=== PATIENT | male | born 1940 | race Caucasian/White ===

== ENCOUNTER 2016-11-24 03:46 | Outpatient (CLI) | payer MEDICARE | END 2016-11-24 03:47 | disposition critical access hospital (66) | LOC: EMS 03:46 | PROVIDERS: ATTEND Surgery | DX: R10.31 Right lower quadrant pain (principal); R11.0 Nausea | CPT/HCPCS: A0425; A0429 ==

== ENCOUNTER 2016-11-24 04:06 | Emergency (ER) | payer MEDICARE ==
[2016-11-24] MEDS ORDERED: SODIUM CHLORIDE 0.9% 1,000 ML IV ONE (04:12)
[2016-11-24] MEDS ORDERED: ACETAMINOPHEN 325 MG TABLET PO STA (04:14)
[2016-11-24] MEDS ORDERED: ONDANSETRON 4 MG/2 ML VIAL IVP STA ×2 (04:14→06:41)
--- NOTE | 2016-11-24 04:19 | ED Physician Documentation ---
PD HPI ABD PAIN - Stated complaint Stated Complaint: ABD PX - Chief complaint Chief Complaint: Abd Pain - History obtained from History obtained from: Patient, EMS - History of Present Illness Timing - onset: How many days ago (3) Timing - details: Gradual onset, Waxing and waning Quality: Cramping, Sharp Location: RLQ Associated symptoms: Nausea. No: Fever, Vomiting, Hematemesis, Diarrhea, Constipation, Dysuria, Hematuria Similar symptoms before: Work up / diagnostics, Treatment, Follow up Recently seen: Not recently seen - Additional information Additional information: Patient is a 75 year old male with a history of a partial bowel resection and a colostomy in place who is presenting to the emergency department for abdominal pain. patient states that the pain has been going on for the last three days. patient states that he did not take anything for the pain. Patient denies any aggravating or alleviating factors and that his colostomy has been filling normally. Patient complains of mild nausea but no vomiting. Patient states that his appendix has been removed but that he has had a liver abscess in the past. Review of Systems Constitutional: denies: Fever, Chills Eyes: denies: Loss of vision, Photophobia Ears: denies: Ear pain, Drainage/discharge Nose: denies: Rhinorrhea / runny nose, Congestion Throat: denies: Dental pain / toothache Respiratory: denies: Cough GI: reports: Abdominal Pain, Nausea. denies: Abdominal Swelling, Vomiting, Constipation, Diarrhea : reports: Incontinent. denies: Dysuria, Frequency, Hesitancy Skin: denies: Rash, Lesions Musculoskeletal: denies: Neck pain, Back pain, Extremity pain Neurologic: denies: Generalized weakness, Focal weakness, Numbness Immunocompromised: denies: Immunocompromised PD PAST MEDICAL HISTORY - Past Medical History Cardiovascular: Hypertension Respiratory: None Neuro: TIA Endocrine/Autoimmune: Type 2 diabetes GI: Other : Nocturia HEENT: Chronic vision loss Psych: None Musculoskeletal: None Derm: None, Other - Past Surgical History Past Surgical History: Yes General: Appendectomy, Bowel surgery, Colonoscopy, Other Cardiovascular: AAA HEENT: Cataracts - Present Medications Home Medications: Ambulatory Orders Medication Instructions Recorded Confirmed Atorvastatin Calcium [Lipitor] 20 mg PO QPM 11/11/12 11/24/16 Doxazosin [Cardura] 8 mg PO BID 08/04/13 11/24/16 Losartan [Cozaar] 50 mg PO HS 08/04/13 11/24/16 Atenolol 100 mg PO BID 04/05/14 11/24/16 Aspirin [Adult Low Dose Aspirin EC] 81 mg PO DAILY 08/09/15 11/24/16 Epinephrine [Epipen 2-Eyal] 1 amp INJ ONCE PRN 08/09/15 11/24/16 traZODone [Desyrel] 50 mg PO QPM 08/09/15 11/24/16 Acetaminophen 1 - 2 tab PO Q6HR PRN 08/18/15 11/24/16 metFORMIN [Glucophage] 500 tab PO BID 05/29/16 11/24/16 Ondansetron Odt [Zofran] 4 mg TL Q6H PRN #14 tablet 11/24/16 - Allergies Allergies/Adverse Reactions: Allergies Allergy/AdvReac Type Severity Reaction Status Date / Time Calcium Channel Blocking Allergy Unknown UNKOWN Verified 11/24/16 04:12 Agent Dilt [Calcium Channel Blocking Agents-Curly] codeine [Codeine] Allergy vomiting Verified 11/24/16 04:12 Penicillins Allergy unknown Verified 11/24/16 04:12 venom-honey bee Allergy anaphylaxis Verified 11/24/16 04:12 [bee venom (honey bee)] - Social History Does the pt smoke?: No Smoking Status: Former smoker Does the pt drink ETOH?: No Does the pt have substance abuse?: No - Immunizations Immunizations are current?: Yes - POLST Patient has POLST: Yes POLST Status: Full Code PD ED PE NORMAL - Vitals Vital signs reviewed: Yes - General General: Alert and oriented X 3, No acute distress - HEENT HEENT: Atraumatic, PERRL - Neck Neck: Supple, no meningeal sign - Cardiac Cardiac: RRR, No murmur - Respiratory Respiratory: No respiratory distress, Clear bilaterally - Abdomen Abdomen: Soft, Non distended - Derm Derm: Normal color, Warm and dry, No rash - Extremities Extremities: Normal ROM s pain, No edema - Neuro Neuro: Alert and oriented X 3, No motor deficit, No sensory deficit, Normal speech - Psych Psych: Normal mood, Normal affect PD ED PE EXPANDED - Abdomen Abdomen: Tender to palpation, RLQ, Surgical scars, Other (midline incisional scars with colostomy in place, abdomen is soft non disteneded) Results - Vitals Vitals: Vital Signs - 24 hr 11/24/16 11/24/16 11/24/16 04:07 05:12 06:17 Temperature 37.9 C H 38.1 C H Heart Rate 77 85 88 Respiratory 16 16 16 Rate Blood Pressure 195/77 H 167/76 H 155/72 H O2 Saturation 96 95 93 Oxygen O2 Source [With Activity] Nasal cannula O2 Source [Without Activity] Nasal cannula O2 Source Room air - Labs Labs: Laboratory Tests 11/24/16 11/24/16 11/24/16 04:20 05:00 05:00 WBC 7.2 RBC 4.30 L Hgb 12.3 L Hct 37.5 L MCV 87.1 MCH 28.5 MCHC 32.7 RDW 15.9 H Plt Count 133 MPV 7.8 Neut # 6.1 Lymph # 0.4 L [place] # 0.3 Eos # 0.3 Baso # 0.0 Absolute Nucleated RBC 0.00 Nucleated RBCs 0.0 Sodium 139 Potassium 3.1 L Chloride 105 Carbon Dioxide 28 Anion Gap 6.0 BUN 15 Creatinine 1.0 Estimated GFR (MDRD) 72 L Glucose 138 H Calcium 7.9 L Total Bilirubin 2.7 H AST 233 H ALT 129 H Alkaline Phosphatase 319 H Total Protein 5.5 L Albumin 3.1 L Globulin 2.4 Albumin/Globulin Ratio 1.3 Lipase 189 H Urine Color YELLOW Urine Clarity CLEAR Urine pH 7.5 Ur Specific [place] 1.020 Urine Protein 30 H Urine Glucose (UA) NEGATIVE Urine Ketones NEGATIVE Urine Occult Blood TRACE-INTA Urine Nitrite NEGATIVE Urine Bilirubin NEGATIVE Urine Urobilinogen 0.2 (NORMAL) Ur Leukocyte Esterase NEGATIVE Urine RBC 0-5 Urine WBC 0-3 Ur Squamous Epith Cells NONE SEEN Urine Bacteria None Seen Ur Microscopic Review INDICATED Urine Culture Comments NOT INDICATED - Rads (name of study) ct abd pelvis Radiology: Final report received, See rad report (no acute changes) PD MEDICAL DECISION MAKING - ED course Complexity details: reviewed old records, reviewed results, re-evaluated patient , d/w patient ED course: Patient was seen and examined at bedside. IV access was gained and labs were drawn. patient was treated with fluids, zofran and tylenol. When patient's labs came back there were no major abnormalities. Imaging was ordered. When patient returne dfrom imagin he was treated with an additional dose of zofran. Pateint's CT showed no acute abnormalities. Patient required no further work up at this time and patient was stable for discharge with outpatient follow up. Departure - Departure Disposition: 01 Home, Self Care Clinical Impression: Abdominal pain Condition: Good Instructions: ED Abdominal Pain Unkn Cause Follow-Up: primary,care provider [Other] - Within 3 Days (re-evaluate abdominal pain ) Prescriptions: Ondansetron Odt [Zofran] 4 mg TL Q6H PRN #14 tablet PRN Reason: Nausea / Vomiting Comments: Your diagnostics today were within normal limits. You did have a low grade fever so you might have picked up a virus. Make sure you stay well hydrated with water and electrolyte solutions. You can take zofran for nausea and motrin or tylenol as needed for fevers or pains. You should follow up with your doctor early next week if your symptoms persist. You may return to the emergency department at any time for new, worsening or uncontrollable symptoms.
[2016-11-24] MEDS ORDERED: ONDANSETRON 4 MG/2 ML VIAL ONE ×2 (04:20→06:41)
[2016-11-24] MEDS ORDERED: ACETAMINOPHEN 325 MG TABLET PO ONE (04:20)
[2016-11-24 04:36] LABS: BASOPHILS % (AUTO) 0.5 %; EOSINOPHILS # (AUTO) 0.3 10^3/uL (0.0-0.7); EOSINOPHILS % (AUTO) 3.9 %; HCT - HEMATOCRIT 37.5 % (42.0-52.0); HGB - HEMOGLOBIN 12.3 g/dL (14.0-18.0); LYMPHOCYTES # (AUTO) 0.4 10^3/uL (1.5-3.5); LYMPHOCYTES % (AUTO) 5.9 %; MEAN CORPUSCULAR HEMOGLOBIN 28.5 pg (27.0-31.0); MEAN CORPUSCULAR HGB CONC 32.7 g/dL (32.0-36.0); MEAN CORPUSCULAR VOLUME 87.1 fL (80.0-94.0); MEAN PLATELET VOLUME 7.8 fL (7.4-11.4); MONOCYTES # (AUTO) 0.3 10^3/uL (0.0-1.0); MONOCYTES % (AUTO) 4.9 %; NEUTROPHILS # (AUTO) 6.1 10^3/uL (1.5-6.6); NEUTROPHILS % (AUTO) 84.8 %; RED CELL DISTRIBUTION WIDTH 15.9 % (12.0-15.0); UNCORRECTED WHITE BLOOD COUNT 7.2 x10^3/uL; WHITE BLOOD COUNT 7.2 x10^3/uL (4.8-10.8)
[2016-11-24 05:08] LABS: BILIRUBIN,URINE NEGATIVE (NEGATIVE); PH,URINE 7.5 PH (5.0-7.5)
[2016-11-24 05:16] LABS: UA w/ MICROSCOPIC CHARGE YES; UR CULTURE IF IND NOT INDICATED; WBC,URINE 0-3 /HPF (0-3)
[2016-11-24 05:18] LABS: ALBUMIN/GLOBULIN RATIO 1.3 (1.0-2.2); BILIRUBIN,TOTAL 2.7 mg/dL (0.2-1.0); CALCIUM 7.9 mg/dL (8.5-10.3); POTASSIUM 3.1 mmol/L (3.5-5.0); TOTAL PROTEIN 5.5 g/dL (6.7-8.2)
[2016-11-24] MEDS ORDERED: IOPAMIDOL-300 100 ML VIAL IVP ONE (06:11)
[2016-11-24 06:18] VITALS: BP 155/72
--- NOTE | 2016-11-24 06:40 | CT Preliminary Report ---
Exam: CT Abdomen/Pelvis W/ IMPRESSION: 1. No acute inflammatory or obstructive process seen in the abdomen or pelvis. 2. Postoperative changes with left lower quadrant colostomy and prostatectomy. 3. Suspect fatty liver. Mild splenomegaly. 4. Cardiomegaly and coronary artery calcifications with trace pericardial effusion. [facility] SITE ID: [id number]
--- NOTE | 2016-11-24 06:42 | CT Report ---
EXAM: CT ABDOMEN AND PELVIS EXAM DATE: 11/24/2016 06:19 AM. CLINICAL HISTORY: Abdominal pain. Colostomy. COMPARISONS: 08/13/2015. TECHNIQUE: Routine helical CT imaging was performed through the abdomen and pelvis. IV contrast: Mari onic. Enteric contrast: No. Reconstructions: Coronal and sagittal. In accordance with CT protocol optimization, one or more of the following dose reduction techniques w ere utilized for this exam: automated exposure control, adjustment of mA and/or KV based on patient s ize, or use of iterative reconstructive technique. FINDINGS: Lung Bases: Right lower lobe bulla. Bibasilar atelectasis. Calcified pleural plaquing. Cardiomegaly. Coronary artery calcifications. Trace pericardial effusion. Liver: No focal lesion identified. Possible fatty infiltration. Gallbladder/Bile Ducts: Status post cholecystectomy. Spleen: Enlarged at 13.5 cm. Calcified granulomas. Pancreas: Normal. Adrenal Glands: Normal. Kidneys: Right kidney is somewhat atrophic. Bilateral cysts. Peritoneal Cavity/Bowel: Left lower quadrant colostomy. No bowel obstruction seen. No diverticulitis. No free air or free fluid. No lymphadenopathy. Appendix is not seen. Pelvic Organs: Status post prostatectomy. Visualized pelvic organs are otherwise unremarkable. Vasculature: Severe atherosclerosis. 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 Bones: Degenerative changes in the spine. Other: None. IMPRESSION: 1. No acute inflammatory or obstructive process seen in the abdomen or pelvis. 2. Postoperative changes with left lower quadrant colostomy and prostatectomy. 3. Suspect fatty liver. Mild splenomegaly. 4. Cardiomegaly and coronary artery calcifications with trace pericardial effusion. [facility] Referring Provider Line: [phone] SITE ID: [id number]
== END 2016-11-24 06:56 | disposition home or self-care (01) ==
LOC: EDUNIT# → EDBD → ED 04:06
DX: R10.31 Right lower quadrant pain (principal); Z93.3 Colostomy status; I10 Essential (primary) hypertension; Z86.73 Personal history of transient ischemic attack (TIA), and cerebral infarction without residual deficits; E11.9 Type 2 diabetes mellitus without complications; Z79.84 Long term (current) use of oral hypoglycemic drugs; Z79.82 Long term (current) use of aspirin; Z87.891 Personal history of nicotine dependence
CPT/HCPCS: 36415; 74177; 80053; 81001; 83690; 85025; 96374; 96376; 99284; A9270; Q9967; 81003; 87086

== ENCOUNTER 2017-01-23 03:21 | Emergency (ER) | payer MEDICARE ==
[2017-01-23] MEDS ORDERED: MORPHINE 2 MG/ML SYRINGE IVP STA ×3 (04:00→08:03)
[2017-01-23] MEDS ORDERED: ONDANSETRON 4 MG/2 ML VIAL IVP STA (04:00)
[2017-01-23] MEDS ORDERED: SODIUM CHLORIDE 0.9% 1,000 ML IV ONE ×3 (04:00→08:04)
[2017-01-23] MEDS ORDERED: ACETAMINOPHEN 1,000 MG/100 ML 100 ML IV STA (04:00)
[2017-01-23] MEDS ORDERED: ACETAMINOPHEN 1,000 MG/100 ML 100 ML IV ONE (04:04)
[2017-01-23] MEDS ORDERED: MORPHINE 2 MG/ML SYRINGE ONE ×3 (04:07→08:13)
[2017-01-23] MEDS ORDERED: ONDANSETRON 4 MG/2 ML VIAL ONE (04:08)
--- NOTE | 2017-01-23 04:12 | ED Physician Documentation ---
History of Present Illness - Stated complaint Stated Complaint: ABDOMINAL PAIN,SHAKEY - Chief complaint Chief Complaint: Abd Pain - History obtained from History obtained from: Patient - Additonal information Additional information: This patient is a 76-year-old man who presents with a complaint of abdominal pain and low back pain. He is comes for 2 days of abdominal pain. He has 2 components he has had discomfort for 2 days. He has pain both in the epigastric area and also pain in the lower back bilaterally. He believes that the back pain is a little worse in the abdominal pain. Nothing really makes it come or go. He has had nausea without vomiting during this period of time and has had chills and generalized weakness as well as decreased appetite and p.o. intake. He has not had any cough or any significant ear nose and throat symptoms. He was unaware that he had a fever. This patient does have a history of a large bowel obstruction status post colostomy for stricture. He has a history of diverticulitis and has had a cholecystectomy and AAA repair 11 years ago. He also believes his appendix has been removed. He has hypertension atrial fibrillation and diabetes. He lives at home and ambulates normally. Review of systems: For pertinent positive and negatives in the review of systems please see history of present illness. Otherwise all other systems have been reviewed and are negative. Dragon disclaimer: Parts of this medical record were created using voice recognition technology. Because of the inherent limitations of this system occasional same sounding word substitutions do occur and persist despite proofreading. Please read the document for context. Review of Systems Ten Systems: 10 systems reviewed and negative Constitutional: reports: Fever, Chills, Myalgias Eyes: denies: Loss of vision, Decreased vision, Photophobia Ears: denies: Loss of hearing, Ear pain, Drainage/discharge Nose: denies: Foreign Body Cardiac: denies: Chest pain / pressure, Palpitations Respiratory: denies: Dyspnea, Cough GI: reports: Abdominal Pain, Nausea. denies: Abdominal Swelling, Vomiting, Constipation, Diarrhea, Hematemesis, Bloody / black stool : denies: Dysuria, Frequency, Hesitancy, Unable to Void, Incontinent, Hematuria, Discharge Neurologic: reports: Generalized weakness. denies: Difficulty speaking, Confused, Altered mental status Psychiatric: denies: Depressed, Suicidal, Homicidal PD PAST MEDICAL HISTORY - Past Medical History Past Medical History: Yes Cardiovascular: Hypertension Respiratory: None Neuro: TIA Endocrine/Autoimmune: Type 2 diabetes GI: Other : Nocturia HEENT: Chronic vision loss Psych: None Musculoskeletal: None Derm: None, Other Other Past Medical History: SBO - Past Surgical History Past Surgical History: Yes General: Appendectomy, Bowel surgery, Colonoscopy, Other Cardiovascular: AAA HEENT: Cataracts - Present Medications Home Medications: Ambulatory Orders Medication Instructions Recorded Confirmed Atorvastatin Calcium [Lipitor] 20 mg PO QPM 11/11/12 01/23/17 Doxazosin [Cardura] 16 mg PO BID 08/04/13 01/23/17 Losartan [Cozaar] 50 mg PO HS 08/04/13 01/23/17 Atenolol 100 mg PO BID 04/05/14 01/23/17 Aspirin [Adult Low Dose Aspirin EC] 81 mg PO DAILY 08/09/15 01/23/17 Epinephrine [Epipen 2-Eyal] 1 amp INJ ONCE PRN 08/09/15 01/23/17 traZODone [Desyrel] 50 mg PO QPM 08/09/15 01/23/17 Acetaminophen 1 - 2 tab PO Q6HR PRN 08/18/15 01/23/17 metFORMIN [Glucophage] 500 tab PO BID 05/29/16 01/23/17 Ondansetron Odt [Zofran] 4 mg TL Q6H PRN #14 tablet 11/24/16 01/23/17 - Allergies Allergies/Adverse Reactions: Allergies Allergy/AdvReac Type Severity Reaction Status Date / Time Calcium Channel Blocking Allergy Unknown UNKOWN Verified 01/23/17 03:38 Agent Dilt [Calcium Channel Blocking Agents-Curly] codeine [Codeine] Allergy vomiting Verified 01/23/17 03:38 Penicillins Allergy unknown Verified 01/23/17 03:38 venom-honey bee Allergy anaphylaxis Verified 01/23/17 03:38 [bee venom (honey bee)] - Social History Does the pt smoke?: No Smoking Status: Former smoker Does the pt drink ETOH?: No Does the pt have substance abuse?: No - Immunizations Immunizations are current?: Yes - POLST Patient has POLST: Yes POLST Status: Full Code PD ED PE NORMAL - Vitals Vital signs reviewed: Yes - General General: Alert and oriented X 3, No acute distress, Other - HEENT HEENT: Atraumatic (Thin elderly man who is awake and alert and oriented and answers questions appropriately. He is palpably very warm to touch and his oral mucosa looks very dry), PERRL - Neck Neck: Supple, no meningeal sign, No bony TTP, No adenopathy - Cardiac Cardiac: RRR, No murmur, No gallop, No rub - Respiratory Respiratory: No respiratory distress, Clear bilaterally - Abdomen Abdomen: Normal bowel sounds, Soft, Other (Minimal tenderness in the epigastric area) - Back Back: Other (Patient has low back pain diffusely in area just be just above his iliac crest bilaterally. There is no pain or tenderness near the spine. There is no costovertebral angle tenderness on percussion) - Derm Derm: Normal color, Other (Skin is warm to touch) - Extremities Extremities: No deformity, No tenderness to palpate, Normal ROM s pain, No edema - Neuro Neuro: Alert and oriented X 3, j2ee developer 2-12 intact - Psych Psych: Normal mood, Normal affect Results - Vitals Vitals: Vital Signs - 24 hr 01/23/17 01/23/17 01/23/17 03:32 03:40 05:21 Temperature 38.8 C H 37.5 C Heart Rate 88 72 Respiratory 18 19 Rate Blood Pressure 179/87 H 132/63 H O2 Saturation 95 97 Oxygen O2 Source [With Activity] Nasal cannula O2 Source [Without Activity] Nasal cannula O2 Source Nasal cannula - Labs Labs: Laboratory Tests 01/23/17 01/23/17 01/23/17 03:55 03:55 03:55 WBC 7.2 RBC 4.47 L Hgb 12.9 L Hct 39.1 L MCV 87.4 MCH 28.9 MCHC 33.1 RDW 15.0 Plt Count 104 L MPV 7.8 Neut # 6.5 Lymph # 0.3 L [place] # 0.2 Eos # 0.1 Baso # 0.1 Absolute Nucleated RBC 0.00 Nucleated RBCs 0.0 PT 15.8 H INR 1.4 H Sodium 135 Potassium 3.4 L Chloride 98 L Carbon Dioxide 24 Anion Gap 13.0 BUN 19 Creatinine 1.5 H Estimated GFR (MDRD) 45 L Glucose 189 H Lactic Acid Calcium 8.6 Total Bilirubin 3.4 H AST 105 H ALT 56 Alkaline Phosphatase 242 H Troponin I Total Protein 6.6 L Albumin 3.4 Globulin 3.2 Albumin/Globulin Ratio 1.1 Lipase 15 L Urine Color Urine Clarity Urine pH Ur Specific [place] Urine Protein Urine Glucose (UA) Urine Ketones Urine Occult Blood Urine Nitrite Urine Bilirubin Urine Urobilinogen Ur Leukocyte Esterase Urine RBC Urine WBC Ur Squamous Epith Cells Urine Bacteria Urine Casts Urine Mucus Ur Microscopic Review Urine Culture Comments 01/23/17 01/23/17 01/23/17 03:55 04:24 04:37 WBC RBC Hgb Hct MCV MCH MCHC RDW Plt Count MPV Neut # Lymph # [place] # Eos # Baso # Absolute Nucleated RBC Nucleated RBCs PT INR Sodium Potassium Chloride Carbon Dioxide Anion Gap BUN Creatinine Estimated GFR (MDRD) Glucose Lactic Acid 1.8 Calcium Total Bilirubin AST ALT Alkaline Phosphatase Troponin I < 0.04 Total Protein Albumin Globulin Albumin/Globulin Ratio Lipase Urine Color ORANGE Urine Clarity CLEAR Urine pH 5.5 Ur Specific [place] >=1.030 H Urine Protein 100 H Urine Glucose (UA) NEGATIVE Urine Ketones TRACE Urine Occult Blood TRACE-INTA Urine Nitrite NEGATIVE Urine Bilirubin NEGATIVE Urine Urobilinogen 1 (NORMAL) Ur Leukocyte Esterase NEGATIVE Urine RBC 0-5 Urine WBC 0-3 Ur Squamous Epith Cells NONE SEEN Urine Bacteria None Seen Urine Casts 3-5 Hyaline Casts Urine Mucus Few Strands Ur Microscopic Review INDICATED Urine Culture Comments NOT INDICATED PD MEDICAL DECISION MAKING - ED course Complexity details: reviewed old records, reviewed results, re-evaluated patient , considered differential, d/w patient ED course: Patient is a pleasant 76-year-old man who presents with a 2 day history of abdominal pain, nausea and epigastric abdominal pain, nausea, and low back pain. On presentation is found to be febrile here with a temperature of 102. IV line was started he was given IV hydration, IV Tylenol and had blood cultures and a serum lactate is obtained. The serum lactate is normal. The patient's CBC is also normal. He does have elevation of his bilirubin and alkaline phosphatase. A noncontrast CT scan of his abdomen and pelvis was done which demonstrates a 10 mm distal common bile duct stone with evidence of some obstruction. 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 Given the patient's abdominal pain, fever, obstruction on CT scan and elevated bilirubin and alk phos I think this patient could have early cholangitis. He was fluid resuscitated with 1 L of normal saline and will get another liter. He was started on cefazolin because he is penicillin allergic. The physician at [facility] was contacted and are attempting to get a bed at [facility] where the patient has been several times before was recently for revision of his colostomy. Clinical impression: 1. Right upper quadrant pain, fever, elevated bilirubin with a obstruction of the common bile duct on CT scan, possibly concerning for early cholangitis. Departure - Departure Disposition: 02 Transfer Acute Care Hosp
[2017-01-23 04:26] LABS: BASOPHILS # (AUTO) 0.1 10^3/uL (0.0-0.1); BASOPHILS % (AUTO) 0.9 %; EOSINOPHILS # (AUTO) 0.1 10^3/uL (0.0-0.7); EOSINOPHILS % (AUTO) 1.8 %; HCT - HEMATOCRIT 39.1 % (42.0-52.0); HGB - HEMOGLOBIN 12.9 g/dL (14.0-18.0); LYMPHOCYTES # (AUTO) 0.3 10^3/uL (1.5-3.5); MEAN CORPUSCULAR HEMOGLOBIN 28.9 pg (27.0-31.0); MEAN CORPUSCULAR HGB CONC 33.1 g/dL (32.0-36.0); MEAN CORPUSCULAR VOLUME 87.4 fL (80.0-94.0); MEAN PLATELET VOLUME 7.8 fL (7.4-11.4); MONOCYTES # (AUTO) 0.2 10^3/uL (0.0-1.0); MONOCYTES % (AUTO) 3.1 %; NEUTROPHILS # (AUTO) 6.5 10^3/uL (1.5-6.6); NEUTROPHILS % (AUTO) 90.2 %; RED BLOOD COUNT 4.47 10^6/uL (4.70-6.10); UNCORRECTED WHITE BLOOD COUNT 7.2 x10^3/uL; WHITE BLOOD COUNT 7.2 x10^3/uL (4.8-10.8)
[2017-01-23 04:28] LABS: ALBUMIN/GLOBULIN RATIO 1.1 (1.0-2.2); BILIRUBIN,TOTAL 3.4 mg/dL (0.2-1.0); CALCIUM 8.6 mg/dL (8.5-10.3); CREATININE 1.5 mg/dL (0.6-1.2); POTASSIUM 3.4 mmol/L (3.5-5.0); TOTAL PROTEIN 6.6 g/dL (6.7-8.2)
[2017-01-23 04:30] LABS: INR 1.4 (0.8-1.2); PT - PROTHROMBIN TIME 15.8 secs (9.9-12.6)
--- NOTE | 2017-01-23 04:45 | XRAY Preliminary Report ---
Exam: XR Chest 1 View IMPRESSION: 1. No plain film evidence of pneumonia. 2. Mild cardiomegaly without overt heart failure. [facility] SITE ID: [id number]
--- NOTE | 2017-01-23 04:48 | XRAY Report ---
EXAM: CHEST RADIOGRAPHY EXAM DATE: 01/23/2017 04:22 AM. CLINICAL HISTORY: Fever. COMPARISON: 04/25/2014, CT 04/23/2014. TECHNIQUE: 1 view. FINDINGS: Lungs/Pleura: No focal pneumonia or edema evident. No gross pneumothorax or pleural effusion. Mediastinum: Mild cardiomegaly. Tortuous aortic contour. Other: None. IMPRESSION: 1. No plain film evidence of pneumonia. 2. Mild cardiomegaly without overt heart failure. [facility] Referring Provider Line: [phone] SITE ID: [id number]
[2017-01-23 04:57] LABS: PH,URINE 5.5 PH (5.0-7.5)
[2017-01-23 05:02] LABS: BILIRUBIN,URINE NEGATIVE (NEGATIVE); UA w/ MICROSCOPIC CHARGE YES
[2017-01-23 05:27] LABS: UR CULTURE IF IND NOT INDICATED; WBC,URINE 0-3 /HPF (0-3)
--- NOTE | 2017-01-23 05:35 | CT Report ---
EXAM: CT ABDOMEN AND PELVIS (CT KUB) EXAM DATE: 01/23/2017 05:08 AM. CLINICAL HISTORY: Epigastric and LBP, fever, Chronic kidney diease. COMPARISONS: 11/24/2016, 08/13/2015. TECHNIQUE: Routine axial helical CT imaging was performed through the abdomen and pelvis without IV c ontrast. Reconstructions: Coronal and sagittal. In accordance with CT protocol optimization, one or more of the following dose reduction techniques w ere utilized for this exam: automated exposure control, adjustment of mA and/or KV based on patient s ize, or use of iterative reconstructive technique. FINDINGS: Lung Bases: Cystic emphysematous changes in the right lower lobe. Mild bilateral atelectasis/scarring . Gas and debris filled the distal esophagus. Calcified right lower lobe pleural plaque. Right Kidney/Ureter: Mildly atrophic. No stones, hydronephrosis, or hydroureter. Left Kidney/Ureter: No stones, hydronephrosis, or hydroureter. Small cysts. Other Solid Organs: Noncontrast images of the solid organs are grossly unremarkable with note of calc ified granulomas in the spleen. Gallbladder/Bile Ducts: Post colostomy. Distal common bile duct stone measuring 10 x 7 mm on axial im age 37 causes mild to moderate proximal obstruction with main duct measuring up to 17 mm. Peritoneal Cavity: Left lower quadrant ostomy appears unremarkable. No gross bowel obstruction or inf lammatory process seen. No free air or fluid. Pelvic Organs: Post prostatectomy. Urinary bladder appears grossly unremarkable. No bulky adenopathy seen. Vasculature: Severe atherosclerotic disease of the aorta and branches. Previous post-aortic stent gra fting. Stable right common iliac artery aneurysm measuring up to 33 mm in maximum diameter Other: None. IMPRESSION: 1. No urinary tract stones or obstruction. 2. At least mildly obstructing 10 mm distal common bile duct stone. Consider ERCP. 3. Post cholecystectomy, aortic surgery, left lower quadrant ostomy formation, and prostatectomy. 4. Slowly enlarging 33 mm right common iliac artery aneurysm. 5. Mild cardiomegaly and coronary calcifications. 6. Mild right renal atrophy. [facility] Referring Provider Line: [phone] SITE ID: [id number]
[2017-01-23] MEDS ORDERED: ceFAZolin 2 GM/50 ML 50 ML IV ONE ×2 (06:02→06:14)
--- NOTE | 2017-01-23 08:08 | ED Physician Documentation ---
ED Addendum - Addendum Addendum: 01/23/17 08:07 assumed care from night EMP at 730 AM, pt with cholangitis, has been txed with antibiotics, pending EMS arrival to transport to [facility], ordered more morphine as needed and maintenance fluids 01/23/17 10:03 spoke to [facility] transfer coordinating and am advised accepting is Dr Santana , I do not need to contact him/her directly as all info has been relayed, [facility] is arranging transport
[2017-01-23 11:17] VITALS: BP 184/74
== END 2017-01-23 11:54 | disposition short-term general hospital (02) ==
LOC: ED 03:21
DX: R10.11 Right upper quadrant pain (principal); R50.9 Fever, unspecified; E80.7 Disorder of bilirubin metabolism, unspecified; R74.8 Abnormal levels of other serum enzymes; I45.81 Long QT syndrome; I10 Essential (primary) hypertension; E11.8 Type 2 diabetes mellitus with unspecified complications; Z79.84 Long term (current) use of oral hypoglycemic drugs; Z86.73 Personal history of transient ischemic attack (TIA), and cerebral infarction without residual deficits; Z79.82 Long term (current) use of aspirin; Z87.891 Personal history of nicotine dependence
CPT/HCPCS: 36415; 71010; 74176; 80053; 81001; 83605; 83690; 84484; 85025; 85610; 87040; 93005; 96361; 96365; 96375; 96376; 99284; 99285; J0131; J0690; 81003; 87086

== ENCOUNTER 2017-06-03 14:54 | Emergency (ER) | payer MEDICARE ==
[2017-06-03] MEDS ORDERED: ALBUTEROL NEB 2.5 MG/3 ML INH STA (15:04)
--- NOTE | 2017-06-03 15:04 | ED Physician Documentation ---
PD HPI DYSPNEA - Stated complaint Stated Complaint: SOA - History obtained from History obtained from: Patient - History of Present Illness Timing - onset: Other (He has had 1 day of nasal congestion and pressure associated with a dry throat and a dry cough with shortness of breath with exertion but not at rest. No chest pain or pedal edema.) Review of Systems Constitutional: denies: Fever, Chills Nose: reports: Rhinorrhea / runny nose, Congestion, Sinus pressure / pain Throat: reports: Sore throat Cardiac: denies: Chest pain / pressure, Palpitations, Pedal edema PD PAST MEDICAL HISTORY - Past Medical History Cardiovascular: Hypertension Respiratory: None Neuro: TIA Endocrine/Autoimmune: Type 2 diabetes GI: Other : Nocturia HEENT: Chronic vision loss Psych: None Musculoskeletal: None Derm: None, Other - Past Surgical History Past Surgical History: Yes General: Appendectomy, Bowel surgery, Colonoscopy, Other Cardiovascular: AAA HEENT: Cataracts - Present Medications Home Medications: Ambulatory Orders Medication Instructions Recorded Confirmed Atorvastatin Calcium [Lipitor] 20 mg PO QPM 11/11/12 06/03/17 Doxazosin [Cardura] 16 mg PO BID 08/04/13 06/03/17 Losartan [Cozaar] 50 mg PO HS 08/04/13 06/03/17 Atenolol 100 mg PO BID 04/05/14 06/03/17 Aspirin [Adult Low Dose Aspirin EC] 81 mg PO DAILY 08/09/15 06/03/17 Epinephrine [Epipen 2-Eyal] 1 amp INJ ONCE PRN 08/09/15 06/03/17 traZODone [Desyrel] 50 mg PO QPM 08/09/15 06/03/17 Acetaminophen 1 - 2 tab PO Q6HR PRN 08/18/15 06/03/17 metFORMIN [Glucophage] 500 tab PO BID 05/29/16 06/03/17 Albuterol Sulfate [Proventil Hfa 1 - 2 puffs IH Q4H PRN #1 06/03/17 Inhaler] hfa.[email or web address] Doxycycline Hyclate 100 mg PO BID #14 tablet 06/03/17 - Allergies Allergies/Adverse Reactions: Allergies Allergy/AdvReac Type Severity Reaction Status Date / Time Calcium Channel Blocking Allergy Unknown UNKOWN Verified 01/23/17 03:38 Agent Dilt [Calcium Channel Blocking Agents-Curly] codeine [Codeine] Allergy vomiting Verified 01/23/17 03:38 Penicillins Allergy unknown Verified 01/23/17 03:38 venom-honey bee Allergy anaphylaxis Verified 01/23/17 03:38 [bee venom (honey bee)] - Social History Does the pt smoke?: No Smoking Status: Former smoker Does the pt drink ETOH?: No Does the pt have substance abuse?: No - Immunizations Immunizations are current?: Yes - POLST Patient has POLST: Yes POLST Status: Full Code PD ED PE NORMAL - Vitals Vital signs reviewed: Yes - General General: Alert and oriented X 3, No acute distress - HEENT HEENT: Ears normal, Moist mucous membranes, Pharynx benign (Status post tonsillectomy) - Neck Neck: Supple, no meningeal sign, No bony TTP - Cardiac Cardiac: RRR, No murmur - Respiratory Respiratory: No respiratory distress, Other (Mild expiratory wheezes, slightly diminished) - Abdomen Abdomen: Non tender - Extremities Extremities: No edema, No calf tenderness / cord - Neuro Neuro: Alert and oriented X 3, Normal speech - Psych Psych: Normal mood, Normal affect Results - Vitals Vitals: Vital Signs - 24 hr 06/03/17 06/03/17 14:59 15:17 Temperature 36.5 C Heart Rate 80 96 Respiratory 20 14 Rate Blood Pressure 160/108 H O2 Saturation 100 Oxygen O2 Source [With Activity] Nasal cannula O2 Source [Without Activity] Nasal cannula O2 Source Room air - Rads (name of study) 2v chest Radiology: EMP read contemporaneously (Underlying COPD without acute disease) PD MEDICAL DECISION MAKING - ED course ED course: 76-year-old gentleman presents with dyspnea in the setting of viral URI symptoms , he is wheezy on examination and x-ray demonstrates underlying COPD and this is consistent with an exacerbation. Steroids are held given underlying diabetes. He is not in extremis, vital signs are unremarkable albeit for hypertension. Departure - Departure Disposition: 01 Home, Self Care Clinical Impression: Mild chronic obstructive pulmonary disease Condition: Good Record reviewed to determine appropriate education?: Yes Instructions: COPD Dc Prescriptions: Albuterol Sulfate [Proventil Hfa Inhaler] 1 - 2 puffs IH Q4H PRN #1 hfa.aer.ad PRN Reason: Cough Doxycycline Hyclate 100 mg PO BID #14 tablet Comments: Call your doctor to arrange a follow-up appointment, make the next available appointment. In the interim, return anytime if worse or if new symptoms develop. Your blood pressure was elevated today on check into the emergency department. This does not mean that you have hypertension, it is a common phenomenon to come to the emergency department and have elevated blood pressure. I recommend that you see your primary care physician within the week to have it rechecked when you are feeling better.
[2017-06-03] MEDS ORDERED: ALBUTEROL NEB 2.5 MG/3 ML INH ONE (15:19)
--- NOTE | 2017-06-03 15:28 | XRAY Preliminary Report ---
Exam: XR CHEST 2 VIEW PA/LAT IMPRESSION: No acute disease. [facility] SITE ID: [id number]
--- NOTE | 2017-06-03 15:31 | XRAY Report ---
EXAM: CHEST RADIOGRAPHY EXAM DATE: 06/03/2017 03:14 PM. CLINICAL HISTORY: Dyspnea cough. COMPARISON: 04/25/2014. TECHNIQUE: 2 views. FINDINGS: Lungs/Pleura: Hyperexpanded with flattened diaphragm typical for COPD. No localized infiltrate, conso lidation, effusion, or pneumothorax. Mediastinum: Mild cardiomegaly, probably unchanged. Tortuous and ectatic aorta. Upper lobe vessels no t distended. Other: Degenerative changes. IMPRESSION: No acute disease. [facility] Referring Provider Line: [phone] SITE ID: [id number]
[2017-06-03] MEDS ORDERED: DOXYCYCLINE 100 MG TABLET PO STA (15:37)
[2017-06-03] MEDS ORDERED: DOXYCYCLINE 100 MG TABLET PO ONE (15:49)
[2017-06-03 15:53] VITALS: BP 158/90
== END 2017-06-03 15:53 | disposition home or self-care (01) ==
LOC: ED 14:54
DX: I10 Essential (primary) hypertension (principal); E11.9 Type 2 diabetes mellitus without complications; Z79.84 Long term (current) use of oral hypoglycemic drugs; Z86.73 Personal history of transient ischemic attack (TIA), and cerebral infarction without residual deficits; Z79.82 Long term (current) use of aspirin; Z87.891 Personal history of nicotine dependence
CPT/HCPCS: 71020; 94664; 99283; A9270; J7613

== ENCOUNTER 2017-06-05 17:41 | Emergency (ER) | payer MEDICARE ==
--- NOTE | 2017-06-05 17:56 | ED Physician Documentation ---
PD HPI DYSPNEA - Stated complaint Stated Complaint: SOA - History obtained from History obtained from: Patient - History of Present Illness Timing - onset: Other (`He was seen here couple days ago for shortness of breath associated with productive cough, chest x-ray was negative except for findings of chronic COPD. He was placed on albuterol and doxycycline, steroids were held given underlying diabetes. He returns today, no better but no worse, still with a productive cough and shortness of breath, denies fevers.) Review of Systems Constitutional: denies: Fever, Chills Nose: denies: Rhinorrhea / runny nose, Congestion Cardiac: denies: Chest pain / pressure, Palpitations, Pedal edema, Calf pain Respiratory: reports: Dyspnea, Cough. denies: Hemoptysis, Wheezing PD PAST MEDICAL HISTORY - Past Medical History Cardiovascular: Hypertension Respiratory: None Neuro: TIA Endocrine/Autoimmune: Type 2 diabetes GI: Other : Nocturia HEENT: Chronic vision loss Psych: None Musculoskeletal: None Derm: None, Other - Past Surgical History Past Surgical History: Yes General: Appendectomy, Bowel surgery, Colonoscopy, Other Cardiovascular: AAA HEENT: Cataracts - Present Medications Home Medications: Ambulatory Orders Medication Instructions Recorded Confirmed Atorvastatin Calcium [Lipitor] 20 mg PO QPM 11/11/12 06/05/17 Doxazosin [Cardura] 16 mg PO BID 08/04/13 06/05/17 Losartan [Cozaar] 50 mg PO HS 08/04/13 06/05/17 Atenolol 100 mg PO BID 04/05/14 06/05/17 Aspirin [Adult Low Dose Aspirin EC] 81 mg PO DAILY 08/09/15 06/05/17 Epinephrine [Epipen 2-Eyal] 1 amp INJ ONCE PRN 08/09/15 06/05/17 traZODone [Desyrel] 50 mg PO QPM 08/09/15 06/05/17 Acetaminophen 1 - 2 tab PO Q6HR PRN 08/18/15 06/05/17 metFORMIN [Glucophage] 500 tab PO BID 05/29/16 06/05/17 Albuterol Sulfate [Proventil Hfa 1 - 2 puffs IH Q4H PRN #1 06/03/17 06/05/17 Inhaler] hfa.aer.ad Doxycycline Hyclate 100 mg PO BID #14 tablet 06/03/17 06/05/17 Beclomethasone 80 Mcg [Qvar 80] 1 puffs INH BID #1 inhaler 06/05/17 Isosorbide Mononitrate ER [Imdur] 30 mg PO DAILY #30 tablet 06/05/17 - Allergies Allergies/Adverse Reactions: Allergies Allergy/AdvReac Type Severity Reaction Status Date / Time Calcium Channel Blocking Allergy Unknown UNKOWN Verified 06/05/17 17:56 Agent Dilt [Calcium Channel Blocking Agents-Curly] codeine [Codeine] Allergy vomiting Verified 06/05/17 17:56 Penicillins Allergy unknown Verified 06/05/17 17:56 venom-honey bee Allergy anaphylaxis Verified 06/05/17 17:56 [bee venom (honey bee)] - Social History Does the pt smoke?: No Smoking Status: Former smoker Does the pt drink ETOH?: No Does the pt have substance abuse?: No - Immunizations Immunizations are current?: Yes - POLST Patient has POLST: Yes POLST Status: Full Code PD ED PE NORMAL - Vitals Vital signs reviewed: Yes - General General: Alert and oriented X 3, No acute distress - Neck Neck: Supple, no meningeal sign, No bony TTP - Cardiac Cardiac: RRR, No murmur - Respiratory Respiratory: No respiratory distress, Other (Slightly diminished throughout, no wheezing) - Abdomen Abdomen: Soft, Non tender - Extremities Extremities: No edema, No calf tenderness / cord - Neuro Neuro: Alert and oriented X 3, Normal speech Results - Vitals Vitals: Vital Signs - 24 hr 06/05/17 06/05/17 06/05/17 17:44 18:45 19:21 Temperature 36.9 C Heart Rate 80 80 72 Respiratory 24 18 20 Rate Blood Pressure 202/91 H 179/86 H O2 Saturation 97 98 Oxygen O2 Source [] Nasal cannula O2 Source [] Nasal cannula O2 Source Room air - EKG (time done) 1758 Rate: Rate (enter#) (71) Rhythm: NSR [place]: Normal QRS: LVH Ischemia: Non specific changes (repol from LVH) Compare to prior EKG: Unchanged from prior EKG (from 01/23/17) Computer interpretation: Agree with computer - Labs Labs: Laboratory Tests 06/05/17 06/05/17 06/05/17 18:04 18:04 18:04 WBC 5.1 RBC 4.55 L Hgb 12.9 L Hct 39.0 L MCV 85.7 MCH 28.4 MCHC 33.2 RDW 14.7 Plt Count 129 L MPV 7.4 Neut # 3.5 Lymph # 0.9 L [place] # 0.3 Eos # 0.3 Baso # 0.1 Absolute Nucleated RBC 0.00 Nucleated RBC % 0.0 D-Dimer Sodium 137 Potassium 3.6 Chloride 99 L Carbon Dioxide 27 Anion Gap 11.0 BUN 16 Creatinine 1.1 Estimated GFR (MDRD) 65 L Glucose 109 H Calcium 9.5 Total Bilirubin 2.4 H AST 16 ALT < 10 L Alkaline Phosphatase 76 Troponin I < 0.04 B-Natriuretic Peptide Total Protein 7.0 Albumin 3.8 Globulin 3.2 Albumin/Globulin Ratio 1.2 Lipase 23 06/05/17 06/05/17 18:04 18:04 WBC RBC Hgb Hct MCV MCH MCHC RDW Plt Count MPV Neut # Lymph # [place] # Eos # Baso # Absolute Nucleated RBC Nucleated RBC % D-Dimer 747.8 H Sodium Potassium Chloride Carbon Dioxide Anion Gap BUN Creatinine Estimated GFR (MDRD) Glucose Calcium Total Bilirubin AST ALT Alkaline Phosphatase Troponin I B-Natriuretic Peptide 654 H Total Protein Albumin Globulin Albumin/Globulin Ratio Lipase - Rads (name of study) Ct Angio chest Radiology: EMP read contemporaneously (No PE, extensive emphysema, 7 mm right middle lobe nodule, right renal artery stenosis.) PD MEDICAL DECISION MAKING - ED course ED course: 76-year-old gentleman with COPD presents with continued shortness of breath in the setting of previous diagnosis of COPD exacerbation. His vital signs are notable only for hypertension, his lung sounds are diminished. Given that he returns the workup was expanded, he did have a positive d-dimer and this was followed with CT with findings as shown. His blood pressure was quite elevated and he has a moderately elevated BNP, however he does not appear significantly fluid overloaded and there is no evidence of pulmonary edema. That said be he was given a small dose of Lasix and long-acting nitrates. This should help with his blood pressure and inhaled steroids were also added. He was advised of the need for follow-up for the right pulmonary nodule as well as the renal artery stenosis, his renal function is good. Departure - Departure Disposition: 01 Home, Self Care Clinical Impression: Moderate COPD (chronic obstructive pulmonary disease), Renal artery stenosis, Pulmonary nodule, right Dyspnea Qualifiers: Dyspnea type: shortness of breath Qualified Code(s): R06.02 - Shortness of breath; R06.00 - Dyspnea, unspecified; R06.01 - Orthopnea Condition: Good Record reviewed to determine appropriate education?: Yes Instructions: COPD Dc Prescriptions: Beclomethasone 80 Mcg [Qvar 80] 1 puffs INH BID #1 inhaler Isosorbide Mononitrate ER [Imdur] 30 mg PO DAILY #30 tablet Comments: Follow-up with Dr. Marcus on Saturday for recheck of your blood pressure, let her know that the CAT scan today showed A 7 mm pulmonary nodule that will need a repeat CAT scan in 3-6 months, also critical right renal artery stenosis. Return if worse.
[2017-06-05 18:12] LABS: BASOPHILS # (AUTO) 0.1 10^3/uL (0.0-0.1); BASOPHILS % (AUTO) 1.4 %; EOSINOPHILS # (AUTO) 0.3 10^3/uL (0.0-0.7); EOSINOPHILS % (AUTO) 5.5 %; HGB - HEMOGLOBIN 12.9 g/dL (14.0-18.0); LYMPHOCYTES # (AUTO) 0.9 10^3/uL (1.5-3.5); LYMPHOCYTES % (AUTO) 17.4 %; MEAN CORPUSCULAR HEMOGLOBIN 28.4 pg (27.0-31.0); MEAN CORPUSCULAR HGB CONC 33.2 g/dL (32.0-36.0); MEAN CORPUSCULAR VOLUME 85.7 fL (80.0-94.0); MEAN PLATELET VOLUME 7.4 fL (7.4-11.4); MONOCYTES # (AUTO) 0.3 10^3/uL (0.0-1.0); MONOCYTES % (AUTO) 6.7 %; NEUTROPHILS # (AUTO) 3.5 10^3/uL (1.5-6.6); RED BLOOD COUNT 4.55 10^6/uL (4.70-6.10); RED CELL DISTRIBUTION WIDTH 14.7 % (12.0-15.0); UNCORRECTED WHITE BLOOD COUNT 5.1 x10^3/uL; WHITE BLOOD COUNT 5.1 x10^3/uL (4.8-10.8)
[2017-06-05 18:26] LABS: ALBUMIN/GLOBULIN RATIO 1.2 (1.0-2.2); BILIRUBIN,TOTAL 2.4 mg/dL (0.2-1.0); BUN - BLOOD UREA NITROGEN 16 mg/dL (6-20); CALCIUM 9.5 mg/dL (8.5-10.3); CARBON DIOXIDE - CO2 27 mmol/L (21-32); CHLORIDE 99 mmol/L (101-111); CREATININE 1.1 mg/dL (0.6-1.2); GFR - MDRD 65 (>89); GLUCOSE 109 mg/dL (70-100); LIPASE 23 U/L (22-51); POTASSIUM 3.6 mmol/L (3.5-5.0); SODIUM 137 mmol/L (135-145)
[2017-06-05] MEDS ORDERED: IPRATROPIUM/ALBUTEROL 3 ML NEB INH STA (18:36)
[2017-06-05] MEDS ORDERED: IPRATROPIUM/ALBUTEROL 3 ML NEB INH ONE (18:50)
[2017-06-05] MEDS ORDERED: IOPAMIDOL-300 100 ML VIAL ONE (19:14)
[2017-06-05] MEDS ORDERED: IOPAMIDOL-300 100 ML VIAL IVP ONE ×2 (19:30→19:55)
--- NOTE | 2017-06-05 20:38 | CT Preliminary Report ---
Exam: CT CHEST ANGIO (PE) IMPRESSION: 1. Normal pulmonary CT angiogram. No pulmonary emboli. 2. Moderate centrilobular and paraseptal emphysema. 7 mm right middle lobe nodule. No pneumothorax or effusions. Bronchiectasis with volume loss in the medial right lower lobe. Left lower lobe scarring. 3. No bulky mediastinal or hilar adenopathy. Previous granulomatous exposure as evidenced by calcific ations in the right hilum, subcarinal and splenic regions. 4. Marked diffuse atheromatous calcified plaques throughout the ectatic thoracic aorta. No thoracic a ortic aneurysm or dissection. No mediastinal hematoma. Critical stenosis of the right renal artery or igin. [facility] SITE ID: [id number]
--- NOTE | 2017-06-05 20:51 | CT Report ---
EXAM: CT ANGIOGRAM CHEST EXAM DATE: 06/05/2017 08:05 PM. CLINICAL HISTORY: Dyspnea, high D-dimer. COMPARISON: 04/23/2014. TECHNIQUE: Routine helical imaging was performed through the chest in the pulmonary arterial phase. I V Contrast: 80 mL of Isovue 300. Reconstructions: Coronal 3-D MIP reconstructions.Sagittal and ponce l. In accordance with CT protocol optimization, one or more of the following dose reduction techniques w ere utilized for this exam: automated exposure control, adjustment of mA and/or KV based on patient s ize, or use of iterative reconstructive technique. FINDINGS: Pulmonary Arteries: Diagnostic quality: Adequate through the segmental arteries. No evidence for acute or chronic pulmona ry emboli. RV/LV is within normal limits. There is no interventricular septal bowing. There is no reflux of cont rast material in the IVC. Lungs/Pleura: Moderate paraseptal and centrilobular emphysema. Biapical pleural-parenchymal thickenin g is noted. Moderate bilateral hilar bronchial wall thickening. No endobronchial lesion is noted. 7 m m nodule in the right middle lobe abutting the minor fissure on image 92. Previously measuring 4 mm. Volume loss and bronchiectasis in the medial right lower lobe. Large bullous changes are present at t he lateral right lower lobe. No pneumothorax. Bandlike area of scarring is present in the left lower lobe. Mediastinum: Mild cardiac enlargement. No pericardial effusion. Extensive diffuse coronary artery wanda cifications. Small incidental hiatal hernia. Mild diffuse thickening of the esophageal wall from the thoracic inlet to the lower esophagus. Calcifications are present in subcarinal and right hilar regio ns. No bulky adenopathy. Thoracic Aorta: Diffuse atheromatous plaques are present throughout the upper abdominal and thoracic aorta. No thoracic aortic aneurysm is noted. Critical stenosis is present at the origin of the right renal artery. Celiac axis and SMA and left renal artery are widely patent. Thoracic aorta is ectatic but nonaneurysmal. No mediastinal hematoma. Upper Abdomen: Incidental splenic granulomas are noted. Mild thickening of the left adrenal gland. No rmal right adrenal gland. Limited evaluation of the upper abdomen is unremarkable. Other: None. IMPRESSION: 1. Normal pulmonary CT angiogram. No pulmonary emboli. 2. Moderate centrilobular and paraseptal emphysema. 7 mm right middle lobe nodule. No pneumothorax or effusions. Bronchiectasis with volume loss in the medial right lower lobe. Chronic aspiration or inf ection can give this appearance. Left lower lobe scarring. 3. No bulky mediastinal or hilar adenopathy. Previous granulomatous exposure as evidenced by calcific ations in the right hilum, subcarinal and splenic regions. 4. Marked diffuse atheromatous calcified plaques throughout the ectatic thoracic aorta. No thoracic a ortic aneurysm or dissection. No mediastinal hematoma. Critical stenosis of the right renal artery or igin. Recommend follow-up of the described nodule(s) according to the following guidelines: Fleischner Society Recommendations 2017 MacMahon et al. Radiology 2017 Solid Nodules-High Risk Patients: 6-8 mm (single) -CT at 6-12 months, then CT at 18-24 months [facility] Referring Provider Line: [phone] SITE ID: [id number]
[2017-06-05] MEDS ORDERED: ISOSORBIDE MONONITRATE ER 30 MG TABLET PO STA (20:55)
[2017-06-05] MEDS ORDERED: FUROSEMIDE 20 MG TABLET PO STA (20:55)
[2017-06-05 21:09] VITALS: BP 166/99
[2017-06-05] MEDS ORDERED: FUROSEMIDE 20 MG TABLET ONE (21:12)
== END 2017-06-05 21:30 | disposition home or self-care (01) ==
LOC: ED 17:41
DX: J44.9 Chronic obstructive pulmonary disease, unspecified (principal); I70.1 Atherosclerosis of renal artery; R91.1 Solitary pulmonary nodule; I10 Essential (primary) hypertension; E11.9 Type 2 diabetes mellitus without complications; Z79.84 Long term (current) use of oral hypoglycemic drugs; Z86.73 Personal history of transient ischemic attack (TIA), and cerebral infarction without residual deficits; Z87.891 Personal history of nicotine dependence
CPT/HCPCS: 36415; 71275; 80053; 83690; 83880; 84484; 85025; 85379; 93005; 94640; 94664; 99283; 99284; A9270; J7620; Q9967

== ENCOUNTER 2017-11-07 11:55 | Outpatient (CLI) | payer MEDICARE ==
--- NOTE | 2017-11-07 13:45 | CT Report ---
CT CHEST WITHOUT CONTRAST: 11/07/2017 CLINICAL INDICATION: Followup nodule. TECHNIQUE: Axial CT images of the chest were obtained without intravenous contrast. COMPARISON: 06/05/2017. FINDINGS: The heart and great vessels demonstrate atherosclerotic calcifications. Calcified hilar and mediastinal lymph nodes are present, and pleural calcifications are again noted. Emphysema is unchanged. The nodule in the medial right middle lobe is stable, at 7 mm. Small right effusion is now present. No pneumothorax. Osseous structures demonstrate degenerative changes. Limited evaluation of upper abdominal structures demonstrates normal adrenal glands. Splenic granulomas are incidentally noted. IMPRESSION: STABLE RIGHT MIDDLE LOBE NODULE, MEASURING 7 MM. SMALL RIGHT PLEURAL EFFUSION. RECOMMENDATION: Followup CT in 6 months to assure stability, per Fleischner Society guidelines. CT DOSE REDUCTION STATEMENT In accordance with CT protocol optimization, one or more of the following dose reduction techniques were utilized for this exam: automated exposure control, adjustment of mA and/or KV based on patient size, or use of iterative reconstructive technique. TD: 11/07/2017 13:44
== END 2017-11-07 11:56 | disposition home or self-care (01) ==
LOC: DI 11:55
PROVIDERS: ATTEND Internal Medicine
DX: R22.2 Localized swelling, mass and lump, trunk (principal); R91.1 Solitary pulmonary nodule
CPT/HCPCS: 71250

== ENCOUNTER 2018-01-02 18:56 | Outpatient (CLI) | payer MEDICARE | END 2018-01-02 18:57 | disposition critical access hospital (66) | LOC: EMS 18:56 | PROVIDERS: ATTEND Surgery | DX: R06.02 Shortness of breath (principal); R07.89 Other chest pain | CPT/HCPCS: A0425; A0427 ==

== ENCOUNTER 2018-01-02 19:17 | Inpatient (IN) | payer MEDICARE ==
[2018-01-02 19:54] LABS: BASOPHILS # (AUTO) 0.1 10^3/uL (0.0-0.1); BASOPHILS % (AUTO) 1.3 %; EOSINOPHILS # (AUTO) 0.4 10^3/uL (0.0-0.7); EOSINOPHILS % (AUTO) 8.5 %; HGB - HEMOGLOBIN 12.3 g/dL (14.0-18.0); LYMPHOCYTES # (AUTO) 0.5 10^3/uL (1.5-3.5); LYMPHOCYTES % (AUTO) 11.2 %; MEAN CORPUSCULAR HEMOGLOBIN 28.6 pg (27.0-31.0); MEAN CORPUSCULAR VOLUME 89.2 fL (80.0-94.0); MEAN PLATELET VOLUME 7.8 fL (7.4-11.4); MONOCYTES # (AUTO) 0.3 10^3/uL (0.0-1.0); MONOCYTES % (AUTO) 5.6 %; NEUTROPHILS # (AUTO) 3.5 10^3/uL (1.5-6.6); NEUTROPHILS % (AUTO) 73.4 %; PLT - PLATELET COUNT 116 10^3/uL (130-450); RED BLOOD COUNT 4.31 10^6/uL (4.70-6.10); RED CELL DISTRIBUTION WIDTH 15.9 % (12.0-15.0); WHITE BLOOD COUNT 4.7 x10^3/uL (4.8-10.8)
--- NOTE | 2018-01-02 20:26 | XRAY Report ---
Procedure Date: 01/02/2018 Accession Number: [id number] / [id number] Procedure: XR - Chest 1 View X-Ray CPT Code: 11929 FULL RESULT: EXAM: CHEST RADIOGRAPHY EXAM DATE: 01/02/2018 08:10 PM. CLINICAL HISTORY: Dyspnea. COMPARISON: CHEST 2 VIEW PA/LAT 06/03/2017. TECHNIQUE: 1 view. FINDINGS: Lungs/Pleura: Interval development of increasing indistinctness of the markings with patchy areas of mild alveolar opacification. No pneumothorax. Mediastinum: Stable contours with enlarged cardiac silhouette. Tortuous aorta. Other: None. IMPRESSION: Interval development of pulmonary edema. [facility]
[2018-01-02 20:33] LABS: ALBUMIN 3.4 g/dL (3.2-5.5); ALBUMIN/GLOBULIN RATIO 1.1 (1.0-2.2); ALKALINE PHOSPHATASE 87 IU/L (42-121); ALT ALANINE AMINOTRANSFERASE < 10 IU/L (10-60); AST ASPARTATE AMINOTRANSFERASE 11 IU/L (10-42); BILIRUBIN,TOTAL 1.7 mg/dL (0.2-1.0); BUN - BLOOD UREA NITROGEN 15 mg/dL (6-20); CALCIUM 8.5 mg/dL (8.5-10.3); CARBON DIOXIDE - CO2 31 mmol/L (21-32); CHLORIDE 100 mmol/L (101-111); CREATININE 1.1 mg/dL (0.6-1.2); GFR - MDRD 65 (>89); GLUCOSE 126 mg/dL (70-100); LIPASE 29 U/L (22-51); SODIUM 136 mmol/L (135-145); TOTAL PROTEIN 6.5 g/dL (6.7-8.2)
[2018-01-02] MEDS ORDERED: NITROGLYCERIN 2% PASTE TOP STA ×2 (20:40→21:12)
[2018-01-02] MEDS ORDERED: FUROSEMIDE 40 MG/4 ML VIAL IVP STA (20:40)
--- NOTE | 2018-01-02 20:51 | ED Physician Documentation ---
History of Present Illness - Stated complaint Stated Complaint: SOA - Chief complaint Chief Complaint: Cardiac - History obtained from History obtained from: Patient, EMS - History of Present Illness Timing: How many days ago (3) Pain level max: 5 Pain level now: 5 Improved by: nothing Worsened by: exertion - Additonal information Additional information: Patient is a 77-year-old gentleman who presents to the recent dyspnea over the past 2-3 days. Feels like his legs are more swollen as well. Does have chest tightness, not pain per se. He was given aspirin by EMS as well as a nebulizer treatment. Does have a history of congestive heart failure as well as COPD. Symptoms did not change much with his nebulizer use tonight Review of Systems Ten Systems: 10 systems reviewed and negative Constitutional: denies: Fever, Chills Ears: denies: Ear pain Nose: denies: Congestion Throat: denies: Sore throat Cardiac: denies: Palpitations, Calf pain Respiratory: reports: Dyspnea, Wheezing. denies: Cough GI: denies: Nausea, Vomiting, Diarrhea Skin: denies: Rash Musculoskeletal: denies: Neck pain, Back pain Neurologic: denies: Headache PD PAST MEDICAL HISTORY - Past Medical History Cardiovascular: Hypertension Respiratory: None Endocrine/Autoimmune: Type 2 diabetes GI: Other : Nocturia HEENT: Chronic vision loss Psych: None Musculoskeletal: None Derm: None, Other - Past Surgical History Past Surgical History: Yes General: Appendectomy, Bowel surgery, Colonoscopy, Other Cardiovascular: AAA HEENT: Cataracts - Present Medications Home Medications: Ambulatory Orders Medication Instructions Recorded Confirmed Atorvastatin Calcium [Lipitor] 20 mg PO QPM 11/11/12 06/05/17 Doxazosin [Cardura] 16 mg PO BID 08/04/13 06/05/17 Losartan [Cozaar] 50 mg PO HS 08/04/13 06/05/17 Atenolol 100 mg PO BID 04/05/14 06/05/17 Aspirin [Adult Low Dose Aspirin EC] 81 mg PO DAILY 08/09/15 06/05/17 Epinephrine [Epipen 2-Eyal] 1 amp INJ ONCE PRN 08/09/15 06/05/17 traZODone [Desyrel] 50 mg PO QPM 08/09/15 06/05/17 Acetaminophen 1 - 2 tab PO Q6HR PRN 08/18/15 06/05/17 metFORMIN [Glucophage] 500 tab PO BID 05/29/16 06/05/17 Albuterol Sulfate [Proventil Hfa 1 - 2 puffs IH Q4H PRN #1 06/03/17 06/05/17 Inhaler] [email or web address] Doxycycline Hyclate 100 mg PO BID #14 tablet 06/03/17 06/05/17 Beclomethasone 80 Mcg [Qvar 80] 1 puffs INH BID #1 inhaler 06/05/17 Isosorbide Mononitrate ER [Imdur] 30 mg PO DAILY #30 tablet 06/05/17 - Allergies Allergies/Adverse Reactions: Allergies Allergy/AdvReac Type Severity Reaction Status Date / Time Calcium Channel Blocking Allergy Unknown UNKOWN Verified 01/02/18 19:26 Agent Dilt [Calcium Channel Blocking Agents-Curly] codeine [Codeine] Allergy vomiting Verified 01/02/18 19:26 Penicillins Allergy unknown Verified 01/02/18 19:26 venom-honey bee Allergy anaphylaxis Verified 01/02/18 19:26 [bee venom (honey bee)] - Social History Does the pt smoke?: No Smoking Status: Never smoker Does the pt drink ETOH?: No Does the pt have substance abuse?: No - Immunizations Immunizations are current?: Yes - POLST Patient has POLST: Yes POLST Status: Full Code PD ED PE NORMAL - Vitals Vital signs reviewed: Yes - General General: Alert and oriented X 3, No acute distress, Well developed/nourished - HEENT HEENT: Moist mucous membranes - Neck Neck: Supple, no meningeal sign - Cardiac Cardiac: RRR, Strong equal pulses - Respiratory Respiratory: Other (crackles and wheeze B) - Abdomen Abdomen: Soft, Non tender - Back Back: No CVA TTP, No spinal TTP - Derm Derm: Warm and dry, No rash - Extremities Extremities: Other (2+ B LE pitting edema) - Neuro Neuro: Alert and oriented X 3 - Psych Psych: Normal mood, Normal affect Results - Vitals Vitals: Vital Signs - 24 hr 01/02/18 01/02/18 19:19 20:15 Temperature 36.6 C Heart Rate 73 77 Respiratory 18 23 Rate Blood Pressure 212/108 H 218/130 H O2 Saturation 95 100 Oxygen O2 Source [With Activity] Nasal cannula O2 Source [Without Activity] Nasal cannula O2 Source Nasal cannula Oxygen Flow Rate 4 - EKG (time done) 1938 Rate: Rate (enter#) (72) Rhythm: NSR [place]: LAD Intervals: Wide QRS QRS: LVH Compare to prior EKG: Unchanged from prior EKG - Labs Labs: Laboratory Tests 01/02/18 01/02/18 01/02/18 19:45 19:45 19:45 WBC 4.7 L RBC 4.31 L Hgb 12.3 L Hct 38.5 L MCV 89.2 MCH 28.6 MCHC 32.0 RDW 15.9 H Plt Count 116 L MPV 7.8 Neut # (Auto) 3.5 Lymph # (Auto) 0.5 L Williams # (Auto) 0.3 Eos # (Auto) 0.4 Baso # (Auto) 0.1 Absolute Nucleated RBC 0.00 Nucleated RBC % 0.0 Sodium 136 Potassium 4.2 Chloride 100 L Carbon Dioxide 31 Anion Gap 5.0 L BUN 15 Creatinine 1.1 Estimated GFR (MDRD) 65 L Glucose 126 H Calcium 8.5 Total Bilirubin 1.7 H AST 11 ALT < 10 L Alkaline Phosphatase 87 Troponin I < 0.04 B-Natriuretic Peptide Total Protein 6.5 L Albumin 3.4 Globulin 3.1 Albumin/Globulin Ratio 1.1 Lipase 29 01/02/18 19:45 WBC RBC Hgb Hct MCV MCH MCHC RDW Plt Count MPV Neut # (Auto) Lymph # (Auto) Williams # (Auto) Eos # (Auto) Baso # (Auto) Absolute Nucleated RBC Nucleated RBC % Sodium Potassium Chloride Carbon Dioxide Anion Gap BUN Creatinine Estimated GFR (MDRD) Glucose Calcium Total Bilirubin AST ALT Alkaline Phosphatase Troponin I B-Natriuretic Peptide 1528 H Total Protein Albumin Globulin Albumin/Globulin Ratio Lipase - Rads (name of study) cxr Radiology: Prelim report reviewed, EMP read contemporaneously, See rad report ( Interval development of pulmonary edema. ) PD MEDICAL DECISION MAKING - ED course Complexity details: reviewed results, re-evaluated patient, considered differential, d/w patient ED course: Patient is a 77-year-old male with what appears to be a CHF exacerbation. He attempted to stand to use the urinal next to the bed and the emergency department and his oxygen saturation dropped to the low 80s. Placed on supplemental O2. Given ntg and lasix. Will admit the patient for further care. Discussed with Dr. De Santiago, hospitalist who accepts. This document was made in part using voice recognition software. While efforts are made to proofread this document, sound alike and grammatical errors may occur. - Sepsis Event Vital Signs: Vital Signs - 24 hr 01/02/18 01/02/18 19:19 20:15 Temperature 36.6 C Heart Rate 73 77 Respiratory 18 23 Rate Blood Pressure 212/108 H 218/130 H O2 Saturation 95 100 Oxygen O2 Source [With Activity] Nasal cannula O2 Source [Without Activity] Nasal cannula O2 Source Nasal cannula Oxygen Flow Rate 4 Departure - Departure Disposition: 66 [facility] DC/Xfer Clinical Impression: Hypoxia Pulmonary edema Qualifiers: Chronicity: acute Qualified Code(s): J81.0 - Acute pulmonary edema Acute exacerbation of CHF (congestive heart failure) Qualifiers: Heart failure type: diastolic Qualified Code(s): I50.33 - Acute on chronic diastolic (congestive) heart failure Condition: Stable Discharge Date/Time: 01/02/18 21:36
[2018-01-02] MEDS ORDERED: DOXAZOSIN 4 MG TABLET PO SCH (21:00)
[2018-01-02] MEDS ORDERED: MORPHINE 2 MG/ML SYRINGE IVP PRN (21:00)
[2018-01-02] MEDS ORDERED: PROMETHAZINE 25 MG/1 ML VIAL IM PRN (21:00)
[2018-01-02] MEDS ORDERED: cloNIDine 0.1 MG TABLET PO STA (21:10)
--- NOTE | 2018-01-02 21:15 | HISTORY & PHYSICAL EXAMINATION ---
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 The patient states that he has been experiencing shortness of breath over the last week which has been gradually getting worse. He states that it got really bad yesterday where he became short of breath with just walking to his neighbor's house. He states that he has been compliant with his medications and he does eat a low-fat diet with low salt which has not changed. He states that he is noted that over the last month he has had increasing lower extremity swelling. He states that over the last day his shortness of breath has become significantly worse. He states this morning he became short of breath with just walking a few feet. He states that the same time he began feeling pressure on his chest. He states that it did not radiate anywhere and resolved after a short period of time. He states he did try to use his albuterol inhaler at home but this did not give him any relief. He also admits to having orthopnea and an unsteady gait today. He states that he has had some increasing phlegm and coughing over the last week. He denies any fevers or chills. He states that this morning his breathing was so difficult that he had to call 911 and pressed his life alert. Patient denies any headache, blurred vision, runny nose, sore throat, nasal congestion, difficulty swallowing, abdominal pain, nausea, vomiting, diarrhea, constipation, urinary urgency, urinary frequency, dysuria, joint pain, muscle ache, joint swelling, back pain, neck stiffness, hair loss, skin changes, night sweats, recent unintentional weight loss, changes in appetite or any focal neurologic deficits. On presentation to the emergency department the patient was afebrile, he was very hypertensive with a blood pressure of 212/108 and was hypoxic on room air requiring up to 4 L of oxygen. The patient was dyspneic and appeared to be in some respiratory distress. The patient underwent routine lab work which revealed a BNP of 1528. The patient did not have a leukocytosis. The patient' s chest x-ray revealed development of pulmonary edema. The patient's EKG showed some nonspecific ST changes, left ventricular hypertrophy but no ST elevations. The patient's troponin was less than 0.04. Patient was given a dose of IV Lasix in the emergency department with which she did have some response and stated that he did feel significantly better. The patient was admitted to the hospital for hypertensive emergency with CHF exacerbation. History - Past Medical History Cardiovascular: reports: Hypertension, High cholesterol Respiratory: reports: Emphysema Endocrine/Autoimmune: reports: Type 2 diabetes GI: reports: Hiatal hernia, Diverticulitis, Other : reports: Nocturia, Other (History of Prostate Cancer) HEENT: reports: Chronic vision loss Psych: reports: Anxiety Musculoskeletal: reports: None Derm: reports: None, Other MRSA Hx?: No Other Past Medical History: Abdominal Aortic Aneurysm - Past Surgical History General: reports: Cholecystectomy, Appendectomy, Bowel surgery, Hiatal hernia repair, Colonoscopy, Other Cardiovascular: reports: AAA HEENT: reports: Cataracts - Family & Social History Family History: Mother: (Mom lived to be 99), Alzheimer's Disease, Hypertension, Father: , CAD, Hypertension, Brother: CAD Living arrangement: At home Living Situation: Alone Social History Notes: Patient lives in [place], [place] and has been living there for the past 40 years. He is originally from [place]. The patient has never been . He has no children. Patient smoked 1-1/2 packs per day for about 40 years he has quit. 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 He denies any use of cocaine, heroin, LSD , methamphetamines. - POLST Patient has POLST: Yes POLST Status: Full Code Meds/Allgy - Home Medications Home Medications: Ambulatory Orders Medication Instructions Recorded Confirmed Atorvastatin Calcium [Lipitor] 20 mg PO QPM 11/11/12 06/05/17 Doxazosin [Cardura] 16 mg PO BID 08/04/13 06/05/17 Losartan [Cozaar] 50 mg PO HS 08/04/13 06/05/17 Atenolol 100 mg PO BID 04/05/14 06/05/17 Aspirin [Adult Low Dose Aspirin EC] 81 mg PO DAILY 08/09/15 06/05/17 Epinephrine [Epipen 2-Eyal] 1 amp INJ ONCE PRN 08/09/15 06/05/17 traZODone [Desyrel] 50 mg PO QPM 08/09/15 06/05/17 Acetaminophen 1 - 2 tab PO Q6HR PRN 08/18/15 06/05/17 metFORMIN [Glucophage] 500 tab PO BID 05/29/16 06/05/17 Albuterol Sulfate [Proventil Hfa 1 - 2 puffs IH Q4H PRN #1 06/03/17 06/05/17 Inhaler] [email or web address] Doxycycline Hyclate 100 mg PO BID #14 tablet 06/03/17 06/05/17 Beclomethasone 80 Mcg [Qvar 80] 1 puffs INH BID #1 inhaler 06/05/17 Isosorbide Mononitrate ER [Imdur] 30 mg PO DAILY #30 tablet 06/05/17 - Allergies Allergies/Adverse Reactions: Allergies Allergy/AdvReac Type Severity Reaction Status Date / Time Calcium Channel Blocking Allergy Unknown UNKOWN Verified 01/02/18 19:26 Agent Dilt [Calcium Channel Blocking Agents-Curly] codeine [Codeine] Allergy vomiting Verified 01/02/18 19:26 Penicillins Allergy unknown Verified 01/02/18 19:26 venom-honey bee Allergy anaphylaxis Verified 01/02/18 19:26 [bee venom (honey bee)] Review of Systems - Other Findings Other Findings: A comprehensive review of systems was performed the pertinent positives and negatives are stated above in the HPI and the remainder of the review of systems is negative. Exam - Vital Signs Reviewed Vital Signs: Yes Vital Signs: Vital Signs x48h Temp Pulse Resp BP Pulse Ox 01/02/18 20:15 77 23 218/130 H 100 01/02/18 19:19 36.6 C 73 18 212/108 H 95 - Physical Exam General Appearance: positive: Alert, Mild distress (Tachypneic and short of breath) Eyes Bilateral: positive: Normal inspection, PERRL, EOMI, No lid inflammation, Conjunctivae nml, No scleral icterus ENT: positive: ENT inspection nml, Pharynx nml, No signs of dehydration. negative: Purulent nasal drainage, Pharyngeal erythema, Oral lesions Neck: positive: Nml inspection, Thyroid nml, No JVD, Trachea midline. negative : Thyromegaly, Lymphadenopathy (R), Lymphadenopathy (L), Stiff neck, Carotid bruit, Tracheal deviation Respiratory: positive: Chest non-tender, Wheezes (Scattered, mild), Rales ( Bases bilaterally) Cardiovascular: positive: Regular rate & rhythm, No murmur, No gallop Peripheral Pulses: positive: 2+ Abdomen: positive: Non-tender, No organomegaly, Nml bowel sounds, No distention. negative: Guarding, Rebound Back: positive: Nml inspection. negative: CVA tenderness (R), CVA tenderness (L ) Skin: positive: Color nml, No rash, Warm, Dry Extremities: positive: Non-tender, Full ROM, Nml appearance, Pedal edema ( bilateral 2+) Neurologic/Psychiatric: positive: Oriented x3, CN's nml (2-12), Motor nml, Sensation nml, Mood/affect nml Conclusion/Plan - Problem List (1) Acute exacerbation of CHF (congestive heart failure) Conclusion/Plan: Patient presents with what appears likely to be diastolic CHF exacerbation. The patient has an echocardiogram from 2013 which shows a preserved ejection fraction. The patient does have significant left ventricular hypertrophy seen on EKG. Patient is also extremely hypertensive on presentation which is consistent with likely diastolic heart failure. Patient's chest x-ray shows pulmonary edema and patient has crackles on examination. The patient on presentation is hypoxic. Patient's BNP is elevated at 1528. The patient presented with shortness of breath and chest pressure. Patient's EKG did not show any acute ischemic changes or ST elevations. Patient's initial troponin was less than 0.04. The patient likely has exacerbation of diastolic heart failure secondary to hypertensive emergency. Plan: Patient will be placed on IV Lasix 40 mg twice daily Fluid restriction of 2 L Strict I's and O's Daily weights 2 g sodium restriction Echocardiogram Control of hypertensive emergency with continuation of home p.o. meds, nitroglycerin and clonidine. Supplemental oxygen Telemetry monitoring Serial troponins 2 Qualifiers: Heart failure type: diastolic Qualified Code(s): I50.33 - Acute on chronic diastolic (congestive) heart failure (2) Hypertensive emergency Conclusion/Plan: Patient presents to the emergency department with shortness of breath and chest pressure. The patient had pulmonary edema on examination and chest x-ray. Patient was extremely hypertensive with blood pressure of 212/108 on presentation which then went to 218/130. Given the patient's hypoxia and respiratory distress this is considered a hypertensive emergency. Patient likely has acute exacerbation of diastolic heart failure due to hypertensive emergency. Patient otherwise does not have any other end organ damage at this time. Plan: Patient will be given IV lasix. Nitropaste and p.o. clonidine. We will continue the patient's home antihypertensive medications including losartan, atenolol, Imdur and doxazosin. We will attempt to bring the patient's mean arterial pressure down by about 25% in the next 2 hours. Monitor blood pressure and titrate medications as needed. (3) Diabetes Conclusion/Plan: Patient has a history of type 2 diabetes and is on Marlen at home. On presentation the patient's blood glucose is only mildly elevated at 126. While the patient is hospitalized we will hold metformin and place him on sliding scale insulin with a diabetic diet. We will check his hemoglobin A1c. Qualifiers: Diabetes mellitus type: type 2 Diabetes mellitus complication status: without complication (4) Hyperlipidemia Conclusion/Plan: Patient has a history of hyperlipidemia and is on Lipitor at home. We will continue his home dose of Lipitor. Stable Qualifiers: Hyperlipidemia type: unspecified Qualified Code(s): E78.5 - Hyperlipidemia , unspecified (5) COPD (chronic obstructive pulmonary disease) Conclusion/Plan: Patient is a history of COPD with emphysema. He uses an albuterol inhaler as needed at home. He also has a Qvar inhaler. The patient does not appear to be in COPD exacerbation at this time. He was a previous smoker but has quit. Patient is not oxygen dependent. Patient will be placed on albuterol nebulizer as needed and will be placed on Pulmicort and formoterol inhaled twice daily in place of his Qvar. Stable Qualifiers: COPD type: emphysema Emphysema type: unspecified Qualified Code(s): J43.9 - Emphysema, unspecified - Lab Results Lab results reviewed: Yes Fish Bones: 01/02/18 19:45 01/02/18 19:45 Other Lab Results: Laboratory Results WBC 4.7 x10^3/uL (4.8-10.8) L 01/02/18 19:45 RBC 4.31 10^6/uL (4.70-6.10) L 01/02/18 19:45 Hgb 12.3 g/dL (14.0-18.0) L 01/02/18 19:45 Hct 38.5 % (42.0-52.0) L 01/02/18 19:45 MCV 89.2 fL (80.0-94.0) 01/02/18 19:45 MCH 28.6 pg (27.0-31.0) 01/02/18 19:45 MCHC 32.0 g/dL (32.0-36.0) 01/02/18 19:45 RDW 15.9 % (12.0-15.0) H 01/02/18 19:45 Plt Count 116 10^3/uL (130-450) L 01/02/18 19:45 MPV 7.8 fL (7.4-11.4) 01/02/18 19:45 Neut # (Auto) 3.5 10^3/uL (1.5-6.6) 01/02/18 19:45 Lymph # (Auto) 0.5 10^3/uL (1.5-3.5) L 01/02/18 19:45 Luce # (Auto) 0.3 10^3/uL (0.0-1.0) 01/02/18 19:45 Eos # (Auto) 0.4 10^3/uL (0.0-0.7) 01/02/18 19:45 Baso # (Auto) 0.1 10^3/uL (0.0-0.1) 01/02/18 19:45 Absolute Nucleated RBC 0.00 x10^3/uL 01/02/18 19:45 Nucleated RBC % 0.0 /100WBC 01/02/18 19:45 Sodium 136 mmol/L (135-145) 01/02/18 19:45 Potassium 4.2 mmol/L (3.5-5.0) 01/02/18 19:45 Chloride 100 mmol/L (101-111) L 01/02/18 19:45 Carbon Dioxide 31 mmol/L (21-32) 01/02/18 19:45 Anion Gap 5.0 (6-13) L 01/02/18 19:45 BUN 15 mg/dL (6-20) 01/02/18 19:45 Creatinine 1.1 mg/dL (0.6-1.2) 01/02/18 19:45 Estimated GFR (MDRD) 65 (>89) L 01/02/18 19:45 Glucose 126 mg/dL (70-100) H 01/02/18 19:45 Calcium 8.5 mg/dL (8.5-10.3) 01/02/18 19:45 Total Bilirubin 1.7 mg/dL (0.2-1.0) H 01/02/18 19:45 AST 11 IU/L (10-42) 01/02/18 19:45 ALT < 10 IU/L (10-60) L 01/02/18 19:45 Alkaline Phosphatase 87 IU/L (42-121) 01/02/18 19:45 Troponin I < 0.04 ng/mL (<0.49) 01/02/18 19:45 B-Natriuretic Peptide 1528 pg/mL (5-100) H 01/02/18 19:45 Total Protein 6.5 g/dL (6.7-8.2) L 01/02/18 19:45 Albumin 3.4 g/dL (3.2-5.5) 01/02/18 19:45 Globulin 3.1 g/dL (2.1-4.2) 01/02/18 19:45 Albumin/Globulin Ratio 1.1 (1.0-2.2) 01/02/18 19:45 Lipase 29 U/L (22-51) 01/02/18 19:45 - Diagnostic Imaging Results Diagnostic Imaging Results: positive: Final report reviewed Diagnostic Imaging Results Comments: Chest x-ray Impression: Interval development of pulmonary edema - EKG Results EKG Interpreted Independently: Yes EKG Findings: Left ventricular hypertrophy with nonspecific ST changes fairly stable from previous EKG. Core Measures - Anticipated LOS I expect patient to be DC'd or transferred within 96 hours.: Yes - DVT/VTE - Prophylaxis VTE/DVT Prophylaxis med ordered at admit?: Yes
[2018-01-02] MEDS ORDERED: LORazepam 0.5 MG TABLET PO STA (21:35)
[2018-01-02] MEDS: LOSARTAN 50 MG TABLET PO SCH (22:09)
[2018-01-02] MEDS: traZODone 50 MG TABLET PO SCH (22:10)
[2018-01-02] MEDS: ATORVASTATIN 10 MG TABLET PO SCH (22:10)
[2018-01-02] MEDS: ATENOLOL 25 MG TABLET PO SCH (22:10)
[2018-01-02] MEDS: FUROSEMIDE 40 MG/4 ML VIAL IVP SCH (22:11)
[2018-01-02] MEDS: oxyCODONE 5 MG TABLET PO PRN (23:04)
[2018-01-03] MEDS: SODIUM CHLORIDE FLUSH 0.9% 10 ML SYRINGE IVP SCH ×4 (00:14→20:44)
[2018-01-03] MEDS: FORMOTEROL FUMARATE NEB 20 MCG/2 ML INH SCH ×3 (01:01→21:09)
[2018-01-03] MEDS: BUDESONIDE 0.5 MG/2 ML NEB INH SCH ×3 (01:01→21:09)
[2018-01-03 06:22] LABS: BASOPHILS # (AUTO) 0.1 10^3/uL (0.0-0.1); BASOPHILS % (AUTO) 1.3 %; EOSINOPHILS # (AUTO) 0.4 10^3/uL (0.0-0.7); EOSINOPHILS % (AUTO) 9.5 %; HGB - HEMOGLOBIN 11.3 g/dL (14.0-18.0); LYMPHOCYTES # (AUTO) 0.7 10^3/uL (1.5-3.5); MEAN CORPUSCULAR HEMOGLOBIN 29.2 pg (27.0-31.0); MEAN CORPUSCULAR HGB CONC 33.1 g/dL (32.0-36.0); MEAN CORPUSCULAR VOLUME 88.2 fL (80.0-94.0); MEAN PLATELET VOLUME 8.1 fL (7.4-11.4); MONOCYTES # (AUTO) 0.3 10^3/uL (0.0-1.0); MONOCYTES % (AUTO) 7.5 %; NEUTROPHILS # (AUTO) 3.1 10^3/uL (1.5-6.6); NEUTROPHILS % (AUTO) 66.7 %; PLT - PLATELET COUNT 115 10^3/uL (130-450); RED BLOOD COUNT 3.88 10^6/uL (4.70-6.10); RED CELL DISTRIBUTION WIDTH 15.4 % (12.0-15.0); WHITE BLOOD COUNT 4.7 x10^3/uL (4.8-10.8)
[2018-01-03 06:28] LABS: INR 1.3 (0.8-1.2); PT - PROTHROMBIN TIME 14.9 secs (9.9-12.6)
[2018-01-03 07:19] LABS: ALBUMIN/GLOBULIN RATIO 1.1 (1.0-2.2); ALKALINE PHOSPHATASE 72 IU/L (42-121); ALT ALANINE AMINOTRANSFERASE < 10 IU/L (10-60); AST ASPARTATE AMINOTRANSFERASE < 10 IU/L (10-42); BILIRUBIN,TOTAL 2.3 mg/dL (0.2-1.0); BUN - BLOOD UREA NITROGEN 15 mg/dL (6-20); CALCIUM 8.5 mg/dL (8.5-10.3); CARBON DIOXIDE - CO2 33 mmol/L (21-32); CHLORIDE 99 mmol/L (101-111); CREATININE 1.1 mg/dL (0.6-1.2); GFR - MDRD 65 (>89); GLUCOSE 98 mg/dL (70-100); MAGNESIUM 1.8 mg/dL (1.7-2.8); SODIUM 138 mmol/L (135-145); TOTAL PROTEIN 5.7 g/dL (6.7-8.2)
[2018-01-03 07:26] LABS: HB2 TOTAL 12.3 g/dL; HEMOGLOBIN A1C 0.4 g/dL; HEMOGLOBIN A1C % 5.1 % (4.6-6.2)
[2018-01-03] MEDS: POTASSIUM CHLORIDE 20 MEQ TABLET PO SCH (08:27)
[2018-01-03] MEDS: FUROSEMIDE 40 MG/4 ML VIAL IVP SCH ×2 (08:27→20:43)
[2018-01-03] MEDS: DOXAZOSIN 4 MG TABLET PO SCH ×2 (08:28→20:44)
[2018-01-03] MEDS: ASPIRIN EC 81 MG TABLET PO SCH (08:33)
[2018-01-03] MEDS: FAMOTIDINE 20 MG TABLET PO SCH (08:33)
[2018-01-03] MEDS: ENOXAPARIN 40 MG/0.4 ML SYRINGE SUBQ SCH (08:34)
[2018-01-03] MEDS: ISOSORBIDE MONONITRATE ER 30 MG TABLET PO SCH (08:34)
[2018-01-03] MEDS: POLYETHYLENE GLYCOL 3350 17 GM PACKET PO SCH (08:39)
[2018-01-03] MEDS: INSULIN ASPART 300 UNIT/3 ML PEN SUBQ SCH ×4 (08:41→20:44)
[2018-01-03] MEDS: ATENOLOL 25 MG TABLET PO SCH ×2 (09:48→20:45)
--- NOTE | 2018-01-03 14:43 | PROVIDER PROGRESS NOTE ---
Subjective - Prog Note Date Prog Note Date: 01/03/18 - Subjective Pt reports feeling: Improved Subjective: pt state he feel much better than he came in. His breath is better. No fever, chill, cough, CP Current Medications - Current Medications Current Medications: Active Medications Acetaminophen (Tylenol) 650 mg PO Q4HR PRN PRN Reason: Pain 1 to 4 Last Admin: 01/03/18 15:07 Dose: 650 mg Albuterol () 2.5 mg INH RTQ4H PRN PRN Reason: Wheezing Aspirin (Ecotrin) 81 mg PO DAILY [facility] Last Admin: 01/03/18 08:33 Dose: 81 mg Atenolol (Tenormin) 100 mg PO BID [facility] Last Admin: 01/03/18 09:48 Dose: 100 mg Atorvastatin Calcium (Lipitor) 20 mg PO QPM [facility] Last Admin: 01/02/18 22:10 Dose: 20 mg Budesonide (Pulmicort) 0.5 mg INH RTBID [facility] Last Admin: 01/03/18 10:03 Dose: 0.5 mg Doxazosin Mesylate (Cardura) 8 mg PO BID [facility] Last Admin: 01/03/18 08:28 Dose: 8 mg Enoxaparin Sodium (Lovenox) 40 mg SUBQ DAILY [facility] Last Admin: 01/03/18 08:34 Dose: 40 mg Famotidine (Pepcid) 20 mg PO DAILY [facility] Last Admin: 01/03/18 08:33 Dose: 20 mg Formoterol Fumarate (Perforomist) 20 mcg INH RTBID [facility] Last Admin: 01/03/18 10:03 Dose: 20 mcg Furosemide (Lasix Inj 40 Mg Vial) 40 mg IVP BID [facility] Last Admin: 01/03/18 08:27 Dose: 40 mg Insulin Aspart (Novolog) 1 - 5 unit SUBQ 0800,1200,1700,2100 [facility] PRN Reason: Protocol Last Admin: 01/03/18 11:29 Dose: Not Given Isosorbide Mononitrate (Imdur) 30 mg PO DAILY [facility] Last Admin: 01/03/18 08:34 Dose: 30 mg Losartan Potassium (Cozaar) 50 mg PO HS [facility] Last Admin: 01/02/18 22:09 Dose: 50 mg Morphine Sulfate (Morphine) 2 mg IVP Q2H PRN PRN Reason: Pain 8 to 10 Ondansetron HCl (Zofran Inj) 4 mg IVP Q6HR PRN PRN Reason: Nausea / Vomiting Last Admin: 01/03/18 15:30 Dose: 4 mg Oxycodone HCl (Roxicodone) 5 mg PO Q4HR PRN PRN Reason: Pain 5 to 7 Last Admin: 01/02/18 23:04 Dose: 5 mg Polyethylene Glycol (Miralax) 17 gm PO DAILY [facility] Last Admin: 01/03/18 08:39 Dose: Not Given Potassium Chloride (K-Dur) 20 meq PO DAILYWM [facility] Last Admin: 01/03/18 08:27 Dose: 20 meq Prochlorperazine Edisylate (Compazine Inj) 10 mg IVP Q6HR PRN PRN Reason: Nausea / Vomiting Promethazine HCl (Phenergan Inj) 25 mg IM Q6HR PRN PRN Reason: Nausea / Vomiting Sodium Chloride (Normal Saline Flush 0.9%) 10 ml IVP PRN PRN PRN Reason: NEEDED PER PROVIDER ORDERS Last Admin: 01/03/18 15:32 Dose: 10 ml Sodium Chloride (Normal Saline Flush 0.9%) 10 ml IVP 0100,0900,1700 [facility] Last Admin: 01/03/18 09:10 Dose: 10 ml Trazodone HCl (Desyrel) 50 mg PO QPM [facility] Last Admin: 01/02/18 22:10 Dose: 50 mg Atorvastatin Calcium [Lipitor] 20 mg PO QPM 11/11/12 Doxazosin [Cardura] 8 mg PO BID 08/04/13 Losartan [Cozaar] 50 mg PO BID 08/04/13 Aspirin [Adult Low Dose Aspirin EC] 81 mg PO DAILY 08/09/15 traZODone [Desyrel] 50 mg PO QPM 08/09/15 Acetaminophen 325 - 650 mg PO Q6HR PRN 08/18/15 metFORMIN [Glucophage] 500 mg PO BID 05/29/16 Metoprolol Tartrate [Lopressor] 50 mg PO BID 01/03/18 Objective - Vital Signs/Intake & Output Reviewed Vital Signs: Yes Vital Signs: Vital Signs x48h Temp Pulse Pulse Resp BP Pulse Ox 01/03/18 13:00 36.8 C 50 L 16 100/55 L 97 01/03/18 10:03 49 L 22 01/03/18 08:00 36.6 C 47 L 18 157/77 H 97 Intake & Output: Intake & Output 12/31/17 01/01/18 01/02/18 01/03/18 23:59 23:59 23:59 23:59 Intake Total 580 Output Total 767 2842 Balance -863 -4132 - Objective General Appearance: positive: No acute distress, Alert. negative: Lethargic Eyes Bilateral: positive: Normal inspection, PERRL, No lid inflammation, Conjunctivae nml ENT: positive: ENT inspection nml, Pharynx nml, No signs of dehydration. negative: Purulent nasal drainage, Pharyngeal erythema, Oral lesions Neck: positive: Nml inspection, Thyroid nml, No JVD, Trachea midline. negative : Thyromegaly, Lymphadenopathy (R), Lymphadenopathy (L), Stiff neck, Carotid bruit, Swelling/bruising, Tracheal deviation Respiratory: positive: Chest non-tender, No respiratory distress, Breath sounds nml. negative: Wheezes, Rales, Rhonchi Cardiovascular: positive: Regular rate & rhythm, Systolic murmur, Diastolic murmur. negative: Irregularly irregular, Extrasystoles, Tachycardia, Bradycardia, JVD present Peripheral Pulses: 2+ Radial (R), 2+ Radial (L), 2+ Dorsalis pedis (R), 2+ Dorsalis pedis (L) Abdomen: positive: Non-tender, No organomegaly, Nml bowel sounds, No distention. negative: Tenderness, Guarding, Rebound Back: positive: Nml inspection. negative: CVA tenderness (R), CVA tenderness (L ) Skin: positive: Color nml, No rash, Warm, Dry. negative: Cyanosis, Diaphoresis , Pallor Extremities: positive: Non-tender, Full ROM, Nml appearance. negative: Calf tenderness, Joint swelling, Benito's sign/cords Neurologic/Psychiatric: positive: Oriented x3, Motor nml, Sensation nml, Mood/ affect nml. negative: Sensory loss, Facial droop, Slurred/abnml speech, Depressed mood/affect - Lab Results Fish Bones: 01/03/18 05:20 01/03/18 05:20 Other Labs: Lab Results x24hrs 01/03/18 01/03/18 01/03/18 Range/Units 11:26 07:53 07:35 WBC (4.8-10.8) x10^3/uL RBC (4.70-6.10) 10^6/uL Hgb (14.0-18.0) g/dL Hct (42.0-52.0) % MCV (80.0-94.0) fL MCH (27.0-31.0) pg MCHC (32.0-36.0) g/dL RDW (12.0-15.0) % Plt Count (130-450) 10^3/uL MPV (7.4-11.4) fL Neut # (Auto) (1.5-6.6) 10^3/uL Lymph # (Auto) (1.5-3.5) 10^3/uL [place] # (Auto) (0.0-1.0) 10^3/uL Eos # (Auto) (0.0-0.7) 10^3/uL Baso # (Auto) (0.0-0.1) 10^3/uL Absolute Nucleated RBC x10^3/uL Nucleated RBC % /100WBC PT (9.9-12.6) secs INR (0.8-1.2) Sodium (135-145) mmol/L Potassium (3.5-5.0) mmol/L Chloride (101-111) mmol/L Carbon Dioxide (21-32) mmol/L Anion Gap (6-13) BUN (6-20) mg/dL Creatinine (0.6-1.2) mg/dL Estimated GFR (MDRD) (>89) Glucose (70-100) mg/dL POC Whole Bld Glucose 105 H 87 (70 - 100) mg/dL Glycated Hemoglobin (4.6-6.2) % Estim Average Glucose (70-100) Calcium (8.5-10.3) mg/dL Magnesium (1.7-2.8) mg/dL Total Bilirubin (0.2-1.0) mg/dL AST (10-42) IU/L ALT (10-60) IU/L Alkaline Phosphatase (42-121) IU/L Troponin I < 0.04 (<0.49) ng/mL B-Natriuretic Peptide (5-100) pg/mL Total Protein (6.7-8.2) g/dL Albumin (3.2-5.5) g/dL Globulin (2.1-4.2) g/dL Albumin/Globulin Ratio (1.0-2.2) 01/03/18 01/03/18 01/03/18 Range/Units 05:20 05:20 05:20 WBC (4.8-10.8) x10^3/uL RBC (4.70-6.10) 10^6/uL Hgb (14.0-18.0) g/dL Hct (42.0-52.0) % MCV (80.0-94.0) fL MCH (27.0-31.0) pg MCHC (32.0-36.0) g/dL RDW (12.0-15.0) % Plt Count (130-450) 10^3/uL MPV (7.4-11.4) fL Neut # (Auto) (1.5-6.6) 10^3/uL Lymph # (Auto) (1.5-3.5) 10^3/uL [place] # (Auto) (0.0-1.0) 10^3/uL Eos # (Auto) (0.0-0.7) 10^3/uL Baso # (Auto) (0.0-0.1) 10^3/uL Absolute Nucleated RBC x10^3/uL Nucleated RBC % /100WBC PT (9.9-12.6) secs INR (0.8-1.2) Sodium 138 (135-145) mmol/L Potassium 3.8 (3.5-5.0) mmol/L Chloride 99 L (101-111) mmol/L Carbon Dioxide 33 H (21-32) mmol/L Anion Gap 6.0 (6-13) BUN 15 (6-20) mg/dL Creatinine 1.1 (0.6-1.2) mg/dL Estimated GFR (MDRD) 65 L (>89) Glucose 98 (70-100) mg/dL POC Whole Bld Glucose (70 - 100) mg/dL Glycated Hemoglobin 5.1 (4.6-6.2) % Estim Average Glucose 100 (70-100) Calcium 8.5 (8.5-10.3) mg/dL Magnesium 1.8 (1.7-2.8) mg/dL Total Bilirubin 2.3 H (0.2-1.0) mg/dL AST < 10 L (10-42) IU/L ALT < 10 L (10-60) IU/L Alkaline Phosphatase 72 (42-121) IU/L Troponin I (<0.49) ng/mL B-Natriuretic Peptide 2123 H (5-100) pg/mL Total Protein 5.7 L (6.7-8.2) g/dL Albumin 3.0 L (3.2-5.5) g/dL Globulin 2.7 (2.1-4.2) g/dL Albumin/Globulin Ratio 1.1 (1.0-2.2) 01/03/18 01/03/18 01/03/18 Range/Units 05:20 05:20 01:50 WBC 4.7 L (4.8-10.8) x10^3/uL RBC 3.88 L (4.70-6.10) 10^6/uL Hgb 11.3 L (14.0-18.0) g/dL Hct 34.3 L (42.0-52.0) % MCV 88.2 (80.0-94.0) fL MCH 29.2 (27.0-31.0) pg MCHC 33.1 (32.0-36.0) g/dL RDW 15.4 H (12.0-15.0) % Plt Count 115 L (130-450) 10^3/uL MPV 8.1 (7.4-11.4) fL Neut # (Auto) 3.1 (1.5-6.6) 10^3/uL Lymph # (Auto) 0.7 L (1.5-3.5) 10^3/uL [place] # (Auto) 0.3 (0.0-1.0) 10^3/uL Eos # (Auto) 0.4 (0.0-0.7) 10^3/uL Baso # (Auto) 0.1 (0.0-0.1) 10^3/uL Absolute Nucleated RBC 0.00 x10^3/uL Nucleated RBC % 0.0 /100WBC PT 14.9 H (9.9-12.6) secs INR 1.3 H (0.8-1.2) Sodium (135-145) mmol/L Potassium (3.5-5.0) mmol/L Chloride (101-111) mmol/L Carbon Dioxide (21-32) mmol/L Anion Gap (6-13) BUN (6-20) mg/dL Creatinine (0.6-1.2) mg/dL Estimated GFR (MDRD) (>89) Glucose (70-100) mg/dL POC Whole Bld Glucose (70 - 100) mg/dL Glycated Hemoglobin (4.6-6.2) % Estim Average Glucose (70-100) Calcium (8.5-10.3) mg/dL Magnesium (1.7-2.8) mg/dL Total Bilirubin (0.2-1.0) mg/dL AST (10-42) IU/L ALT (10-60) IU/L Alkaline Phosphatase (42-121) IU/L Troponin I 0.04 (<0.49) ng/mL B-Natriuretic Peptide (5-100) pg/mL Total Protein (6.7-8.2) g/dL Albumin (3.2-5.5) g/dL Globulin (2.1-4.2) g/dL Albumin/Globulin Ratio (1.0-2.2) ABX Reporting Has patient been on IV antibiotics over the past 48 hours?: No Assessment/Plan - Problem List (1) Acute exacerbation of CHF (congestive heart failure) Impression: Conclusion/Plan: 01/03 Fluid restrict, daily weight, lower sodium diet continue IV of lasix daily check BNP, lab test ECHO reveals EF 40-45%, both systolic and diastolic CHF Supplemental oxygen as needed Telemetry monitoring vital monitor Patient presents with what appears likely to be diastolic CHF exacerbation. The patient has an echocardiogram from 2013 which shows a preserved ejection fraction. The patient does have significant left ventricular hypertrophy seen on EKG. Patient is also extremely hypertensive on presentation which is consistent with likely diastolic heart failure. Patient's chest x-ray shows pulmonary edema and patient has crackles on examination. The patient on presentation is hypoxic. Patient's BNP is elevated at 1528. The patient presented with shortness of breath and chest pressure. Patient's EKG did not show any acute ischemic changes or ST elevations. Patient's initial troponin was less than 0.04. The patient likely has exacerbation of diastolic heart failure secondary to hypertensive emergency. Plan: Patient will be placed on IV Lasix 40 mg twice daily Fluid restriction of 2 L Strict I's and O's Daily weights 2 g sodium restriction Echocardiogram Control of hypertensive emergency with continuation of home p.o. meds, nitroglycerin and clonidine. Supplemental oxygen Telemetry monitoring Serial troponins 2 Qualifiers: Heart failure type: diastolic Qualified Code(s): I50.33 - Acute on chronic diastolic (congestive) heart failure (2) Hypertensive emergency Conclusion/Plan: controlled continue home meds vital monitor Patient presents to the emergency department with shortness of breath and chest pressure. The patient had pulmonary edema on examination and chest x-ray. Patient was extremely hypertensive with blood pressure of 212/108 on presentation which then went to 218/130. Given the patient's hypoxia and respiratory distress this is considered a hypertensive emergency. Patient likely has acute exacerbation of diastolic heart failure due to hypertensive emergency. Patient otherwise does not have any other end organ damage at this time. Plan: Patient will be given IV lasix. Nitropaste and p.o. clonidine. We will continue the patient's home antihypertensive medications including losartan, atenolol, Imdur and doxazosin. We will attempt to bring the patient's mean arterial pressure down by about 25% in the next 2 hours. Monitor blood pressure and titrate medications as needed. (3) Diabetes Conclusion/Plan: Patient has a history of type 2 diabetes and is on Marlen at home. On presentation the patient's blood glucose is only mildly elevated at 126. While the patient is hospitalized we will hold metformin and place him on sliding scale insulin with a diabetic diet. We will check his hemoglobin A1c. (4) Hyperlipidemia Conclusion/Plan: Patient has a history of hyperlipidemia and is on Lipitor at home. We will continue his home dose of Lipitor. Stable (5) COPD (chronic obstructive pulmonary disease) Conclusion/Plan: stable, 95% sats on room air. continue breath treatment as needed Patient is a history of COPD with emphysema. He uses an albuterol inhaler as needed at home. He also has a Qvar inhaler. The patient does not appear to be in COPD exacerbation at this time. He was a previous smoker but has quit. Patient is not oxygen dependent. Patient will be placed on albuterol nebulizer as needed and will be placed on Pulmicort and formoterol inhaled twice daily in place of his Qvar. Stable Qualifiers: Heart failure type: diastolic Qualified Code(s): I50.33 - Acute on chronic diastolic (congestive) heart failure
[2018-01-03] MEDS: ACETAMINOPHEN 325 MG TABLET PO PRN (15:07)
[2018-01-03] MEDS: ONDANSETRON 4 MG/2 ML VIAL IVP PRN (15:30)
[2018-01-03] MEDS: SODIUM CHLORIDE FLUSH 0.9% 10 ML SYRINGE IVP PRN (15:32)
[2018-01-03] MEDS: LOSARTAN 50 MG TABLET PO SCH (20:44)
[2018-01-03] MEDS: traZODone 50 MG TABLET PO SCH (20:44)
[2018-01-03] MEDS: ATORVASTATIN 10 MG TABLET PO SCH (20:44)
[2018-01-04] MEDS: ONDANSETRON 4 MG/2 ML VIAL IVP PRN ×3 (00:05→16:49)
[2018-01-04] MEDS: SODIUM CHLORIDE FLUSH 0.9% 10 ML SYRINGE IVP PRN ×4 (00:05→21:35)
[2018-01-04 05:46] LABS: BASOPHILS # (AUTO) 0.1 10^3/uL (0.0-0.1); BASOPHILS % (AUTO) 2.3 %; EOSINOPHILS # (AUTO) 0.4 10^3/uL (0.0-0.7); EOSINOPHILS % (AUTO) 9.3 %; HGB - HEMOGLOBIN 11.4 g/dL (14.0-18.0); LYMPHOCYTES # (AUTO) 0.8 10^3/uL (1.5-3.5); LYMPHOCYTES % (AUTO) 17.5 %; MEAN CORPUSCULAR HEMOGLOBIN 28.6 pg (27.0-31.0); MEAN CORPUSCULAR HGB CONC 32.2 g/dL (32.0-36.0); MEAN CORPUSCULAR VOLUME 88.7 fL (80.0-94.0); MEAN PLATELET VOLUME 7.9 fL (7.4-11.4); MONOCYTES # (AUTO) 0.4 10^3/uL (0.0-1.0); MONOCYTES % (AUTO) 8.3 %; NEUTROPHILS # (AUTO) 2.7 10^3/uL (1.5-6.6); NEUTROPHILS % (AUTO) 62.6 %; PLT - PLATELET COUNT 115 10^3/uL (130-450); RED BLOOD COUNT 4.01 10^6/uL (4.70-6.10); RED CELL DISTRIBUTION WIDTH 15.8 % (12.0-15.0); WHITE BLOOD COUNT 4.3 x10^3/uL (4.8-10.8)
[2018-01-04 05:57] LABS: ALBUMIN 2.8 g/dL (3.2-5.5); ALKALINE PHOSPHATASE 66 IU/L (42-121); ALT ALANINE AMINOTRANSFERASE < 10 IU/L (10-60); AST ASPARTATE AMINOTRANSFERASE 10 IU/L (10-42); BILIRUBIN,TOTAL 2.3 mg/dL (0.2-1.0); BUN - BLOOD UREA NITROGEN 21 mg/dL (6-20); CALCIUM 8.3 mg/dL (8.5-10.3); CARBON DIOXIDE - CO2 36 mmol/L (21-32); CHLORIDE 94 mmol/L (101-111); CREATININE 1.7 mg/dL (0.6-1.2); GFR - MDRD 39 (>89); GLUCOSE 92 mg/dL (70-100); MAGNESIUM 1.7 mg/dL (1.7-2.8); SODIUM 137 mmol/L (135-145); TOTAL PROTEIN 5.7 g/dL (6.7-8.2)
[2018-01-04] MEDS: BUDESONIDE 0.5 MG/2 ML NEB INH SCH ×2 (07:28→20:29)
[2018-01-04] MEDS: FORMOTEROL FUMARATE NEB 20 MCG/2 ML INH SCH ×2 (07:28→20:34)
[2018-01-04] MEDS: FUROSEMIDE 40 MG/4 ML VIAL IVP SCH ×2 (07:52→21:34)
[2018-01-04] MEDS: POLYETHYLENE GLYCOL 3350 17 GM PACKET PO SCH (07:52)
[2018-01-04] MEDS: SODIUM CHLORIDE FLUSH 0.9% 10 ML SYRINGE IVP SCH ×3 (07:52→23:44)
[2018-01-04] MEDS: ASPIRIN EC 81 MG TABLET PO SCH (07:52)
[2018-01-04] MEDS: ATENOLOL 25 MG TABLET PO SCH ×2 (07:52→21:33)
[2018-01-04] MEDS: ENOXAPARIN 40 MG/0.4 ML SYRINGE SUBQ SCH (07:52)
[2018-01-04] MEDS: DOXAZOSIN 4 MG TABLET PO SCH ×2 (07:53→21:34)
[2018-01-04] MEDS: ISOSORBIDE MONONITRATE ER 30 MG TABLET PO SCH (07:53)
[2018-01-04] MEDS: POTASSIUM CHLORIDE 20 MEQ TABLET PO SCH (07:53)
[2018-01-04] MEDS: oxyCODONE 5 MG TABLET PO PRN ×2 (07:53→16:49)
[2018-01-04] MEDS: FAMOTIDINE 20 MG TABLET PO SCH (07:53)
[2018-01-04] MEDS: INSULIN ASPART 300 UNIT/3 ML PEN SUBQ SCH ×4 (07:54→21:35)
[2018-01-04] MEDS: PROCHLORPERAZINE 10 MG/2 ML VIAL IVP PRN (18:59)
--- NOTE | 2018-01-04 19:44 | PROVIDER PROGRESS NOTE ---
Subjective - Prog Note Date Prog Note Date: 01/04/18 Prog Note Time: 12:00 - Subjective Pt reports feeling: Improved Subjective: Bradford admits to much improvement since first coming to the ED, especially with ease of breathing. He is asymptomatic from his ongoing bradycardia. He denies new chest pain, increased SOB, nausea, vomiting or an increased cough. He admits to enjoying his food and sleeping fair. Current Medications - Current Medications Current Medications: Active Medications Acetaminophen (Tylenol) 650 mg PO Q4HR PRN PRN Reason: Pain 1 to 4 Last Admin: 01/03/18 15:07 Dose: 650 mg Albuterol () 2.5 mg INH RTQ4H PRN PRN Reason: Wheezing Aspirin (Ecotrin) 81 mg PO DAILY [facility] Last Admin: 01/04/18 07:52 Dose: 81 mg Atenolol (Tenormin) 100 mg PO BID [facility] Last Admin: 01/04/18 07:52 Dose: 100 mg Atorvastatin Calcium (Lipitor) 20 mg PO QPM [facility] Last Admin: 01/03/18 20:44 Dose: 20 mg Budesonide (Pulmicort) 0.5 mg INH RTBID [facility] Last Admin: 01/04/18 07:28 Dose: 0.5 mg Doxazosin Mesylate (Cardura) 8 mg PO BID [facility] Last Admin: 01/04/18 07:53 Dose: 8 mg Enoxaparin Sodium (Lovenox) 40 mg SUBQ DAILY [facility] Last Admin: 01/04/18 07:52 Dose: 40 mg Famotidine (Pepcid) 20 mg PO DAILY [facility] Last Admin: 01/04/18 07:53 Dose: 20 mg Formoterol Fumarate (Perforomist) 20 mcg INH RTBID [facility] Last Admin: 01/04/18 07:28 Dose: 20 mcg Furosemide (Lasix Inj 40 Mg Vial) 40 mg IVP BID [facility] Last Admin: 01/04/18 07:52 Dose: 40 mg Insulin Aspart (Novolog) 1 - 5 unit SUBQ 0800,1200,1700,2100 [facility] PRN Reason: Protocol Last Admin: 01/04/18 16:30 Dose: Not Given Isosorbide Mononitrate (Imdur) 30 mg PO DAILY [facility] Last Admin: 01/04/18 07:53 Dose: 30 mg Losartan Potassium (Cozaar) 50 mg PO HS [facility] Last Admin: 01/03/18 20:44 Dose: 50 mg Morphine Sulfate (Morphine) 2 mg IVP Q2H PRN PRN Reason: Pain 8 to 10 Ondansetron HCl (Zofran Inj) 4 mg IVP Q6HR PRN PRN Reason: Nausea / Vomiting Last Admin: 01/04/18 16:49 Dose: 4 mg Oxycodone HCl (Roxicodone) 5 mg PO Q4HR PRN PRN Reason: Pain 5 to 7 Last Admin: 01/04/18 16:49 Dose: 5 mg Polyethylene Glycol (Miralax) 17 gm PO DAILY [facility] Last Admin: 01/04/18 07:52 Dose: Not Given [facility] Admin: 01/04/18 07:53 Dose: 20 meq Prochlorperazine Edisylate (Compazine Inj) 10 mg IVP Q6HR PRN PRN Reason: Nausea / Vomiting Last Admin: 01/04/18 18:59 Dose: 10 mg Promethazine HCl (Phenergan Inj) 25 mg IM Q6HR PRN PRN Reason: Nausea / Vomiting Sodium Chloride (Normal Saline Flush 0.9%) 10 ml IVP PRN PRN PRN Reason: NEEDED PER PROVIDER ORDERS Last Admin: 01/04/18 18:59 Dose: 10 ml Sodium Chloride (Normal Saline Flush 0.9%) 10 ml IVP 0100,0900,1700 [facility] Last Admin: 01/04/18 16:50 Dose: 10 ml Trazodone HCl (Desyrel) 50 mg PO QPM [facility] Last Admin: 01/03/18 20:44 Dose: 50 mg Atorvastatin Calcium [Lipitor] 20 mg PO QPM 11/11/12 Doxazosin [Cardura] 8 mg PO BID 08/04/13 Losartan [Cozaar] 50 mg PO BID 08/04/13 Aspirin [Adult Low Dose Aspirin EC] 81 mg PO DAILY 08/09/15 traZODone [Desyrel] 50 mg PO QPM 08/09/15 Acetaminophen 325 - 650 mg PO Q6HR PRN 08/18/15 metFORMIN [Glucophage] 500 mg PO BID 05/29/16 Metoprolol Tartrate [Lopressor] 50 mg PO BID 01/03/18 Objective - Vital Signs/Intake & Output Reviewed Vital Signs: Yes Vital Signs: Vital Signs x48h Temp Pulse Resp BP Pulse Ox 01/04/18 15:57 36.8 C 57 L 18 123/64 95 01/04/18 12:00 36.7 C 52 L 18 107/53 L 99 Intake & Output: Intake & Output 01/01/18 01/02/18 01/03/18 01/04/18 23:59 23:59 23:59 23:59 Intake Total 580 980 Output Total 425 0181 [facility] Balance -623 -1530 -149 - Objective General Appearance: positive: No acute distress, Alert Eyes Bilateral: positive: Normal inspection Eyes: OU Conjunctivae pale ENT: positive: ENT inspection nml, Pharynx nml, Pharyngeal erythema, Dry mucous membranes Neck: positive: Nml inspection, No JVD, Lymphadenopathy (R), Lymphadenopathy (L) , Stiff neck Respiratory: positive: Chest non-tender, No respiratory distress, Other ( crackles in bilateral lower lobes.) Cardiovascular: positive: Irregularly irregular, Bradycardia, Systolic murmur, Decreased pulse(s) Peripheral Pulses: 1+ Radial (R), 1+ Radial (L) Abdomen: positive: Non-tender, Abnml bowel sounds, Other (ostomy appliance to LLQ, mature and CDI with brown liquid stool.) Back: positive: Nml inspection Skin: positive: No rash, Warm, Dry Extremities: positive: Non-tender, Full ROM, Nml appearance, No pedal edema Neurologic/Psychiatric: positive: Oriented x3, CN's nml (2-12), Motor nml, Sensation nml, Weakness, Depressed mood/affect Reflexes: Bicep (R): 3+, Bicep (L): 3+ - Lab Results Fish Bones: 01/06/18 06:11 01/06/18 06:11 Other Labs: Lab Results x24hrs 01/04/18 01/04/18 01/04/18 Range/Units 16:22 11:48 07:39 WBC (4.8-10.8) x10^3/uL RBC (4.70-6.10) 10^6/uL Hgb (14.0-18.0) g/dL Hct (42.0-52.0) % MCV (80.0-94.0) fL MCH (27.0-31.0) pg MCHC (32.0-36.0) g/dL RDW (12.0-15.0) % Plt Count (130-450) 10^3/uL MPV (7.4-11.4) fL Neut # (Auto) (1.5-6.6) 10^3/uL Lymph # (Auto) (1.5-3.5) 10^3/uL [place] # (Auto) (0.0-1.0) 10^3/uL Eos # (Auto) (0.0-0.7) 10^3/uL Baso # (Auto) (0.0-0.1) 10^3/uL Absolute Nucleated RBC x10^3/uL Nucleated RBC % /100WBC Sodium (135-145) mmol/L Potassium (3.5-5.0) mmol/L Chloride (101-111) mmol/L Carbon Dioxide (21-32) mmol/L Anion Gap (6-13) BUN (6-20) mg/dL Creatinine (0.6-1.2) mg/dL Estimated GFR (MDRD) (>89) Glucose (70-100) mg/dL POC Whole Bld Glucose 97 139 H 84 (70 - 100) mg/dL Calcium (8.5-10.3) mg/dL Magnesium (1.7-2.8) mg/dL Total Bilirubin (0.2-1.0) mg/dL AST (10-42) IU/L ALT (10-60) IU/L Alkaline Phosphatase (42-121) IU/L B-Natriuretic Peptide (5-100) pg/mL Total Protein (6.7-8.2) g/dL Albumin (3.2-5.5) g/dL Globulin (2.1-4.2) g/dL Albumin/Globulin Ratio (1.0-2.2) 01/04/18 01/04/18 01/04/18 Range/Units 05:00 05:00 05:00 WBC 4.3 L (4.8-10.8) x10^3/uL RBC 4.01 L (4.70-6.10) 10^6/uL Hgb 11.4 L (14.0-18.0) g/dL Hct 35.5 L (42.0-52.0) % MCV 88.7 (80.0-94.0) fL MCH 28.6 (27.0-31.0) pg MCHC 32.2 (32.0-36.0) g/dL RDW 15.8 H (12.0-15.0) % Plt Count 115 L (130-450) 10^3/uL MPV 7.9 (7.4-11.4) fL Neut # (Auto) 2.7 (1.5-6.6) 10^3/uL Lymph # (Auto) 0.8 L (1.5-3.5) 10^3/uL [place] # (Auto) 0.4 (0.0-1.0) 10^3/uL Eos # (Auto) 0.4 (0.0-0.7) 10^3/uL Baso # (Auto) 0.1 (0.0-0.1) 10^3/uL Absolute Nucleated RBC 0.00 x10^3/uL Nucleated RBC % 0.0 /100WBC Sodium 137 (135-145) mmol/L Potassium 3.9 (3.5-5.0) mmol/L Chloride 94 L (101-111) mmol/L Carbon Dioxide 36 H (21-32) mmol/L Anion Gap 7.0 (6-13) BUN 21 H (6-20) mg/dL Creatinine 1.7 H (0.6-1.2) mg/dL Estimated GFR (MDRD) 39 L (>89) Glucose 92 (70-100) mg/dL POC Whole Bld Glucose (70 - 100) mg/dL Calcium 8.3 L (8.5-10.3) mg/dL Magnesium 1.7 (1.7-2.8) mg/dL Total Bilirubin 2.3 H (0.2-1.0) mg/dL AST 10 (10-42) IU/L ALT < 10 L (10-60) IU/L Alkaline Phosphatase 66 (42-121) IU/L B-Natriuretic Peptide 471 H (5-100) pg/mL Total Protein 5.7 L (6.7-8.2) g/dL Albumin 2.8 L (3.2-5.5) g/dL Globulin 2.9 (2.1-4.2) g/dL Albumin/Globulin Ratio 1.0 (1.0-2.2) 01/03/18 Range/Units 20:36 WBC (4.8-10.8) x10^3/uL RBC (4.70-6.10) 10^6/uL Hgb (14.0-18.0) g/dL Hct (42.0-52.0) % MCV (80.0-94.0) fL MCH (27.0-31.0) pg MCHC (32.0-36.0) g/dL RDW (12.0-15.0) % Plt Count (130-450) 10^3/uL MPV (7.4-11.4) fL Neut # (Auto) (1.5-6.6) 10^3/uL Lymph # (Auto) (1.5-3.5) 10^3/uL [place] # (Auto) (0.0-1.0) 10^3/uL Eos # (Auto) (0.0-0.7) 10^3/uL Baso # (Auto) (0.0-0.1) 10^3/uL Absolute Nucleated RBC x10^3/uL Nucleated RBC % /100WBC Sodium (135-145) mmol/L Potassium (3.5-5.0) mmol/L Chloride (101-111) mmol/L Carbon Dioxide (21-32) mmol/L Anion Gap (6-13) BUN (6-20) mg/dL Creatinine (0.6-1.2) mg/dL Estimated GFR (MDRD) (>89) Glucose (70-100) mg/dL POC Whole Bld Glucose 112 H (70 - 100) mg/dL Calcium (8.5-10.3) mg/dL Magnesium (1.7-2.8) mg/dL Total Bilirubin (0.2-1.0) mg/dL AST (10-42) IU/L ALT (10-60) IU/L Alkaline Phosphatase (42-121) IU/L B-Natriuretic Peptide (5-100) pg/mL Total Protein (6.7-8.2) g/dL Albumin (3.2-5.5) g/dL Globulin (2.1-4.2) g/dL Albumin/Globulin Ratio (1.0-2.2) - Diagnostic Imaging Diagnostic Imaging Results: positive: Prelim report reviewed ABX Reporting Has patient been on IV antibiotics over the past 48 hours?: No Assessment/Plan - Problem List (1) Systolic CHF with reduced left ventricular function, NYHA class 2 Impression: Bradford has mildly improved breathing, but remains with crackles upon exam. He is not on any diuretics at home, but has been on high dose lasix IV here. BNP continues to be elevated today at 2132. An echocardiogram has been ordered and is pending. He does not have abdominal or BLE edema. He does not wear home oxygen. Plan: Continue high dose Lasix, daily weights, and give supplemental O2. (2) Bradycardia Impression: The patient has been extended on the pvc monitor due to ongoing bradycardia. HRs in the 40-60's. Originally he was placed on Atenolol as this med was in our system. This has since been discontinued, and now placed on low dose Metoprolol. This has been held for heart rates below 60 BPM. Plan: Continue telemetry. 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 He is well controlled at home using albuterol inhaler, Qvar inhaler. Upon admission, his COPD is likely not contributing to this CHF exacerbation. He denies home oxygen use. He has been kept on his usual LABA including Budesinide while inpatient and is receiving respiratory. He has needed some oxygen at 2L via nasal cannula. Plan: Continue to monitor and give supplemental oxygen as needed. Qualifiers: COPD type: emphysema Emphysema type: unspecified Qualified Code(s): J43.9 - Emphysema, unspecified (4) Hyperlipidemia Impression: The patient has this and the primary cause is tobacco dependence. He is prescribed a statin at home that has been continued here. Plan: Continue medication. Qualifiers: Hyperlipidemia type: unspecified Qualified Code(s): E78.5 - Hyperlipidemia , unspecified (5) Essential hypertension Impression: The patient is prescribed both metoprolol and losartan at home. Blood pressures have been elevated today; 160/82. Plan: Continue to monitor and continue medication.
[2018-01-04] MEDS: ATORVASTATIN 10 MG TABLET PO SCH (21:34)
[2018-01-04] MEDS: traZODone 50 MG TABLET PO SCH (21:35)
[2018-01-04] MEDS: LOSARTAN 50 MG TABLET PO SCH (21:35)
[2018-01-05 06:35] LABS: BASOPHILS # (AUTO) 0.1 10^3/uL (0.0-0.1); BASOPHILS % (AUTO) 1.4 %; EOSINOPHILS # (AUTO) 0.4 10^3/uL (0.0-0.7); EOSINOPHILS % (AUTO) 8.3 %; HGB - HEMOGLOBIN 11.3 g/dL (14.0-18.0); LYMPHOCYTES # (AUTO) 0.7 10^3/uL (1.5-3.5); LYMPHOCYTES % (AUTO) 16.5 %; MEAN CORPUSCULAR HEMOGLOBIN 28.9 pg (27.0-31.0); MEAN CORPUSCULAR HGB CONC 32.8 g/dL (32.0-36.0); MEAN CORPUSCULAR VOLUME 88.2 fL (80.0-94.0); MEAN PLATELET VOLUME 7.8 fL (7.4-11.4); MONOCYTES # (AUTO) 0.4 10^3/uL (0.0-1.0); MONOCYTES % (AUTO) 10.6 %; NEUTROPHILS # (AUTO) 2.7 10^3/uL (1.5-6.6); NEUTROPHILS % (AUTO) 63.2 %; PLT - PLATELET COUNT 109 10^3/uL (130-450); RED BLOOD COUNT 3.92 10^6/uL (4.70-6.10); RED CELL DISTRIBUTION WIDTH 15.7 % (12.0-15.0); WHITE BLOOD COUNT 4.2 x10^3/uL (4.8-10.8)
[2018-01-05] MEDS: PROCHLORPERAZINE 10 MG/2 ML VIAL IVP PRN (06:45)
[2018-01-05] MEDS: SODIUM CHLORIDE FLUSH 0.9% 10 ML SYRINGE IVP PRN (06:45)
[2018-01-05 07:04] LABS: ALBUMIN/GLOBULIN RATIO 1.2 (1.0-2.2); ALKALINE PHOSPHATASE 64 IU/L (42-121); ALT ALANINE AMINOTRANSFERASE < 10 IU/L (10-60); AST ASPARTATE AMINOTRANSFERASE 12 IU/L (10-42); BILIRUBIN,TOTAL 1.9 mg/dL (0.2-1.0); BUN - BLOOD UREA NITROGEN 25 mg/dL (6-20); CALCIUM 8.5 mg/dL (8.5-10.3); CARBON DIOXIDE - CO2 37 mmol/L (21-32); CHLORIDE 92 mmol/L (101-111); CREATININE 1.8 mg/dL (0.6-1.2); GFR - MDRD 37 (>89); GLUCOSE 92 mg/dL (70-100); MAGNESIUM 1.8 mg/dL (1.7-2.8); SODIUM 136 mmol/L (135-145); TOTAL PROTEIN 5.6 g/dL (6.7-8.2)
[2018-01-05] MEDS: FORMOTEROL FUMARATE NEB 20 MCG/2 ML INH SCH ×2 (07:23→21:30)
[2018-01-05] MEDS: BUDESONIDE 0.5 MG/2 ML NEB INH SCH ×2 (07:23→21:30)
[2018-01-05] MEDS: INSULIN ASPART 300 UNIT/3 ML PEN SUBQ SCH ×4 (07:47→22:07)
[2018-01-05] MEDS: SODIUM CHLORIDE FLUSH 0.9% 10 ML SYRINGE IVP SCH ×2 (07:59→16:21)
[2018-01-05] MEDS: ENOXAPARIN 40 MG/0.4 ML SYRINGE SUBQ SCH (07:59)
[2018-01-05] MEDS: FUROSEMIDE 40 MG/4 ML VIAL IVP SCH ×2 (07:59→16:21)
[2018-01-05] MEDS: DOXAZOSIN 4 MG TABLET PO SCH ×2 (08:00→22:07)
[2018-01-05] MEDS: ASPIRIN EC 81 MG TABLET PO SCH (08:00)
[2018-01-05] MEDS: ATENOLOL 25 MG TABLET PO SCH (08:00)
[2018-01-05] MEDS: FAMOTIDINE 20 MG TABLET PO SCH (08:00)
[2018-01-05] MEDS: ISOSORBIDE MONONITRATE ER 30 MG TABLET PO SCH (08:01)
[2018-01-05] MEDS: POLYETHYLENE GLYCOL 3350 17 GM PACKET PO SCH (08:01)
[2018-01-05] MEDS: oxyCODONE 5 MG TABLET PO PRN (08:01)
[2018-01-05] MEDS: POTASSIUM CHLORIDE 20 MEQ TABLET PO SCH (08:01)
[2018-01-05] MEDS: METOPROLOL TARTRATE 25 MG TABLET PO SCH ×2 (11:42→23:38)
[2018-01-05] MEDS: LOSARTAN 50 MG TABLET PO SCH ×2 (11:45→22:07)
[2018-01-05] MEDS: traZODone 50 MG TABLET PO SCH (22:07)
[2018-01-05] MEDS: ATORVASTATIN 10 MG TABLET PO SCH (22:07)
[2018-01-06] MEDS: BUDESONIDE 0.5 MG/2 ML NEB INH SCH ×3 (00:37→21:14)
[2018-01-06] MEDS: FORMOTEROL FUMARATE NEB 20 MCG/2 ML INH SCH ×3 (00:37→21:14)
[2018-01-06] MEDS: SODIUM CHLORIDE FLUSH 0.9% 10 ML SYRINGE IVP SCH ×3 (01:41→17:28)
[2018-01-06 06:37] LABS: BASOPHILS # (AUTO) 0.1 10^3/uL (0.0-0.1); BASOPHILS % (AUTO) 1.2 %; EOSINOPHILS # (AUTO) 0.4 10^3/uL (0.0-0.7); EOSINOPHILS % (AUTO) 8.1 %; HGB - HEMOGLOBIN 11.6 g/dL (14.0-18.0); LYMPHOCYTES # (AUTO) 0.7 10^3/uL (1.5-3.5); LYMPHOCYTES % (AUTO) 14.9 %; MEAN CORPUSCULAR HEMOGLOBIN 28.6 pg (27.0-31.0); MEAN CORPUSCULAR HGB CONC 32.3 g/dL (32.0-36.0); MEAN CORPUSCULAR VOLUME 88.5 fL (80.0-94.0); MEAN PLATELET VOLUME 7.9 fL (7.4-11.4); MONOCYTES # (AUTO) 0.4 10^3/uL (0.0-1.0); MONOCYTES % (AUTO) 8.9 %; NEUTROPHILS # (AUTO) 2.9 10^3/uL (1.5-6.6); NEUTROPHILS % (AUTO) 66.9 %; PLT - PLATELET COUNT 109 10^3/uL (130-450); RED BLOOD COUNT 4.06 10^6/uL (4.70-6.10); RED CELL DISTRIBUTION WIDTH 15.6 % (12.0-15.0); WHITE BLOOD COUNT 4.4 x10^3/uL (4.8-10.8)
[2018-01-06 06:58] LABS: ALBUMIN/GLOBULIN RATIO 1.1 (1.0-2.2); ALKALINE PHOSPHATASE 59 IU/L (42-121); ALT ALANINE AMINOTRANSFERASE < 10 IU/L (10-60); AST ASPARTATE AMINOTRANSFERASE 12 IU/L (10-42); BUN - BLOOD UREA NITROGEN 28 mg/dL (6-20); CALCIUM 8.3 mg/dL (8.5-10.3); CARBON DIOXIDE - CO2 37 mmol/L (21-32); CHLORIDE 93 mmol/L (101-111); CREATININE 1.8 mg/dL (0.6-1.2); GFR - MDRD 37 (>89); GLUCOSE 93 mg/dL (70-100); SODIUM 137 mmol/L (135-145); TOTAL PROTEIN 5.8 g/dL (6.7-8.2)
[2018-01-06] MEDS: FUROSEMIDE 40 MG/4 ML VIAL IVP SCH (07:11)
[2018-01-06] MEDS: SODIUM CHLORIDE FLUSH 0.9% 10 ML SYRINGE IVP PRN ×2 (07:11→14:42)
[2018-01-06] MEDS: INSULIN ASPART 300 UNIT/3 ML PEN SUBQ SCH ×4 (07:48→20:44)
[2018-01-06] MEDS: POLYETHYLENE GLYCOL 3350 17 GM PACKET PO SCH (07:49)
[2018-01-06] MEDS: FAMOTIDINE 20 MG TABLET PO SCH (08:05)
[2018-01-06] MEDS: ISOSORBIDE MONONITRATE ER 30 MG TABLET PO SCH (08:05)
[2018-01-06] MEDS: ACETAMINOPHEN 325 MG TABLET PO PRN (08:05)
[2018-01-06] MEDS: LOSARTAN 50 MG TABLET PO SCH ×2 (08:05→20:45)
[2018-01-06] MEDS: ENOXAPARIN 40 MG/0.4 ML SYRINGE SUBQ SCH (08:06)
[2018-01-06] MEDS: POTASSIUM CHLORIDE 20 MEQ TABLET PO SCH (08:06)
[2018-01-06] MEDS: DOXAZOSIN 4 MG TABLET PO SCH ×2 (08:06→20:37)
[2018-01-06] MEDS: ASPIRIN EC 81 MG TABLET PO SCH (08:06)
[2018-01-06] MEDS: METOPROLOL TARTRATE 25 MG TABLET PO SCH ×2 (08:06→20:41)
--- NOTE | 2018-01-06 08:27 | PROVIDER PROGRESS NOTE ---
Subjective - Prog Note Date Prog Note Date: 01/05/18 Prog Note Time: 08:00 - Subjective Pt reports feeling: Improved Subjective: Bradford feels much better and states that he is eating ok, and urinating a lot. He denies chest pain, shortness of breath, N/V or a new cough. He continues on oxygen, but has poor hand circulation and often his oxygen saturations read low. Objective - Vital Signs/Intake & Output Reviewed Vital Signs: Yes Vital Signs: Vital Signs x48h Temp Pulse Resp BP Pulse Ox 01/06/18 07:57 36.7 C 55 L 24 144/74 H 95 01/06/18 04:00 36.8 C 56 L 16 149/73 H 93 Intake & Output: Intake & Output 01/03/18 01/04/18 01/05/18 01/06/18 23:59 23:59 23:59 23:59 Intake Total 580 1130 1010 Output Total 2825 2370 2009 1099 [facility] -2245 -1240 -1000 -1100 - Objective General Appearance: positive: No acute distress, Alert Eyes Bilateral: positive: Normal inspection, PERRL Eyes: OU Conjunctivae pale ENT: positive: ENT inspection nml, Pharynx nml, Pharyngeal erythema, Dry mucous membranes Neck: positive: Nml inspection, Thyroid nml, No JVD, Lymphadenopathy (R), Lymphadenopathy (L) Respiratory: positive: Chest non-tender, No respiratory distress, Other ( crackles bilaterally) Cardiovascular: positive: No gallop, Irregularly irregular, Systolic murmur Peripheral Pulses: 1+ Radial (R), 1+ Radial (L) Abdomen: positive: Non-tender, Abnml bowel sounds, Other (ostomy device in place ) Back: positive: Nml inspection Skin: positive: No rash, Warm, Dry Extremities: positive: Non-tender, Full ROM, Pedal edema (trace) Neurologic/Psychiatric: positive: Oriented x3, CN's nml (2-12), Motor nml, Weakness, Sensory loss, Depressed mood/affect Reflexes: Bicep (R): 2+, Bicep (L): 2+ - Lab Results Fish Bones: 01/06/18 06:11 01/06/18 06:11 Other Labs: Lab Results x24hrs 07/02/18 07/02/18 07/02/18 Range/Units 07:38 06:11 06:11 WBC (4.8-10.8) x10^3/uL RBC (4.70-6.10) 10^6/uL Hgb (14.0-18.0) g/dL Hct (42.0-52.0) % MCV (80.0-94.0) fL MCH (27.0-31.0) pg MCHC (32.0-36.0) g/dL RDW (12.0-15.0) % Plt Count (130-450) 10^3/uL MPV (7.4-11.4) fL Neut # (Auto) (1.5-6.6) 10^3/uL Lymph # (Auto) (1.5-3.5) 10^3/uL [place] # (Auto) (0.0-1.0) 10^3/uL Eos # (Auto) (0.0-0.7) 10^3/uL Baso # (Auto) (0.0-0.1) 10^3/uL Absolute Nucleated RBC x10^3/uL Nucleated RBC % /100WBC Sodium 137 (135-145) mmol/L Potassium 3.9 (3.5-5.0) mmol/L Chloride 93 L (101-111) mmol/L Carbon Dioxide 37 H (21-32) mmol/L Anion Gap 7.0 (6-13) BUN 28 H (6-20) mg/dL Creatinine 1.8 H (0.6-1.2) mg/dL Estimated GFR (MDRD) 37 L (>89) Glucose 93 (70-100) mg/dL POC Whole Bld Glucose 101 H (70 - 100) mg/dL Calcium 8.3 L (8.5-10.3) mg/dL Magnesium 2.0 (1.7-2.8) mg/dL Total Bilirubin 2.0 H (0.2-1.0) mg/dL AST 12 (10-42) IU/L ALT < 10 L (10-60) IU/L Alkaline Phosphatase 59 (42-121) IU/L B-Natriuretic Peptide 271 H (5-100) pg/mL Total Protein 5.8 L (6.7-8.2) g/dL Albumin 3.0 L (3.2-5.5) g/dL Globulin 2.8 (2.1-4.2) g/dL Albumin/Globulin Ratio 1.1 (1.0-2.2) 01/06/18 01/05/18 01/05/18 Range/Units 06:11 20:29 16:36 WBC 4.4 L (4.8-10.8) x10^3/uL RBC 4.06 L (4.70-6.10) 10^6/uL Hgb 11.6 L (14.0-18.0) g/dL Hct 35.9 L (42.0-52.0) % MCV 88.5 (80.0-94.0) fL MCH 28.6 (27.0-31.0) pg MCHC 32.3 (32.0-36.0) g/dL RDW 15.6 H (12.0-15.0) % Plt Count 109 L (130-450) 10^3/uL MPV 7.9 (7.4-11.4) fL Neut # (Auto) 2.9 (1.5-6.6) 10^3/uL Lymph # (Auto) 0.7 L (1.5-3.5) 10^3/uL [place] # (Auto) 0.4 (0.0-1.0) 10^3/uL Eos # (Auto) 0.4 (0.0-0.7) 10^3/uL Baso # (Auto) 0.1 (0.0-0.1) 10^3/uL Absolute Nucleated RBC 0.00 x10^3/uL Nucleated RBC % 0.0 /100WBC Sodium (135-145) mmol/L Potassium (3.5-5.0) mmol/L Chloride (101-111) mmol/L Carbon Dioxide (21-32) mmol/L Anion Gap (6-13) BUN (6-20) mg/dL Creatinine (0.6-1.2) mg/dL Estimated GFR (MDRD) (>89) Glucose (70-100) mg/dL POC Whole Bld Glucose 118 H 146 H (70 - 100) mg/dL Calcium (8.5-10.3) mg/dL Magnesium (1.7-2.8) mg/dL Total Bilirubin (0.2-1.0) mg/dL AST (10-42) IU/L ALT (10-60) IU/L Alkaline Phosphatase (42-121) IU/L B-Natriuretic Peptide (5-100) pg/mL Total Protein (6.7-8.2) g/dL Albumin (3.2-5.5) g/dL Globulin (2.1-4.2) g/dL Albumin/Globulin Ratio (1.0-2.2) 01/05/18 Range/Units 11:29 WBC (4.8-10.8) x10^3/uL RBC (4.70-6.10) 10^6/uL Hgb (14.0-18.0) g/dL Hct (42.0-52.0) % MCV (80.0-94.0) fL MCH (27.0-31.0) pg MCHC (32.0-36.0) g/dL RDW (12.0-15.0) % Plt Count (130-450) 10^3/uL MPV (7.4-11.4) fL Neut # (Auto) (1.5-6.6) 10^3/uL Lymph # (Auto) (1.5-3.5) 10^3/uL [place] # (Auto) (0.0-1.0) 10^3/uL Eos # (Auto) (0.0-0.7) 10^3/uL Baso # (Auto) (0.0-0.1) 10^3/uL Absolute Nucleated RBC x10^3/uL Nucleated RBC % /100WBC Sodium (135-145) mmol/L Potassium (3.5-5.0) mmol/L Chloride (101-111) mmol/L Carbon Dioxide (21-32) mmol/L Anion Gap (6-13) BUN (6-20) mg/dL Creatinine (0.6-1.2) mg/dL Estimated GFR (MDRD) (>89) Glucose (70-100) mg/dL POC Whole Bld Glucose 125 H (70 - 100) mg/dL Calcium (8.5-10.3) mg/dL Magnesium (1.7-2.8) mg/dL Total Bilirubin (0.2-1.0) mg/dL AST (10-42) IU/L ALT (10-60) IU/L Alkaline Phosphatase (42-121) IU/L B-Natriuretic Peptide (5-100) pg/mL Total Protein (6.7-8.2) g/dL Albumin (3.2-5.5) g/dL Globulin (2.1-4.2) g/dL Albumin/Globulin Ratio (1.0-2.2) ABX Reporting Has patient been on IV antibiotics over the past 48 hours?: No Assessment/Plan - Problem List (1) Systolic CHF with reduced left ventricular function, NYHA class 2 Impression: Bradford has is much improved today, but we are still adjusting the lasix dose. Base on preliminary ECHO results, he will need to be on lasix for the rest of his life and is found to have a reduced EF, systolic failure. BNP is much improved at 472. He does not have abdominal or BLE edema. He does not wear home oxygen. Plan: Continue Lasix, daily weights, and give supplemental O2. (2) Bradycardia Impression: The patient has been extended on the nurse monitoring due to ongoing bradycardia. Heart rates are improved today and ranged between 60-70. He continues on low dose Metoprolol at 12.5 mg. This has been held for heart rates below 60 BPM. Plan: Continue telemetry and monitor VS. 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 He is well controlled at home using albuterol inhaler, Qvar inhaler. He does not use home oxygen, but has required it since being admitted. He has been kept on his usual LABA including Budesinide while inpatient and is receiving respiratory. He has needed some oxygen at 2L via nasal cannula. Plan: Continue to monitor and give supplemental oxygen as needed. (4) Essential hypertension Impression: The patient is prescribed both metoprolol and losartan at home. Blood pressures have been both too high and too low. The patient denies dizziness or syncope. Plan: Continue to monitor and continue medication.
[2018-01-06] MEDS: ALBUTEROL NEB 2.5 MG/3 ML INH PRN (08:49)
[2018-01-06] MEDS ORDERED: FUROSEMIDE 40 MG TABLET PO SCH (09:00)
[2018-01-06] MEDS ORDERED: diazePAM 5 MG TABLET PO ONE (12:27)
[2018-01-06] MEDS ORDERED: diazePAM 5 MG TABLET PO PRN (14:01)
[2018-01-06] MEDS: ONDANSETRON 4 MG/2 ML VIAL IVP PRN (14:42)
--- NOTE | 2018-01-06 15:30 | Ultrasound Report ---
Procedure Date: 01/06/2018 Accession Number: [id number] / [id number] Procedure: US - Carotid Doppler Complete CPT Code: FULL RESULT: EXAM: BILATERAL CAROTID AND VERTEBRAL ARTERY DUPLEX DOPPLER ULTRASOUND: EXAM DATE: 01/06/2018 11:44 AM CLINICAL HISTORY: Syncope. COMPARISON: 10/19/2008. TECHNIQUE: Grayscale imaging, color Doppler, and duplex spectral Doppler were used to evaluate the carotid and vertebral arteries bilaterally. Static images were obtained. FINDINGS: There is a small amount of smooth partially calcified plaque at the bilateral carotid bifurcations. Normal antegrade flow is present in bilateral vertebral arteries. VELOCITIES (cm/sec): Right: RCCA Prox: PSV 78 cm/sec. RCCA Dist: PSV 61 cm/sec, EDV 9 cm/sec. RECA: PSV 80 cm/sec. R Bulb: PSV 63 cm/sec, EDV 9 cm/sec, ICA/CCA ratio 1.0. ALEXUS Prox: PSV 60 cm/sec, EDV 15 cm/sec, ICA/CCA ratio 0.98. ALEXUS Mid: PSV 60 cm/sec, EDV 15 cm/sec, ICA/CCA ratio 0.98. ALEXUS Dist: PSV 64 cm/sec, EDV 16 cm/sec, ICA/CCA ratio 1.0. RVA: PSV 44 cm/sec. RVA flow direction: Antegrade. Left: LCCA Prox: PSV 81 cm/sec. LCCA Dist: PSV 58 cm/sec, EDV 1 cm/sec. LECA: PSV 72 cm/sec. L Bulb: PSV 52 cm/sec, EDV 8 cm/sec, ICA/CCA ratio 0.89. LICA Prox: PSV 86 cm/sec, EDV 17 cm/sec, ICA/CCA ratio 1.4. LICA Mid: PSV 101 cm/sec, EDV 20 cm/sec, ICA/CCA ratio 1.7. LICA Dist: PSV 101 cm/sec, EDV 16 cm/sec, ICA/CCA ratio 1.7. LVA: PSV 43 cm/sec. LVA flow direction: Antegrade. ICA diameter stenosis: Right: <50% by velocity and <70% by NASCET criteria. Left: <50% by velocity and <70% by NASCET criteria. IMPRESSION: 1. Mild partially calcified bilateral carotid artery plaquing. 2. In the right carotid artery there are no elevated carotid artery velocities to suggest hemodynamically significant stenosis. 3. In the left carotid artery there are no elevated carotid artery velocities to suggest hemodynamically significant stenosis. 4. Normal antegrade flow is present in bilateral vertebral arteries. General Recommendations: Stenosis =50% ICA - Follow-up ultrasound 6-12 months Stenosis <50% ICA - High Risk Patient with plaque - Follow-up ultrasound 1-2 years Normal Study but High Risk Patient - Follow-up ultrasound 3-5 years Management recommendations and diagnostic criteria are based on current IAC endorsed standards in Carotid Artery Stenosis: Grayscale and Doppler Ultrasound Diagnosis. Validated velocity measurements with angiographic measurements and velocity criteria are extrapolated from diameter data as defined by the Society of Radiologists in Ultrasound Consensus Conference Radiology 2003; 229;340-346. RADIA
--- NOTE | 2018-01-06 16:38 | PROVIDER PROGRESS NOTE ---
Subjective - Prog Note Date Prog Note Date: 01/06/18 Prog Note Time: 10:00 - Subjective Pt reports feeling: Improved Subjective: Bradford has had a witnessed syncopal episode while in the bathroom. He since has had mildly increased fatigue, denies SOB, chest pain, N/V, insomnia, or a new cough. Current Medications - Current Medications Current Medications: Active Medications Acetaminophen (Tylenol) 650 mg PO Q4HR PRN PRN Reason: Pain 1 to 4 Last Admin: 01/06/18 08:05 Dose: 650 mg Albuterol () 2.5 mg INH RTQ4H PRN PRN Reason: Wheezing Last Admin: 01/06/18 08:49 Dose: 2.5 mg Aspirin (Ecotrin) 81 mg PO DAILY [facility] Last Admin: 01/06/18 08:06 Dose: 81 mg Atorvastatin Calcium (Lipitor) 20 mg PO QPM [facility] Last Admin: 01/05/18 22:07 Dose: 20 mg Budesonide (Pulmicort) 0.5 mg INH RTBID [facility] Last Admin: 01/06/18 08:49 Dose: 0.5 mg Diazepam (Valium) 5 mg PO ONCE PRN PRN Reason: PRIOR TO MRI Stop: 01/07/18 19:00 Doxazosin Mesylate (Cardura) 8 mg PO BID [facility] Last Admin: 01/06/18 08:06 Dose: 8 mg Enoxaparin Sodium (Lovenox) 40 mg SUBQ DAILY [facility] Last Admin: 01/06/18 08:06 Dose: 40 mg Famotidine (Pepcid) 20 mg PO DAILY [facility] Last Admin: 01/06/18 08:05 Dose: 20 mg Formoterol Fumarate (Perforomist) 20 mcg INH RTBID [facility] Last Admin: 01/06/18 08:49 Dose: 20 mcg Furosemide (Lasix) 40 mg PO DAILY [facility] Insulin Aspart (Novolog) 1 - 5 unit SUBQ 0800,1200,1700,2100 [facility] PRN Reason: Protocol Last Admin: 01/06/18 12:27 Dose: 1 unit Isosorbide Mononitrate (Imdur) 30 mg PO DAILY [facility] Last Admin: 01/06/18 08:05 Dose: 30 mg Losartan Potassium (Cozaar) 50 mg PO BID [facility] Last Admin: 01/06/18 08:05 Dose: 50 mg Metoprolol Tartrate (Lopressor) 12.5 mg PO BID [facility] Last Admin: 01/06/18 08:06 Dose: Not Given Morphine Sulfate (Morphine) 2 mg IVP Q2H PRN PRN Reason: Pain 8 to 10 Ondansetron HCl (Zofran Inj) 4 mg IVP Q6HR PRN PRN Reason: Nausea / Vomiting Last Admin: 01/06/18 14:42 Dose: 4 mg Oxycodone HCl (Roxicodone) 5 mg PO Q4HR PRN PRN Reason: Pain 5 to 7 Last Admin: 01/05/18 08:01 Dose: 5 mg Polyethylene Glycol (Miralax) 17 gm PO DAILY [facility] Last Admin: 01/06/18 07:49 Dose: Not Given Potassium Chloride (K-Dur) 20 meq PO DAILYWM [facility] Last Admin: 01/06/18 08:06 Dose: 20 meq Prochlorperazine Edisylate (Compazine Inj) 10 mg IVP Q6HR PRN PRN Reason: Nausea / Vomiting Last Admin: 01/05/18 06:45 Dose: 10 mg Promethazine HCl (Phenergan Inj) 25 mg IM Q6HR PRN PRN Reason: Nausea / Vomiting Sodium Chloride (Normal Saline Flush 0.9%) 10 ml IVP PRN PRN PRN Reason: NEEDED PER PROVIDER ORDERS Last Admin: 01/06/18 14:42 Dose: 10 ml Sodium Chloride (Normal Saline Flush 0.9%) 10 ml IVP 0100,0900,1700 [facility] Last Admin: 01/06/18 07:49 Dose: Not Given Trazodone HCl (Desyrel) 50 mg PO QPM [facility] Last Admin: 01/05/18 22:07 Dose: 50 mg Atorvastatin Calcium [Lipitor] 20 mg PO QPM 11/11/12 Doxazosin [Cardura] 8 mg PO BID 08/04/13 Losartan [Cozaar] 50 mg PO BID 08/04/13 RX: Aspirin [Adult Low Dose Aspirin EC] 81 mg PO DAILY 08/09/15 RX: traZODone [Desyrel] 50 mg PO QPM 08/09/15 RX: Acetaminophen 325 - 650 mg PO Q6HR PRN 08/18/15 RX: metFORMIN [Glucophage] 500 mg PO BID 11/22/16 RX: Metoprolol Tartrate [Lopressor] 50 mg PO BID 01/03/18 Objective - Vital Signs/Intake & Output Reviewed Vital Signs: Yes Vital Signs: Vital Signs x48h Temp Pulse Pulse Pulse Resp BP Pulse Ox 01/06/18 15:37 36.7 C 56 L 20 119/58 L 100 01/06/18 11:38 36.6 C 56 L 20 103/52 L 100 01/06/18 10:42 56 L 20 129/67 97 01/06/18 08:52 56 L 13 Intake & Output: Intake & Output 01/03/18 01/04/18 01/05/18 01/06/18 23:59 23:59 23:59 23:59 Intake Total 580 1130 1010 560 Output Total 2825 2370 2009 1349 [facility] -7565 -1240 -1000 -790 - Objective General Appearance: positive: No acute distress, Alert, Anxious Eyes Bilateral: positive: Normal inspection ENT: positive: ENT inspection nml, Pharynx nml, Pharyngeal erythema, Dry mucous membranes Neck: positive: Nml inspection, Thyroid nml, No JVD Respiratory: positive: Chest non-tender, No respiratory distress, Other ( crackles, scattered) Cardiovascular: positive: Regular rate & rhythm, No gallop, Systolic murmur Peripheral Pulses: 1+ Radial (R), 1+ Radial (L) Abdomen: positive: Non-tender, Nml bowel sounds, Other (ostomy device intact, LLQ) Back: positive: Nml inspection Skin: positive: No rash, Warm, Dry Extremities: positive: Non-tender, Full ROM, Nml appearance Neurologic/Psychiatric: positive: Oriented x3, CN's nml (2-12), Motor nml, Sensation nml, Depressed mood/affect Reflexes: Bicep (R): 2+, Bicep (L): 2+ - Lab Results Fish Bones: 01/06/18 06:11 01/06/18 06:11 Other Labs: Lab Results x24hrs 01/06/18 01/06/18 01/06/18 Range/Units 16:34 11:31 07:38 WBC (4.8-10.8) x10^3/uL RBC (4.70-6.10) 10^6/uL Hgb (14.0-18.0) g/dL Hct (42.0-52.0) % MCV (80.0-94.0) fL MCH (27.0-31.0) pg MCHC (32.0-36.0) g/dL RDW (12.0-15.0) % Plt Count (130-450) 10^3/uL MPV (7.4-11.4) fL Neut # (Auto) (1.5-6.6) 10^3/uL Lymph # (Auto) (1.5-3.5) 10^3/uL [place] # (Auto) (0.0-1.0) 10^3/uL Eos # (Auto) (0.0-0.7) 10^3/uL Baso # (Auto) (0.0-0.1) 10^3/uL Absolute Nucleated RBC x10^3/uL Nucleated RBC % /100WBC Sodium (135-145) mmol/L Potassium (3.5-5.0) mmol/L Chloride (101-111) mmol/L Carbon Dioxide (21-32) mmol/L Anion Gap (6-13) BUN (6-20) mg/dL Creatinine (0.6-1.2) mg/dL Estimated GFR (MDRD) (>89) Glucose (70-100) mg/dL POC Whole Bld Glucose 150 H 155 H 101 H (70 - 100) mg/dL Calcium (8.5-10.3) mg/dL Magnesium (1.7-2.8) mg/dL Total Bilirubin (0.2-1.0) mg/dL AST (10-42) IU/L ALT (10-60) IU/L Alkaline Phosphatase (42-121) IU/L B-Natriuretic Peptide (5-100) pg/mL Total Protein (6.7-8.2) g/dL Albumin (3.2-5.5) g/dL Globulin (2.1-4.2) g/dL Albumin/Globulin Ratio (1.0-2.2) 01/06/18 01/06/18 01/06/18 Range/Units 06:11 06:11 06:11 WBC 4.4 L (4.8-10.8) x10^3/uL RBC 4.06 L (4.70-6.10) 10^6/uL Hgb 11.6 L (14.0-18.0) g/dL Hct 35.9 L (42.0-52.0) % MCV 88.5 (80.0-94.0) fL MCH 28.6 (27.0-31.0) pg MCHC 32.3 (32.0-36.0) g/dL RDW 15.6 H (12.0-15.0) % Plt Count 109 L (130-450) 10^3/uL MPV 7.9 (7.4-11.4) fL Neut # (Auto) 2.9 (1.5-6.6) 10^3/uL Lymph # (Auto) 0.7 L (1.5-3.5) 10^3/uL [place] # (Auto) 0.4 (0.0-1.0) 10^3/uL Eos # (Auto) 0.4 (0.0-0.7) 10^3/uL Baso # (Auto) 0.1 (0.0-0.1) 10^3/uL Absolute Nucleated RBC 0.00 x10^3/uL Nucleated RBC % 0.0 /100WBC Sodium 137 (135-145) mmol/L Potassium 3.9 (3.5-5.0) mmol/L Chloride 93 L (101-111) mmol/L Carbon Dioxide 37 H (21-32) mmol/L Anion Gap 7.0 (6-13) BUN 28 H (6-20) mg/dL Creatinine 1.8 H (0.6-1.2) mg/dL Estimated GFR (MDRD) 37 L (>89) Glucose 93 (70-100) mg/dL POC Whole Bld Glucose (70 - 100) mg/dL Calcium 8.3 L (8.5-10.3) mg/dL Magnesium 2.0 (1.7-2.8) mg/dL Total Bilirubin 2.0 H (0.2-1.0) mg/dL AST 12 (10-42) IU/L ALT < 10 L (10-60) IU/L Alkaline Phosphatase 59 (42-121) IU/L B-Natriuretic Peptide 271 H (5-100) pg/mL Total Protein 5.8 L (6.7-8.2) g/dL Albumin 3.0 L (3.2-5.5) g/dL Globulin 2.8 (2.1-4.2) g/dL Albumin/Globulin Ratio 1.1 (1.0-2.2) 01/05/18 01/05/18 Range/Units 20:29 16:36 WBC (4.8-10.8) x10^3/uL RBC (4.70-6.10) 10^6/uL Hgb (14.0-18.0) g/dL Hct (42.0-52.0) % MCV (80.0-94.0) fL MCH (27.0-31.0) pg MCHC (32.0-36.0) g/dL RDW (12.0-15.0) % Plt Count (130-450) 10^3/uL MPV (7.4-11.4) fL Neut # (Auto) (1.5-6.6) 10^3/uL Lymph # (Auto) (1.5-3.5) 10^3/uL [place] # (Auto) (0.0-1.0) 10^3/uL Eos # (Auto) (0.0-0.7) 10^3/uL Baso # (Auto) (0.0-0.1) 10^3/uL Absolute Nucleated RBC x10^3/uL Nucleated RBC % /100WBC Sodium (135-145) mmol/L Potassium (3.5-5.0) mmol/L Chloride (101-111) mmol/L Carbon Dioxide (21-32) mmol/L Anion Gap (6-13) BUN (6-20) mg/dL Creatinine (0.6-1.2) mg/dL Estimated GFR (MDRD) (>89) Glucose (70-100) mg/dL POC Whole Bld Glucose 118 H 146 H (70 - 100) mg/dL Calcium (8.5-10.3) mg/dL Magnesium (1.7-2.8) mg/dL Total Bilirubin (0.2-1.0) mg/dL AST (10-42) IU/L ALT (10-60) IU/L Alkaline Phosphatase (42-121) IU/L B-Natriuretic Peptide (5-100) pg/mL Total Protein (6.7-8.2) g/dL Albumin (3.2-5.5) g/dL Globulin (2.1-4.2) g/dL Albumin/Globulin Ratio (1.0-2.2) - Diagnostic Imaging Diagnostic Imaging Results: positive: Prelim report reviewed, Final report reviewed ABX Reporting Has patient been on IV antibiotics over the past 48 hours?: No Assessment/Plan - Problem List (1) Systolic CHF with reduced left ventricular function, NYHA class 2 Impression: Bradford has mildly improved breathing, but remains with crackles upon exam. He is not on any diuretics at home, but has been on high dose lasix IV here. BNP is much improved ~300's today. ECHO results show a reduced EF at 30%. Plan: Continue on PO lasix, that will continue at discharge, daily weights, and give supplemental O2. (2) Bradycardia Impression: The patient has been extended on the oracle application consultant due to ongoing bradycardia. Heart rates continue to be low in the 50-60's. He continues on low dose Metoprolol. This has been held for heart rates below 60 BPM. Plan: Continue telemetry. 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 He is well controlled at home using albuterol inhaler, Qvar inhaler. He has been prescribed Budesinide while inpatient and is receiving respiratory care. He has needed some oxygen at 2L via nasal cannula, with attempts to wean. Plan: Continue to monitor and give supplemental oxygen as needed. Qualifiers: COPD type: emphysema Emphysema type: unspecified Qualified Code(s): J43.9 - Emphysema, unspecified (4) Hyperlipidemia Impression: The patient has this and the primary cause is tobacco dependence. He is prescribed a statin at home that has been continued here. Plan: Continue medication. Qualifiers: Hyperlipidemia type: unspecified Qualified Code(s): E78.5 - Hyperlipidemia , unspecified (5) Essential hypertension Impression: The patient is prescribed both metoprolol and losartan at home. Blood pressures have been better controlled today are charted as 119/60. Plan: Continue to monitor and continue medication. (6) Syncope Impression: The patient was described as "going limp" while nursing was helping him into the bathroom today. He was placed back on telemetry, which has had no change in rhythm. He denies previous episodes like this. He admits to feeling dizziness prior to this. He has had a more stable pulse and heart rate and I suspect that this may have been a consequence of the aggressive diuretics. Plan: Place back on telemetry and a carotid doppler, head MRI have been ordered.
[2018-01-06] MEDS: ATORVASTATIN 10 MG TABLET PO SCH (20:37)
[2018-01-06] MEDS: traZODone 50 MG TABLET PO SCH (20:48)
[2018-01-07] MEDS: SODIUM CHLORIDE FLUSH 0.9% 10 ML SYRINGE IVP SCH ×3 (01:37→17:16)
[2018-01-07 06:09] LABS: BASOPHILS % (AUTO) 0.9 %; EOSINOPHILS # (AUTO) 0.3 10^3/uL (0.0-0.7); EOSINOPHILS % (AUTO) 6.7 %; HGB - HEMOGLOBIN 11.1 g/dL (14.0-18.0); LYMPHOCYTES # (AUTO) 0.7 10^3/uL (1.5-3.5); MEAN CORPUSCULAR HEMOGLOBIN 28.7 pg (27.0-31.0); MEAN CORPUSCULAR HGB CONC 32.6 g/dL (32.0-36.0); MEAN CORPUSCULAR VOLUME 87.9 fL (80.0-94.0); MEAN PLATELET VOLUME 7.9 fL (7.4-11.4); MONOCYTES # (AUTO) 0.4 10^3/uL (0.0-1.0); MONOCYTES % (AUTO) 9.3 %; NEUTROPHILS % (AUTO) 67.1 %; PLT - PLATELET COUNT 110 10^3/uL (130-450); RED BLOOD COUNT 3.88 10^6/uL (4.70-6.10); RED CELL DISTRIBUTION WIDTH 15.8 % (12.0-15.0); WHITE BLOOD COUNT 4.5 x10^3/uL (4.8-10.8)
[2018-01-07 06:22] LABS: ALBUMIN 2.9 g/dL (3.2-5.5); ALKALINE PHOSPHATASE 67 IU/L (42-121); ALT ALANINE AMINOTRANSFERASE < 10 IU/L (10-60); AST ASPARTATE AMINOTRANSFERASE 12 IU/L (10-42); BILIRUBIN,TOTAL 1.8 mg/dL (0.2-1.0); BUN - BLOOD UREA NITROGEN 31 mg/dL (6-20); CALCIUM 8.3 mg/dL (8.5-10.3); CARBON DIOXIDE - CO2 36 mmol/L (21-32); CHLORIDE 93 mmol/L (101-111); CREATININE 1.9 mg/dL (0.6-1.2); GFR - MDRD 34 (>89); GLUCOSE 96 mg/dL (70-100); MAGNESIUM 1.9 mg/dL (1.7-2.8); SODIUM 136 mmol/L (135-145); TOTAL PROTEIN 5.8 g/dL (6.7-8.2)
[2018-01-07] MEDS: ALBUTEROL NEB 2.5 MG/3 ML INH PRN (07:45)
[2018-01-07] MEDS: FORMOTEROL FUMARATE NEB 20 MCG/2 ML INH SCH ×2 (07:54→17:43)
[2018-01-07] MEDS ORDERED: FUROSEMIDE 20 MG TABLET PO SCH (08:00)
[2018-01-07] MEDS ORDERED: SODIUM CHLORIDE 0.9% 1,000 ML IV SCH (08:00)
[2018-01-07] MEDS: BUDESONIDE 0.5 MG/2 ML NEB INH SCH ×2 (08:05→17:43)
[2018-01-07] MEDS ORDERED: FUROSEMIDE 40 MG TABLET PO SCH (09:00)
[2018-01-07] MEDS: POTASSIUM CHLORIDE 20 MEQ TABLET PO SCH (09:09)
[2018-01-07] MEDS: INSULIN ASPART 300 UNIT/3 ML PEN SUBQ SCH ×4 (09:09→21:23)
[2018-01-07] MEDS: FAMOTIDINE 20 MG TABLET PO SCH (09:09)
[2018-01-07] MEDS: DOXAZOSIN 4 MG TABLET PO SCH ×2 (09:09→21:23)
[2018-01-07] MEDS: LOSARTAN 50 MG TABLET PO SCH ×2 (09:10→21:24)
[2018-01-07] MEDS: ISOSORBIDE MONONITRATE ER 30 MG TABLET PO SCH (09:10)
[2018-01-07] MEDS: ASPIRIN EC 81 MG TABLET PO SCH (09:10)
[2018-01-07] MEDS: METOPROLOL TARTRATE 25 MG TABLET PO SCH ×2 (09:11→21:24)
[2018-01-07] MEDS: POLYETHYLENE GLYCOL 3350 17 GM PACKET PO SCH (09:11)
[2018-01-07] MEDS: ENOXAPARIN 40 MG/0.4 ML SYRINGE SUBQ SCH (09:12)
[2018-01-07] MEDS: cloNIDine 0.1 MG TABLET PO PRN (09:16)
[2018-01-07] MEDS: ONDANSETRON 4 MG/2 ML VIAL IVP PRN (10:13)
[2018-01-07] MEDS: SODIUM CHLORIDE FLUSH 0.9% 10 ML SYRINGE IVP PRN ×3 (10:13→22:58)
--- NOTE | 2018-01-07 12:07 | PROVIDER PROGRESS NOTE ---
Objective - Vital Signs/Intake & Output Vital Signs: Vital Signs x48h Temp Pulse Pulse Resp BP BP Pulse Ox 01/07/18 09:11 174/84 H 01/07/18 07:59 36.7 C 58 L 18 174/84 H 100 01/07/18 07:55 57 L 16 01/07/18 07:45 57 L 16 01/07/18 05:43 36.9 C 54 L 16 161/75 H 98 Intake & Output: Intake & Output 01/04/18 01/05/18 01/06/18 01/07/18 23:59 23:59 23:59 23:59 Intake Total 1130 1010 896 240 Output Total 2369 2009 1350 550 Balance -1240 -1000 -454 -310 - Lab Results Fish Bones: 01/07/18 05:34 01/07/18 05:34 Other Labs: Lab Results x24hrs 01/07/18 01/07/18 01/07/18 Range/Units 11:08 07:36 05:34 WBC (4.8-10.8) x10^3/uL RBC (4.70-6.10) 10^6/uL Hgb (14.0-18.0) g/dL Hct (42.0-52.0) % MCV (80.0-94.0) fL MCH (27.0-31.0) pg MCHC (32.0-36.0) g/dL RDW (12.0-15.0) % Plt Count (130-450) 10^3/uL MPV (7.4-11.4) fL Neut # (Auto) (1.5-6.6) 10^3/uL Lymph # (Auto) (1.5-3.5) 10^3/uL [place] # (Auto) (0.0-1.0) 10^3/uL Eos # (Auto) (0.0-0.7) 10^3/uL Baso # (Auto) (0.0-0.1) 10^3/uL Absolute Nucleated RBC x10^3/uL Nucleated RBC % /100WBC Sodium (135-145) mmol/L Potassium (3.5-5.0) mmol/L Chloride (101-111) mmol/L Carbon Dioxide (21-32) mmol/L Anion Gap (6-13) BUN (6-20) mg/dL Creatinine (0.6-1.2) mg/dL Estimated GFR (MDRD) (>89) Glucose (70-100) mg/dL POC Whole Bld Glucose 135 H 100 (70 - 100) mg/dL Calcium (8.5-10.3) mg/dL Magnesium (1.7-2.8) mg/dL Total Bilirubin (0.2-1.0) mg/dL AST (10-42) IU/L ALT (10-60) IU/L Alkaline Phosphatase (42-121) IU/L B-Natriuretic Peptide 164 H (5-100) pg/mL Total Protein (6.7-8.2) g/dL Albumin (3.2-5.5) g/dL Globulin (2.1-4.2) g/dL Albumin/Globulin Ratio (1.0-2.2) 01/07/18 01/07/18 01/06/18 Range/Units 05:34 05:34 20:38 WBC 4.5 L (4.8-10.8) x10^3/uL RBC 3.88 L (4.70-6.10) 10^6/uL Hgb 11.1 L (14.0-18.0) g/dL Hct 34.1 L (42.0-52.0) % MCV 87.9 (80.0-94.0) fL MCH 28.7 (27.0-31.0) pg MCHC 32.6 (32.0-36.0) g/dL RDW 15.8 H (12.0-15.0) % Plt Count 110 L (130-450) 10^3/uL MPV 7.9 (7.4-11.4) fL Neut # (Auto) 3.0 (1.5-6.6) 10^3/uL Lymph # (Auto) 0.7 L (1.5-3.5) 10^3/uL [place] # (Auto) 0.4 (0.0-1.0) 10^3/uL Eos # (Auto) 0.3 (0.0-0.7) 10^3/uL Baso # (Auto) 0.0 (0.0-0.1) 10^3/uL Absolute Nucleated RBC 0.00 x10^3/uL Nucleated RBC % 0.1 /100WBC Sodium 136 (135-145) mmol/L Potassium 3.7 (3.5-5.0) mmol/L Chloride 93 L (101-111) mmol/L Carbon Dioxide 36 H (21-32) mmol/L Anion Gap 7.0 (6-13) BUN 31 H (6-20) mg/dL Creatinine 1.9 H (0.6-1.2) mg/dL Estimated GFR (MDRD) 34 L (>89) Glucose 96 (70-100) mg/dL POC Whole Bld Glucose 121 H (70 - 100) mg/dL Calcium 8.3 L (8.5-10.3) mg/dL Magnesium 1.9 (1.7-2.8) mg/dL Total Bilirubin 1.8 H (0.2-1.0) mg/dL AST 12 (10-42) IU/L ALT < 10 L (10-60) IU/L Alkaline Phosphatase 67 (42-121) IU/L B-Natriuretic Peptide (5-100) pg/mL Total Protein 5.8 L (6.7-8.2) g/dL Albumin 2.9 L (3.2-5.5) g/dL Globulin 2.9 (2.1-4.2) g/dL Albumin/Globulin Ratio 1.0 (1.0-2.2) 01/06/18 Range/Units 16:34 WBC (4.8-10.8) x10^3/uL RBC (4.70-6.10) 10^6/uL Hgb (14.0-18.0) g/dL Hct (42.0-52.0) % MCV (80.0-94.0) fL MCH (27.0-31.0) pg MCHC (32.0-36.0) g/dL RDW (12.0-15.0) % Plt Count (130-450) 10^3/uL MPV (7.4-11.4) fL Neut # (Auto) (1.5-6.6) 10^3/uL Lymph # (Auto) (1.5-3.5) 10^3/uL [place] # (Auto) (0.0-1.0) 10^3/uL Eos # (Auto) (0.0-0.7) 10^3/uL Baso # (Auto) (0.0-0.1) 10^3/uL Absolute Nucleated RBC x10^3/uL Nucleated RBC % /100WBC Sodium (135-145) mmol/L Potassium (3.5-5.0) mmol/L Chloride (101-111) mmol/L Carbon Dioxide (21-32) mmol/L Anion Gap (6-13) BUN (6-20) mg/dL Creatinine (0.6-1.2) mg/dL Estimated GFR (MDRD) (>89) Glucose (70-100) mg/dL POC Whole Bld Glucose 150 H (70 - 100) mg/dL Calcium (8.5-10.3) mg/dL Magnesium (1.7-2.8) mg/dL Total Bilirubin (0.2-1.0) mg/dL AST (10-42) IU/L ALT (10-60) IU/L Alkaline Phosphatase (42-121) IU/L B-Natriuretic Peptide (5-100) pg/mL Total Protein (6.7-8.2) g/dL Albumin (3.2-5.5) g/dL Globulin (2.1-4.2) g/dL Albumin/Globulin Ratio (1.0-2.2) Assessment/Plan - Problem List (1) Acute exacerbation of CHF (congestive heart failure) Impression: (1) Systolic CHF with reduced left ventricular function, NYHA class 2 Impression: 01/07 Pt's ECHO shows EF at 30-35%. BNP is significant down. No SOB. hold Lasix for the reason pt had the increased Creatinine, dehydration. daily lab monitor, vital monitor Bill has mildly improved breathing, but remains with crackles upon exam. He is not on any diuretics at home, but has been on high dose lasix IV here. BNP is much improved ~300's today. ECHO results show a reduced EF at 30%. Plan: Continue on PO lasix, that will continue at discharge, daily weights, and give supplemental O2. (2) Bradycardia Impression: stable, continue tele The patient has been extended on the ekg monitor due to ongoing bradycardia. Heart rates continue to be low in the 50-60's. He continues on low dose Metoprolol. This has been held for heart rates below 60 BPM. Plan: Continue telemetry. 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 He is well controlled at home using albuterol inhaler, Qvar inhaler. He has been prescribed Budesinide while inpatient and is receiving respiratory care. He has needed some oxygen at 2L via nasal cannula, with attempts to wean. Plan: Continue to monitor and give supplemental oxygen as needed. (4) Hyperlipidemia Impression: The patient has this and the primary cause is tobacco dependence. He is prescribed a statin at home that has been continued here. Plan: Continue medication. (5) Essential hypertension Impression: The patient is prescribed both metoprolol and losartan at home. Blood pressures have been better controlled today are charted as 119/60. Plan: Continue to monitor and continue medication. (6) Syncope Impression: US of Carotid shows no acute findings, MRI is pending, will follow up on tele, closely monitor pt The patient was described as "going limp" while nursing was helping him into the bathroom today. He was placed back on telemetry, which has had no change in rhythm. He denies previous episodes like this. He admits to feeling dizziness prior to this. He has had a more stable pulse and heart rate and I suspect that this may have been a consequence of the aggressive diuretics. Plan: Place back on telemetry and a carotid doppler, head MRI have been ordered. (7) dehydration pt's BUN and Creatinine both increased, pt present dry mouth. hold Lasix very gently IVF at 50 cc/h continue closely monitor pt , BNP, vital, and lab Pt is over 4 days in inpt because pt had new development of syncope and significant dehydration, will d/c pt soon as he is stable. Qualifiers: Heart failure type: diastolic Qualified Code(s): I50.33 - Acute on chronic diastolic (congestive) heart failure
[2018-01-07] MEDS: ATORVASTATIN 10 MG TABLET PO SCH (21:23)
[2018-01-07] MEDS: traZODone 50 MG TABLET PO SCH (21:24)
[2018-01-08] MEDS: oxyCODONE 5 MG TABLET PO PRN (00:02)
[2018-01-08] MEDS: ACETAMINOPHEN 325 MG TABLET PO PRN (00:02)
[2018-01-08] MEDS: cloNIDine 0.1 MG TABLET PO PRN ×2 (00:56→05:48)
[2018-01-08] MEDS ORDERED: ZOLPIDEM 5 MG TABLET PO PRN (01:19)
--- NOTE | 2018-01-08 02:54 | CT Report ---
Procedure Date: 01/07/2018 Accession Number: [id number] / [id number] Procedure: CT - Head W/O CPT Code: FULL RESULT: EXAM: CT HEAD EXAM DATE: 01/08/2018. CLINICAL HISTORY: Decreased mental status COMPARISON: Head CT 10/20/2008. TECHNIQUE: Multiaxial CT images were obtained from the foramen magnum to the vertex. Reformats: Coronal. IV contrast: None. In accordance with CT protocol optimization, one or more of the following dose reduction techniques were utilized for this exam: automated exposure control, adjustment of mA and/or KV based on patient size, or use of iterative reconstructive technique. FINDINGS: Parenchyma: No intraparenchymal hemorrhage. No evidence of mass, midline shift, or CT findings of acute infarction. Boykin-white differentiation is distinct. Diffuse chronic microangiopathic white matter changes are evident. Extraaxial Spaces: Normal for age. No subdural or epidural collections identified. Ventricles: The ventricles and cortical sulci are enlarged, consistent with age-related tissue loss. Sinuses and orbits: Imaged paranasal sinuses, orbits, and mastoids show no significant abnormality. Bones: No evidence of fracture or calvarial defect. Other: There is soft tissue debris in bilateral external auditory canals.. IMPRESSION: Generalized age-related cortical atrophic changes without evidence of acute intracranial abnormality. RADIA
[2018-01-08] MEDS: SODIUM CHLORIDE FLUSH 0.9% 10 ML SYRINGE IVP SCH ×2 (04:48→09:56)
[2018-01-08] MEDS: INSULIN ASPART 300 UNIT/3 ML PEN SUBQ SCH ×2 (07:32→11:29)
[2018-01-08 07:55] LABS: BASOPHILS % (AUTO) 1.2 %; EOSINOPHILS # (AUTO) 0.3 10^3/uL (0.0-0.7); EOSINOPHILS % (AUTO) 8.4 %; HGB - HEMOGLOBIN 10.9 g/dL (14.0-18.0); LYMPHOCYTES # (AUTO) 0.5 10^3/uL (1.5-3.5); MEAN CORPUSCULAR HEMOGLOBIN 28.6 pg (27.0-31.0); MEAN CORPUSCULAR HGB CONC 31.8 g/dL (32.0-36.0); MEAN CORPUSCULAR VOLUME 89.9 fL (80.0-94.0); MEAN PLATELET VOLUME 7.9 fL (7.4-11.4); MONOCYTES # (AUTO) 0.4 10^3/uL (0.0-1.0); MONOCYTES % (AUTO) 9.7 %; NEUTROPHILS # (AUTO) 2.7 10^3/uL (1.5-6.6); NEUTROPHILS % (AUTO) 67.7 %; PLT - PLATELET COUNT 105 10^3/uL (130-450); RED BLOOD COUNT 3.82 10^6/uL (4.70-6.10); RED CELL DISTRIBUTION WIDTH 16.1 % (12.0-15.0); WHITE BLOOD COUNT 3.9 x10^3/uL (4.8-10.8)
[2018-01-08 08:02] LABS: ALKALINE PHOSPHATASE 62 IU/L (42-121); ALT ALANINE AMINOTRANSFERASE < 10 IU/L (10-60); AST ASPARTATE AMINOTRANSFERASE 15 IU/L (10-42); BILIRUBIN,TOTAL 1.4 mg/dL (0.2-1.0); BUN - BLOOD UREA NITROGEN 30 mg/dL (6-20); CALCIUM 8.3 mg/dL (8.5-10.3); CARBON DIOXIDE - CO2 33 mmol/L (21-32); CHLORIDE 97 mmol/L (101-111); CREATININE 1.5 mg/dL (0.6-1.2); GFR - MDRD 45 (>89); GLUCOSE 104 mg/dL (70-100); SODIUM 135 mmol/L (135-145); TOTAL PROTEIN 5.9 g/dL (6.7-8.2)
[2018-01-08] MEDS: BUDESONIDE 0.5 MG/2 ML NEB INH SCH (08:34)
[2018-01-08] MEDS: FORMOTEROL FUMARATE NEB 20 MCG/2 ML INH SCH (08:34)
[2018-01-08] MEDS: LOSARTAN 50 MG TABLET PO SCH (09:18)
[2018-01-08] MEDS: DOXAZOSIN 4 MG TABLET PO SCH (09:18)
[2018-01-08] MEDS: ASPIRIN EC 81 MG TABLET PO SCH (09:18)
[2018-01-08] MEDS: POTASSIUM CHLORIDE 20 MEQ TABLET PO SCH (09:18)
[2018-01-08] MEDS: ISOSORBIDE MONONITRATE ER 30 MG TABLET PO SCH (09:18)
[2018-01-08] MEDS: POLYETHYLENE GLYCOL 3350 17 GM PACKET PO SCH (09:19)
[2018-01-08] MEDS: FAMOTIDINE 20 MG TABLET PO SCH (09:19)
[2018-01-08] MEDS: METOPROLOL TARTRATE 25 MG TABLET PO SCH (09:19)
[2018-01-08] MEDS: ENOXAPARIN 40 MG/0.4 ML SYRINGE SUBQ SCH (09:19)
--- NOTE | 2018-01-08 11:30 | Discharge Plan ---
Discharge Plan Disposition: 01 Home, Self Care Condition: Poor Prescriptions: Furosemide [Lasix] 20 mg PO DAILY #10 tablet Isosorbide Mononitrate ER [Imdur] 30 mg PO DAILY #15 tablet Metoprolol Tartrate [Lopressor] 12.5 mg PO BID #20 tablet Potassium Chloride 10 meq PO DAILY #10 tablet.er Diet: Diabetic Activity Restrictions: Activity as Tolerated Shower Restrictions: No (fall precaution) Weight Bearing: Full Weight Instruction Topics: Heart Failure Meds Control, Furosemide tablets, Potassium, Metoprolol tablets Additional Instructions or Follow Up instructions: You may follow up your PCP in 2-3 days. Should your symptoms return or worse, you may present ER or call 911 for help. No Smoking: If you smoke, Please STOP! Call for help. Follow-up with: Cassia Marcus MD [Primary Care Provider] -
--- NOTE | 2018-01-08 11:35 | DISCHARGE SUMMARY ---
Discharge Summary Discharge Date: 01/08/18 Discharging Provider: ZAMBRANO Primary Care Provider: Cassia Garcia Condition at Discharge: Poor Discharge Disposition: 01 Home, Self Care Discharge Facility Name: home - DIAGNOSES Admission Diagnoses: (1) Acute exacerbation of CHF (congestive heart failure) (2) Hypertensive emergency (3) Diabetes (4) Hyperlipidemia (5) COPD (chronic obstructive pulmonary disease) Discharge Diagnoses with Status of Each Condition: (1) Systolic CHF exacerbation with reduced left ventricular function, NYHA class 2 pt's Sats 95% on room air. BNP is down to 160. pt state he feel much better today and request to be discharged to home today. pt's EF is 35-40%, moderate impaired. Add low dosage of Lasix, continue beta-luana, Imdur and Losartan. continue to be managed by PCP. (2) Bradycardia HR is around 50-60 now. Reduced pt's beta-luana from 50mg bid to 12.5mg bid. continue to be managed by PCP (3) COPD (chronic obstructive pulmonary disease) stable, continue home regimen, continue to be managed by PCP (4) Hyperlipidemia stable, (5) Essential hypertension stable, continue beta-luana, Imdur and Losartan, and Lasix, continue to be managed by PCP (6) Syncope resolved. CT of head is without acute findings. (7) dehydration improved. pt need to be managed for the balance between fluid overloaded and dehydration. (8) CKD improved.continue to be managed by PCP - HPI History of Present Illness: refer from Dr. 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 The patient states that he has been experiencing shortness of breath over the last week which has been gradually getting worse. He states that it got really bad yesterday where he became short of breath with just walking to his neighbor's house. He states that he has been compliant with his medications and he does eat a low-fat diet with low salt which has not changed. He states that he is noted that over the last month he has had increasing lower extremity swelling. He states that over the last day his shortness of breath has become significantly worse. He states this morning he became short of breath with just walking a few feet. He states that the same time he began feeling pressure on his chest. He states that it did not radiate anywhere and resolved after a short period of time. He states he did try to use his albuterol inhaler at home but this did not give him any relief. He also admits to having orthopnea and an unsteady gait today. He states that he has had some increasing phlegm and coughing over the last week. He denies any fevers or chills. He states that this morning his breathing was so difficult that he had to call 911 and pressed his life alert. Patient denies any headache, blurred vision, runny nose, sore throat, nasal congestion, difficulty swallowing, abdominal pain, nausea, vomiting, diarrhea, constipation, urinary urgency, urinary frequency, dysuria, joint pain, muscle ache, joint swelling, back pain, neck stiffness, hair loss, skin changes, night sweats, recent unintentional weight loss, changes in appetite or any focal neurologic deficits. On presentation to the emergency department the patient was afebrile, he was very hypertensive with a blood pressure of 212/108 and was hypoxic on room air requiring up to 4 L of oxygen. The patient was dyspneic and appeared to be in some respiratory distress. The patient underwent routine lab work which revealed a BNP of 1528. The patient did not have a leukocytosis. The patient' s chest x-ray revealed development of pulmonary edema. The patient's EKG showed some nonspecific ST changes, left ventricular hypertrophy but no ST elevations. The patient's troponin was less than 0.04. Patient was given a dose of IV Lasix in the emergency department with which she did have some response and stated that he did feel significantly better. The patient was admitted to the hospital for hypertensive emergency with CHF exacerbation. - ALLERGIES Allergies/Adverse Reactions: Allergies Allergy/AdvReac Type Severity Reaction Status Date / Time Calcium Channel Blocking Allergy Unknown UNKOWN Verified 01/02/18 19:26 Agent Dilt [Calcium Channel Blocking Agents-Curly] codeine [Codeine] Allergy vomiting Verified 01/02/18 19:26 Penicillins Allergy unknown Verified 01/02/18 19:26 venom-honey bee Allergy anaphylaxis Verified 01/02/18 19:26 [bee venom (honey bee)] - MEDICATIONS Home Medications: Ambulatory Orders Medication Instructions Recorded Confirmed Atorvastatin Calcium [Lipitor] 20 mg PO QPM 11/11/12 01/03/18 Doxazosin [Cardura] 8 mg PO BID 08/04/13 01/03/18 Losartan [Cozaar] 50 mg PO BID 08/04/13 01/03/18 Aspirin [Adult Low Dose Aspirin EC] 81 mg PO DAILY 08/09/15 01/03/18 traZODone [Desyrel] 50 mg PO QPM 08/09/15 01/03/18 Acetaminophen 325 - 650 mg PO Q6HR PRN 08/18/15 01/03/18 metFORMIN [Glucophage] 500 mg PO BID 05/29/16 01/03/18 Albuterol Sulfate [Proventil Hfa 1 - 2 puffs IH Q4H PRN #1 06/03/17 01/03/18 Inhaler] [email or web address] Furosemide [Lasix] 20 mg PO DAILY #10 tablet 01/08/18 Isosorbide Mononitrate ER [Imdur] 30 mg PO DAILY #15 tablet 01/08/18 Metoprolol Tartrate [Lopressor] 12.5 mg PO BID #20 tablet 01/08/18 Potassium Chloride 10 meq PO DAILY #10 tablet.er 01/08/18 - PHYSICAL EXAM AT DISCHARGE General Appearance: positive: No acute distress, Alert. negative: Lethargic Eyes Bilateral: positive: Normal inspection, PERRL, No lid inflammation, Conjunctivae nml ENT: positive: ENT inspection nml, Pharynx nml, No signs of dehydration. negative: Purulent nasal drainage, Pharyngeal erythema, Oral lesions Neck: positive: Nml inspection, Thyroid nml, No JVD, Trachea midline. negative : Thyromegaly, Lymphadenopathy (R), Lymphadenopathy (L), Stiff neck, Carotid bruit, Swelling/bruising, Tracheal deviation Respiratory: positive: Chest non-tender, No respiratory distress, Breath sounds nml. negative: Wheezes, Rales, Rhonchi Cardiovascular: positive: Regular rate & rhythm, Bradycardia, Systolic murmur, Diastolic murmur. negative: Irregularly irregular, Extrasystoles, Tachycardia, JVD present Peripheral Pulses: positive: 2+ Abdomen: positive: Non-tender, No organomegaly, Nml bowel sounds, No distention. negative: Tenderness, Guarding, Rebound Back: positive: Nml inspection. negative: CVA tenderness (R), CVA tenderness (L ) Skin: positive: Color nml, No rash, Warm, Dry. negative: Cyanosis, Diaphoresis , Pallor Extremities: positive: Non-tender, Full ROM, Nml appearance. negative: Calf tenderness, Joint swelling, Benito's sign/cords Neurologic/Psychiatric: positive: Oriented x3, Motor nml, Sensation nml, Mood/ affect nml. negative: Weakness, Sensory loss, Facial droop, Slurred/abnml speech, Depressed mood/affect - LABS Result Diagrams: 01/08/18 07:43 01/08/18 07:43 - FOLLOW UP Follow Up: You may follow up your PCP in 2-3 days. Should your symptoms return or worse, you may present ER or call 911 for help. - TIME SPENT Time Spent in Discharge (Minutes): 50
[2018-01-08 11:36] VITALS: BP 154/66
== END 2018-01-08 12:40 | disposition home or self-care (01) | DRG 291 ==
LOC: EDUNIT# → ED 19:17 → MS2 21:00
PROVIDERS: ADMIT Internal Medicine; ATTEND Nurse Practitioner Gerontology
DX: I13.0 Hypertensive heart and chronic kidney disease with heart failure and stage 1 through stage 4 chronic kidney disease, or unspecified chronic kidney disease (principal); I11.0 Hypertensive heart disease with heart failure; I50.33 Acute on chronic diastolic (congestive) heart failure; J44.9 Chronic obstructive pulmonary disease, unspecified; E11.9 Type 2 diabetes mellitus without complications; I50.43 Acute on chronic combined systolic (congestive) and diastolic (congestive) heart failure; I16.1 Hypertensive emergency; E11.22 Type 2 diabetes mellitus with diabetic chronic kidney disease; N18.9 Chronic kidney disease, unspecified; R09.02 Hypoxemia; R00.1 Bradycardia, unspecified; R55 Syncope and collapse; E86.0 Dehydration; I95.9 Hypotension, unspecified; T50.1X5A Adverse effect of loop [high-ceiling] diuretics, initial encounter; Y92.230 Patient room in hospital as the place of occurrence of the external cause; E78.5 Hyperlipidemia, unspecified; J43.9 Emphysema, unspecified; Z86.79 Personal history of other diseases of the circulatory system; Z93.3 Colostomy status; Z79.82 Long term (current) use of aspirin; Z79.84 Long term (current) use of oral hypoglycemic drugs; Z79.899 Other long term (current) drug therapy; Z85.46 Personal history of malignant neoplasm of prostate; Z87.19 Personal history of other diseases of the digestive system; Z87.891 Personal history of nicotine dependence; Z79.51 Long term (current) use of inhaled steroids
CPT/HCPCS: 36415; 70450; 71045; 80053; 83036; 83690; 83735; 83880; 84484; 85025; 85610; 93005; 93306; 93880; 94640; 96374; 99284; 99285

== ENCOUNTER 2018-01-22 16:22 | Emergency (ER) | payer MEDICARE ==
[2018-01-22 16:59] LABS: EOSINOPHILS # (AUTO) 0.3 10^3/uL (0.0-0.7); HGB - HEMOGLOBIN 12.4 g/dL (14.0-18.0); LYMPHOCYTES # (AUTO) 0.7 10^3/uL (1.5-3.5); LYMPHOCYTES % (AUTO) 16.4 %; MEAN CORPUSCULAR HEMOGLOBIN 28.7 pg (27.0-31.0); MEAN CORPUSCULAR HGB CONC 32.3 g/dL (32.0-36.0); MEAN CORPUSCULAR VOLUME 88.9 fL (80.0-94.0); MEAN PLATELET VOLUME 7.1 fL (7.4-11.4); MONOCYTES # (AUTO) 0.2 10^3/uL (0.0-1.0); MONOCYTES % (AUTO) 5.8 %; NEUTROPHILS # (AUTO) 2.9 10^3/uL (1.5-6.6); NEUTROPHILS % (AUTO) 68.8 %; PLT - PLATELET COUNT 111 10^3/uL (130-450); RED BLOOD COUNT 4.33 10^6/uL (4.70-6.10); RED CELL DISTRIBUTION WIDTH 15.9 % (12.0-15.0); WHITE BLOOD COUNT 4.2 x10^3/uL (4.8-10.8)
--- NOTE | 2018-01-22 17:10 | ED Physician Documentation ---
History of Present Illness - Stated complaint Stated Complaint: SOA - Chief complaint Chief Complaint: Cardiac - Additonal information Additional information: hx from pt and EMR 77 male admitted 01/02 for hypertensive emergency and CHF with a BP of 212/108, BNP 1528 , echo showed EF 35-40% he was dced on 01/08 witha 10 day rx for imdur, metoprolol tartrate 12.5 BIF, lasix and K he ran out of meds after 10 days has followed up with PMD and has had [facility] and [facility] management call him for post dc fup but still ran out of meds now he has the same sx for 2 days - severe SOA worse with exertion no fever no cough no CP small edema no bloody black BM Review of Systems Constitutional: denies: Fever, Chills Cardiac: denies: Chest pain / pressure Respiratory: reports: Dyspnea. denies: Cough GI: denies: Abdominal Pain, Nausea, Vomiting, Bloody / black stool Musculoskeletal: reports: Extremity swelling (small) Endocrine: denies: Easy bruising / bleeding Immunocompromised: denies: Immunocompromised PD PAST MEDICAL HISTORY - Past Medical History Cardiovascular: Hypertension, High cholesterol Respiratory: Emphysema Endocrine/Autoimmune: Type 2 diabetes GI: Hiatal hernia, Diverticulitis, Other : Nocturia, Other (History of Prostate Cancer) HEENT: Chronic vision loss Psych: Anxiety Musculoskeletal: None Derm: None, Other - Past Surgical History Past Surgical History: Yes General: Cholecystectomy, Appendectomy, Bowel surgery, Hiatal hernia repair, Colonoscopy, Other Cardiovascular: AAA HEENT: Cataracts - Present Medications Home Medications: Ambulatory Orders Medication Instructions Recorded Confirmed Atorvastatin Calcium [Lipitor] 20 mg PO QPM 11/11/12 01/03/18 Doxazosin [Cardura] 8 mg PO BID 08/04/13 01/03/18 Losartan [Cozaar] 50 mg PO BID 08/04/13 01/03/18 Aspirin [Adult Low Dose Aspirin EC] 81 mg PO DAILY 08/09/15 01/03/18 traZODone [Desyrel] 50 mg PO QPM 08/09/15 01/03/18 Acetaminophen 325 - 650 mg PO Q6HR PRN 08/18/15 01/03/18 metFORMIN [Glucophage] 500 mg PO BID 05/29/16 01/03/18 Albuterol Sulfate [Proventil Hfa 1 - 2 puffs IH Q4H PRN #1 06/03/17 01/03/18 Inhaler] [email or web address] Furosemide [Lasix] 20 mg PO DAILY #10 tablet 01/08/18 Isosorbide Mononitrate ER [Imdur] 30 mg PO DAILY #15 tablet 01/08/18 Metoprolol Tartrate [Lopressor] 12.5 mg PO BID #20 tablet 01/08/18 Potassium Chloride 10 meq PO DAILY #10 tablet.er 01/08/18 Furosemide [Lasix] 20 mg PO DAILY #30 tablet 01/22/18 Isosorbide Mononitrate ER [Imdur] 30 mg PO DAILY #30 tablet 01/22/18 Metoprolol Tartrate [Lopressor] 12.5 mg PO BID #60 tablet 01/22/18 Potassium Chloride [K-Dur] 20 meq PO DAILY #30 tablet 01/22/18 - Allergies Allergies/Adverse Reactions: Allergies Allergy/AdvReac Type Severity Reaction Status Date / Time Calcium Channel Blocking Allergy Unknown UNKOWN Verified 01/02/18 19:26 Agent Dilt [Calcium Channel Blocking Agents-Curly] codeine [Codeine] Allergy vomiting Verified 01/02/18 19:26 Penicillins Allergy unknown Verified 01/02/18 19:26 venom-honey bee Allergy anaphylaxis Verified 01/02/18 19:26 [bee venom (honey bee)] - Social History Does the pt smoke?: No Smoking Status: Never smoker Does the pt drink ETOH?: No Does the pt have substance abuse?: No - Immunizations Immunizations are current?: Yes - POLST Patient has POLST: Yes POLST Status: Full Code PD ED PE NORMAL - Vitals Vital signs reviewed: Yes - Cardiac Cardiac: RRR - Respiratory Respiratory: Other (crackles bilaterally) - Abdomen Abdomen: Soft, Non tender - Derm Derm: Normal color - Extremities Extremities: No: No edema (small edema lalit, no calf TTP) - Neuro Neuro: Alert and oriented X 3, No motor deficit, No sensory deficit Results - Vitals Vitals: Vital Signs - 24 hr 01/22/18 01/22/18 01/22/18 16:29 17:14 18:25 Temperature 36.4 C L Heart Rate 113 H 105 H 108 H Respiratory 20 20 20 Rate Blood Pressure 188/107 H 198/103 H 230/110 H O2 Saturation 97 96 01/22/18 01/22/18 18:40 19:11 Temperature Heart Rate 118 H 91 Respiratory 20 18 Rate Blood Pressure 148/108 H 161/107 H O2 Saturation 98 98 Oxygen O2 Source [] Nasal cannula O2 Source [] Nasal cannula O2 Source Room air - EKG (time done) 1634 Rate: Rate (enter#) (103) Rhythm: Sinus tachycardia [place]: Normal Intervals: Normal [place] QRS: LVH Other comments: Other comments (similar to prior EKG specifically the inferior morphology but with more peaked T waves in precordial leads) - Labs Labs: Laboratory Tests 01/22/18 01/22/18 01/22/18 16:52 16:52 16:52 WBC 4.2 L RBC 4.33 L Hgb 12.4 L Hct 38.5 L MCV 88.9 MCH 28.7 MCHC 32.3 RDW 15.9 H Plt Count 111 L MPV 7.1 L Neut # (Auto) 2.9 Lymph # (Auto) 0.7 L [place] # (Auto) 0.2 Eos # (Auto) 0.3 Baso # (Auto) 0.0 Absolute Nucleated RBC 0.00 Nucleated RBC % 0.1 Sodium 136 Potassium 3.5 Chloride 102 Carbon Dioxide 28 Anion Gap 6.0 BUN 13 Creatinine 1.2 Estimated GFR (MDRD) 58 L Glucose 141 H Calcium 8.8 Total Bilirubin 1.8 H AST 17 ALT < 10 L Alkaline Phosphatase 85 Troponin I < 0.04 B-Natriuretic Peptide Total Protein 6.6 L Albumin 3.3 Globulin 3.3 Albumin/Globulin Ratio 1.0 Lipase 33 01/22/18 16:52 WBC RBC Hgb Hct MCV MCH MCHC RDW Plt Count MPV Neut # (Auto) Lymph # (Auto) [place] # (Auto) Eos # (Auto) Baso # (Auto) Absolute Nucleated RBC Nucleated RBC % Sodium Potassium Chloride Carbon Dioxide Anion Gap BUN Creatinine Estimated GFR (MDRD) Glucose Calcium Total Bilirubin AST ALT Alkaline Phosphatase Troponin I B-Natriuretic Peptide 627 H Total Protein Albumin Globulin Albumin/Globulin Ratio Lipase PD MEDICAL DECISION MAKING - ED course ED course: pt with CHF exacerbation likely 2/2 running out of meds 3-4 days ago has rales on exam and some edema just admitted and extensively worked up for same considered PE given tachycardia but pts hx (recent CHF recurrent sx when ran out of meds) and exam (rales and edema) are very c/w CHF exacerbation and his elev HR is possibly due to running out of his BB as well - given no leg pain or swelling and recent echo not showing right heart strain or pulm art distension feel PE unlikely pt able to walk full length of [place] without hypoxia given lasix IV in ED, his oral imdur (and dced paste had initially applied) and IV and then PO BB and will dc home with new rx and close PMD fup, also asked ED nurse environmental programs manager to [facility] care management follow up on pt to be sure he gets his meds, sees his PMD, gets refills, and is carefully followed to prevent need for re-admit to be clear - hand adjusted rx to metoprolol tart 12.5 BID and K 10 QD - Sepsis Event Vital Signs: Vital Signs - 24 hr 01/22/18 01/22/18 01/22/18 16:29 17:14 18:25 Temperature 36.4 C L Heart Rate 113 H 105 H 108 H Respiratory 20 20 20 Rate Blood Pressure 188/107 H 198/103 H 230/110 H O2 Saturation 97 96 01/22/18 01/22/18 18:40 19:11 Temperature Heart Rate 118 H 91 Respiratory 20 18 Rate Blood Pressure 148/108 H 161/107 H O2 Saturation 98 98 Oxygen O2 Source [] Nasal cannula O2 Source [] Nasal cannula O2 Source Room air Departure - Departure Disposition: 01 Home, Self Care Clinical Impression: CHF (congestive heart failure) Qualifiers: Heart failure type: systolic Heart failure chronicity: acute on chronic Qualified Code(s): I50.23 - Acute on chronic systolic (congestive) heart failure Condition: Good Instructions: ED CHF General Follow-Up: Cassia Marcus MD [Primary Care Provider] - Prescriptions: Furosemide [Lasix] 20 mg PO DAILY #30 tablet Isosorbide Mononitrate ER [Imdur] 30 mg PO DAILY #30 tablet Metoprolol Tartrate [Lopressor] 12.5 mg PO BID #60 tablet Potassium Chloride [K-Dur] 20 meq PO DAILY #30 tablet Comments: Because you ran out of your new medications, your CHF got worse. The history and exam do not suggest a blood clot in your lung. The xray does not show pneumonia Your blood work does not indicate you have had a heart attack. Your oxygen levels are OK today and you are able to safely walk. I think it is safe for you to go home with medication refills Please follow up with your PMD tomorrow or Saturday for a recheck and for further medication refills Return if worse - you might need to be re-admitted if the medications are not helping
[2018-01-22 17:14] LABS: ALBUMIN 3.3 g/dL (3.2-5.5); ALKALINE PHOSPHATASE 85 IU/L (42-121); ALT ALANINE AMINOTRANSFERASE < 10 IU/L (10-60); AST ASPARTATE AMINOTRANSFERASE 17 IU/L (10-42); BILIRUBIN,TOTAL 1.8 mg/dL (0.2-1.0); BUN - BLOOD UREA NITROGEN 13 mg/dL (6-20); CALCIUM 8.8 mg/dL (8.5-10.3); CARBON DIOXIDE - CO2 28 mmol/L (21-32); CHLORIDE 102 mmol/L (101-111); CREATININE 1.2 mg/dL (0.6-1.2); GFR - MDRD 58 (>89); GLUCOSE 141 mg/dL (70-100); LIPASE 33 U/L (22-51); SODIUM 136 mmol/L (135-145); TOTAL PROTEIN 6.6 g/dL (6.7-8.2)
[2018-01-22] MEDS ORDERED: FUROSEMIDE 40 MG/4 ML VIAL IVP STA (17:23)
[2018-01-22] MEDS ORDERED: NITROGLYCERIN 2% PASTE TOP STA (17:30)
--- NOTE | 2018-01-22 17:31 | XRAY Report ---
Procedure Date: 01/22/2018 Accession Number: [id number] / [id number] Procedure: XR - Chest 2 View X-Ray CPT Code: 89138 FULL RESULT: EXAM: CHEST RADIOGRAPHY EXAM DATE: 01/22/2018 05:10 PM. CLINICAL HISTORY: Shortness of air COMPARISON: CHEST 1 VIEW 01/02/2018. TECHNIQUE: 2 views. FINDINGS: Lungs/Pleura: Interval decrease of interstitial density. No consolidation or developing focal airspace process. Negative for pneumothorax. No pleural effusion. Mediastinum: There is severe tortuosity of the thoracic aorta with moderate calcification. Heart size within normal limits. Other: None. IMPRESSION: 1. No new acute airspace disease. Decreased edema since previous examination. RADIA
[2018-01-22] MEDS ORDERED: METOPROLOL 5 MG/5 ML VIAL IVP STA (18:47)
[2018-01-22] MEDS ORDERED: METOPROLOL TARTRATE 50 MG TABLET PO STA (18:48)
[2018-01-22] MEDS ORDERED: ISOSORBIDE MONONITRATE ER 30 MG TABLET PO STA (18:49)
[2018-01-22 19:12] VITALS: BP 161/107
== END 2018-01-22 19:44 | disposition home or self-care (01) ==
LOC: ED 16:22
DX: I50.23 Acute on chronic systolic (congestive) heart failure (principal); R00.0 Tachycardia, unspecified; Z91.138 Patient's unintentional underdosing of medication regimen for other reason
CPT/HCPCS: 36415; 71046; 80053; 83690; 83880; 84484; 85025; 93005; 96374; 96375; 99284; A9270

== ENCOUNTER 2018-02-18 10:17 | Outpatient (CLI) | payer MEDICARE ==
[2018-02-18] MEDS ORDERED: REGADENOSON 0.4 MG/5 ML SYRINGE IVP ONE (11:07)
--- NOTE | 2018-02-19 11:09 | Nuclear Medicine Report ---
Procedure Date: 02/18/2018 Accession Number: [id number] / [id number] Procedure: NM - Myocardial Perfusion STR/RST CPT Code: FULL RESULT: EXAM: Myocardial Perfusion STR/RST DATE: 02/18/2018 12:16 PM CLINICAL HISTORY: NEW CHF COMPARISON: None. TECHNIQUE: 9.4 mCi Cardiolite were administered intravenously. The patient stated that he did not want to continue the study due to back pain within 3 minutes of entering the scanner. The examination was aborted and no images were obtained. FINDINGS: No findings were made. IMPRESSION: Administration of Cardiolite, 9.4 mCi with subsequently incomplete study due to patient's inability to tolerate the exam. RADIA
== END 2018-02-18 10:18 | disposition home or self-care (01) ==
LOC: DI 10:17
PROVIDERS: ATTEND Internal Medicine
DX: I50.9 Heart failure, unspecified (principal)
CPT/HCPCS: 78452; 93017; A9500

== ENCOUNTER 2018-04-04 09:24 | Outpatient (CLI) | payer MEDICARE ==
[2018-04-04 17:25] LABS: BILIRUBIN,URINE NEGATIVE (NEGATIVE); GLUCOSE, URINE (UA) NEGATIVE (NEGATIVE); KETONES,URINE (UA) NEGATIVE (NEGATIVE); LEUKOCYTE ESTERASE, URINE NEGATIVE (NEGATIVE); NITRITE,URINE NEGATIVE (NEGATIVE); OCCULT BLOOD,URINE TRACE-LYSE (NEGATIVE); PROTEIN,URINE 30 mg/dL (NEGATIVE); UROBILINOGEN,URINE 0.2 (NORMAL) E.U./dL (NORMAL)
[2018-04-04 17:45] LABS: CLARITY,URINE CLEAR (CLEAR)
[2018-04-04 17:46] LABS: BACTERIA,URINE None Seen /HPF (None Seen); RBC,URINE 0-5 /HPF (0-5); SQUAMOUS EPITHELIAL CELL,UR RARE Squamous (<= Few)
[2018-04-04 18:22] LABS: BASOPHILS % (AUTO) 0.9 %; EOSINOPHILS # (AUTO) 0.4 10^3/uL (0.0-0.7); EOSINOPHILS % (AUTO) 9.4 %; HGB - HEMOGLOBIN 12.1 g/dL (14.0-18.0); LYMPHOCYTES # (AUTO) 0.7 10^3/uL (1.5-3.5); LYMPHOCYTES % (AUTO) 15.6 %; MEAN CORPUSCULAR HEMOGLOBIN 30.5 pg (27.0-31.0); MEAN CORPUSCULAR HGB CONC 33.8 g/dL (32.0-36.0); MEAN CORPUSCULAR VOLUME 90.3 fL (80.0-94.0); MEAN PLATELET VOLUME 8.4 fL (7.4-11.4); MONOCYTES # (AUTO) 0.3 10^3/uL (0.0-1.0); MONOCYTES % (AUTO) 6.3 %; NEUTROPHILS # (AUTO) 3.2 10^3/uL (1.5-6.6); NEUTROPHILS % (AUTO) 67.8 %; PLT - PLATELET COUNT 89 10^3/uL (130-450); RED BLOOD COUNT 3.98 10^6/uL (4.70-6.10); RED CELL DISTRIBUTION WIDTH 15.8 % (12.0-15.0); WHITE BLOOD COUNT 4.7 x10^3/uL (4.8-10.8)
[2018-04-04 19:36] LABS: CREATININE,URINE 191.8 mg/dL; MICROALBUM/CREATININE RATIO,UR 178.3 ug/mg (<30.0); MICROALBUMIN,URINE 34.2 mg/dL (0-300.0)
[2018-04-04 19:51] LABS: THYROID STIMULATING HORMONE 5.84 uIU/mL (0.34-5.60)
[2018-04-04 19:53] LABS: % IRON SATURATION 27 % (20-50); ALBUMIN 3.6 g/dL (3.2-5.5); ALBUMIN/GLOBULIN RATIO 1.3 (1.0-2.2); ALKALINE PHOSPHATASE 80 IU/L (42-121); ALT ALANINE AMINOTRANSFERASE < 10 IU/L (10-60); AST ASPARTATE AMINOTRANSFERASE 12 IU/L (10-42); BILIRUBIN,TOTAL 2.4 mg/dL (0.2-1.0); BUN - BLOOD UREA NITROGEN 18 mg/dL (6-20); CALCIUM 8.8 mg/dL (8.5-10.3); CARBON DIOXIDE - CO2 27 mmol/L (21-32); CHLORIDE 101 mmol/L (101-111); CHOL/HDL RATIO 3.4 (<5.0); CHOLESTEROL 92 mg/dL; CK- CREATINE KINASE 23 IU/L (22-269); CREATININE 1.5 mg/dL (0.6-1.2); GFR - MDRD 45 (>89); GLUCOSE 109 mg/dL (70-100); HDL CHOLESTEROL 27 mg/dL; IRON 74 ug/dL (45-182); LDL CHOLESTEROL,CALCULATED 44 mg/dL; LDL/HDL RATIO 1.6 (<3.6); SODIUM 136 mmol/L (135-145); TOTAL IRON BINDING CAPACITY 274 ug/dL (250-450); TOTAL PROTEIN 6.3 g/dL (6.7-8.2); TRANSFERRIN 196 mg/dL (180-329); VLDL CHOLESTEROL 21 mg/dL
[2018-04-04 19:57] LABS: FERRITIN 26.5 ng/mL (23.9-336.2)
[2018-04-04 20:00] LABS: FOLATE 8.07 ng/mL (5.90 - >24.8)
[2018-04-04 20:20] LABS: HEMOGLOBIN A1C 0.36 g/dL; HEMOGLOBIN A1C % 4.9 % (4.6-6.2)
== END 2018-04-04 09:25 | disposition home or self-care (01) ==
LOC: LAB.F 09:24
PROVIDERS: ATTEND Internal Medicine
DX: C61 Malignant neoplasm of prostate (principal); D64.9 Anemia, unspecified; E53.8 Deficiency of other specified B group vitamins; E11.9 Type 2 diabetes mellitus without complications; I50.9 Heart failure, unspecified; K76.0 Fatty (change of) liver, not elsewhere classified; Z79.899 Other long term (current) drug therapy; Z86.010 Personal history of colon polyps; I63.9 Cerebral infarction, unspecified; I11.0 Hypertensive heart disease with heart failure
CPT/HCPCS: 36415; 80053; 80061; 81001; 81003; 82043; 82550; 82570; 82607; 82728; 82746; 83036; 83540; 83721; 84153; 84443; 84466; 85025; 87086

== ENCOUNTER 2018-04-09 11:40 | Outpatient (CLI) | payer MEDICARE ==
--- NOTE | 2018-04-10 10:38 | CT Report ---
Reason: PULMONARY NODULE Procedure Date: 04/09/2018 Accession Number: [id number] / [id number] Procedure: CT - Chest W/O CPT Code: FULL RESULT: EXAM: CT CHEST EXAM DATE: 04/09/2018 11:58 AM. CLINICAL HISTORY: Pulmonary nodule. COMPARISONS: Chest w/o contrast 11/07/2017 12:20 PM. CHEST angiogram 04/23/2014 8:21 PM. CHEST angiogram 06/05/2017 7:28 PM. TECHNIQUE: Routine helical CT imaging was performed through the chest. IV contrast: None. Reconstructions: Coronal and sagittal. In accordance with CT protocol optimization, one or more of the following dose reduction techniques were utilized for this exam: automated exposure control, adjustment of mA and/or KV based on patient size, or use of iterative reconstructive technique. FINDINGS: Lungs/Pleura: The right middle lobe nodule measures 8 mm x 6 mm on today's exam which is stable when remeasuring the November 2017 study, and mildly increased compared to May 2017 when the nodule measured 7 mm x 6 mm. In 2013 the nodule measured 4 mm. The lung background remains emphysematous. The lung again demonstrates right lobe predominant tree-in-bud opacities and patchy ground-glass with a partially calcified right posterior pleural scar with associated pulmonary atelectasis/scarring. Granulomatous changes are seen at the right hilum. Mediastinum: Stable cardiomegaly with 3-vessel coronary atherosclerosis and thoracic aortic atherosclerosis with thoracic tortuosity. Prominent mediastinal lymph nodes are unchanged, most pronounced in the aortopulmonary window; individual nodes do not meet size criteria. Bones: No aggressive osseous lesions. Visualized Abdomen: Noncontrast abdomen demonstrates significant atherosclerotic disease and ostomy. Other: None. IMPRESSION: Persistent slow growing right middle lobe pulmonary nodule measuring less than 8 mm. LI-RADS 4A Recommendation: PET/CT characterization versus 3-month low-dose CT follow-up. RADIA
== END 2018-04-09 11:41 | disposition home or self-care (01) ==
LOC: DI 11:40
PROVIDERS: ATTEND Internal Medicine
DX: R91.1 Solitary pulmonary nodule (principal)
CPT/HCPCS: 71250

== ENCOUNTER 2018-05-29 16:50 | Emergency (ER) | payer MEDICAID, MEDICARE ==
[2018-05-29 17:09] LABS: EOSINOPHILS # (AUTO) 0.3 10^3/uL (0.0-0.7); EOSINOPHILS % (AUTO) 5.5 %; HGB - HEMOGLOBIN 12.8 g/dL (14.0-18.0); LYMPHOCYTES # (AUTO) 0.7 10^3/uL (1.5-3.5); LYMPHOCYTES % (AUTO) 14.8 %; MEAN CORPUSCULAR HEMOGLOBIN 30.5 pg (27.0-31.0); MEAN CORPUSCULAR HGB CONC 33.7 g/dL (32.0-36.0); MEAN CORPUSCULAR VOLUME 90.5 fL (80.0-94.0); MEAN PLATELET VOLUME 7.6 fL (7.4-11.4); MONOCYTES # (AUTO) 0.4 10^3/uL (0.0-1.0); MONOCYTES % (AUTO) 7.6 %; NEUTROPHILS # (AUTO) 3.4 10^3/uL (1.5-6.6); NEUTROPHILS % (AUTO) 71.1 %; PLT - PLATELET COUNT 112 10^3/uL (130-450); RED BLOOD COUNT 4.21 10^6/uL (4.70-6.10); RED CELL DISTRIBUTION WIDTH 14.1 % (12.0-15.0); WHITE BLOOD COUNT 4.7 x10^3/uL (4.8-10.8)
[2018-05-29 17:20] LABS: ALBUMIN 3.6 g/dL (3.2-5.5); ALBUMIN/GLOBULIN RATIO 1.2 (1.0-2.2); ALKALINE PHOSPHATASE 78 IU/L (42-121); ALT ALANINE AMINOTRANSFERASE < 10 IU/L (10-60); AST ASPARTATE AMINOTRANSFERASE 13 IU/L (10-42); BILIRUBIN,TOTAL 2.4 mg/dL (0.2-1.0); BUN - BLOOD UREA NITROGEN 14 mg/dL (6-20); CALCIUM 10.1 mg/dL (8.5-10.3); CARBON DIOXIDE - CO2 31 mmol/L (21-32); CHLORIDE 95 mmol/L (101-111); CREATININE 1.7 mg/dL (0.6-1.2); GFR - MDRD 39 (>89); GLUCOSE 134 mg/dL (70-100); LIPASE 25 U/L (22-51); SODIUM 135 mmol/L (135-145); TOTAL PROTEIN 6.6 g/dL (6.7-8.2)
--- NOTE | 2018-05-29 17:29 | ED Physician Documentation ---
PD HPI DYSPNEA - Stated complaint Stated Complaint: AB PX/SOA - Chief complaint Chief Complaint: Abd Pain - History obtained from History obtained from: Patient - History of Present Illness Timing - onset: Other (2 days dyspnea and feels gassy. H/O COPD d/t ex-smoking. Not using inhaler- feels it does not work. He also has a productive cough. No associated chest pain or orthopnea. He is taking his blood pressure medicine.) Timing - details: Gradual onset Review of Systems Constitutional: denies: Fever, Chills Nose: reports: Congestion Cardiac: denies: Chest pain / pressure, Palpitations Respiratory: reports: Dyspnea, Cough GI: reports: Abdominal Pain, Nausea. denies: Vomiting PD PAST MEDICAL HISTORY - Past Medical History Cardiovascular: Hypertension, High cholesterol Respiratory: Emphysema Endocrine/Autoimmune: Type 2 diabetes GI: Hiatal hernia, Diverticulitis, Other : Nocturia, Other (History of Prostate Cancer) HEENT: Chronic vision loss Psych: Anxiety Musculoskeletal: None Derm: None, Other - Past Surgical History Past Surgical History: Yes General: Cholecystectomy, Appendectomy, Bowel surgery, Hiatal hernia repair, Colonoscopy, Other Cardiovascular: AAA HEENT: Cataracts - Present Medications Home Medications: Ambulatory Orders Medication Instructions Recorded Confirmed RX: Atorvastatin Calcium [Lipitor] 20 mg PO QPM 11/11/12 01/03/18 RX: Doxazosin [Cardura] 8 mg PO BID 08/04/13 01/03/18 RX: Losartan [Cozaar] 50 mg PO BID 08/04/13 01/03/18 RX: Aspirin [Adult Low Dose 81 mg PO DAILY 08/09/15 01/03/18 Aspirin EC] RX: traZODone [Desyrel] 50 mg PO QPM 08/09/15 01/03/18 RX: Acetaminophen 325 - 650 mg PO Q6HR PRN 08/18/15 01/03/18 RX: metFORMIN [Glucophage] 500 mg PO BID 05/29/16 01/03/18 RX: Albuterol Sulfate [Proventil 1 - 2 puffs IH Q4H PRN #1 06/03/17 01/03/18 Hfa Inhaler] hfa.[email or web address] RX: Isosorbide Mononitrate ER 30 mg PO DAILY #15 tablet 01/08/18 [Imdur] Metoprolol Tartrate [Lopressor] 12.5 mg PO BID #60 tablet 01/22/18 05/29/18 Potassium Chloride [K-Dur] 20 meq PO DAILY #30 tablet 01/22/18 Isosorbide Mononitrate ER [Imdur] 60 mg PO DAILY #30 tablet 05/29/18 RX: Doxycycline Hyclate 100 mg PO BID #14 capsule 05/29/18 RX: predniSONE [Deltasone] 60 mg PO DAILY 5 Days tablet 05/29/18 - Allergies Allergies/Adverse Reactions: Allergies Allergy/AdvReac Type Severity Reaction Status Date / Time Calcium Channel Blocking Allergy Unknown UNKOWN Verified 05/29/18 16:59 Agent Dilt [Calcium Channel Blocking Agents-Curly] codeine [Codeine] Allergy vomiting Verified 05/29/18 16:59 Penicillins Allergy unknown Verified 05/29/18 16:59 venom-honey bee Allergy anaphylaxis Verified 05/29/18 16:59 [bee venom (honey bee)] - Social History Does the pt smoke?: No Smoking Status: Never smoker Does the pt drink ETOH?: No Does the pt have substance abuse?: No - Immunizations Immunizations are current?: Yes - POLST Patient has POLST: Yes POLST Status: Full Code PD ED PE NORMAL - Vitals Vital signs reviewed: Yes (HTN) - General General: Alert and oriented X 3, No acute distress - HEENT HEENT: PERRL, EOMI - Neck Neck: Supple, no meningeal sign, No bony TTP, No JVD - Cardiac Cardiac: RRR, No murmur - Respiratory Respiratory: No respiratory distress, Other ([place] throughout especially at the bases) - Abdomen Abdomen: Non tender (Left-sided ostomy) - Back Back: No CVA TTP, No spinal TTP - Derm Derm: Normal color, Warm and dry - Extremities Extremities: No edema, No calf tenderness / cord - Neuro Neuro: Alert and oriented X 3, Normal speech Results - Vitals Vitals: Vital Signs - 24 hr 05/29/18 05/29/18 05/29/18 16:57 17:15 17:52 Temperature 37.0 C Heart Rate 79 68 74 Respiratory 22 18 18 Rate Blood Pressure 211/109 H 208/102 H O2 Saturation 95 95 05/29/18 18:31 Temperature Heart Rate 70 Respiratory 16 Rate Blood Pressure 187/90 H O2 Saturation 95 Oxygen O2 Source [] Nasal cannula O2 Source [] Nasal cannula O2 Source Room air - EKG (time done) 1700 Rate: Rate (enter#) (69) Rhythm: NSR [place]: Normal Intervals: Normal [place] QRS: LVH (with LAFB and strain) Ischemia: Non specific changes Compare to prior EKG: Unchanged from prior EKG (no sig chg from 01/22/18) Computer interpretation: Agree with computer - Labs Labs: Laboratory Tests 05/29/18 05/29/18 05/29/18 17:00 17:00 17:00 WBC 4.7 L RBC 4.21 L Hgb 12.8 L Hct 38.1 L MCV 90.5 MCH 30.5 MCHC 33.7 RDW 14.1 Plt Count 112 L MPV 7.6 Neut # (Auto) 3.4 Lymph # (Auto) 0.7 L Saline # (Auto) 0.4 Eos # (Auto) 0.3 Baso # (Auto) 0.0 Absolute Nucleated RBC 0.00 Nucleated RBC % 0.0 Sodium 135 Potassium 3.5 Chloride 95 L Carbon Dioxide 31 Anion Gap 9.0 BUN 14 Creatinine 1.7 H Estimated GFR (MDRD) 39 L Glucose 134 H Calcium 10.1 Total Bilirubin 2.4 H AST 13 ALT < 10 L Alkaline Phosphatase 78 Troponin I B-Natriuretic Peptide 1885 H Total Protein 6.6 L Albumin 3.6 Globulin 3.0 Albumin/Globulin Ratio 1.2 Lipase 25 Urine Color Urine Clarity Urine pH Ur Specific [place] Urine Protein Urine Glucose (UA) Urine Ketones Urine Occult Blood Urine Nitrite Urine Bilirubin Urine Urobilinogen Ur Leukocyte Esterase Ur Microscopic Review Urine Culture Comments 05/29/18 05/29/18 17:00 18:04 WBC RBC Hgb Hct MCV MCH MCHC RDW Plt Count MPV Neut # (Auto) Lymph # (Auto) Saline # (Auto) Eos # (Auto) Baso # (Auto) Absolute Nucleated RBC Nucleated RBC % Sodium Potassium Chloride Carbon Dioxide Anion Gap BUN Creatinine Estimated GFR (MDRD) Glucose Calcium Total Bilirubin AST ALT Alkaline Phosphatase Troponin I < 0.04 B-Natriuretic Peptide Total Protein Albumin Globulin Albumin/Globulin Ratio Lipase Urine Color YELLOW Urine Clarity CLEAR Urine pH 7.0 Ur Specific [place] 1.010 Urine Protein TRACE Urine Glucose (UA) NEGATIVE Urine Ketones NEGATIVE Urine Occult Blood TRACE-LYSE Urine Nitrite NEGATIVE Urine Bilirubin NEGATIVE Urine Urobilinogen 0.2 (NORMAL) Ur Leukocyte Esterase NEGATIVE Ur Microscopic Review NOT INDICATED Urine Culture Comments NOT INDICATED - Rads (name of study) 2v chest Radiology: EMP read contemporaneously (Mild cardiomegaly, NAD) PD MEDICAL DECISION MAKING - ED course ED course: 77-year-old gentleman presents with shortness of breath. Unremarkable vital signs except for significant hypertension. He appears euvolemic. He has no JVD or pedal edema. He does have an elevated BNP which is likely from diastolic dysfunction and elevated blood pressure for which he was administered him door in the department here. He is already on a ARB. The shortness of breath today is probably multifactorial from diastolic dysfunction and hypertension as well as a COPD exacerbation causing his wheezing. He was feeling better after albuterol. Departure - Departure Disposition: 01 Home, Self Care Clinical Impression: COPD (chronic obstructive pulmonary disease), CHF (congestive heart failure), Hypertension Condition: Good Record reviewed to determine appropriate education?: Yes Instructions: Heart Failure Dc, ED COPD Flare Prescriptions: RX: Doxycycline Hyclate 100 mg PO BID #14 capsule Isosorbide Mononitrate ER [Imdur] 60 mg PO DAILY #30 tablet RX: predniSONE [Deltasone] 60 mg PO DAILY 5 Days tablet Comments: Call your doctor to arrange a follow-up appointment, make the next available appointment. In the interim, return anytime if worse or if new symptoms develop. Discharge Date/Time: 05/29/18 18:49
[2018-05-29] MEDS ORDERED: ALBUTEROL NEB 2.5 MG/3 ML INH STA (17:30)
[2018-05-29] MEDS ORDERED: ONDANSETRON ODT 4 MG TABLET TL STA (17:31)
[2018-05-29] MEDS ORDERED: ISOSORBIDE MONONITRATE ER 30 MG TABLET PO STA (17:40)
--- NOTE | 2018-05-29 18:07 | XRAY Report ---
Reason: dyspnea Procedure Date: 05/29/2018 Accession Number: [id number] / [id number] Procedure: XR - Chest 2 View X-Ray CPT Code: 65218 FULL RESULT: EXAM: CHEST RADIOGRAPHY EXAM DATE: 05/29/2018 05:45 PM. CLINICAL HISTORY: Dyspnea. COMPARISON: CHEST 2 VIEW 01/22/2018 4:50 PM. TECHNIQUE: 2 views. FINDINGS: Lungs/Pleura: No focal opacities evident. No pleural effusion. No pneumothorax. Normal volumes. Mediastinum: Mildly enlarged heart. Tortuous aorta. Aortic arch calcifications noted. Other: None. IMPRESSION: 1. No acute pulmonary airspace disease. 2. Mild cardiomegaly. RADIA
[2018-05-29 18:18] LABS: BILIRUBIN,URINE NEGATIVE (NEGATIVE); GLUCOSE, URINE (UA) NEGATIVE (NEGATIVE); KETONES,URINE (UA) NEGATIVE (NEGATIVE); LEUKOCYTE ESTERASE, URINE NEGATIVE (NEGATIVE); NITRITE,URINE NEGATIVE (NEGATIVE); OCCULT BLOOD,URINE TRACE-LYSE (NEGATIVE); PROTEIN,URINE TRACE mg/dL (NEGATIVE); UROBILINOGEN,URINE 0.2 (NORMAL) E.U./dL (NORMAL)
[2018-05-29 18:20] LABS: CLARITY,URINE CLEAR (CLEAR)
[2018-05-29] MEDS ORDERED: DOXYCYCLINE 100 MG TABLET PO STA (18:27)
[2018-05-29] MEDS ORDERED: predniSONE 20 MG TABLET PO STA (18:27)
[2018-05-29 18:31] VITALS: BP 187/90
== END 2018-05-29 18:49 | disposition home or self-care (01) ==
LOC: ED 16:50
DX: I11.0 Hypertensive heart disease with heart failure (principal); I50.30 Unspecified diastolic (congestive) heart failure; J44.9 Chronic obstructive pulmonary disease, unspecified; E11.9 Type 2 diabetes mellitus without complications; Z79.84 Long term (current) use of oral hypoglycemic drugs
CPT/HCPCS: 36415; 71046; 80053; 81003; 83690; 83880; 84484; 85025; 93005; 94640; 99283; 99284; A9270; J7512; Q0162; 81001; 87086

== ENCOUNTER 2018-06-03 14:34 | Inpatient (IN) | payer MEDICARE ==
--- NOTE | 2018-06-03 15:19 | ED Physician Documentation ---
PD HPI DYSPNEA - Stated complaint Stated Complaint: SOA - Chief complaint Chief Complaint: Resp - History obtained from History obtained from: Patient - History of Present Illness Timing - onset: Other (Seen 5 days ago for dyspnea, combo diastilic CHF and COPD. On doxycycline and now worse dyspnea, also fevers. Some R side abd pain- Like "gas") Review of Systems Constitutional: reports: Fever, Chills Nose: denies: Rhinorrhea / runny nose, Congestion Throat: denies: Sore throat Cardiac: denies: Chest pain / pressure, Palpitations Respiratory: reports: Dyspnea, Cough GI: reports: Abdominal Pain PD PAST MEDICAL HISTORY - Past Medical History Cardiovascular: Hypertension, High cholesterol Respiratory: Emphysema Neuro: Seizure disorder Endocrine/Autoimmune: Type 2 diabetes GI: Hiatal hernia, Diverticulitis, Other : Nocturia, Other (History of Prostate Cancer) HEENT: Chronic vision loss Psych: Anxiety Musculoskeletal: None Derm: None, Other - Past Surgical History Past Surgical History: Yes General: Cholecystectomy, Appendectomy, Bowel surgery, Hiatal hernia repair, Colonoscopy, Other Cardiovascular: AAA HEENT: Cataracts - Present Medications Home Medications: Ambulatory Orders Medication Instructions Recorded Confirmed RX: Atorvastatin Calcium [Lipitor] 20 mg PO QPM 11/11/12 01/03/18 RX: Doxazosin [Cardura] 8 mg PO BID 08/04/13 01/03/18 RX: Losartan [Cozaar] 50 mg PO BID 08/04/13 01/03/18 RX: Aspirin [Adult Low Dose 81 mg PO DAILY 08/09/15 01/03/18 Aspirin EC] RX: traZODone [Desyrel] 50 mg PO QPM 08/09/15 01/03/18 RX: Acetaminophen 325 - 650 mg PO Q6HR PRN 08/18/15 01/03/18 RX: metFORMIN [Glucophage] 500 mg PO BID 05/29/16 01/03/18 RX: Albuterol Sulfate [Proventil 1 - 2 puffs IH Q4H PRN #1 06/03/17 01/03/18 Hfa Inhaler] [email or web address] RX: Isosorbide Mononitrate ER 30 mg PO DAILY #15 tablet 01/08/18 [Imdur] Metoprolol Tartrate [Lopressor] 12.5 mg PO BID #60 tablet 01/22/18 05/29/18 Potassium Chloride [K-Dur] 20 meq PO DAILY #30 tablet 01/22/18 Isosorbide Mononitrate ER [Imdur] 60 mg PO DAILY #30 tablet 05/29/18 RX: Doxycycline Hyclate 100 mg PO BID #14 capsule 05/29/18 RX: predniSONE [Deltasone] 60 mg PO DAILY 5 Days tablet 05/29/18 - Allergies Allergies/Adverse Reactions: Allergies Allergy/AdvReac Type Severity Reaction Status Date / Time Calcium Channel Blocking Allergy Unknown UNKOWN Verified 05/29/18 16:59 Agent Dilt [Calcium Channel Blocking Agents-Curly] codeine [Codeine] Allergy vomiting Verified 05/29/18 16:59 Penicillins Allergy unknown Verified 05/29/18 16:59 venom-honey bee Allergy anaphylaxis Verified 05/29/18 16:59 [bee venom (honey bee)] - Social History Does the pt smoke?: No Smoking Status: Never smoker Does the pt drink ETOH?: No Does the pt have substance abuse?: No - Family History Family history: reports: Non contributory - Immunizations Immunizations are current?: Yes - POLST Patient has POLST: Yes POLST Status: Full Code PD ED PE NORMAL - Vitals Vital signs reviewed: Yes - General General: Alert and oriented X 3, No acute distress - HEENT HEENT: Pharynx benign - Neck Neck: Supple, no meningeal sign, No bony TTP - Cardiac Cardiac: No murmur, Other (Slightly tachycardic, about 110 on my exam) - Respiratory Respiratory: No respiratory distress, Other (Peaking full sentences, wheezy throughout) - Abdomen Abdomen: Non tender (Ostomy on the left) - Back Back: No CVA TTP, No spinal TTP - Extremities Extremities: No edema, No calf tenderness / cord - Neuro Neuro: Alert and oriented X 3, Normal speech Results - Vitals Vitals: Vital Signs - 24 hr 06/03/18 06/03/18 14:41 15:57 Temperature 37.6 C H Heart Rate 120 H 110 H Respiratory 20 20 Rate Blood Pressure 160/100 H O2 Saturation 99 Oxygen O2 Source [With Activity] Nasal cannula O2 Source [Without Activity] Nasal cannula O2 Source Room air - Labs Labs: Laboratory Tests 06/03/18 06/03/18 06/03/18 15:30 15:30 15:30 WBC 6.3 RBC 4.10 L Hgb 12.6 L Hct 36.9 L MCV 89.9 MCH 30.7 MCHC 34.1 RDW 14.3 Plt Count 107 L MPV 7.8 Neut # (Auto) 6.0 Lymph # (Auto) 0.2 L [place] # (Auto) 0.1 Eos # (Auto) 0.0 Baso # (Auto) 0.0 Absolute Nucleated RBC 0.00 Nucleated RBC % 0.0 Sodium 129 L Potassium 3.8 Chloride 90 L Carbon Dioxide 29 Anion Gap 10.0 BUN 25 H Creatinine 1.8 H Estimated GFR (MDRD) 37 L Glucose 201 H Lactic Acid 4.6 H* Calcium 8.9 Total Bilirubin 2.0 H AST 27 ALT 11 Alkaline Phosphatase 62 Total Protein 6.8 Albumin 3.8 Globulin 3.0 Albumin/Globulin Ratio 1.3 Lipase 26 06/03/18 16:20 WBC RBC Hgb Hct MCV MCH MCHC RDW Plt Count MPV Neut # (Auto) Lymph # (Auto) [place] # (Auto) Eos # (Auto) Baso # (Auto) Absolute Nucleated RBC Nucleated RBC % Sodium Potassium Chloride Carbon Dioxide Anion Gap BUN Creatinine Estimated GFR (MDRD) Glucose Lactic Acid 3.9 H* Calcium Total Bilirubin AST ALT Alkaline Phosphatase Total Protein Albumin Globulin Albumin/Globulin Ratio Lipase - Rads (name of study) 2v chest Radiology: EMP read contemporaneously (NAD) PD MEDICAL DECISION MAKING - ED course ED course: This is a 77-year-old gentleman with history of COPD was treated last week for COPD exacerbation with doxycycline returns today febrile and tachycardic. He is wheezy. He was administered a DuoNeb. Lactate notable for an initial value of 4.6. He really did not look that ill so I repeated it and it was down a little bit but pretty much the same. We will give him broad-spectrum IV antibiotics presumed pulmonary source despite the clear chest x-ray. We will check a urine. Also he needs IV fluids but the approach will be somewhat limited given his diastolic dysfunction. Spoke with Dr. Goodman for admission at 4:49 PM. Departure - Departure Disposition: 66 [facility] DC/Xfer Clinical Impression: COPD (chronic obstructive pulmonary disease) Qualifiers: COPD type: emphysema Emphysema type: unspecified Qualified Code(s): J43.9 - Emphysema, unspecified Sepsis Qualifiers: Sepsis type: sepsis due to unspecified organism Qualified Code(s): A41.9 - Sepsis, unspecified organism Condition: Serious Discharge Date/Time: 06/03/18 18:30
[2018-06-03] MEDS ORDERED: cefTRIAXone 2 GM in SODIUM CHLORIDE 0.9% MINIBAG 100 ML IV STA (15:22)
[2018-06-03] MEDS ORDERED: levoFLOXacin 750 MG/150 ML 750 MG/150 ML BAG IV ONE (15:22)
[2018-06-03] MEDS ORDERED: IPRATROPIUM/ALBUTEROL 3 ML NEB INH STA (15:28)
[2018-06-03] MEDS ORDERED: predniSONE 20 MG TABLET PO STA (15:28)
[2018-06-03 15:44] LABS: BASOPHILS % (AUTO) 0.2 %; EOSINOPHILS % (AUTO) 0.1 %; HGB - HEMOGLOBIN 12.6 g/dL (14.0-18.0); LYMPHOCYTES # (AUTO) 0.2 10^3/uL (1.5-3.5); LYMPHOCYTES % (AUTO) 3.4 %; MEAN CORPUSCULAR HEMOGLOBIN 30.7 pg (27.0-31.0); MEAN CORPUSCULAR HGB CONC 34.1 g/dL (32.0-36.0); MEAN CORPUSCULAR VOLUME 89.9 fL (80.0-94.0); MEAN PLATELET VOLUME 7.8 fL (7.4-11.4); MONOCYTES # (AUTO) 0.1 10^3/uL (0.0-1.0); MONOCYTES % (AUTO) 1.2 %; NEUTROPHILS % (AUTO) 95.1 %; PLT - PLATELET COUNT 107 10^3/uL (130-450); RED CELL DISTRIBUTION WIDTH 14.3 % (12.0-15.0); WHITE BLOOD COUNT 6.3 x10^3/uL (4.8-10.8)
[2018-06-03 15:59] LABS: ALBUMIN 3.8 g/dL (3.2-5.5); ALBUMIN/GLOBULIN RATIO 1.3 (1.0-2.2); CALCIUM 8.9 mg/dL (8.5-10.3); CREATININE 1.8 mg/dL (0.6-1.2); TOTAL PROTEIN 6.8 g/dL (6.7-8.2)
--- NOTE | 2018-06-03 16:00 | XRAY Report ---
Reason: dyspnea cough` Procedure Date: 06/03/2018 Accession Number: [id number] / [id number] Procedure: XR - Chest 2 View X-Ray CPT Code: 38701 FULL RESULT: EXAM: CHEST RADIOGRAPHY EXAM DATE: 06/03/2018 03:53 PM. CLINICAL HISTORY: Dyspnea cough. COMPARISON: Chest 2 view 05/29/2018 5:36 PM. Chest w/o 04/09/2018 11:51 AM. TECHNIQUE: 2 views. FINDINGS: Lungs/Pleura: No focal opacities evident. No pleural effusion. No pneumothorax. Normal volumes. Mediastinum: The cardiomediastinal silhouette including calcified tortuous aorta, cardiomegaly with prominent atrial and ventricular enlargement is similar to prior. Other: Thoracic kyphosis due to mild loss of anterior vertebral body height at multiple mid thoracic vertebral bodies appears essentially unchanged. IMPRESSION: No evidence of acute airspace disease. RADIA
[2018-06-03] MEDS ORDERED: SODIUM CHLORIDE 0.9% 1,000 ML IV ONE (16:06)
[2018-06-03] MEDS ORDERED: LORazepam 2 MG/ML VIAL IVP STA (16:06)
[2018-06-03] MEDS ORDERED: ONDANSETRON 4 MG/2 ML VIAL IVP STA (16:06)
[2018-06-03] MEDS ORDERED: LACTATED RINGERS 1,000 ML IV STA (16:49)
[2018-06-03] MEDS ORDERED: SODIUM CHLORIDE FLUSH 0.9% 10 ML SYRINGE IVP PRN (17:19)
[2018-06-03] MEDS ORDERED: HYDROcod/ACETAM 5/325 MG TABLET PO PRN (17:19)
[2018-06-03] MEDS ORDERED: PROCHLORPERAZINE 10 MG/2 ML VIAL IVP PRN (17:19)
[2018-06-03] MEDS ORDERED: ACETAMINOPHEN 325 MG TABLET PO PRN ×2 (17:19→18:32)
[2018-06-03 17:45] LABS: BILIRUBIN,URINE NEGATIVE (NEGATIVE); GLUCOSE, URINE (UA) NEGATIVE (NEGATIVE); KETONES,URINE (UA) NEGATIVE (NEGATIVE); LEUKOCYTE ESTERASE, URINE NEGATIVE (NEGATIVE); NITRITE,URINE NEGATIVE (NEGATIVE); OCCULT BLOOD,URINE TRACE-LYSE (NEGATIVE); PROTEIN,URINE 30 mg/dL (NEGATIVE); UROBILINOGEN,URINE 0.2 (NORMAL) E.U./dL (NORMAL)
--- NOTE | 2018-06-03 18:02 | HISTORY & PHYSICAL EXAMINATION ---
Chief Complaint - Chief Complaint Chief Complaint: shortness of breath History of Present Illness - Admitted From Admitted From:: ER/Home - History Obtained From Records Reviewed: [facility] History obtained from: patient and Dr. Handy - History of Present Illness HPI Comment/Other: This gentleman usually has an extensive history with regards to bowel surgeries. He has had recurrent bowel obstructions, status post colostomy, and an abdominal aortic aneurysm as well as diabetes, hypertension, hyperlipidemia and presents with another episode of shortness of breath. He had an admission in December 2017 for shortness of breath that was felt to be acute congestive heart failure from hypertensive emergency. Although he has a history of COPD he was n ot felt to be in COPD exacerbation during that admission. He was diuresed, felt much better, and an echocardiogram showed an ejection fraction of 35-40%. He was felt to have combined diastolic and systolic failure and Lasix was added. He was continued on his beta-luana, Imdur, and losartan. Because he was bradycardic his beta-luana was reduced from 50 mg twice daily to 12.5 mg twice daily. No changes made in his COPD regimen. He returned to the emergency room on January 22 with shortness of breath. He did not have edema, but he did have crackles bilaterally. He ran out of medications 3-4 days before he was seen in the emergency room. He was given Lasix IV, oral M Griselda, nitroglycerin paste, and felt well enough to leave the emergency room and go home and be followed up by his primary care provider. He was then seen again May 29 with abdominal pain and shortness of breath. His belly felt distended and gassy but he was also coughing quite a bit. At that point he was compliant with his blood pressure medication and diuretics. On that physical exam he was wheezing, did not have crackles. He had no JVD and no edema. He has significant hypertension and was euvolemic. BNP was mildly elevated. He was given doxycycline, and increase in M Griselda, a prednisone taper with Deltasone. He now returns being short of breath yet again. His dyspnea is worse, and he starting to have fevers. He has some right-sided abdominal pain. There is no associated URI symptoms. There is no cardiac symptoms. He is temperature is 37 6, pulse rate is 120 and blood pressure is 160/100. He is 99% on room air. He is wheezing on lung exam, but speaking full sentences. He is without any findings on abdominal exam and he has the ostomy on the left. He was given DuoNeb. A lactic acid was done and his initial value was 4.6. Since he really did not look that ill, the ER doctor repeated it and it was down a bit but still about the same. He has a clear chest x-ray, and we did discuss that he is on metformin so he could have lactic acidosis from metformin. Urinalysis has pro teinuria, but no leukocyte Estrace, red cells, 0-3 white cells, no squamous cells, no bacteria. History - Past Medical History Cardiovascular: reports: Congestive heart failure (Echocardiogram December 2017 as left ventricular size upper limits of normal. Mild concentric left ventricular hypertrophy. Overall left ventricular systolic function moderately impaired with an ejection fraction of 35-40%. Mild global hypokinesis of LV co ntractility. Right ventricle normal size and function. No sick hemodynamically significant valvular abnormality.), Hypertension (Myocardial perfusion study attempted February 18, 2018. However patient could not tolerate laying down in the scanner and the test was incomplete.), High cholesterol, Other (syncope. Carotid Dopplers January 06, 2018 showed small amount of smooth partially calcified plaque at the bilateral carotid bifurcations. Otherwise normal anterograde flow present in bilateral vertebral arteries and stenosis less than 50% in both right and left carotid arteries.) Respiratory: reports: Emphysema Neuro: reports: Seizure disorder Endocrine/Autoimmune: reports: Type 2 diabetes (Without retinopathy, nephropa thy, neuropathy. Non-insulin requiring.) GI: reports: Hiatal hernia, Diverticulitis (Diverticulitis with diverticular stricture resulting in distal sigmoid bowel obstruction. Status post sigmoid colectomy and low anterior resection and colostomy November 2012. Developed incisi onal hernia at the site with perforating diverticulitis at ostomy site. Underwent exploratory laparotomy and extensive lysis of adhesions, removal of ostomy and incisional hernia repair July 2013.), Other (Bowel obstruction November 2013, March 2014, April 2014. 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 Mom lived until she was 99 and had hypertension and Alzheimer's.Never had children. Living arrangement: At home Living Situation: Alone Social History Notes: Patient lives in [place], [place] and has been living there for the past 40 years. He is originally from [place]. The patient has never been . He has no children. Patient smoked 1-1/2 packs per day for about 40 years he has quit. 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 He denies any use of cocaine, heroin, LSD, methamphetamines. - Substance History Use: Uses substance without health or social issues: NONE Abuse: Recurrent use of substance despite neg consequences: NONE Dependence: Experiences withdrawal or developed tolerances: NONE - POLST Patient has POLST: Yes POLST Status: Full Code (5 wishes document noted in chart state that he wants to have life support treatment if he is close to , has permanent and severe brain damage, in a coma but only if it would help his symptoms and his health c ondition. If it is not helping his condition or symptoms he does not want resuscitation. His power of title attorney is Naveed Morgan, ) Meds/Allgy - Home Medications Home Medications: Ambulatory Orders Medication Instructions Recorded Confirmed Atorvastatin Calcium [Lipitor] 20 mg PO QPM 11/11/12 06/04/18 Doxazosin [Cardura] 8 mg PO BID 08/04/13 06/04/18 Losartan [Cozaar] 50 mg PO BID 08/04/13 06/04/18 Aspirin [Adult Low Dose Aspirin EC] 81 mg PO DAILY 08/09/15 01/03/18 traZODone [Desyrel] 50 mg PO QPM 08/09/15 06/04/18 Acetaminophen 325 - 650 mg PO Q6HR PRN 08/18/15 01/03/18 metFORMIN [Glucophage] 500 mg PO BID 05/29/16 06/04/18 Albuterol Sulfate [Proventil Hfa 1 - 2 puffs IH Q4H PRN #1 06/03/17 01/03/18 Inhaler] [email or web address] Potassium Chloride [K-Dur] 20 meq PO DAILY #30 tablet 01/22/18 Doxycycline Hyclate 100 mg PO BID #14 capsule 05/29/18 Isosorbide Mononitrate ER [Imdur] 60 mg PO DAILY #30 tablet 05/29/18 06/04/18 predniSONE [Deltasone] 60 mg PO DAILY 5 Days tablet 05/29/18 06/04/18 Metoprolol Tartrate [Lopressor] 50 mg PO BID 06/04/18 06/04/18 - Allergies Allergies/Adverse Reactions: Allergies Allergy/AdvReac Type Severity Reaction Status Date / Time Calcium Channel Blocking Allergy Unknown UNKOWN Verified 05/29/18 16:59 Agent Dilt [Calcium Channel Blocking Agents-Curly] codeine [Codeine] Allergy vomiting Verified 05/29/18 16:59 Penicillins Allergy unknown Verified 05/29/18 16:59 venom-honey bee Allergy anaphylaxis Verified 05/29/18 16:59 [bee venom (honey bee)] Exam - Vital Signs Reviewed Vital Signs: Yes Vital Signs: Vital Signs x48h Temp Pulse Resp BP Pulse Ox 06/03/18 15:57 110 H 20 06/03/18 14:41 37.6 C H 120 H 20 160/100 H 99 - Physical Exam General Appearance: positive: No acute distress, Alert, Other (Thin elderly gentleman with sánchez and mustache, mildly short of breath with speaking to me) Eyes Bilateral: positive: PERRL, EOMI ENT: positive: Pharynx nml, Other (A little deaf) Neck: positive: No JVD. negative: Stiff neck, Carotid bruit Respiratory: positive: Chest non-tender, Wheezes. negative: Rales, Rhonchi Cardiovascular: positive: Regular rate & rhythm, Systolic murmur. negative: Gallop/S4, Friction rub Peripheral Pulses: positive: 1+ Abdomen: positive: Non-tender, No organomegaly, Nml bowel sounds, No distention Skin: positive: Warm, Pallor Extremities: positive: Non-tender, Full ROM Neurologic/Psychiatric: positive: Oriented x3, CN's nml (2-12) (but a little deaf), Motor nml Reflexes: Bicep (R): 1+, Bicep (L): 1+, Knee (R): 1+, Knee (L): 1+, Ankle (R): 0, Ankle (L): 0 Babinski Reflex: Right: Down, Left: Down Conclusion/Plan - Problem List (1) Acute exacerbation of chronic obstructive airways disease Conclusion/Plan: This gentleman is relatively compliant with his medications. He has no new illnesses. Chest x-ray has no acute changes of airspace disease. He does not platt ve a fever. And he does not have an elevated white cell count. He has no antecedent changes of a URI or viral illness. Which makes the question why he would have exacerbation of his COPD. With the elevated lactic acid level it makes me feel that he may be getting lactic acidosis from metformin. That in turn will decompensate his acid-base balance and respiratory status with a decompensation of his COPD. Plan: Acute inpatient admission Treat the cause of the acidosis, namely metformin Nebulizer treatments Empiric antibiotic therapy has been initiated but again low threshold for stopping this since he has no objective criteria of infection No steroids at this time (2) Lactic acidosis Conclusion/Plan: He does not have uncontrolled diabetes, he is not an alcoholic and withdrawal, he is not dehydrated, he does not have any infection, and the only lactic acidosis because I can see would be the metformin. Plan: Stop metformin. Discussed with the patient modestly can do for his diabetes and this not on the Biers list. (3) Chronic diastolic heart failure, NYHA class 2 Conclusion/Plan: I do not think he has acute exacerbation of heart failure. Will resume his usual medications of losartan, Lopressor, isosorbide mononitrate. No diuretic needed at this time (4) Hypertension not at goal Conclusion/Plan: He is on Cardura, Cozaar, metoprolol, isosorbide mononitrate. Alpha luana, ARB, beta-luana, and a nitrate. If we increase Cardura need to worry about orthostatic changes. Cozaar is at 50 twice daily and at max therapy. Beta- blockers at 50 twice daily and could be increased. But pulse is already in the 60s and may not get us any benefit. And he is on 90 mg of a nitrate a day. Although he does not need a diuretic for congestive heart failure, he may benefit from the addition of hydrochlorothiazide. Would have to monitor the effect on sodium as well as the effect on his glucose. I will discussed with nephrology on a curbside consult in the next couple of days (5) Controlled type 2 diabetes mellitus with complication, without long-term current use of insulin Conclusion/Plan: Hold metformin. During the stay you short acting insulin before meals after sliding scale check. We will have to investigate what oral medication that is tear one that he can afford in the outpatient setting other than metformin. - Lab Results Lab results reviewed: Yes Fish Bones: 06/04/18 04:20 06/04/18 04:20 Other Lab Results: Laboratory Tests 06/03/18 06/03/18 06/03/18 15:30 15:30 15:30 WBC 6.3 Hgb 12.6 L Hct 36.9 L Plt Count 107 L Sodium 129 L Potassium 3.8 Chloride 90 L Carbon Dioxide 29 Anion Gap 10.0 BUN 25 H Creatinine 1.8 H Glucose 201 H Lactic Acid 4.6 H* Calcium 8.9 Total Bilirubin 2.0 H AST 27 ALT 11 Alkaline Phosphatase 62 Lipase 26 Urine Color Urine Clarity Urine Protein Urine Glucose (UA) Urine Ketones Urine Nitrite Urine Bilirubin Urine Urobilinogen Ur Leukocyte Esterase Urine RBC Urine WBC Ur Squamous Epith Cells 06/03/18 06/03/18 16:20 17:20 WBC Hgb Hct Plt Count Sodium Potassium Chloride Carbon Dioxide Anion Gap BUN Creatinine Glucose Lactic Acid 3.9 H* Calcium Total Bilirubin AST ALT Alkaline Phosphatase Lipase Urine Color YELLOW Urine Clarity CLEAR Urine Protein 30 H Urine Glucose (UA) NEGATIVE Urine Ketones NEGATIVE Urine Nitrite NEGATIVE Urine Bilirubin NEGATIVE Urine Urobilinogen 0.2 (NORMAL) Ur Leukocyte Esterase NEGATIVE Urine RBC None Seen Urine WBC 0-3 Ur Squamous Epith Cells NONE SEEN Core Measures - Anticipated LOS I expect patient to be DC'd or transferred within 96 hours.: Yes - DVT/VTE - Prophylaxis VTE/DVT Device ordered at admit?: Yes
[2018-06-03 18:05] LABS: CLARITY,URINE CLEAR (CLEAR)
[2018-06-03 18:07] LABS: BACTERIA,URINE None Seen /HPF (None Seen); RBC,URINE None Seen /HPF (0-5); SQUAMOUS EPITHELIAL CELL,UR NONE SEEN (<= Few)
[2018-06-03] MEDS: ATORVASTATIN 10 MG TABLET PO SCH (20:31)
[2018-06-03] MEDS: METOPROLOL TARTRATE 25 MG TABLET PO SCH (20:31)
[2018-06-03] MEDS: ONDANSETRON ODT 4 MG TABLET TL PRN (20:31)
[2018-06-03] MEDS: LOSARTAN 50 MG TABLET PO SCH (20:31)
[2018-06-03] MEDS: DOXAZOSIN 4 MG TABLET PO SCH (20:31)
[2018-06-03] MEDS: traZODone 50 MG TABLET PO SCH (20:31)
[2018-06-03] MEDS ORDERED: diphenhydrAMINE 25 MG CAPSULE PO PRN (21:21)
[2018-06-03] MEDS ORDERED: LORazepam 0.5 MG TABLET PO PRN (21:21)
[2018-06-03] MEDS: SODIUM CHLORIDE FLUSH 0.9% 10 ML SYRINGE IVP SCH (22:52)
[2018-06-04 04:42] LABS: BASOPHILS % (AUTO) 0.2 %; EOSINOPHILS % (AUTO) 0.1 %; HGB - HEMOGLOBIN 11.5 g/dL (14.0-18.0); LYMPHOCYTES # (AUTO) 0.3 10^3/uL (1.5-3.5); LYMPHOCYTES % (AUTO) 7.2 %; MEAN CORPUSCULAR HEMOGLOBIN 30.7 pg (27.0-31.0); MEAN CORPUSCULAR HGB CONC 33.2 g/dL (32.0-36.0); MEAN CORPUSCULAR VOLUME 92.6 fL (80.0-94.0); MONOCYTES # (AUTO) 0.1 10^3/uL (0.0-1.0); MONOCYTES % (AUTO) 3.1 %; NEUTROPHILS # (AUTO) 3.7 10^3/uL (1.5-6.6); NEUTROPHILS % (AUTO) 89.4 %; PLT - PLATELET COUNT 104 10^3/uL (130-450); RED BLOOD COUNT 3.73 10^6/uL (4.70-6.10); RED CELL DISTRIBUTION WIDTH 14.2 % (12.0-15.0); WHITE BLOOD COUNT 4.1 x10^3/uL (4.8-10.8)
[2018-06-04 04:47] LABS: CALCIUM 8.1 mg/dL (8.5-10.3); CREATININE 1.6 mg/dL (0.6-1.2)
[2018-06-04] MEDS ORDERED: ISOSORBIDE MONONITRATE ER 30 MG TABLET PO SCH (09:00)
[2018-06-04] MEDS: cefTRIAXone 2 GM in SODIUM CHLORIDE 0.9% MINIBAG 100 ML IV SCH (09:32)
[2018-06-04] MEDS: ISOSORBIDE MONONITRATE ER 30 MG TABLET PO SCH ×2 (09:42→09:43)
[2018-06-04] MEDS: ASPIRIN EC 81 MG TABLET PO SCH (09:42)
[2018-06-04] MEDS: METOPROLOL TARTRATE 25 MG TABLET PO SCH ×2 (09:42→20:20)
[2018-06-04] MEDS: LOSARTAN 50 MG TABLET PO SCH ×2 (09:43→20:19)
[2018-06-04] MEDS: DOXAZOSIN 4 MG TABLET PO SCH ×2 (09:43→20:19)
[2018-06-04] MEDS: POTASSIUM CHLORIDE 20 MEQ TABLET PO SCH (09:43)
[2018-06-04] MEDS: SODIUM CHLORIDE FLUSH 0.9% 10 ML SYRINGE IVP SCH ×3 (09:43→17:36)
[2018-06-04] MEDS: POLYETHYLENE GLYCOL 3350 17 GM PACKET PO SCH (09:43)
[2018-06-04] MEDS: AZITHROMYCIN INJ 500 MG in SODIUM CHLORIDE 0.9% 250 ML IV SCH (10:36)
[2018-06-04] MEDS: ONDANSETRON ODT 4 MG TABLET TL PRN ×2 (12:24→21:51)
[2018-06-04] MEDS: SACCHAROMYCES BOULARDII 250 MG CAPSULE PO SCH (17:36)
[2018-06-04] MEDS: PRENATAL VITAMIN TABLET PO SCH (17:36)
[2018-06-04] MEDS: ATORVASTATIN 10 MG TABLET PO SCH (20:20)
[2018-06-04] MEDS: traZODone 50 MG TABLET PO SCH (21:51)
[2018-06-05] MEDS: SODIUM CHLORIDE FLUSH 0.9% 10 ML SYRINGE IVP SCH ×2 (02:07→09:39)
[2018-06-05 05:12] LABS: BASOPHILS % (AUTO) 0.3 %; EOSINOPHILS # (AUTO) 0.1 10^3/uL (0.0-0.7); EOSINOPHILS % (AUTO) 1.8 %; HGB - HEMOGLOBIN 9.8 g/dL (14.0-18.0); LYMPHOCYTES # (AUTO) 0.6 10^3/uL (1.5-3.5); LYMPHOCYTES % (AUTO) 14.3 %; MEAN CORPUSCULAR HEMOGLOBIN 30.4 pg (27.0-31.0); MEAN CORPUSCULAR HGB CONC 33.3 g/dL (32.0-36.0); MEAN CORPUSCULAR VOLUME 91.1 fL (80.0-94.0); MEAN PLATELET VOLUME 8.1 fL (7.4-11.4); MONOCYTES # (AUTO) 0.3 10^3/uL (0.0-1.0); NEUTROPHILS # (AUTO) 3.4 10^3/uL (1.5-6.6); NEUTROPHILS % (AUTO) 77.6 %; PLT - PLATELET COUNT 81 10^3/uL (130-450); RED BLOOD COUNT 3.22 10^6/uL (4.70-6.10); RED CELL DISTRIBUTION WIDTH 14.2 % (12.0-15.0); WHITE BLOOD COUNT 4.3 x10^3/uL (4.8-10.8)
[2018-06-05 05:43] LABS: CALCIUM 7.7 mg/dL (8.5-10.3); CREATININE 1.7 mg/dL (0.6-1.2)
[2018-06-05 07:47] VITALS: BP 119/60
--- NOTE | 2018-06-05 08:13 | PROVIDER PROGRESS NOTE ---
Subjective - Prog Note Date Prog Note Date: 06/04/18 Prog Note Time: 10:00 - Subjective Pt reports feeling: Improved Current Medications - Current Medications Current Medications: Active Medications Acetaminophen (Tylenol) 650 mg PO Q6HR PRN PRN Reason: PAIN Hydrocodone Bitart/Acetaminophen ([place]we 5/325) 1 tab PO Q4HR PRN PRN Reason: Pain 5 to 7 Last Admin: 06/03/18 20:31 Dose: 1 tab Aspirin (Ecotrin) 81 mg PO DAILY [facility] Last Admin: 06/04/18 09:42 Dose: 81 mg Atorvastatin Calcium (Lipitor) 20 mg PO QPM [facility] Last Admin: 06/04/18 20:20 Dose: 20 mg Diphenhydramine HCl (Benadryl) 25 mg PO QPM PRN PRN Reason: Insomnia Last Admin: 06/03/18 22:53 Dose: 25 mg Doxazosin Mesylate (Cardura) 8 mg PO BID [facility] Last Admin: 06/04/18 20:19 Dose: 8 mg Azithromycin 500 mg/ Sodium (Chloride) 250 mls @ 250 mls/hr IV DAILY [facility] Last Infusion: 06/04/18 11:36 Dose: Infused Ceftriaxone Sodium 2 gm/ (Sodium Chloride) 100 mls @ 200 mls/hr IV DAILY [facility] Last Infusion: 06/04/18 11:36 Dose: Infused Isosorbide Mononitrate (Imdur) 60 mg PO DAILY [facility] Last Admin: 06/04/18 09:42 Dose: 60 mg Isosorbide Mononitrate (Imdur) 30 mg PO DAILY [facility] Last Admin: 06/04/18 09:43 Dose: 30 mg Lorazepam (Ativan) 1 mg PO QPM PRN PRN Reason: Insomnia Last Admin: 06/03/18 22:52 Dose: 1 mg Losartan Potassium (Cozaar) 50 mg PO BID [facility] Last Admin: 06/04/18 20:19 Dose: 50 mg Metoprolol Tartrate (Lopressor) 12.5 mg PO BID [facility] Last Admin: 06/04/18 20:20 Dose: 12.5 mg Ondansetron HCl (Zofran Odt) 4 mg TL Q6HR PRN PRN Reason: Nausea / Vomiting Last Admin: 06/04/18 21:51 Dose: 4 mg Polyethylene Glycol (Miralax) 17 gm PO DAILY [facility] Last Admin: 06/04/18 09:43 Dose: Not Given Potassium Chloride (K-Dur) 20 meq PO DAILY [facility] Last Admin: 06/04/18 09:43 Dose: 20 meq Multivit/Folic Acid/Iron (Trinatal Rx 1) 1 tab PO DAILYWM [facility] Last Admin: 06/04/18 17:36 Dose: 1 tab Prochlorperazine Edisylate (Compazine Inj) 10 mg IVP Q6HR PRN PRN Reason: Nausea / Vomiting Last Admin: 06/04/18 13:34 Dose: 10 mg Saccharomyces Boulardii (Florastor) 250 mg PO BIDWM [facility] Last Admin: 06/04/18 17:36 Dose: 250 mg Sodium Chloride (Normal Saline Flush 0.9%) 10 ml IVP PRN PRN PRN Reason: NEEDED PER PROVIDER ORDERS Sodium Chloride (Normal Saline Flush 0.9%) 10 ml IVP 0100,0900,1700 [facility] Last Admin: 06/05/18 02:07 Dose: Not Given Trazodone HCl (Desyrel) 50 mg PO QPM [facility] Last Admin: 06/04/18 21:51 Dose: 50 mg Atorvastatin Calcium [Lipitor] 20 mg PO QPM 11/11/12 Doxazosin [Cardura] 8 mg PO BID 08/04/13 Losartan [Cozaar] 50 mg PO BID 08/04/13 Aspirin [Adult Low Dose Aspirin EC] 81 mg PO DAILY 08/09/15 traZODone [Desyrel] 50 mg PO QPM 08/09/15 Acetaminophen 325 - 650 mg PO Q6HR PRN 08/18/15 metFORMIN [Glucophage] 500 mg PO BID 05/29/16 Metoprolol Tartrate [Lopressor] 50 mg PO BID 06/04/18 Objective - Vital Signs/Intake & Output Reviewed Vital Signs: Yes Vital Signs: Vital Signs x48h Temp Pulse Resp BP Pulse Ox 06/05/18 07:43 36.8 C 60 16 119/60 95 Intake & Output: Intake & Output 06/02/18 06/03/18 06/04/18 06/05/18 23:59 23:59 23:59 23:59 Intake Total 1750 1440 Output Total 350 750 350 Balance 1400 690 -350 - Objective General Appearance: positive: No acute distress, Alert, Other (He states he feels much better. Still little short of breath when he is eating his breakfast is talking to me but overall improved) Eyes Bilateral: positive: PERRL ENT: positive: Pharynx nml Neck: positive: No JVD. negative: Stiff neck, Carotid bruit Respiratory: positive: Chest non-tender, No respiratory distress. negative: Wheezes (But does have prolonged and exhalation phase), Rales, Rhonchi Cardiovascular: positive: Regular rate & rhythm, Systolic murmur. negative: Gallop/S4, Friction rub Abdomen: positive: Non-tender, No organomegaly, Nml bowel sounds, No distention Skin: positive: Warm, Dry Extremities: positive: Non-tender, No pedal edema Neurologic/Psychiatric: positive: Oriented x3, CN's nml (2-12), Motor nml, Weakness. negative: Facial droop, Slurred/abnml speech - Lab Results Fish Bones: 06/05/18 04:20 06/05/18 04:20 Other Labs: Laboratory Tests 06/04/18 06/04/18 04:20 04:20 WBC 4.1 L Hgb 11.5 L Hct 34.5 L Plt Count 104 L Sodium 130 L Potassium 4.4 Chloride 93 L Carbon Dioxide 31 Anion Gap 6.0 BUN 24 H Creatinine 1.6 H Estimated GFR (MDRD) 42 L Glucose 141 H Lab Results x24hrs 06/05/18 06/05/18 Range/Units 04:20 04:20 WBC 4.3 L (4.8-10.8) x10^3/uL RBC 3.22 L (4.70-6.10) 10^6/uL Hgb 9.8 L (14.0-18.0) g/dL Hct 29.4 L (42.0-52.0) % MCV 91.1 (80.0-94.0) fL MCH 30.4 (27.0-31.0) pg MCHC 33.3 (32.0-36.0) g/dL RDW 14.2 (12.0-15.0) % Plt Count 81 L (130-450) 10^3/uL MPV 8.1 (7.4-11.4) fL Neut # (Auto) 3.4 (1.5-6.6) 10^3/uL Lymph # (Auto) 0.6 L (1.5-3.5) 10^3/uL [place] # (Auto) 0.3 (0.0-1.0) 10^3/uL Eos # (Auto) 0.1 (0.0-0.7) 10^3/uL Baso # (Auto) 0.0 (0.0-0.1) 10^3/uL Absolute Nucleated RBC 0.00 x10^3/uL Nucleated RBC % 0.0 /100WBC Sodium 132 L (135-145) mmol/L Potassium 3.9 (3.5-5.0) mmol/L Chloride 99 L (101-111) mmol/L Carbon Dioxide 30 (21-32) mmol/L Anion Gap 3.0 L (6-13) BUN 27 H (6-20) mg/dL Creatinine 1.7 H (0.6-1.2) mg/dL Estimated GFR (MDRD) 39 L (>89) Glucose 97 (70-100) mg/dL Calcium 7.7 L (8.5-10.3) mg/dL ABX Reporting Has patient been on IV antibiotics over the past 48 hours?: Yes Assessment/Plan - Problem List (1) Acute exacerbation of chronic obstructive airways disease Impression: This gentleman is relatively compliant with his medications. He has no new illnesses. Chest x-ray has no acute changes of airspace disease. He does not have a fever. And he does not have an elevated white cell count. He has no antecedent changes of a URI or viral illness. Which makes the question why he would have exacerbation of his COPD. With the elevated lactic acid level it makes me feel that he may be getting lactic acidosis from metformin. That in turn will decompensate his acid-base balance and respiratory status with a decompensation of his COPD.He is improved tremendously. He almost feels back to baseline. But he still short of breath above that baseline Plan: Acute inpatient admission Treat the cause of the acidosis, namely metformin Nebulizer treatments Empiric antibiotic therapy has been initiated but again low threshold for stopping this since he has no objective criteria of infection No steroids at this time (2) Lactic acidosis Conclusion/Plan: He does not have uncontrolled diabetes, he is not an alcoholic and withdrawal, he is not dehydrated, he does not have any infection, and the only lactic acidosis because I can see would be the metformin. Plan: Stopped metformin. Discussed with the patient can do for his diabetes and that is not on the Biers list. recheck level tomorrow am (3) Chronic diastolic heart failure, NYHA class 2 Conclusion/Plan: I do not think he has acute exacerbation of heart failure. Will resume his usual medications of losartan, Lopressor, isosorbide mononitrate. No diuretic needed at this time For fluid overload (4) Hypertension not at goal Conclusion/Plan: He is on Cardura, Cozaar, metoprolol, isosorbide mononitrate. Alpha luana, ARB, beta-luana, and a nitrate. If we increase Cardura need to worry about orthostatic changes. Cozaar is at 50 twice daily and at max therapy. Beta- blockers at 50 twice daily and could be increased. But pulse is already in the 60s and may not get us any benefit. And he is on 90 mg of a nitrate a day. Although he does not need a diuretic for congestive heart failure, he may benefit from the addition of hydrochlorothiazide. Would have to monitor the effect on sodium as well as the effect on his glucose. I will discussed with nephrology on a curbside consult in the next couple of days (5) Controlled type 2 diabetes mellitus with complication, without long-term current use of insulin Conclusion/Plan: Hold metformin. During the stay short acting insulin before meals after sliding scale check has not been needed. We will have to investigate what oral medication that is tear one that he can afford in the outpatient setting other than metformin.This morning his glucose is 141. He is not on any insulin at this time. No change in medication will be ordered
[2018-06-05] MEDS: cefTRIAXone 2 GM in SODIUM CHLORIDE 0.9% MINIBAG 100 ML IV SCH (09:28)
[2018-06-05] MEDS: ISOSORBIDE MONONITRATE ER 30 MG TABLET PO SCH ×2 (09:34→09:35)
[2018-06-05] MEDS: SACCHAROMYCES BOULARDII 250 MG CAPSULE PO SCH (09:34)
[2018-06-05] MEDS: POTASSIUM CHLORIDE 20 MEQ TABLET PO SCH (09:34)
[2018-06-05] MEDS: LOSARTAN 50 MG TABLET PO SCH (09:35)
[2018-06-05] MEDS: DOXAZOSIN 4 MG TABLET PO SCH (09:35)
[2018-06-05] MEDS: ASPIRIN EC 81 MG TABLET PO SCH (09:35)
[2018-06-05] MEDS: PRENATAL VITAMIN TABLET PO SCH (09:35)
[2018-06-05] MEDS: METOPROLOL TARTRATE 25 MG TABLET PO SCH (09:35)
[2018-06-05] MEDS: POLYETHYLENE GLYCOL 3350 17 GM PACKET PO SCH (09:39)
[2018-06-05] MEDS: AZITHROMYCIN INJ 500 MG in SODIUM CHLORIDE 0.9% 250 ML IV SCH (10:48)
--- NOTE | 2018-06-05 12:33 | Discharge Plan ---
Discharge Plan Disposition: 01 Home, Self Care Condition: Good Prescriptions: Azithromycin 250 mg PO DAILY #7 tablet Diet: Regular Activity Restrictions: Activity as Tolerated Shower Restrictions: No Driving Restrictions: No Additional Instructions or Follow Up instructions: You were brought into the hospital because you were very short of breath. You were also having right-sided abdominal aching. When we evaluated you, you had a very elevated blood pressure, fast heart rate, and lots and lots of wheezing. You did not have any water in yout lungs and we did not find any excessive fluid with edema in your legs. We did find you to have a very elevated lactic acid level. We think it may be because you are taking metformin for diabetes. When acid level gets very high in your body, your body attempts to get rid of it by making you hyperventilate. Because you have emphysema, we think that the high acid level caused you to hyperventilate and decompensate your emphysema. We did not find any pneumonia on chest x-ray. You did not have a fever. Your white cell count was normal. You did not get antibiotics in the hospital. You also did not get steroids in the hospital. At discharge your lactic acid level is normal. We tested your oxygen levels and you did not need oxygen with exertion. You were 95% on room air. At this time I am sending you home on an increased dose of your Imdur to help your blood pressure and heart. It is now 90 mg a day. I will be calling Dr. Marcus, your primary care provider, to let her know that she needs to change your metformin to a different diabetic drug. I also am sending you home on 7 days of azithromycin to reduce your risk of coming back to the hospital for emphysema. Please see Dr. Marcus in the next week or 2. No Smoking: If you smoke, Please STOP! Call for help. Follow-up with: Cassia Marcus MD [Primary Care Provider] -
== END 2018-06-05 13:46 | disposition home or self-care (01) | DRG 191 ==
LOC: ED 14:34 → MS3 17:19
PROVIDERS: ADMIT Specialist; ATTEND Specialist
DX: A41.9 Sepsis, unspecified organism (principal); J43.9 Emphysema, unspecified; E87.2 Acidosis; I50.30 Unspecified diastolic (congestive) heart failure; E11.9 Type 2 diabetes mellitus without complications; I50.42 Chronic combined systolic (congestive) and diastolic (congestive) heart failure; T38.3X5A Adverse effect of insulin and oral hypoglycemic [antidiabetic] drugs, initial encounter; I11.0 Hypertensive heart disease with heart failure; E11.8 Type 2 diabetes mellitus with unspecified complications; E78.5 Hyperlipidemia, unspecified; Z93.3 Colostomy status; Z79.899 Other long term (current) drug therapy; Z87.19 Personal history of other diseases of the digestive system; Z85.46 Personal history of malignant neoplasm of prostate; Z87.891 Personal history of nicotine dependence; Z79.84 Long term (current) use of oral hypoglycemic drugs; Z79.82 Long term (current) use of aspirin
CPT/HCPCS: 36415; 71046; 80048; 80053; 81001; 81003; 83605; 83690; 85025; 87040; 87086; 94640; 94761; 96365; 96375; 99282; 99283; 99284

== ENCOUNTER 2018-06-25 07:30 | Emergency (ER) | payer MEDICARE ==
[2018-06-25 07:57] VITALS: BP 219/115
[2018-06-25] MEDS ORDERED: ONDANSETRON 4 MG/2 ML VIAL IVP STA (08:16)
[2018-06-25] MEDS ORDERED: SODIUM CHLORIDE 0.9% 1,000 ML IV ONE (08:16)
[2018-06-25 08:50] LABS: BASOPHILS # (AUTO) 0.1 10^3/uL (0.0-0.1); BASOPHILS % (AUTO) 1.2 %; EOSINOPHILS # (AUTO) 0.3 10^3/uL (0.0-0.7); EOSINOPHILS % (AUTO) 5.9 %; HGB - HEMOGLOBIN 11.7 g/dL (14.0-18.0); LYMPHOCYTES # (AUTO) 0.5 10^3/uL (1.5-3.5); MEAN CORPUSCULAR HEMOGLOBIN 30.6 pg (27.0-31.0); MEAN CORPUSCULAR HGB CONC 33.9 g/dL (32.0-36.0); MEAN PLATELET VOLUME 7.5 fL (7.4-11.4); MONOCYTES # (AUTO) 0.4 10^3/uL (0.0-1.0); NEUTROPHILS # (AUTO) 3.9 10^3/uL (1.5-6.6); NEUTROPHILS % (AUTO) 75.9 %; PLT - PLATELET COUNT 148 10^3/uL (130-450); RED BLOOD COUNT 3.82 10^6/uL (4.70-6.10); RED CELL DISTRIBUTION WIDTH 14.7 % (12.0-15.0); WHITE BLOOD COUNT 5.2 x10^3/uL (4.8-10.8)
[2018-06-25] MEDS ORDERED: IOVERSOL 320 100 ML VIAL IVP ONE (08:50)
[2018-06-25 08:51] LABS: ALBUMIN 3.7 g/dL (3.2-5.5); ALBUMIN/GLOBULIN RATIO 1.3 (1.0-2.2); BILIRUBIN,TOTAL 1.7 mg/dL (0.2-1.0); CALCIUM 9.8 mg/dL (8.5-10.3); CREATININE 1.6 mg/dL (0.6-1.2); TOTAL PROTEIN 6.6 g/dL (6.7-8.2)
[2018-06-25 09:01] LABS: BILIRUBIN,URINE NEGATIVE (NEGATIVE); GLUCOSE, URINE (UA) NEGATIVE (NEGATIVE); KETONES,URINE (UA) NEGATIVE (NEGATIVE); LEUKOCYTE ESTERASE, URINE NEGATIVE (NEGATIVE); NITRITE,URINE NEGATIVE (NEGATIVE); OCCULT BLOOD,URINE TRACE-INTA (NEGATIVE); PROTEIN,URINE TRACE mg/dL (NEGATIVE); UROBILINOGEN,URINE 0.2 (NORMAL) E.U./dL (NORMAL)
[2018-06-25 09:03] LABS: CLARITY,URINE CLEAR (CLEAR)
--- NOTE | 2018-06-25 10:09 | ED Physician Documentation ---
PD HPI ABD PAIN - Stated complaint Stated Complaint: ABDOMINAL PAIN - Chief complaint Chief Complaint: Abd Pain - History obtained from History obtained from: Patient - History of Present Illness Timing - onset: How many days ago (2) Timing - duration: Days (2) Timing - details: Gradual onset, Intermittant Pain level max: 7 Pain level now: 7 Quality: Cramping, Aching Location: RLQ Improved by: Other (nothing) Worsened by: Other (nothing) Associated symptoms: Nausea. No: Fever, Vomiting, Hematemesis, Diarrhea, Constipation, Melena, Hematochezia, Dysuria, Hematuria, Chest pain, Dizzy, Near syncope / syncope, Loss of appetite, Weight loss Similar symptoms before: Has not had sx before Recently seen: Not recently seen - Additional information Additional information: 77 years old male with history of perforated diverticulitis which resulted to a colon resection 5 years ago and cholecystectomy here with complain of right- sided abdominal pain the past 2 days. Associated with nausea. Denies any fever, vomiting, diarrhea or constipation. He states he changes his colostomy bag daily and has no problems with output or the stoma. Review of Systems Ten Systems: 10 systems reviewed and negative Constitutional: denies: Fever, Chills Cardiac: denies: Chest pain / pressure Respiratory: denies: Dyspnea, Cough GI: reports: Abdominal Pain, Nausea. denies: Vomiting, Constipation, Diarrhea : denies: Dysuria PD PAST MEDICAL HISTORY - Past Medical History Cardiovascular: Congestive heart failure (Echocardiogram December 2017 as left ventricular size upper limits of normal. Mild concentric left ventricular hypertrophy. Overall left ventricular systolic function moderately impaired with an ejection fraction of 35-40%. Mild global hypokinesis of LV contractility. Right ventricle normal size and function. No sick hemodynamically significant valvular abnormality.), Hypertension (Myocardial perfusion study attempted February 18, 2018. However patient could not tolerate laying down in the scanner and the test was incomplete.), High cholesterol, Other (syncope. Carotid Dopplers January 06, 2018 showed small amount of smooth partially calcified plaque at the bilateral carotid bifurcations. Otherwise normal anterograde flow present in bilateral vertebral arteries and stenosis less than 50% in both right and left carotid arteries.) Respiratory: Emphysema Neuro: Seizure disorder Endocrine/Autoimmune: Type 2 diabetes (Without retinopathy, nephropathy, neuropathy. 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 Status post sigmoid colectomy and low anterior resection and colostomy November 2012. Developed incisional hernia at the site with perforating diverticulitis at ostomy site. Underwent exploratory laparotomy and extensive lysis of adhesions, removal of ostomy and incisional hernia repair July 2013.), Other (Bowel obstruction November 2013, March 2014, April 2014. 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 sling 2008) Cardiovascular: AAA HEENT: Cataracts - Present Medications Home Medications: Ambulatory Orders Medication Instructions Recorded Confirmed RX: Atorvastatin Calcium [Lipitor] 20 mg PO QPM 11/11/12 06/04/18 RX: Doxazosin [Cardura] 8 mg PO BID 08/04/13 06/04/18 RX: Losartan [Cozaar] 50 mg PO BID 08/04/13 06/04/18 RX: Aspirin [Adult Low Dose 81 mg PO DAILY 08/09/15 01/03/18 Aspirin EC] RX: traZODone [Desyrel] 50 mg PO QPM 08/09/15 06/04/18 RX: Acetaminophen 325 - 650 mg PO Q6HR PRN 08/18/15 01/03/18 RX: Albuterol Sulfate [Proventil 1 - 2 puffs IH Q4H PRN #1 06/03/17 01/03/18 Hfa Inhaler] [email or web address] RX: Potassium Chloride [K-Dur] 20 meq PO DAILY #30 tablet 01/22/18 RX: Isosorbide Mononitrate ER 60 mg PO DAILY #30 tablet 05/29/18 06/04/18 [Imdur] RX: Metoprolol Tartrate [Lopressor] 50 mg PO BID 06/04/18 06/04/18 RX: Azithromycin 250 mg PO DAILY #7 tablet 06/05/18 RX: Isosorbide Mononitrate ER 30 mg PO DAILY tablet 06/05/18 [Imdur] - Allergies Allergies/Adverse Reactions: Allergies Allergy/AdvReac Type Severity Reaction Status Date / Time Calcium Channel Blocking Allergy Unknown UNKOWN Verified 05/29/18 16:59 Agent Dilt [Calcium Channel Blocking Agents-Curly] codeine [Codeine] Allergy vomiting Verified 05/29/18 16:59 Penicillins Allergy unknown Verified 05/29/18 16:59 venom-honey bee Allergy anaphylaxis Verified 05/29/18 16:59 [bee venom (honey bee)] - Social History Does the pt smoke?: No Smoking Status: Never smoker Does the pt drink ETOH?: No Does the pt have substance abuse?: No - Immunizations Immunizations are current?: Yes - POLST Patient has POLST: Yes POLST Status: Full Code (5 wishes document noted in chart state that he wants to have life support treatment if he is close to , has permanent and severe brain damage, in a coma but only if it would help his symptoms and his health condition. If it is not helping his condition or symptoms he does not want resuscitation. His power of ip technology transactions attorney is Naveed Morgan, ) PD ED PE NORMAL - Vitals Vital signs reviewed: Yes - General General: Alert and oriented X 3, No acute distress, Well developed/nourished - HEENT HEENT: Moist mucous membranes, Pharynx benign - Neck Neck: Supple, no meningeal sign - Cardiac Cardiac: RRR, No murmur - Respiratory Respiratory: Clear bilaterally - Abdomen Abdomen: Normal bowel sounds, Soft, Non distended, Other (Mild tenderness to deep palpation of the right side of his stoma. No rigidity, no rebound no guarding. Stoma pink and no drainage at this time since patient just change it. Multiple old scars from previous surgeries.) - Back Back: No CVA TTP - Derm Derm: Normal color, Warm and dry - Extremities Extremities: No deformity - Neuro Neuro: Alert and oriented X 3 - Psych Psych: Normal mood, Normal affect Results - Vitals Vitals: Vital Signs - 24 hr 06/25/18 07:40 Temperature 36.8 C Heart Rate 73 Respiratory 18 Rate Blood Pressure 219/115 H O2 Saturation 97 Oxygen O2 Source [With Activity] Nasal cannula O2 Source [Without Activity] Nasal cannula O2 Source Room air - Labs Labs: Laboratory Tests 06/25/18 06/25/18 06/25/18 08:28 08:28 08:28 WBC 5.2 RBC 3.82 L Hgb 11.7 L Hct 34.4 L MCV 90.0 MCH 30.6 MCHC 33.9 RDW 14.7 Plt Count 148 MPV 7.5 Neut # (Auto) 3.9 Lymph # (Auto) 0.5 L [place] # (Auto) 0.4 Eos # (Auto) 0.3 Baso # (Auto) 0.1 Absolute Nucleated RBC 0.00 Nucleated RBC % 0.0 Sodium 136 Potassium 3.5 Chloride 100 L Carbon Dioxide 27 Anion Gap 9.0 BUN 24 H Creatinine 1.6 H Estimated GFR (MDRD) 42 L Glucose 130 H Lactic Acid Calcium 9.8 Total Bilirubin 1.7 H AST 15 ALT 12 Alkaline Phosphatase 75 Troponin I 0.04 Total Protein 6.6 L Albumin 3.7 Globulin 2.9 Albumin/Globulin Ratio 1.3 Lipase 23 Urine Color Urine Clarity Urine pH Ur Specific [place] Urine Protein Urine Glucose (UA) Urine Ketones Urine Occult Blood Urine Nitrite Urine Bilirubin Urine Urobilinogen Ur Leukocyte Esterase Ur Microscopic Review Urine Culture Comments 06/25/18 06/25/18 08:28 08:45 WBC RBC Hgb Hct MCV MCH MCHC RDW Plt Count MPV Neut # (Auto) Lymph # (Auto) [place] # (Auto) Eos # (Auto) Baso # (Auto) Absolute Nucleated RBC Nucleated RBC % Sodium Potassium Chloride Carbon Dioxide Anion Gap BUN Creatinine Estimated GFR (MDRD) Glucose Lactic Acid 1.0 Calcium Total Bilirubin AST ALT Alkaline Phosphatase Troponin I Total Protein Albumin Globulin Albumin/Globulin Ratio Lipase Urine Color YELLOW Urine Clarity CLEAR Urine pH 6.0 Ur Specific [place] 1.025 Urine Protein TRACE Urine Glucose (UA) NEGATIVE Urine Ketones NEGATIVE Urine Occult Blood TRACE-INTA Urine Nitrite NEGATIVE Urine Bilirubin NEGATIVE Urine Urobilinogen 0.2 (NORMAL) Ur Leukocyte Esterase NEGATIVE Ur Microscopic Review NOT INDICATED Urine Culture Comments NOT INDICATED PD MEDICAL DECISION MAKING - ED course Complexity details: considered differential (Bowel obstruction, colitis,) ED course: 10 00 Per RN patient decided to leave because he cannot wait for the labs to be Resulted and a CAT scan to be done. Patient stated he will come back to get the test done. He will also return to the emergency room if worse. Per nurse patient left in no acute distress. Apparently they noted the patient that he comes here and is not very patient in waiting to finish up with his workup. Departure - Departure Disposition: 07 Against Medical Advice Clinical Impression: Right sided abdominal pain Condition: Stable Discharge Date/Time: 06/25/18 10:10
== END 2018-06-25 10:10 | disposition left against medical advice (07) ==
LOC: ED 07:30
DX: R10.9 Unspecified abdominal pain (principal); I10 Essential (primary) hypertension; E11.9 Type 2 diabetes mellitus without complications; Z87.19 Personal history of other diseases of the digestive system; Z93.3 Colostomy status; Z53.29 Procedure and treatment not carried out because of patient's decision for other reasons
CPT/HCPCS: 36415; 80053; 81001; 81003; 83605; 83690; 84484; 85025; 87086; 99282

== ENCOUNTER 2018-06-25 18:37 | Outpatient (CLI) | payer MEDICARE | END 2018-06-25 18:38 | disposition critical access hospital (66) | LOC: EMS 18:37 | PROVIDERS: ATTEND Surgery | DX: R10.31 Right lower quadrant pain (principal); R06.02 Shortness of breath; R03.0 Elevated blood-pressure reading, without diagnosis of hypertension | CPT/HCPCS: A0425; A0429 ==

== ENCOUNTER 2018-06-25 18:58 | Emergency (ER) | payer MEDICARE ==
[2018-06-25] MEDS ORDERED: ONDANSETRON ODT 4 MG TABLET TL STA (19:28)
--- NOTE | 2018-06-25 21:15 | CT Report ---
Reason: RLQ pain Procedure Date: 06/25/2018 Accession Number: [id number] / [id number] Procedure: CT - Abdomen/Pelvis W/O CPT Code: FULL RESULT: EXAM: CT ABDOMEN AND PELVIS EXAM DATE: 06/25/2018 08:27 PM. CLINICAL HISTORY: RLQ pain. COMPARISONS: ABDOMEN/PELVIS W/O 01/23/2017 4:55 AM. TECHNIQUE: Routine helical CT imaging was performed through the abdomen and pelvis. IV contrast: None. Enteric contrast: No. Reconstructions: Coronal and sagittal. In accordance with CT protocol optimization, one or more of the following dose reduction techniques were utilized for this exam: automated exposure control, adjustment of mA and/or KV based on patient size, or use of iterative reconstructive technique. FINDINGS: Lung Bases: Small bilateral pleural effusions with underlying atelectasis and small amount of consolidation in the posterior sulci. Mild cardiomegaly with small pericardial effusion measuring about 10 mm. Liver: Normal. No masses. Gallbladder/Bile Ducts: Surgically absent. No ductal dilation. Spleen: Small calcified granulomata. Pancreas: Normal. Adrenal Glands: Normal. Kidneys: Probable renal cysts. No definite stone or hydronephrosis. Peritoneal Cavity/Bowel: Postoperative changes with left upper quadrant ostomy. Prominent stool in the right colon. Unremarkable region of appendix. No free fluid, free air, or lymphadenopathy. Pelvic Organs: Poorly defined but grossly unremarkable urinary bladder. Vasculature: Mid abdominal aortic aneurysm measuring about 3.9 cm, increased from 3.4 cm in previous study. Generalized ectasia. 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 Bones: No significant abnormality. Other: None. IMPRESSION: 1. 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 2. Prominent stool on the right. 3. Small bilateral pleural effusions with small amount of consolidation in the posterior sulci. 4. Other chronic or incidental findings. RADIA
--- NOTE | 2018-06-25 21:23 | ED Physician Documentation ---
PD HPI ABD PAIN - Stated complaint Stated Complaint: RLQ PAIN, NAUSEA - Chief complaint Chief Complaint: Abd Pain - History obtained from History obtained from: Patient - History of Present Illness Timing - onset: How many days ago (3) Timing - duration: Days (3) Timing - details: Gradual onset, Still present Quality: Sharp, Pain Location: RLQ Improved by: Other (loosening pants) Worsened by: Other (tight fitting pants) Associated symptoms: Dizzy. No: Fever, Nausea, Vomiting, Hematemesis, Diarrhea, Constipation, Melena, Hematochezia, Dysuria, Hematuria, Chest pain Similar symptoms before: No diagnosis Recently seen: Admitted - Additional information Additional information: 77 y/o male with a complicated medical history presented to the ED earlier today with RLQ pain present for 3-4 days. Review of Systems Constitutional: reports: Fatigue. denies: Fever, Chills Eyes: denies: Decreased vision Ears: denies: Ear pain Nose: denies: Rhinorrhea / runny nose, Congestion Throat: denies: Sore throat Cardiac: denies: Chest pain / pressure, Palpitations Respiratory: reports: Dyspnea. denies: Cough, Wheezing GI: reports: Abdominal Pain, Constipation (reports constipation last week with hard stool). denies: Nausea, Vomiting, Diarrhea : denies: Dysuria, Frequency Skin: denies: Rash Musculoskeletal: denies: Neck pain, Back pain, Extremity pain Neurologic: reports: Generalized weakness. 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: Other (pubourethral sling 2008) Cardiovascular: AAA HEENT: Cataracts - Present Medications Home Medications: Ambulatory Orders Medication Instructions Recorded Confirmed RX: Atorvastatin Calcium [Lipitor] 20 mg PO QPM 11/11/06/04/18 RX: Doxazosin [Cardura] 8 mg PO BID 08/04/13 06/04/18 RX: Losartan [Cozaar] 50 mg PO BID 08/04/13 06/04/18 RX: Aspirin [Adult Low Dose 81 mg PO DAILY 08/09/15 01/03/18 Aspirin EC] RX: traZODone [Desyrel] 50 mg PO QPM 08/09/15 06/04/18 RX: Acetaminophen 325 - 650 mg PO Q6HR PRN 08/18/15 01/03/18 RX: Albuterol Sulfate [Proventil 1 - 2 puffs IH Q4H PRN #1 06/03/17 01/03/18 Hfa Inhaler] [email or web address] RX: Potassium Chloride [K-Dur] 20 meq PO DAILY #30 tablet 01/22/18 RX: Isosorbide Mononitrate ER 60 mg PO DAILY #30 tablet 05/29/18 06/04/18 [Imdur] RX: Metoprolol Tartrate [Lopressor] 50 mg PO BID 06/04/18 06/04/18 RX: Azithromycin 250 mg PO DAILY #7 tablet 06/05/18 RX: Isosorbide Mononitrate ER 30 mg PO DAILY tablet 06/05/18 [Imdur] - Allergies Allergies/Adverse Reactions: Allergies Allergy/AdvReac Type Severity Reaction Status Date / Time Calcium Channel Blocking Allergy Unknown UNKOWN Verified 05/29/18 16:59 Agent Dilt [Calcium Channel Blocking Agents-Curly] codeine [Codeine] Allergy vomiting Verified 05/29/18 16:59 Penicillins Allergy unknown Verified 05/29/18 16:59 venom-honey bee Allergy anaphylaxis Verified 05/29/18 16:59 [bee venom (honey bee)] - Social History Does the pt smoke?: No Smoking Status: Never smoker Does the pt drink ETOH?: No Does the pt have substance abuse?: No - Immunizations Immunizations are current?: Yes - POLST Patient has POLST: Yes POLST Status: Full Code (5 wishes document noted in chart state that he wants to have life support treatment if he is close to , has permanent and severe brain damage, in a coma but only if it would help his symptoms and his health co ndition. If it is not helping his condition or symptoms he does not want resuscitation. His power of trade mark attorney is Naveed Morgan, ) PD ED PE NORMAL - Vitals Vital signs reviewed: Yes (hypertensive ) - General General: Alert and oriented X 3, No acute distress, Well developed/nourished - HEENT HEENT: Atraumatic, PERRL, EOMI - Neck Neck: Supple, no meningeal sign, No bony TTP - Cardiac Cardiac: RRR, No murmur - Respiratory Respiratory: No respiratory distress, Clear bilaterally - Abdomen Abdomen: Soft, Non tender, Other (appliance appears to be functioning no inflamation to the left side. ) - Back Back: No CVA TTP, No spinal TTP - Derm Derm: Normal color, Warm and dry, No rash - Extremities Extremities: No deformity, No edema - Neuro Neuro: Alert and oriented X 3, dean of admissions 2-12 intact, No motor deficit, No sensory deficit, Normal speech Eye Opening: Spontaneous Motor: Obeys Commands Verbal: Oriented GCS Score: 15 - Psych Psych: Normal mood, Normal affect Results - Vitals Vitals: Vital Signs - 24 hr 06/25/18 06/25/18 06/25/18 19:03 22:27 23:38 Temperature 37.1 C Heart Rate 50 L 61 65 Respiratory 14 12 18 Rate Blood Pressure 190/86 H 164/109 H 158/78 H O2 Saturation 97 93 94 Oxygen O2 Source [] Nasal cannula O2 Source [] Nasal cannula O2 Source Room air - Rads (name of study) CT ab/pel without Radiology: Prelim report reviewed (Impression: 1. 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 4 Other chronic or incidental findings.), EMP read indepedently, See rad report PD MEDICAL DECISION MAKING - ED course Complexity details: reviewed old records, reviewed results, re-evaluated patient, considered differential, d/w patient ED course: 77 y/o male with RLQ abdominal pain has increase in size of aneurysms to the aorta and right illiac. The aorta is 3.9. The illiac is now 3.6cm increased from 3.0. There is a significant stool load on the right side and I suspect this is the cause of this patient's pain. He is administered PO MOM in the ED. I was concerned the pain may be related to the illiac aneurysm and asked the hospitalist to admit to observation and she asked we wait for stool in the ED and this was achieved with relief of pain to the patient. Prior to the relief of pain the patient insisted on being in the hospital and I indicated to him he would need to sign and ABN and he was fine with that but after he had relief of pain he was very willing to go home. Departure - Departure Disposition: 01 Home, Self Care Clinical Impression: Constipation Instructions: ED Constipation Follow-Up: Cassia Marcus MD [Primary Care Provider] - Discharge Date/Time: 06/25/18 23:44
[2018-06-25] MEDS ORDERED: MAGNESIUM HYDROXIDE 2,400 MG/30 ML UDC PO STA (21:35)
[2018-06-25 23:40] VITALS: BP 158/78
== END 2018-06-25 23:44 | disposition home or self-care (01) ==
LOC: EDUNIT# → ED 18:58
DX: K59.00 Constipation, unspecified (principal); I10 Essential (primary) hypertension; E11.9 Type 2 diabetes mellitus without complications; I71.4 Abdominal aortic aneurysm, without rupture; I72.3 Aneurysm of iliac artery; Z87.19 Personal history of other diseases of the digestive system; Z93.3 Colostomy status; Z53.29 Procedure and treatment not carried out because of patient's decision for other reasons
CPT/HCPCS: 36415; 74176; 80053; 81001; 81003; 83605; 83690; 84484; 85025; 87086; 99282; 99283; 99284

== ENCOUNTER 2018-06-27 03:45 | Inpatient (IN) | payer MEDICARE ==
[2018-06-27] MEDS ORDERED: HYDROcod/ACETAM 5/325 MG TABLET PO STA (04:35)
--- NOTE | 2018-06-27 05:28 | XRAY Report ---
Reason: abd. pain Procedure Date: 06/27/2018 Accession Number: [id number] / [id number] Procedure: XR - Abdomen Acute CPT Code: FULL RESULT: EXAM: ABDOMINAL SERIES AND PA CHEST EXAM DATE: 06/27/2018 05:08 AM. CLINICAL HISTORY: Abdominal pain. COMPARISON: CHEST 2 VIEW 06/03/2018 3:44 PM ABDOMEN/PELVIS W/O 06/25/2018 8:27 PM. TECHNIQUE: 2 views abdomen and 1 view chest. FINDINGS: CHEST: Lungs/Pleura: Possible mild pulmonary edema, asymmetric to the right, and small effusions. Mediastinum: Stable cardiomegaly and tortuous thoracic aorta. ABDOMEN: Bowel Gas Pattern: Within normal limits. No dilated loops or abnormal fluid levels. Free Air: None. Other: Numerous surgical clips noted throughout the abdomen and pelvis. IMPRESSION: 1. Nonobstructive bowel gas pattern. 2. Possible minimal CHF. RADIA
[2018-06-27] MEDS ORDERED: IPRATROPIUM/ALBUTEROL 3 ML NEB INH STA (05:52)
--- NOTE | 2018-06-27 05:53 | ED Physician Documentation ---
PD HPI ABD PAIN - Stated complaint Stated Complaint: ABD PX - Chief complaint Chief Complaint: Abd Pain - History obtained from History obtained from: Patient - History of Present Illness Timing - onset: Enter time (03:00), Today Timing - duration: Hours Timing - details: Abrupt onset Pain level max: 7 Pain level now: 4 Quality: Pain Location: Other (right abdomen) Radiation: Other (no radiation) Improved by: Other (no ameliorating factors) Worsened by: Other (no exacerbating factors) Associated symptoms: No: Fever, Nausea, Vomiting, Diarrhea, Constipation Similar symptoms before: Work up / diagnostics (see below) Recently seen: Emergency Dept - Additional information Additional information: patient was T+R from this ED twice on 06/25/18 for abdominal pain; w/u included blood work, UA, and CT A/P. Results were nondiagnostic, although constipation was suspected. Also noted on CT were aneurysms (AAA and right common iliac artery) that were larger than previous study. Patient was given MOM, had some stool output (into ostomy bag) and his pain resolved at that time. He woke at 3 AM this morning with recurrence of this pain; it is right-sided and waxing and waning, described as "cramping". He also c/o dyspnea x 1-2 days. He lives alone and his power was still out when he left his house (drove self to ED) Review of Systems Constitutional: reports: Reviewed and negative Eyes: reports: Reviewed and negative Ears: reports: Reviewed and negative Nose: reports: Reviewed and negative Throat: reports: Reviewed and negative Cardiac: reports: Reviewed and negative Respiratory: reports: Dyspnea, Cough. denies: Hemoptysis GI: reports: Abdominal Pain. denies: Nausea, Vomiting, Constipation, Diarrhea : denies: Dysuria, Frequency Skin: reports: Reviewed and negative Musculoskeletal: denies: Neck pain, Back pain Neurologic: denies: Generalized weakness, Focal weakness, Numbness PD PAST MEDICAL HISTORY - Past Medical History Past Medical History: Yes Cardiovascular: Congestive heart failure, Hypertension, High cholesterol, Other Respiratory: Emphysema Neuro: Seizure disorder Endocrine/Autoimmune: Type 2 diabetes GI: Hiatal hernia, Diverticulitis, Other : Nocturia, Kidney stones, Other HEENT: Chronic vision loss Psych: Anxiety Musculoskeletal: None Derm: None, Other - Past Surgical History Past Surgical History: Yes General: Cholecystectomy, Appendectomy, Bowel surgery, Hiatal hernia repair, Colonoscopy /COMMUNITY RELATIONS LIAISON: Other (pubourethral sling 2008) Cardiovascular: AAA HEENT: Cataracts - Present Medications Home Medications: Ambulatory Orders Medication Instructions Recorded Confirmed Atorvastatin Calcium [Lipitor] 20 mg PO QPM 11/11/12 06/04/18 Doxazosin [Cardura] 8 mg PO BID 08/04/13 06/04/18 Losartan [Cozaar] 50 mg PO BID 08/04/13 06/04/18 Aspirin [Adult Low Dose Aspirin EC] 81 mg PO DAILY 08/09/15 01/03/18 traZODone [Desyrel] 50 mg PO QPM 08/09/15 06/04/18 Acetaminophen 325 - 650 mg PO Q6HR PRN 08/18/15 01/03/18 Albuterol Sulfate [Proventil Hfa 1 - 2 puffs IH Q4H PRN #1 06/03/17 01/03/18 Inhaler] [email or web address] Potassium Chloride [K-Dur] 20 meq PO DAILY #30 tablet 01/22/18 Isosorbide Mononitrate ER [Imdur] 60 mg PO DAILY #30 tablet 05/29/18 06/04/18 Metoprolol Tartrate [Lopressor] 50 mg PO BID 06/04/18 06/04/18 Azithromycin 250 mg PO DAILY #7 tablet 06/05/18 Isosorbide Mononitrate ER [Imdur] 30 mg PO DAILY tablet 06/05/18 - Allergies Allergies/Adverse Reactions: Allergies Allergy/AdvReac Type Severity Reaction Status Date / Time Calcium Channel Blocking Allergy Unknown UNKOWN Verified 05/29/18 16:59 Agent Dilt [Calcium Channel Blocking Agents-Curly] codeine [Codeine] Allergy vomiting Verified 05/29/18 16:59 Penicillins Allergy unknown Verified 05/29/18 16:59 venom-honey bee Allergy anaphylaxis Verified 05/29/18 16:59 [bee venom (honey bee)] - Social History Does the pt smoke?: No Smoking Status: Never smoker Does the pt drink ETOH?: No Does the pt have substance abuse?: No - Immunizations Immunizations are current?: Yes - POLST Patient has POLST: Yes POLST Status: Full Code (5 wishes document noted in chart state that he wants to have life support treatment if he is close to , has permanent and severe brain damage, in a coma but only if it would help his symptoms and his health condition. If it is not helping his condition or symptoms he does not want resuscitation. His power of litigation attorney is Naveed Morgan, ) PD ED PE NORMAL - Vitals Vital signs reviewed: Yes - General General: Alert and oriented X 3, Well developed/nourished, Other (mostly NAD during H+P, although he has episodes lasting 15-20 seconds during which he appears to have moderate painful distress) - HEENT HEENT: Moist mucous membranes - Neck Neck: Supple, no meningeal sign - Cardiac Cardiac: RRR, No murmur - Respiratory Respiratory: No respiratory distress - Abdomen Abdomen: Soft, Non distended, Other (mild right abdominal pain (mostly mid/lower abdomen on right, but also periumbilical) without rebound or guarding. large midline surgical scar. no palpable mass or hernia) - Derm Derm: Normal color, Warm and dry PD ED PE EXPANDED - Respiratory Respiratory: Wheezing, Rales, Decreased breath sounds - Extremities Extremities: Pedal edema bilateral Results - Vitals Vitals: Vital Signs - 24 hr 06/27/18 06/27/18 06/27/18 03:52 05:05 06:03 Temperature 37.2 C Heart Rate 101 H 70 73 Respiratory 209 H 20 12 Rate Blood Pressure 187/102 H 189/82 H O2 Saturation 94 94 06/27/18 06/27/18 06:45 07:26 Temperature Heart Rate 86 80 Respiratory 26 H 20 Rate Blood Pressure 207/100 H O2 Saturation 96 Oxygen O2 Source [With Activity] Nasal cannula O2 Source [Without Activity] Nasal cannula O2 Source Nasal cannula Oxygen Flow Rate 2 - EKG (time done) No standard instances Rate: Rate (enter#) (73) Rhythm: NSR Hancock: LAD Intervals: Normal ND QRS: LVH Ischemia: ST elevation c/w repol, Non specific changes Compare to prior EKG: Unchanged from prior EKG - Labs Labs: Laboratory Tests 06/27/18 06/27/18 06/27/18 04:20 06:00 06:00 WBC 4.7 L RBC 3.49 L Hgb 10.6 L Hct 31.6 L MCV 90.7 MCH 30.4 MCHC 33.5 RDW 15.4 H Plt Count 123 L MPV 7.4 Neut # (Auto) 3.6 Lymph # (Auto) 0.4 L [place] # (Auto) 0.4 Eos # (Auto) 0.2 Baso # (Auto) 0.0 Absolute Nucleated RBC 0.00 Nucleated RBC % 0.0 Sodium Potassium Chloride Carbon Dioxide Anion Gap BUN Creatinine Estimated GFR (MDRD) Glucose Calcium Total Bilirubin AST ALT Alkaline Phosphatase Troponin I 0.04 B-Natriuretic Peptide Total Protein Albumin Globulin Albumin/Globulin Ratio Lipase Urine Color YELLOW Urine Clarity CLEAR Urine pH 5.5 Ur Specific [place] >=1.030 H Urine Protein TRACE Urine Glucose (UA) NEGATIVE Urine Ketones NEGATIVE Urine Occult Blood NEGATIVE Urine Nitrite NEGATIVE Urine Bilirubin NEGATIVE Urine Urobilinogen 0.2 (NORMAL) Ur Leukocyte Esterase NEGATIVE Ur Microscopic Review NOT INDICATED Urine Culture Comments NOT INDICATED 06/27/18 06/27/18 06:00 06:00 WBC RBC Hgb Hct MCV MCH MCHC RDW Plt Count MPV Neut # (Auto) Lymph # (Auto) [place] # (Auto) Eos # (Auto) Baso # (Auto) Absolute Nucleated RBC Nucleated RBC % Sodium 137 Potassium 3.8 Chloride 100 L Carbon Dioxide 30 Anion Gap 7.0 BUN 27 H Creatinine 1.9 H Estimated GFR (MDRD) 34 L Glucose 110 H Calcium 10.0 Total Bilirubin 2.0 H AST 14 ALT < 10 L Alkaline Phosphatase 67 Troponin I B-Natriuretic Peptide 1604 H Total Protein 6.1 L Albumin 3.2 Globulin 2.9 Albumin/Globulin Ratio 1.1 Lipase 17 L Urine Color Urine Clarity Urine pH Ur Specific [place] Urine Protein Urine Glucose (UA) Urine Ketones Urine Occult Blood Urine Nitrite Urine Bilirubin Urine Urobilinogen Ur Leukocyte Esterase Ur Microscopic Review Urine Culture Comments - Rads (name of study) abd. xrays Radiology: Prelim report reviewed, See rad report PD MEDICAL DECISION MAKING - ED course Complexity details: reviewed old records, reviewed results, re-evaluated patient, considered differential, d/w patient ED course: Patient's pain resolved after hydrocodone 5mg x 2 tablets. His pulse ox on room air was low/mid 90s at times, but consistently would drop to mid 80s with good pleth that correlated with his pulse. This would happen as often when awake as when he was falling asleep. Drops in pulse ox became increasingly frequent and eventually got as low as upper 70s (this was during a period when he was falling asleep). He only endorsed mild dyspnea, however, and thus we then had him walk in the hallway to see how he fared with ambulation. He walked a short distance before he became dyspneic, weak, and lightheaded. He said he felt like his legs were giving out and had to stop several times on the way back to the bed due to these symptoms. His pulse ox dropped to lower/mid 80s and correlated with his sy mptoms. He was then put on NC oxygen and given neb treatments. After duoneb and then albuterol neb, he felt improved. He was taken off oxygen and rapidly dropped back to mid 80s pulse ox (83-86%) with good, correlating pleth. At this point it was clear he would be inappropriate for discharge home. Admitted to hospitalist service. He lives alone and does not use oxygen at home. Departure - Departure Disposition: ED Place in Observation Clinical Impression: COPD (chronic obstructive pulmonary disease), Hypoxia Condition: Stable
[2018-06-27 06:13] LABS: BASOPHILS % (AUTO) 0.7 %; EOSINOPHILS # (AUTO) 0.2 10^3/uL (0.0-0.7); EOSINOPHILS % (AUTO) 4.4 %; HGB - HEMOGLOBIN 10.6 g/dL (14.0-18.0); LYMPHOCYTES # (AUTO) 0.4 10^3/uL (1.5-3.5); LYMPHOCYTES % (AUTO) 9.3 %; MEAN CORPUSCULAR HEMOGLOBIN 30.4 pg (27.0-31.0); MEAN CORPUSCULAR HGB CONC 33.5 g/dL (32.0-36.0); MEAN CORPUSCULAR VOLUME 90.7 fL (80.0-94.0); MEAN PLATELET VOLUME 7.4 fL (7.4-11.4); MONOCYTES # (AUTO) 0.4 10^3/uL (0.0-1.0); MONOCYTES % (AUTO) 7.9 %; NEUTROPHILS # (AUTO) 3.6 10^3/uL (1.5-6.6); NEUTROPHILS % (AUTO) 77.7 %; PLT - PLATELET COUNT 123 10^3/uL (130-450); RED BLOOD COUNT 3.49 10^6/uL (4.70-6.10); RED CELL DISTRIBUTION WIDTH 15.4 % (12.0-15.0); WHITE BLOOD COUNT 4.7 x10^3/uL (4.8-10.8)
[2018-06-27 06:37] LABS: BILIRUBIN,URINE NEGATIVE (NEGATIVE); GLUCOSE, URINE (UA) NEGATIVE (NEGATIVE); KETONES,URINE (UA) NEGATIVE (NEGATIVE); LEUKOCYTE ESTERASE, URINE NEGATIVE (NEGATIVE); NITRITE,URINE NEGATIVE (NEGATIVE); OCCULT BLOOD,URINE NEGATIVE (NEGATIVE); PH,URINE 5.5 PH (5.0-7.5); PROTEIN,URINE TRACE mg/dL (NEGATIVE); UROBILINOGEN,URINE 0.2 (NORMAL) E.U./dL (NORMAL)
[2018-06-27 06:38] LABS: CLARITY,URINE CLEAR (CLEAR)
[2018-06-27 06:41] LABS: ALBUMIN 3.2 g/dL (3.2-5.5); ALBUMIN/GLOBULIN RATIO 1.1 (1.0-2.2); ALKALINE PHOSPHATASE 67 IU/L (42-121); ALT ALANINE AMINOTRANSFERASE < 10 IU/L (10-60); AST ASPARTATE AMINOTRANSFERASE 14 IU/L (10-42); BUN - BLOOD UREA NITROGEN 27 mg/dL (6-20); CARBON DIOXIDE - CO2 30 mmol/L (21-32); CHLORIDE 100 mmol/L (101-111); CREATININE 1.9 mg/dL (0.6-1.2); GFR - MDRD 34 (>89); GLUCOSE 110 mg/dL (70-100); LIPASE 17 U/L (22-51); SODIUM 137 mmol/L (135-145); TOTAL PROTEIN 6.1 g/dL (6.7-8.2)
[2018-06-27] MEDS ORDERED: ALBUTEROL NEB 2.5 MG/3 ML INH STA ×2 (07:02→07:03)
[2018-06-27] MEDS ORDERED: FUROSEMIDE 40 MG/4 ML VIAL IVP STA (07:25)
[2018-06-27] MEDS ORDERED: LORazepam 0.5 MG TABLET PO STA (07:45)
[2018-06-27] MEDS ORDERED: ACETAMINOPHEN 325 MG TABLET PO PRN (07:50)
[2018-06-27] MEDS ORDERED: PROCHLORPERAZINE 10 MG/2 ML VIAL IVP PRN (07:50)
[2018-06-27] MEDS ORDERED: PROMETHAZINE 25 MG/1 ML VIAL IM PRN (07:50)
[2018-06-27] MEDS ORDERED: IPRATROPIUM/ALBUTEROL 3 ML NEB INH PRN (07:50)
[2018-06-27] MEDS ORDERED: ZOLPIDEM 5 MG TABLET PO PRN (07:50)
[2018-06-27] MEDS ORDERED: HYDROcod/ACETAM 10 MG/325 MG TABLET PO PRN (07:50)
--- NOTE | 2018-06-27 07:59 | HISTORY & PHYSICAL EXAMINATION ---
Chief Complaint - Chief Complaint Chief Complaint: Abdominal pain History of Present Illness - Admitted From Admitted From:: Emergency Department - History Obtained From Records Reviewed: Yes History obtained from: Patient Exam Limitations: None - History of Present Illness HPI Comment/Other: Patient is a 77-year-old gentle with a past medical history significant for recurrent bowel obstructions, extensive surgical history status post colostomy, diabetes, hypertension, hyperlipidemia, COPD and an abdominal aortic aneurysm who presented to the emergency department with a chief complaint of abdominal pain. Patient states that he has been dealing with abdominal pain for the last few days. He was seen in the emergency department for the same complaint just 2 days earlier. During that time the patient underwent a complete workup with a CT of the abdomen and pelvis which revealed increasing aortic and right iliac an eurysms and prominent stool. It was thought that the patient was constipated and he was discharged home. The aneurysms were not large enough to require any kind of intervention nor were they leaking. The patient states that he has been having these issues with abdominal pain on and off since the last 2 days and began to feel symptoms again last night and felt he should come into the hospital. The patient states that the pain was located in the right lower quadrant and went into his right flank. He states it felt like stretching rubber band. He states he was nauseated but did not have any vomiting. The patient denies any chest pain, diarrhea. He does admit to some constipation. On further review of systems the patient also states he has been having increasing shortness of breath for the last few days. He denies any chest pain or increased lower extremity edema associated with the shortness of breath. He does admit to orthopnea and states that he has been feeling tired and sleepy. The patient otherwise denies any weight gain or weight loss. He denies any urinary urgency, frequency, dysuria or any hematuria. Patient denies any headaches, blurred vision, runny nose, sore throat, nasal congestion, difficulty swallowing, palpitations, PND, joint swelling, joint aches, back pain, neck stiffness, polyuria, polydipsia, dizziness, lightheadedness, changes in his appetite or any focal neurologic deficits. On presentation to the emergency department the patient was afebrile and tachycardic with a heart rate of 101 hypertensive with a blood pressure of 187/102 and slightly tachypneic. While he was in the emergency department the patient became hypoxic with an O2 saturation down to 85% on room air. Patient had to be placed on 2 L oxygen at home the patient is not on any oxygen. The patient underwent an acute abdominal series for his abdominal pain which showed that the patient had a nonobstructive bowel gas pattern and minimal CHF. The patient's EKG did not show any ST elevations or acute ischemic changes. The patient's troponin was 0.04. On lab work the patient was found to have an elevated BNP of 1604 which was elevated from previous baseline of around 300. The patient's lab work also revealed a slightly elevated bilirubin of 2.0 and an elevated creatinine of 1.9 up from a baseline of about 1.2. The patient was slightly anemic but had no other abnormalities. Given the patient's shortness of breath, hypoxia, elevated BNP and congestion on chest x-ray the patient was placed in observation for CHF exacerbation after being given IV Lasix and an a lbuterol treatment in the emergency department. History - Past Medical History Cardiovascular: reports: Congestive heart failure (Echocardiogram December 2017 overall left ventricular systolic function moderately impaired with an ejection fraction of 35-40%. Mild global hypokinesis of the left ventricular contractility.), Hypertension, High cholesterol, Other (Syncope. 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 Status post sigmoid colectomy and low anterior resection and colostomy November 2012. Developed in cisional hernia at the site with perforating diverticulitis at ostomy site. Underwent exploratory laparotomy and extensive lysis of adhesions, removal of ostomy and incisional hernia repair July 2013.), Other (Bowel obstruction November 2013, March 2014, April 2014. CT shows beaklike narrowing of the distal left colon.) : reports: Nocturia, Kidney stones, Other (History of prostate cancer. Prostatectomy with lymph node resection in 1995) HEENT: reports: Chronic vision loss Psych: reports: Anxiety Musculoskeletal: reports: None Derm: reports: None, Other MRSA Hx?: No - Past Surgical History General: reports: Cholecystectomy, Appendectomy, Bowel surgery, Hiatal hernia repair, Colonoscopy /HAULAGE BOSS: reports: Other (pubourethral sling 2009) Cardiovascular: reports: AAA HEENT: reports: Cataracts - Family & Social History Family History: Mother: (Mom lived to be 99), Alzheimer's Disease, Hypertension, Father: , CAD, Hypertension, Brother: CAD Family History Comment/Other: Dad had coronary artery disease and hypertension. Mom lived until she was 99 and had hypertension and Alzheimer's.Never had children. Social History Notes: Patient lives in [place], [place] and has been living there for the past 40 years. He is originally from [place]. The patient has never been . He has no children. Patient smoked 1-1/2 packs per day for about 40 years he has quit. 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 He denies any use of cocaine, heroin, LSD, methamphetamines. - Substance History Use: Uses substance without health or social issues: NONE - POLST Patient has POLST: Yes POLST Status: Full Code (5 wishes document noted in chart state that he wants to have life support treatment if he is close to , has permanent and severe brain damage, in a coma but only if it would help his symptoms and his health condition. If it is not helping his condition or symptoms he does not want resuscitation. His power of civil rights attorney is Naveed Morgan, ) Meds/Allgy - Home Medications Home Medications: Ambulatory Orders Medication Instructions Recorded Confirmed Atorvastatin Calcium [Lipitor] 20 mg PO QPM 11/11/12 06/04/18 Doxazosin [Cardura] 8 mg PO BID 08/04/13 06/04/18 Losartan [Cozaar] 50 mg PO BID 08/04/13 06/04/18 Aspirin [Adult Low Dose Aspirin EC] 81 mg PO DAILY 08/09/15 01/03/18 traZODone [Desyrel] 50 mg PO QPM 08/09/15 06/04/18 Acetaminophen 325 - 650 mg PO Q6HR PRN 08/18/15 01/03/18 Albuterol Sulfate [Proventil Hfa 1 - 2 puffs IH Q4H PRN #1 06/03/17 01/03/18 Inhaler] hfa.[email or web address] Potassium Chloride [K-Dur] 20 meq PO DAILY #30 tablet 07/18/18 Isosorbide Mononitrate ER [Imdur] 60 mg PO DAILY #30 tablet 05/29/18 06/04/18 Metoprolol Tartrate [Lopressor] 50 mg PO BID 06/04/18 06/04/18 Azithromycin 250 mg PO DAILY #7 tablet 06/05/18 Isosorbide Mononitrate ER [Imdur] 30 mg PO DAILY tablet 06/05/18 - Allergies Allergies/Adverse Reactions: Allergies Allergy/AdvReac Type Severity Reaction Status Date / Time Calcium Channel Blocking Allergy Unknown UNKOWN Verified 05/29/18 16:59 Agent Dilt [Calcium Channel Blocking Agents-Curly] codeine [Codeine] Allergy vomiting Verified 05/29/18 16:59 Penicillins Allergy unknown Verified 05/29/18 16:59 venom-honey bee Allergy anaphylaxis Verified 05/29/18 16:59 [bee venom (honey bee)] Review of Systems - Other Findings Other Findings: A comprehensive review of systems was performed the pertinent positives and negatives are stated above in the HPI and the remainder of the review of systems is negative. Prior Level of Functionality: The patient lives alone at home. He does have respite care. Exam - Vital Signs Reviewed Vital Signs: Yes Vital Signs: Vital Signs x48h Temp Pulse Resp BP Pulse Ox 06/27/18 07:26 80 20 06/27/18 06:45 86 26 H 207/100 H 96 06/27/18 06:03 73 12 06/27/18 05:05 70 20 189/82 H 94 06/27/18 03:52 37.2 C 101 H 209 H 187/102 H 94 - Physical Exam General Appearance: positive: Alert, Mild distress (Shortness of breath), Other (Thin appearing elderly man) Eyes Bilateral: positive: Normal inspection, PERRL, EOMI, No lid inflammation, Conjunctivae nml, No scleral icterus ENT: positive: ENT inspection nml, Pharynx nml, Dry mucous membranes. negative: Purulent nasal drainage, Pharyngeal erythema, Oral lesions Neck: positive: Nml inspection, Thyroid nml, Trachea midline. negative: Thyromegaly, Lymphadenopathy (R), Lymphadenopathy (L), Stiff neck, Carotid bruit, Tracheal deviation Respiratory: positive: Chest non-tender, No respiratory distress, Rales (Bases bilaterally) Cardiovascular: positive: Regular rate & rhythm, No murmur, No gallop, JVD present Peripheral Pulses: positive: 2+ Abdomen: positive: No organomegaly, Nml bowel sounds, No distention, Other (Colostomy bag in place, mild tenderness in the right upper and lower quadrants of the abdomen). negative: Guarding, Rebound Back: positive: Nml inspection. negative: CVA tenderness (R), CVA tenderness (L) Skin: positive: Color nml, No rash, Warm, Dry. negative: Cyanosis, Diaphoresis, Pallor Extremities: positive: Non-tender, Full ROM, Pedal edema (1+) Neurologic/Psychiatric: positive: Oriented x3, CN's nml (2-12), Motor nml, Sensation nml, Mood/affect nml Conclusion/Plan - Problem List (1) Acute exacerbation of CHF (congestive heart failure) Conclusion/Plan: The patient has a history of congestive heart failure his most recent echocardiogram was done in December 2017 and showed an ejection fraction of 35-40%. The patient has been having increasing shortness of breath for the last 2 days and appears to have some hepatic congestion on exam and lab work. The patient's BNP is significantly elevated on presentation up to 1604. The patient also has a mildly elevated bilirubin of 2.0. The patient did have congestion on lung exam as well as on chest x-ray. The patient is being placed in observation for CHF exacerbation. The patient did become hypoxic in the emergency department with oxygen saturation dropping to 85%. He is now requiring 2 L of oxygen. Plan: IV Lasix 40 mg twice daily 2 L fluid restriction Strict I's and O's 2 g salt restriction Continue Lopressor and Cozaar. Supplemental oxygen Qualifiers: Heart failure type: systolic Qualified Code(s): I50.23 - Acute on chronic systolic (congestive) heart failure (2) Abdominal pain Conclusion/Plan: The patient has vague abdominal pain in the right lower quadrant which wraps around into the right flank. On examination he has tenderness in the right lower and upper quadrant of the abdomen. The patient's bilirubin is elevated and he does have congestive heart failure. Patient likely has hepatic congestion which is likely the cause of his abdominal discomfort. He also appears to be constipated which is also likely contributing to his symptoms. Patient had a CT of his abdomen 2 days ago which did not show any acute findings other than a increasing abdominal and iliac aneurysm which is still not leaking or requiring any surgical intervention. The patient's abdominal series today did not reveal any abnormalities aside from some mild CHF. We will continue to monitor the patient for any further abdominal pain. At this point the patient does not have any kind of life-threatening abdominal process. Qualifiers: Abdominal location: right lower quadrant Qualified Code(s): R10.31 - Right lower quadrant pain (3) Hypertension Conclusion/Plan: The patient has a history of hypertension. Patient was very hypertensive on presentation to the emergency department. This is likely due to his congestive heart failure and was likely also contributing to increasing pulmonary edema and because of hypoxia. The patient is on Imdur, Cozaar and Lopressor at home which we will continue while he is hospitalized. Patient will also receive IV Lasix while he is hospitalized and we will continue to monitor his blood pressure. With a dose of IV Lasix the patient's blood pressure is already improved. Qualifiers: Hypertension type: essential hypertension Qualified Code(s): I10 - Essential (primary) hypertension (4) COPD (chronic obstructive pulmonary disease) Conclusion/Plan: The patient does have history of COPD. He does have some wheezing on examination but his shortness of breath appears mostly secondary to CHF exacerbation. For now patient will be continued on duo nebs as needed while he is hospitalized but will not put him on any steroids or antibiotics. The patient does not have any leukocytosis or infiltrates on chest x-ray. We will continue the patient on supplemental oxygen. Qualifiers: COPD type: emphysema (5) Diabetes mellitus type 2 Conclusion/Plan: The patient does have a history of diabetes but his most recent hemoglobin A1c was 4.9 and he is no longer on any medications for his diabetes. Currently the patient's blood glucose appears to be well controlled without any medications. For now the patient will remain without any medications and we will monitor his blood glucose daily. - Lab Results Lab results reviewed: Yes Fish Bones: 06/27/18 06:00 06/27/18 06:00 Other Lab Results: Laboratory Results WBC 4.7 x10^3/uL (4.8-10.8) L 06/27/18 06:00 RBC 3.49 10^6/uL (4.70-6.10) L 06/27/18 06:00 Hgb 10.6 g/dL (14.0-18.0) L 06/27/18 06:00 Hct 31.6 % (42.0-52.0) L 06/27/18 06:00 MCV 90.7 fL (80.0-94.0) 06/27/18 06:00 MCH 30.4 pg (27.0-31.0) 06/27/18 06:00 MCHC 33.5 g/dL (32.0-36.0) 06/27/18 06:00 RDW 15.4 % (12.0-15.0) H 06/27/18 06:00 Plt Count 123 10^3/uL (130-450) L 06/27/18 06:00 MPV 7.4 fL (7.4-11.4) 06/27/18 06:00 Neut # (Auto) 3.6 10^3/uL (1.5-6.6) 06/27/18 06:00 Lymph # (Auto) 0.4 10^3/uL (1.5-3.5) L 06/27/18 06:00 [place] # (Auto) 0.4 10^3/uL (0.0-1.0) 06/27/18 06:00 Eos # (Auto) 0.2 10^3/uL (0.0-0.7) 06/27/18 06:00 Baso # (Auto) 0.0 10^3/uL (0.0-0.1) 06/27/18 06:00 Absolute Nucleated RBC 0.00 x10^3/uL 06/27/18 06:00 Nucleated RBC % 0.0 /100WBC 06/27/18 06:00 Sodium 137 mmol/L (135-145) 06/27/18 06:00 Potassium 3.8 mmol/L (3.5-5.0) 06/27/18 06:00 Chloride 100 mmol/L (101-111) L 06/27/18 06:00 Carbon Dioxide 30 mmol/L (21-32) 06/27/18 06:00 Anion Gap 7.0 (6-13) 06/27/18 06:00 BUN 27 mg/dL (6-20) H 06/27/18 06:00 Creatinine 1.9 mg/dL (0.6-1.2) H 06/27/18 06:00 Estimated GFR (MDRD) 34 (>89) L 06/27/18 06:00 Glucose 110 mg/dL (70-100) H 06/27/18 06:00 Calcium 10.0 mg/dL (8.5-10.3) 06/27/18 06:00 Total Bilirubin 2.0 mg/dL (0.2-1.0) H 06/27/18 06:00 AST 14 IU/L (10-42) 06/27/18 06:00 ALT < 10 IU/L (10-60) L 06/27/18 06:00 Alkaline Phosphatase 67 IU/L (42-121) 06/27/18 06:00 Troponin I 0.05 ng/mL (<0.49) 06/27/18 12:14 B-Natriuretic Peptide 1604 pg/mL (5-100) H 06/27/18 06:00 Total Protein 6.1 g/dL (6.7-8.2) L 06/27/18 06:00 Albumin 3.2 g/dL (3.2-5.5) 06/27/18 06:00 Globulin 2.9 g/dL (2.1-4.2) 06/27/18 06:00 Albumin/Globulin Ratio 1.1 (1.0-2.2) 06/27/18 06:00 Lipase 17 U/L (22-51) L 06/27/18 06:00 Urine Color YELLOW 06/27/18 04:20 Urine Clarity CLEAR (CLEAR) 06/27/18 04:20 Urine pH 5.5 PH (5.0-7.5) 06/27/18 04:20 Ur Specific [place] >=1.030 (1.002-1.030) H 06/27/18 04:20 Urine Protein TRACE mg/dL (NEGATIVE) 06/27/18 04:20 Urine Glucose (UA) NEGATIVE mg/dL (NEGATIVE) 06/27/18 04:20 Urine Ketones NEGATIVE mg/dL (NEGATIVE) 06/27/18 04:20 Urine Occult Blood NEGATIVE (NEGATIVE) 06/27/18 04:20 Urine Nitrite NEGATIVE (NEGATIVE) 06/27/18 04:20 Urine Bilirubin NEGATIVE (NEGATIVE) 06/27/18 04:20 Urine Urobilinogen 0.2 (NORMAL) E.U./dL (NORMAL) 06/27/18 04:20 Ur Leukocyte Esterase NEGATIVE (NEGATIVE) 06/27/18 04:20 Ur Microscopic Review NOT INDICATED 06/27/18 04:20 Urine Culture Comments NOT INDICATED 06/27/18 04:20 - Diagnostic Imaging Results Diagnostic Imaging Results: positive: Final report reviewed Diagnostic Imaging Results Comments: Acute abdominal series Impression: 1. Nonobstructive bowel gas pattern. 2. Possible minimal CHF. Core Measures - Anticipated LOS I expect patient to be DC'd or transferred within 96 hours.: Yes - DVT/VTE - Prophylaxis VTE/DVT Prophylaxis med ordered at admit?: Yes
[2018-06-27] MEDS: ASPIRIN EC 81 MG TABLET PO SCH (09:46)
[2018-06-27] MEDS: ISOSORBIDE MONONITRATE ER 30 MG TABLET PO SCH ×2 (09:46→21:12)
[2018-06-27] MEDS: FAMOTIDINE 20 MG TABLET PO SCH ×2 (09:47→21:12)
[2018-06-27] MEDS: POTASSIUM CHLORIDE 20 MEQ TABLET PO SCH (09:48)
[2018-06-27] MEDS: DOXAZOSIN 4 MG TABLET PO SCH ×2 (09:48→21:12)
[2018-06-27] MEDS: POLYETHYLENE GLYCOL 3350 17 GM PACKET PO SCH (09:49)
[2018-06-27] MEDS: LOSARTAN 50 MG TABLET PO SCH ×2 (09:50→21:13)
[2018-06-27] MEDS: METOPROLOL TARTRATE 50 MG TABLET PO SCH ×2 (09:50→21:13)
[2018-06-27] MEDS: ENOXAPARIN 30 MG/0.3 ML SYRINGE SUBQ SCH (09:52)
[2018-06-27] MEDS: SODIUM CHLORIDE FLUSH 0.9% 10 ML SYRINGE IVP SCH ×3 (10:11→23:55)
[2018-06-27] MEDS: SODIUM CHLORIDE FLUSH 0.9% 10 ML SYRINGE IVP PRN (13:19)
[2018-06-27] MEDS: FUROSEMIDE 40 MG/4 ML VIAL IVP SCH (13:19)
[2018-06-27] MEDS: HYDROcod/ACETAM 5/325 MG TABLET PO PRN (17:15)
[2018-06-27] MEDS: traZODone 50 MG TABLET PO SCH (21:12)
[2018-06-27] MEDS: ATORVASTATIN 10 MG TABLET PO SCH (21:12)
[2018-06-28] MEDS: ONDANSETRON 4 MG/2 ML VIAL IVP PRN ×2 (01:26→16:21)
[2018-06-28] MEDS: HYDROcod/ACETAM 5/325 MG TABLET PO PRN ×4 (01:30→20:27)
[2018-06-28] MEDS: BENZOCAINE/MENTHOL LOZENGE MM PRN ×6 (02:02→20:29)
[2018-06-28 06:32] LABS: BASOPHILS # (AUTO) 0.1 10^3/uL (0.0-0.1); BASOPHILS % (AUTO) 1.2 %; EOSINOPHILS # (AUTO) 0.3 10^3/uL (0.0-0.7); EOSINOPHILS % (AUTO) 6.9 %; HGB - HEMOGLOBIN 9.2 g/dL (14.0-18.0); LYMPHOCYTES # (AUTO) 0.5 10^3/uL (1.5-3.5); LYMPHOCYTES % (AUTO) 10.8 %; MEAN CORPUSCULAR HEMOGLOBIN 29.8 pg (27.0-31.0); MEAN CORPUSCULAR HGB CONC 32.6 g/dL (32.0-36.0); MEAN CORPUSCULAR VOLUME 91.4 fL (80.0-94.0); MEAN PLATELET VOLUME 7.4 fL (7.4-11.4); MONOCYTES # (AUTO) 0.4 10^3/uL (0.0-1.0); MONOCYTES % (AUTO) 7.7 %; NEUTROPHILS # (AUTO) 3.3 10^3/uL (1.5-6.6); NEUTROPHILS % (AUTO) 73.4 %; PLT - PLATELET COUNT 123 10^3/uL (130-450); RED CELL DISTRIBUTION WIDTH 14.9 % (12.0-15.0); WHITE BLOOD COUNT 4.6 x10^3/uL (4.8-10.8)
[2018-06-28] MEDS: FUROSEMIDE 40 MG/4 ML VIAL IVP SCH ×2 (06:33→14:14)
[2018-06-28] MEDS: SODIUM CHLORIDE FLUSH 0.9% 10 ML SYRINGE IVP PRN ×3 (06:33→20:37)
[2018-06-28 06:47] LABS: ALBUMIN 2.8 g/dL (3.2-5.5); ALBUMIN/GLOBULIN RATIO 1.2 (1.0-2.2); ALKALINE PHOSPHATASE 54 IU/L (42-121); ALT ALANINE AMINOTRANSFERASE < 10 IU/L (10-60); AST ASPARTATE AMINOTRANSFERASE 10 IU/L (10-42); BILIRUBIN,TOTAL 1.8 mg/dL (0.2-1.0); BUN - BLOOD UREA NITROGEN 31 mg/dL (6-20); CARBON DIOXIDE - CO2 33 mmol/L (21-32); CHLORIDE 97 mmol/L (101-111); CREATININE 2.1 mg/dL (0.6-1.2); GFR - MDRD 31 (>89); GLUCOSE 100 mg/dL (70-100); MAGNESIUM 1.5 mg/dL (1.7-2.8); SODIUM 137 mmol/L (135-145); TOTAL PROTEIN 5.1 g/dL (6.7-8.2)
[2018-06-28] MEDS: LOSARTAN 50 MG TABLET PO SCH ×2 (08:31→20:28)
[2018-06-28] MEDS: POTASSIUM CHLORIDE 20 MEQ TABLET PO SCH (08:31)
[2018-06-28] MEDS: FAMOTIDINE 20 MG TABLET PO SCH ×2 (08:32→20:28)
[2018-06-28] MEDS: MAGNESIUM OXIDE 400 MG TABLET PO SCH (08:32)
[2018-06-28] MEDS: DOCUSATE SODIUM 250 MG CAPSULE PO SCH (08:32)
[2018-06-28] MEDS: DOXAZOSIN 4 MG TABLET PO SCH ×2 (08:32→20:28)
[2018-06-28] MEDS: ISOSORBIDE MONONITRATE ER 30 MG TABLET PO SCH ×2 (08:32→20:26)
[2018-06-28] MEDS: METOPROLOL TARTRATE 50 MG TABLET PO SCH ×2 (08:32→20:28)
[2018-06-28] MEDS: SENNA 8.6 MG TABLET PO SCH (08:32)
[2018-06-28] MEDS: ASPIRIN EC 81 MG TABLET PO SCH (08:33)
[2018-06-28] MEDS: POLYETHYLENE GLYCOL 3350 17 GM PACKET PO SCH (08:33)
[2018-06-28] MEDS: ENOXAPARIN 30 MG/0.3 ML SYRINGE SUBQ SCH (08:33)
--- NOTE | 2018-06-28 10:26 | PROVIDER PROGRESS NOTE ---
Assessment/Plan - Problem List (1) Acute exacerbation of CHF (congestive heart failure) Qualifiers: Heart failure type: systolic Qualified Code(s): I50.23 - Acute on chronic systolic (congestive) heart failure Assessment/Plan: Patients BNP improved today to 573 from 1604 Patient is -900 mL since admission Seems to be improving but still hypoxic today When taken off O2 sats dropped to 82% Will continue lasix but change to PO today Will wean O2 if not able to wean patient may need O2 at home Continue fluid restriction Qualifiers: Heart failure type: systolic Qualified Code(s): I50.23 - Acute on chronic systolic (congestive) heart failure (2) Abdominal pain Conclusion/Plan: Improved likely was secondary to liver congestion from CHF as patient also has improved bili Qualifiers: Abdominal location: right lower quadrant Qualified Code(s): R10.31 - Right lower quadrant pain (3) Hypertension Conclusion/Plan: Much better controlled Continue current meds Monitor Qualifiers: Hypertension type: essential hypertension Qualified Code(s): I10 - Essential (primary) hypertension (4) COPD (chronic obstructive pulmonary disease) Conclusion/Plan: Continue duonebs No wheezing Stable Qualifiers: COPD type: emphysema (5) Diabetes mellitus type 2 Conclusion/Plan: The patient does have a history of diabetes but his most recent hemoglobin A1c was 4.9 and he is no longer on any medications for his diabetes. Currently the patient's blood glucose appears to be well controlled without any medications. For now the patient will remain without any medications and we will monitor his blood glucose daily. - Current Meds Current Meds: Current Medications Generic Name Dose Route Start Last Admin Trade Name Freq PRN Reason Stop Dose Admin Hydrocodone Bitart/Acetaminophen 1 tab 06/27/18 07:50 06/28/18 08:35 [place] 5/325 PO 1 tab Q4HR PRN Administration Pain 5 to 7 Albuterol/Ipratropium 3 ml 06/27/18 07:50 06/27/18 15:13 Duoneb INH 3 ml RTQID PRN Administration Wheezing Aspirin 81 mg 06/27/18 09:00 06/28/18 08:33 Ecotrin PO 81 mg DAILY NIDA Administration Atorvastatin Calcium 20 mg 06/27/18 21:00 06/27/18 21:12 Lipitor PO 20 mg QPM NIDA Administration Docusate Sodium 250 - 500 mg 06/28/18 09:00 06/28/18 08:32 Colace 250mg Capsule PO 250 mg DAILY NIDA Administration Doxazosin Mesylate 8 mg 06/27/18 09:00 06/28/18 08:32 Cardura PO 8 mg BID NIDA Administration Enoxaparin Sodium 30 mg 06/27/18 09:00 06/28/18 08:33 Lovenox SUBQ 30 mg DAILY NIDA Administration Famotidine 20 mg 06/27/18 09:00 06/28/18 08:32 Pepcid PO 20 mg BID NIDA Administration Furosemide 40 mg 06/27/18 14:00 06/28/18 06:33 Lasix Inj 40 Mg Vial IVP 40 mg BIDDIURETIC NIDA Administration Isosorbide Mononitrate 30 mg 06/27/18 09:00 06/28/18 08:32 Imdur PO 30 mg DAILY NIDA Administration Isosorbide Mononitrate 60 mg 06/27/18 21:00 06/27/18 21:12 Imdur PO 60 mg QPM NIDA Administration Losartan Potassium 50 mg 06/27/18 09:00 06/28/18 08:31 Cozaar PO 50 mg BID NIDA Administration Magnesium Oxide 400 mg 06/28/18 08:00 06/28/18 08:32 Mag Ox PO 400 mg DAILYWM NIDA Administration Metoprolol Tartrate 50 mg 06/27/18 09:00 06/28/18 08:32 Lopressor PO 50 mg BID NIDA Administration Ondansetron HCl 4 mg 06/27/18 07:50 06/28/18 01:26 Zofran Inj IVP 4 mg Q6HR PRN Administration Nausea / Vomiting Polyethylene Glycol 17 gm 06/27/18 09:00 06/28/18 08:33 Miralax PO 17 gm DAILY NIDA Administration Potassium Chloride 20 meq 06/27/18 09:00 06/28/18 08:31 K-Dur PO 20 meq DAILY NIDA Administration Senna 8.6 - 17.2 mg 06/28/18 09:00 06/28/18 08:32 Senokot PO 8.6 mg DAILY NIDA Administration Sodium Chloride 10 ml 06/27/18 07:50 06/28/18 06:33 Normal Saline Flush 0.9% IVP 10 ml PRN PRN Administration NEEDED PER PROVIDER ORDERS Sodium Chloride 10 ml 06/27/18 09:00 06/27/18 23:55 Normal Saline Flush 0.9% IVP 10 ml 0100,0900,1700 NIDA Administration Throat Lozenges 1 lozenge 06/28/18 01:33 06/28/18 07:46 Cepacol MM 1 lozenge Q2HR PRN Administration Throat pain Trazodone HCl 50 mg 06/27/18 21:00 06/27/18 21:12 Desyrel PO 50 mg QPM NIDA Administration - Lab Result Lab results reviewed: Yes Fish Bone Diagrams: 06/28/18 06:15 06/28/18 06:15 - EKG Results EKG Interpreted Independently: Yes - Diagnostic Imaging Results Diagnostic Imaging Results: Final report reviewed - Additional Planning Condition/Complexity: Guarded My Orders: My Active Orders 06/27/18 14:00 FUROSEMIDE INJ 40mg VIAL [LASIX INJ 40 mg VIAL] 40 mg IVP BIDDIURETIC 06/27/18 15:15 RT [Nebulizer/MDI Tx.] [RC] .qidprn 06/27/18 21:00 Atorvastatin [Lipitor] 20 mg PO QPM Isosorbide Mononitrate ER [Imdur] 60 mg PO QPM traZODone [Desyrel] 50 mg PO QPM 06/27/18 Lunch Low Sodium Diet [DIET] 06/28/18 01:33 Benzocaine/Menthol [Cepacol] 1 lozenge MM Q2HR PRN 06/28/18 07:41 Record SpO2 & O2 and after D/C O2 [OTHERS] Routine 06/28/18 08:00 Magnesium Oxide [Mag Ox] 400 mg PO DAILYWM 06/28/18 09:00 Docusate Sodium 250Mg Capsule [Colace 250Mg Capsule] 250 - 500 mg PO DAILY Senna [Senokot] 8.6 - 17.2 mg PO DAILY 06/29/18 05:00 BNP - B-NATRIURETIC PEPTIDE [IAI] DAILYLAB CBC - COMP BLD CT W/AUTO DIFF [HEME] DAILYLAB COMPREHENSIVE METABOLIC PANEL [CHEM] DAILYLAB MAGNESIUM [CHEM] DAILYLAB 06/30/18 05:00 BNP - B-NATRIURETIC PEPTIDE [IAI] DAILYLAB CBC - COMP BLD CT W/AUTO DIFF [HEME] DAILYLAB COMPREHENSIVE METABOLIC PANEL [CHEM] DAILYLAB MAGNESIUM [CHEM] DAILYLAB 07/01/18 05:00 BNP - B-NATRIURETIC PEPTIDE [IAI] DAILYLAB CBC - COMP BLD CT W/AUTO DIFF [HEME] DAILYLAB COMPREHENSIVE METABOLIC PANEL [CHEM] DAILYLAB MAGNESIUM [CHEM] DAILYLAB 07/02/18 05:00 BNP - B-NATRIURETIC PEPTIDE [IAI] DAILYLAB CBC - COMP BLD CT W/AUTO DIFF [HEME] DAILYLAB COMPREHENSIVE METABOLIC PANEL [CHEM] DAILYLAB MAGNESIUM [CHEM] DAILYLAB Plan Discussed with:: Patient Time Spent: 31-60 minutes Subjective - Subjective Patient Reports: Abdominal Pain (Improved), Shortness of Breath (Improving), Other (Patient denies any fevers, chills or coughing overnight.) Nursing Reports: No Complaints Objective Vital Signs: Vital Signs - 24 hr 06/27/18 06/27/18 06/27/18 15:16 17:05 21:09 Temperature 36.6 C Heart Rate 64 Heart Rate [ Brachial] Heart Rate [ 57 L 57 L Monitoring electrodes] Respiratory 18 19 19 Rate Blood Pressure Blood Pressure 141/69 H 154/67 H [Left Brachial artery] Blood Pressure [Right Brachial artery] O2 Saturation 96 97 06/27/18 06/27/18 06/27/18 21:13 22:07 23:47 Temperature Heart Rate 57 L Heart Rate [ 57 L Brachial] Heart Rate [ Monitoring electrodes] Respiratory 18 18 Rate Blood Pressure 154/67 H Blood Pressure [Left Brachial artery] Blood Pressure 131/64 H [Right Brachial artery] O2 Saturation 95 06/28/18 06/28/18 07:57 08:32 Temperature 37.1 C Heart Rate Heart Rate [ Brachial] Heart Rate [ 56 L Monitoring electrodes] Respiratory 18 Rate Blood Pressure 139/76 H Blood Pressure [Left Brachial artery] Blood Pressure 139/76 H [Right Brachial artery] O2 Saturation 96 Oxygen O2 Source [With Activity] Nasal cannula O2 Source [Without Activity] Nasal cannula O2 Source Nasal cannula Oxygen Flow Rate 1 I&O (Last 24 Hrs): Intake and Output Totals x24h 06/26/18 06/27/18 06/28/18 23:59 23:59 23:59 Intake Total 1086 Output Total 1475 850 Balance -389 -850 General: Alert, Oriented x3, Cooperative, No acute distress HEENT: Atraumatic, PERRLA, EOMI, Mucous membr. moist/pink Neck: Supple, No JVD, No thyromegaly, +2 carotid pulse wo bruit, No LAD Lymphatic: no adenopathy Neuro: Alert, Non Focal, CN 2-12 Grossly Intact, Oriented Times 3 Cardiovascular: Regular rate, Normal S1, Normal S2, No murmurs Respiratory: Chest non-tender, No respiratory distress, Rales (Bases improved) Abdomen: Normal bowel sounds, Soft, No tenderness, No hepatospenomegaly, Other (Colostomy bag in place looks good) Extremities: No clubbing, No cyanosis, Normal pulses, Other (Mild LE edema) Skin: No rashes, No breakdown - Results Results: Laboratory Results WBC 4.6 x10^3/uL (4.8-10.8) L 06/28/18 06:15 RBC 3.10 10^6/uL (4.70-6.10) L 06/28/18 06:15 Hgb 9.2 g/dL (14.0-18.0) L 06/28/18 06:15 Hct 28.3 % (42.0-52.0) L 06/28/18 06:15 MCV 91.4 fL (80.0-94.0) 06/28/18 06:15 MCH 29.8 pg (27.0-31.0) 06/28/18 06:15 MCHC 32.6 g/dL (32.0-36.0) 06/28/18 06:15 RDW 14.9 % (12.0-15.0) 06/28/18 06:15 Plt Count 123 10^3/uL (130-450) L 06/28/18 06:15 MPV 7.4 fL (7.4-11.4) 06/28/18 06:15 Neut # (Auto) 3.3 10^3/uL (1.5-6.6) 06/28/18 06:15 Lymph # (Auto) 0.5 10^3/uL (1.5-3.5) L 06/28/18 06:15 [place] # (Auto) 0.4 10^3/uL (0.0-1.0) 06/28/18 06:15 Eos # (Auto) 0.3 10^3/uL (0.0-0.7) 06/28/18 06:15 Baso # (Auto) 0.1 10^3/uL (0.0-0.1) 06/28/18 06:15 Absolute Nucleated RBC 0.00 x10^3/uL 06/28/18 06:15 Nucleated RBC % 0.0 /100WBC 06/28/18 06:15 APTT 33.1 secs (24.9-33.3) 06/28/18 06:15 Sodium 137 mmol/L (135-145) 06/28/18 06:15 Potassium 3.7 mmol/L (3.5-5.0) 06/28/18 06:15 Chloride 97 mmol/L (101-111) L 06/28/18 06:15 Carbon Dioxide 33 mmol/L (21-32) H 06/28/18 06:15 Anion Gap 7.0 (6-13) 06/28/18 06:15 BUN 31 mg/dL (6-20) H 06/28/18 06:15 Creatinine 2.1 mg/dL (0.6-1.2) H 06/28/18 06:15 Estimated GFR (MDRD) 31 (>89) L 06/28/18 06:15 Glucose 100 mg/dL (70-100) 06/28/18 06:15 Calcium 9.0 mg/dL (8.5-10.3) 06/28/18 06:15 Magnesium 1.5 mg/dL (1.7-2.8) L 06/28/18 06:15 Total Bilirubin 1.8 mg/dL (0.2-1.0) H 06/28/18 06:15 AST 10 IU/L (10-42) 06/28/18 06:15 ALT < 10 IU/L (10-60) L 06/28/18 06:15 Alkaline Phosphatase 54 IU/L (42-121) 06/28/18 06:15 Troponin I 0.04 ng/mL (<0.49) 06/27/18 17:50 B-Natriuretic Peptide 573 pg/mL (5-100) H 06/28/18 06:15 Total Protein 5.1 g/dL (6.7-8.2) L 06/28/18 06:15 Albumin 2.8 g/dL (3.2-5.5) L 06/28/18 06:15 Globulin 2.3 g/dL (2.1-4.2) 06/28/18 06:15 Albumin/Globulin Ratio 1.2 (1.0-2.2) 06/28/18 06:15 Lipase 17 U/L (22-51) L 06/27/18 06:00 Urine Color YELLOW 06/27/18 04:20 Urine Clarity CLEAR (CLEAR) 06/27/18 04:20 Urine pH 5.5 PH (5.0-7.5) 06/27/18 04:20 Ur Specific [place] >=1.030 (1.002-1.030) H 06/27/18 04:20 Urine Protein TRACE mg/dL (NEGATIVE) 06/27/18 04:20 Urine Glucose (UA) NEGATIVE mg/dL (NEGATIVE) 06/27/18 04:20 Urine Ketones NEGATIVE mg/dL (NEGATIVE) 06/27/18 04:20 Urine Occult Blood NEGATIVE (NEGATIVE) 06/27/18 04:20 Urine Nitrite NEGATIVE (NEGATIVE) 06/27/18 04:20 Urine Bilirubin NEGATIVE (NEGATIVE) 06/27/18 04:20 Urine Urobilinogen 0.2 (NORMAL) E.U./dL (NORMAL) 06/27/18 04:20 Ur Leukocyte Esterase NEGATIVE (NEGATIVE) 06/27/18 04:20 Ur Microscopic Review NOT INDICATED 06/27/18 04:20 Urine Culture Comments NOT INDICATED 06/27/18 04:20 - Procedures Procedures: Procedures COLOSTOMY NOS (11/18/12) INCISIONAL HERNIA REPAIR (08/04/13) INSERT GASTRIC TUBE NEC (08/04/13) LG BOWEL STOMA CLOSURE (08/04/13) LG-TO-LG BOWEL ANASTOM (08/04/13) OPEN AND OTHER LEFT HEMICOLECTOMY (11/18/12) OPEN AND OTHER SIGMOIDECTOMY (08/04/13) OTH LYSIS-PERITONEAL ADHES (08/04/13) PACKED CELL TRANSFUSION (08/04/13) PARENTERAL INFUSION OF CONCENTRATED NUT. SUBSTANCE (08/04/13) PERCUTAN ASPIRATION GB (08/04/13) VENOUS CATHETERIZATION NEC (08/04/13) ABX Reporting Has patient been on IV antibiotics over the past 48 hours?: No Current Medications - Current Medications Current Medications: Active Medications Generic Name Dose Route Start Last Admin Trade Name Freq PRN Reason Stop Dose Admin Acetaminophen 650 mg 06/27/18 07:50 Tylenol PO Q4HR PRN Pain 1 to 4 Hydrocodone Bitart/Acetaminophen 1 tab 06/27/18 07:50 06/28/18 12:50 [place] 5/325 PO 1 tab Q4HR PRN Administration Pain 5 to 7 Hydrocodone Bitart/Acetaminophen 1 tab 06/27/18 07:50 [place] 10 Mg/325 Mg PO Q4HR PRN Pain 8 to 10 Albuterol/Ipratropium 3 ml 06/27/18 07:50 06/27/18 15:13 Duoneb INH 3 ml RTQID PRN Administration Wheezing Aspirin 81 mg 06/27/18 09:00 06/28/18 08:33 Ecotrin PO 81 mg DAILY NIDA Administration Atorvastatin Calcium 20 mg 06/27/18 21:00 06/27/18 21:12 Lipitor PO 20 mg QPM NIDA Administration Docusate Sodium 250 - 500 mg 06/28/18 09:00 06/28/18 08:32 Colace 250mg Capsule PO 250 mg DAILY NIDA Administration Doxazosin Mesylate 8 mg 06/27/18 09:00 06/28/18 08:32 Cardura PO 8 mg BID NIDA Administration Enoxaparin Sodium 30 mg 06/27/18 09:00 06/28/18 08:33 Lovenox SUBQ 30 mg DAILY NIDA Administration Famotidine 20 mg 06/27/18 09:00 06/28/18 08:32 Pepcid PO 20 mg BID NIDA Administration Furosemide 40 mg 06/27/18 14:00 06/28/18 14:14 Lasix Inj 40 Mg Vial IVP 40 mg BIDDIURETIC NIDA Administration Isosorbide Mononitrate 30 mg 06/27/18 09:00 06/28/18 08:32 Imdur PO 30 mg DAILY NIDA Administration Isosorbide Mononitrate 60 mg 06/27/18 21:00 06/27/18 21:12 Imdur PO 60 mg QPM NIDA Administration Losartan Potassium 50 mg 06/27/18 09:00 06/28/18 08:31 Cozaar PO 50 mg BID NIDA Administration Magnesium Oxide 400 mg 06/28/18 08:00 06/28/18 08:32 Mag Ox PO 400 mg DAILYWM NIDA Administration Metoprolol Tartrate 50 mg 06/27/18 09:00 06/28/18 08:32 Lopressor PO 50 mg BID NIDA Administration Ondansetron HCl 4 mg 06/27/18 07:50 06/28/18 01:26 Zofran Inj IVP 4 mg Q6HR PRN Administration Nausea / Vomiting Polyethylene Glycol 17 gm 06/27/18 09:00 06/28/18 08:33 Miralax PO 17 gm DAILY NIDA Administration Potassium Chloride 20 meq 06/27/18 09:00 06/28/18 08:31 K-Dur PO 20 meq DAILY NIDA Administration Prochlorperazine Edisylate 10 mg 06/27/18 07:50 Compazine Inj IVP Q6HR PRN Nausea / Vomiting Promethazine HCl 25 mg 06/27/18 07:50 Phenergan Inj IM Q6HR PRN Nausea / Vomiting Senna 8.6 - 17.2 mg 06/28/18 09:00 06/28/18 08:32 Senokot PO 8.6 mg DAILY NIDA Administration Sodium Chloride 10 ml 06/27/18 07:50 06/28/18 14:14 Normal Saline Flush 0.9% IVP 10 ml PRN PRN Administration NEEDED PER PROVIDER ORDERS Sodium Chloride 10 ml 06/27/18 09:00 06/28/18 14:14 Normal Saline Flush 0.9% IVP 10 ml 0100,0900,1700 NIDA Administration Throat Lozenges 1 lozenge 06/28/18 01:33 06/28/18 12:53 Cepacol MM 1 lozenge Q2HR PRN Administration Throat pain Trazodone HCl 50 mg 06/27/18 21:00 06/27/18 21:12 Desyrel PO 50 mg QPM NIDA Administration Zolpidem Tartrate 5 mg 06/27/18 07:50 Ambien PO QPM PRN Insomnia Atorvastatin Calcium [Lipitor] 20 mg PO QPM 11/11/12 Doxazosin [Cardura] 8 mg PO BID 08/04/13 Losartan [Cozaar] 50 mg PO BID 08/04/13 Aspirin [Adult Low Dose Aspirin EC] 81 mg PO DAILY 08/09/15 traZODone [Desyrel] 50 mg PO QPM 08/09/15 Acetaminophen 325 - 650 mg PO Q6HR PRN 08/18/15 Metoprolol Tartrate [Lopressor] 50 mg PO BID 06/04/18
[2018-06-28] MEDS: SODIUM CHLORIDE FLUSH 0.9% 10 ML SYRINGE IVP SCH ×3 (14:14→23:37)
[2018-06-28] MEDS: ATORVASTATIN 10 MG TABLET PO SCH (20:27)
[2018-06-28] MEDS: traZODone 50 MG TABLET PO SCH (20:28)
[2018-06-29 05:03] LABS: BASOPHILS % (AUTO) 0.7 %; EOSINOPHILS # (AUTO) 0.3 10^3/uL (0.0-0.7); EOSINOPHILS % (AUTO) 8.8 %; HGB - HEMOGLOBIN 9.5 g/dL (14.0-18.0); LYMPHOCYTES # (AUTO) 0.4 10^3/uL (1.5-3.5); LYMPHOCYTES % (AUTO) 13.2 %; MEAN CORPUSCULAR HEMOGLOBIN 30.4 pg (27.0-31.0); MEAN CORPUSCULAR HGB CONC 33.4 g/dL (32.0-36.0); MEAN PLATELET VOLUME 7.2 fL (7.4-11.4); MONOCYTES # (AUTO) 0.3 10^3/uL (0.0-1.0); MONOCYTES % (AUTO) 9.4 %; NEUTROPHILS # (AUTO) 2.2 10^3/uL (1.5-6.6); NEUTROPHILS % (AUTO) 67.9 %; PLT - PLATELET COUNT 124 10^3/uL (130-450); RED BLOOD COUNT 3.13 10^6/uL (4.70-6.10); RED CELL DISTRIBUTION WIDTH 14.9 % (12.0-15.0); WHITE BLOOD COUNT 3.2 x10^3/uL (4.8-10.8)
[2018-06-29 05:16] LABS: ALBUMIN 2.9 g/dL (3.2-5.5); ALBUMIN/GLOBULIN RATIO 1.2 (1.0-2.2); ALKALINE PHOSPHATASE 56 IU/L (42-121); ALT ALANINE AMINOTRANSFERASE < 10 IU/L (10-60); AST ASPARTATE AMINOTRANSFERASE 12 IU/L (10-42); BILIRUBIN,TOTAL 1.7 mg/dL (0.2-1.0); BUN - BLOOD UREA NITROGEN 35 mg/dL (6-20); CALCIUM 8.4 mg/dL (8.5-10.3); CARBON DIOXIDE - CO2 37 mmol/L (21-32); CHLORIDE 94 mmol/L (101-111); CREATININE 2.3 mg/dL (0.6-1.2); GFR - MDRD 28 (>89); GLUCOSE 110 mg/dL (70-100); MAGNESIUM 1.6 mg/dL (1.7-2.8); SODIUM 139 mmol/L (135-145); TOTAL PROTEIN 5.4 g/dL (6.7-8.2)
[2018-06-29] MEDS: BENZOCAINE/MENTHOL LOZENGE MM PRN ×3 (05:36→13:56)
[2018-06-29] MEDS: MAGNESIUM OXIDE 400 MG TABLET PO SCH (07:37)
[2018-06-29] MEDS: HYDROcod/ACETAM 5/325 MG TABLET PO PRN ×4 (07:37→20:34)
[2018-06-29] MEDS: ENOXAPARIN 30 MG/0.3 ML SYRINGE SUBQ SCH (08:40)
[2018-06-29] MEDS: SENNA 8.6 MG TABLET PO SCH (08:40)
[2018-06-29] MEDS: ISOSORBIDE MONONITRATE ER 30 MG TABLET PO SCH ×2 (08:40→20:59)
[2018-06-29] MEDS: DOXAZOSIN 4 MG TABLET PO SCH ×2 (08:40→20:59)
[2018-06-29] MEDS: DOCUSATE SODIUM 250 MG CAPSULE PO SCH (08:40)
[2018-06-29] MEDS: ASPIRIN EC 81 MG TABLET PO SCH (08:41)
[2018-06-29] MEDS: METOPROLOL TARTRATE 50 MG TABLET PO SCH ×2 (08:41→21:00)
[2018-06-29] MEDS: FAMOTIDINE 20 MG TABLET PO SCH ×2 (08:41→20:59)
[2018-06-29] MEDS: POTASSIUM CHLORIDE 20 MEQ TABLET PO SCH (08:41)
[2018-06-29] MEDS: LOSARTAN 50 MG TABLET PO SCH ×2 (08:41→21:00)
[2018-06-29] MEDS: SODIUM CHLORIDE FLUSH 0.9% 10 ML SYRINGE IVP SCH ×3 (08:41→23:53)
[2018-06-29] MEDS: POLYETHYLENE GLYCOL 3350 17 GM PACKET PO SCH (08:41)
[2018-06-29] MEDS ORDERED: FUROSEMIDE 40 MG TABLET PO SCH (09:00)
--- NOTE | 2018-06-29 16:22 | PROVIDER PROGRESS NOTE ---
Assessment/Plan - Problem List (1) Acute respiratory failure with hypoxia Assessment/Plan: Secondary to acute CHF exacerbation and chronic COPD Patient was on 1L of O2 and desaturated overnight and now of 2L O2 At home patient does not wear O2 O2 walk test patient dropped to below 88% on RA at rest and with exertion Patient requires 2L at rest and with exertion Patient will need home O2 Patient appears to be adequately diuresed and appears stable from COPD perspective (2) Acute exacerbation of CHF (congestive heart failure) Qualifiers: Heart failure type: systolic Qualified Code(s): I50.23 - Acute on chronic systolic (congestive) heart failure Conclusion/Plan: Patients BNP improved today to 277 from 1604 Patient is -1900 mL since admission Patient appears dry today and services clerk is up to 2.3 with contraction alkalosis We will stop lasix today and encourage patient to drink fluid Stop fluid restriction Monitor 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 Qualifiers: Heart failure type: systolic Qualified Code(s): I50.23 - Acute on chronic systolic (congestive) heart failure (3) Acute Kidney Injury Conclusion/Plan: Likely secondary to overdiuresis 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 increased to 2.3 Stop fluid restriction Stop lasix Encourage fluids Avoid nephrotoxic agents Monitor services clerk (4) Abdominal pain Conclusion/Plan: Improved likely was secondary to liver congestion from CHF as patient also has improved bili Qualifiers: Abdominal location: right lower quadrant Qualified Code(s): R10.31 - Right lower quadrant pain (5) Hypertension Conclusion/Plan: Stable Continue current meds Monitor Qualifiers: Hypertension type: essential hypertension Qualified Code(s): I10 - Essential (primary) hypertension (6) COPD (chronic obstructive pulmonary disease) Conclusion/Plan: Continue duonebs No wheezing Stable Qualifiers: COPD type: emphysema (7) Diabetes mellitus type 2 Conclusion/Plan: The patient does have a history of diabetes but his most recent hemoglobin A1c was 4.9 and he is no longer on any medications for his diabetes. Currently the patient's blood glucose appears to be well controlled without any medications. For now the patient will remain without any medications and we will monitor his blood glucose daily. Change patient to inpatient as he has been here for greater than 2 midnights - Current Meds Current Meds: Current Medications Generic Name Dose Route Start Last Admin Trade Name Freq PRN Reason Stop Dose Admin Hydrocodone Bitart/Acetaminophen 1 tab 06/27/18 07:50 06/29/18 12:42 [place] 5/325 PO 1 tab Q4HR PRN Administration Pain 5 to 7 Albuterol/Ipratropium 3 ml 06/27/18 07:50 06/27/18 15:13 Duoneb INH 3 ml RTQID PRN Administration Wheezing Aspirin 81 mg 06/27/18 09:00 06/29/18 08:41 Ecotrin PO 81 mg DAILY NIDA Administration Atorvastatin Calcium 20 mg 06/27/18 21:00 06/28/18 20:27 Lipitor PO 20 mg QPM NIDA Administration Docusate Sodium 250 - 500 mg 06/28/18 09:00 06/29/18 08:40 Colace 250mg Capsule PO 250 mg DAILY NIDA Administration Doxazosin Mesylate 8 mg 06/27/18 09:00 06/29/18 08:40 Cardura PO 8 mg BID NIDA Administration Enoxaparin Sodium 30 mg 06/27/18 09:00 06/29/18 08:40 Lovenox SUBQ 30 mg DAILY NIDA Administration Famotidine 20 mg 06/27/18 09:00 06/29/18 08:41 Pepcid PO 20 mg BID NIDA Administration Isosorbide Mononitrate 30 mg 06/27/18 09:00 06/29/18 08:40 Imdur PO 30 mg DAILY NIDA Administration Isosorbide Mononitrate 60 mg 06/27/18 21:00 06/28/18 20:26 Imdur PO 60 mg QPM NIDA Administration Losartan Potassium 50 mg 06/27/18 09:00 06/29/18 08:41 Cozaar PO 50 mg BID NIDA Administration Magnesium Oxide 400 mg 06/28/18 08:00 06/29/18 07:37 Mag Ox PO 400 mg DAILYWM NIDA Administration Metoprolol Tartrate 50 mg 06/27/18 09:00 06/29/18 08:41 Lopressor PO 50 mg BID NIDA Administration Ondansetron HCl 4 mg 06/27/18 07:50 06/28/18 16:21 Zofran Inj IVP 4 mg Q6HR PRN Administration Nausea / Vomiting Polyethylene Glycol 17 gm 06/27/18 09:00 06/29/18 08:41 Miralax PO 17 gm DAILY NIDA Administration Potassium Chloride 20 meq 06/27/18 09:00 06/29/18 08:41 K-Dur PO 20 meq DAILY NIDA Administration Prochlorperazine Edisylate 10 mg 06/27/18 07:50 06/28/18 20:36 Compazine Inj IVP 10 mg Q6HR PRN Administration Nausea / Vomiting Senna 8.6 - 17.2 mg 06/28/18 09:00 06/29/18 08:40 Senokot PO 8.6 mg DAILY NIDA Administration Sodium Chloride 10 ml 06/27/18 07:50 06/28/18 20:37 Normal Saline Flush 0.9% IVP 10 ml PRN PRN Administration NEEDED PER PROVIDER ORDERS Sodium Chloride 10 ml 06/27/18 09:00 06/29/18 08:41 Normal Saline Flush 0.9% IVP 10 ml 0100,0900,1700 NIAD Administration Throat Lozenges 1 lozenge 06/28/18 01:33 06/29/18 13:56 Cepacol MM 1 lozenge Q2HR PRN Administration Throat pain Trazodone HCl 50 mg 06/27/18 21:00 06/28/18 20:28 Desyrel PO 50 mg QPM NIDA Administration - Lab Result Lab results reviewed: Yes Fish Bone Diagrams: 06/29/18 04:54 06/29/18 04:54 - Diagnostic Imaging Results Diagnostic Imaging Results: Final report reviewed - Additional Planning Condition/Complexity: Guarded My Orders: My Active Orders 06/29/18 07:42 O2 [Oxygen Desat. Study w/Exercise] [RC] .ONCE 06/30/18 05:00 BNP - B-NATRIURETIC PEPTIDE [IAI] DAILYLAB CBC - COMP BLD CT W/AUTO DIFF [HEME] DAILYLAB COMPREHENSIVE METABOLIC PANEL [CHEM] DAILYLAB MAGNESIUM [CHEM] DAILYLAB 07/01/18 05:00 BNP - B-NATRIURETIC PEPTIDE [IAI] DAILYLAB CBC - COMP BLD CT W/AUTO DIFF [HEME] DAILYLAB COMPREHENSIVE METABOLIC PANEL [CHEM] DAILYLAB MAGNESIUM [CHEM] DAILYLAB 07/02/18 05:00 BNP - B-NATRIURETIC PEPTIDE [IAI] DAILYLAB CBC - COMP BLD CT W/AUTO DIFF [HEME] DAILYLAB COMPREHENSIVE METABOLIC PANEL [CHEM] DAILYLAB MAGNESIUM [CHEM] DAILYLAB Plan Discussed with:: Patient Time Spent: 31-60 minutes Subjective - Subjective Patient Reports: Feeling Better, Resting Comfortably, Other (Mouth feels dry, was weak and short of breath with exertion) Nursing Reports: No Complaints Objective Vital Signs: Vital Signs - 24 hr 06/28/18 06/28/18 06/28/18 20:23 20:28 22:00 Temperature 37.4 C Heart Rate 61 Heart Rate [ 66 Brachial] Heart Rate [ Monitoring electrodes] Respiratory 18 16 Rate Blood Pressure 151/67 H Blood Pressure 151/68 H [Right Brachial artery] O2 Saturation 96 06/28/18 06/29/18 06/29/18 23:30 03:42 04:31 Temperature 37.1 C 37.1 C 37.2 C Heart Rate 61 Heart Rate [ 61 60 Brachial] Heart Rate [ Monitoring electrodes] Respiratory 17 17 17 Rate Blood Pressure Blood Pressure 125/60 151/66 H [Right Brachial artery] O2 Saturation 91 L 91 L 94 06/29/18 06/29/18 06/29/18 07:35 08:41 12:19 Temperature 37.4 C 37.4 C Heart Rate Heart Rate [ Brachial] Heart Rate [ 56 L 56 L Monitoring electrodes] Respiratory 19 18 Rate Blood Pressure 139/65 H Blood Pressure 139/65 H 143/70 H [Right Brachial artery] O2 Saturation 97 94 06/29/18 06/29/18 13:00 15:38 Temperature 37.1 C 36.9 C Heart Rate Heart Rate [ Brachial] Heart Rate [ 58 L 55 L Monitoring electrodes] Respiratory 18 18 Rate Blood Pressure Blood Pressure 136/58 H 157/69 H [Right Brachial artery] O2 Saturation 94 95 Oxygen O2 Source [With Activity] Nasal cannula O2 Source [Without Activity] Nasal cannula O2 Source Nasal cannula Oxygen Flow Rate 1 I&O (Last 24 Hrs): Intake and Output Totals x24h 06/27/18 06/28/18 06/29/18 23:59 23:59 23:59 Intake Total 1086 1025 880 Output Total 1475 2600 475 Balance -389 -1575 405 General: Alert, Oriented x3, Cooperative, No acute distress HEENT: Atraumatic, PERRLA, EOMI, Mucous membr. moist/pink Neck: Supple, No JVD, No thyromegaly, +2 carotid pulse wo bruit, No LAD Lymphatic: no adenopathy Neuro: Alert, Non Focal, CN 2-12 Grossly Intact, Oriented Times 3 Cardiovascular: Regular rate, Normal S1, Normal S2, No murmurs Respiratory: Chest non-tender, Other (Decreased breath sounds bilaterally) Abdomen: Normal bowel sounds, Soft, No tenderness, No hepatospenomegaly, No masses Extremities: No clubbing, No cyanosis, No edema, Normal pulses Skin: No rashes, No breakdown - Results Results: Laboratory Results WBC 3.2 x10^3/uL (4.8-10.8) L 06/29/18 04:54 RBC 3.13 10^6/uL (4.70-6.10) L 06/29/18 04:54 Hgb 9.5 g/dL (14.0-18.0) L 06/29/18 04:54 Hct 28.4 % (42.0-52.0) L 06/29/18 04:54 MCV 91.0 fL (80.0-94.0) 06/29/18 04:54 MCH 30.4 pg (27.0-31.0) 06/29/18 04:54 MCHC 33.4 g/dL (32.0-36.0) 06/29/18 04:54 RDW 14.9 % (12.0-15.0) 06/29/18 04:54 Plt Count 124 10^3/uL (130-450) L 06/29/18 04:54 MPV 7.2 fL (7.4-11.4) L 06/29/18 04:54 Neut # (Auto) 2.2 10^3/uL (1.5-6.6) 06/29/18 04:54 Lymph # (Auto) 0.4 10^3/uL (1.5-3.5) L 06/29/18 04:54 [place] # (Auto) 0.3 10^3/uL (0.0-1.0) 06/29/18 04:54 Eos # (Auto) 0.3 10^3/uL (0.0-0.7) 06/29/18 04:54 Baso # (Auto) 0.0 10^3/uL (0.0-0.1) 06/29/18 04:54 Absolute Nucleated RBC 0.00 x10^3/uL 06/29/18 04:54 Nucleated RBC % 0.0 /100WBC 06/29/18 04:54 APTT 33.1 secs (24.9-33.3) 06/28/18 06:15 Sodium 139 mmol/L (135-145) 06/29/18 04:54 Potassium 3.7 mmol/L (3.5-5.0) 06/29/18 04:54 Chloride 94 mmol/L (101-111) L 06/29/18 04:54 Carbon Dioxide 37 mmol/L (21-32) H 06/29/18 04:54 Anion Gap 8.0 (6-13) 06/29/18 04:54 BUN 35 mg/dL (6-20) H 06/29/18 04:54 Creatinine 2.3 mg/dL (0.6-1.2) H 06/29/18 04:54 Estimated GFR (MDRD) 28 (>89) L 06/29/18 04:54 Glucose 110 mg/dL (70-100) H 06/29/18 04:54 Calcium 8.4 mg/dL (8.5-10.3) L 06/29/18 04:54 Magnesium 1.6 mg/dL (1.7-2.8) L 06/29/18 04:54 Total Bilirubin 1.7 mg/dL (0.2-1.0) H 06/29/18 04:54 AST 12 IU/L (10-42) 06/29/18 04:54 ALT < 10 IU/L (10-60) L 06/29/18 04:54 Alkaline Phosphatase 56 IU/L (42-121) 06/29/18 04:54 Troponin I 0.04 ng/mL (<0.49) 06/27/18 17:50 B-Natriuretic Peptide 277 pg/mL (5-100) H 06/29/18 04:54 Total Protein 5.4 g/dL (6.7-8.2) L 06/29/18 04:54 Albumin 2.9 g/dL (3.2-5.5) L 06/29/18 04:54 Globulin 2.5 g/dL (2.1-4.2) 06/29/18 04:54 Albumin/Globulin Ratio 1.2 (1.0-2.2) 06/29/18 04:54 Lipase 17 U/L (22-51) L 06/27/18 06:00 Urine Color YELLOW 06/27/18 04:20 Urine Clarity CLEAR (CLEAR) 06/27/18 04:20 Urine pH 5.5 PH (5.0-7.5) 06/27/18 04:20 Ur Specific [place] >=1.030 (1.002-1.030) H 06/27/18 04:20 Urine Protein TRACE mg/dL (NEGATIVE) 06/27/18 04:20 Urine Glucose (UA) NEGATIVE mg/dL (NEGATIVE) 06/27/18 04:20 Urine Ketones NEGATIVE mg/dL (NEGATIVE) 06/27/18 04:20 Urine Occult Blood NEGATIVE (NEGATIVE) 06/27/18 04:20 Urine Nitrite NEGATIVE (NEGATIVE) 06/27/18 04:20 Urine Bilirubin NEGATIVE (NEGATIVE) 06/27/18 04:20 Urine Urobilinogen 0.2 (NORMAL) E.U./dL (NORMAL) 06/27/18 04:20 Ur Leukocyte Esterase NEGATIVE (NEGATIVE) 06/27/18 04:20 Ur Microscopic Review NOT INDICATED 06/27/18 04:20 Urine Culture Comments NOT INDICATED 06/27/18 04:20 - Procedures Procedures: Procedures COLOSTOMY NOS (11/18/12) INCISIONAL HERNIA REPAIR (08/04/13) INSERT GASTRIC TUBE NEC (08/04/13) LG BOWEL STOMA CLOSURE (08/04/13) LG-TO-LG BOWEL ANASTOM (08/04/13) OPEN AND OTHER LEFT HEMICOLECTOMY (11/18/12) OPEN AND OTHER SIGMOIDECTOMY (08/04/13) OTH LYSIS-PERITONEAL ADHES (08/04/13) PACKED CELL TRANSFUSION (08/04/13) PARENTERAL INFUSION OF CONCENTRATED NUT. SUBSTANCE (08/04/13) PERCUTAN ASPIRATION GB (08/04/13) VENOUS CATHETERIZATION NEC (08/04/13) ABX Reporting Has patient been on IV antibiotics over the past 48 hours?: No Current Medications - Current Medications Current Medications: Active Medications Generic Name Dose Route Start Last Admin Trade Name Freq PRN Reason Stop Dose Admin Acetaminophen 650 mg 06/27/18 07:50 Tylenol PO Q4HR PRN Pain 1 to 4 Hydrocodone Bitart/Acetaminophen 1 tab 06/27/18 07:50 06/29/18 16:18 [place] 5/325 PO 1 tab Q4HR PRN Administration Pain 5 to 7 Hydrocodone Bitart/Acetaminophen 1 tab 06/27/18 07:50 [place] 10 Mg/325 Mg PO Q4HR PRN Pain 8 to 10 Albuterol/Ipratropium 3 ml 06/27/18 07:50 06/27/18 15:13 Duoneb INH 3 ml RTQID PRN Administration Wheezing Aspirin 81 mg 06/27/18 09:00 06/29/18 08:41 Ecotrin PO 81 mg DAILY NIDA Administration Atorvastatin Calcium 20 mg 06/27/18 21:00 06/28/18 20:27 Lipitor PO 20 mg QPM NIDA Administration Docusate Sodium 250 - 500 mg 06/28/18 09:00 06/29/18 08:40 Colace 250mg Capsule PO 250 mg DAILY NIDA Administration Doxazosin Mesylate 8 mg 06/27/18 09:00 06/29/18 08:40 Cardura PO 8 mg BID NIDA Administration Enoxaparin Sodium 30 mg 06/27/18 09:00 06/29/18 08:40 Lovenox SUBQ 30 mg DAILY NIDA Administration Famotidine 20 mg 06/27/18 09:00 06/29/18 08:41 Pepcid PO 20 mg BID NIDA Administration Isosorbide Mononitrate 30 mg 06/27/18 09:00 06/29/18 08:40 Imdur PO 30 mg DAILY NIDA Administration Isosorbide Mononitrate 60 mg 06/27/18 21:00 06/28/18 20:26 Imdur PO 60 mg QPM NIDA Administration Losartan Potassium 50 mg 06/27/18 09:00 06/29/18 08:41 Cozaar PO 50 mg BID NIDA Administration Magnesium Oxide 400 mg 06/28/18 08:00 06/29/18 07:37 Mag Ox PO 400 mg DAILYWM NIDA Administration Metoprolol Tartrate 50 mg 06/27/18 09:00 06/29/18 08:41 Lopressor PO 50 mg BID NIDA Administration Ondansetron HCl 4 mg 06/27/18 07:50 06/28/18 16:21 Zofran Inj IVP 4 mg Q6HR PRN Administration Nausea / Vomiting Polyethylene Glycol 17 gm 06/27/18 09:00 06/29/18 08:41 Miralax PO 17 gm DAILY NIDA Administration Potassium Chloride 20 meq 06/27/18 09:00 06/29/18 08:41 K-Dur PO 20 meq DAILY NIDA Administration Prochlorperazine Edisylate 10 mg 06/27/18 07:50 06/28/18 20:36 Compazine Inj IVP 10 mg Q6HR PRN Administration Nausea / Vomiting Promethazine HCl 25 mg 06/27/18 07:50 Phenergan Inj IM Q6HR PRN Nausea / Vomiting Senna 8.6 - 17.2 mg 06/28/18 09:00 06/29/18 08:40 Senokot PO 8.6 mg DAILY NIDA Administration Sodium Chloride 10 ml 06/27/18 07:50 06/28/18 20:37 Normal Saline Flush 0.9% IVP 10 ml PRN PRN Administration NEEDED PER PROVIDER ORDERS Sodium Chloride 10 ml 06/27/18 09:00 06/29/18 16:16 Normal Saline Flush 0.9% IVP 10 ml 0100,0900,1700 NIDA Administration Throat Lozenges 1 lozenge 06/28/18 01:33 06/29/18 13:56 Cepacol MM 1 lozenge Q2HR PRN Administration Throat pain Trazodone HCl 50 mg 06/27/18 21:00 06/28/18 20:28 Desyrel PO 50 mg QPM NIDA Administration Zolpidem Tartrate 5 mg 06/27/18 07:50 Ambien PO QPM PRN Insomnia Atorvastatin Calcium [Lipitor] 20 mg PO QPM 11/11/12 Doxazosin [Cardura] 8 mg PO BID 08/04/13 Losartan [Cozaar] 50 mg PO BID 08/04/13 Aspirin [Adult Low Dose Aspirin EC] 81 mg PO DAILY 08/09/15 traZODone [Desyrel] 50 mg PO QPM 08/09/15 Acetaminophen 325 - 650 mg PO Q6HR PRN 08/18/15 Metoprolol Tartrate [Lopressor] 50 mg PO BID 06/04/18
[2018-06-29] MEDS: ATORVASTATIN 10 MG TABLET PO SCH (20:59)
[2018-06-29] MEDS: traZODone 50 MG TABLET PO SCH (21:00)
[2018-06-30] MEDS: HYDROcod/ACETAM 5/325 MG TABLET PO PRN (06:15)
[2018-06-30] MEDS: BENZOCAINE/MENTHOL LOZENGE MM PRN ×2 (06:15→13:07)
[2018-06-30 06:41] LABS: BASOPHILS % (AUTO) 0.9 %; EOSINOPHILS # (AUTO) 0.2 10^3/uL (0.0-0.7); EOSINOPHILS % (AUTO) 9.4 %; HGB - HEMOGLOBIN 9.6 g/dL (14.0-18.0); LYMPHOCYTES # (AUTO) 0.4 10^3/uL (1.5-3.5); LYMPHOCYTES % (AUTO) 17.1 %; MEAN CORPUSCULAR HGB CONC 32.6 g/dL (32.0-36.0); MEAN PLATELET VOLUME 7.4 fL (7.4-11.4); MONOCYTES # (AUTO) 0.3 10^3/uL (0.0-1.0); NEUTROPHILS # (AUTO) 1.5 10^3/uL (1.5-6.6); NEUTROPHILS % (AUTO) 61.6 %; PLT - PLATELET COUNT 119 10^3/uL (130-450); RED BLOOD COUNT 3.21 10^6/uL (4.70-6.10); RED CELL DISTRIBUTION WIDTH 14.6 % (12.0-15.0); WHITE BLOOD COUNT 2.4 x10^3/uL (4.8-10.8)
[2018-06-30 06:47] LABS: ALBUMIN 2.8 g/dL (3.2-5.5); ALKALINE PHOSPHATASE 57 IU/L (42-121); ALT ALANINE AMINOTRANSFERASE < 10 IU/L (10-60); AST ASPARTATE AMINOTRANSFERASE 13 IU/L (10-42); BILIRUBIN,TOTAL 0.8 mg/dL (0.2-1.0); BUN - BLOOD UREA NITROGEN 37 mg/dL (6-20); CALCIUM 8.1 mg/dL (8.5-10.3); CARBON DIOXIDE - CO2 35 mmol/L (21-32); CHLORIDE 97 mmol/L (101-111); GFR - MDRD 32 (>89); GLUCOSE 104 mg/dL (70-100); MAGNESIUM 1.8 mg/dL (1.7-2.8); SODIUM 138 mmol/L (135-145); TOTAL PROTEIN 5.6 g/dL (6.7-8.2)
[2018-06-30] MEDS: SODIUM CHLORIDE FLUSH 0.9% 10 ML SYRINGE IVP SCH (08:02)
[2018-06-30] MEDS: ENOXAPARIN 30 MG/0.3 ML SYRINGE SUBQ SCH (08:03)
[2018-06-30] MEDS: ASPIRIN EC 81 MG TABLET PO SCH (08:05)
[2018-06-30] MEDS: ISOSORBIDE MONONITRATE ER 30 MG TABLET PO SCH (08:05)
[2018-06-30] MEDS: FAMOTIDINE 20 MG TABLET PO SCH (08:06)
[2018-06-30] MEDS: METOPROLOL TARTRATE 50 MG TABLET PO SCH (08:06)
[2018-06-30] MEDS: POTASSIUM CHLORIDE 20 MEQ TABLET PO SCH (08:07)
[2018-06-30] MEDS: MAGNESIUM OXIDE 400 MG TABLET PO SCH (08:07)
[2018-06-30] MEDS: LOSARTAN 50 MG TABLET PO SCH (08:07)
[2018-06-30] MEDS: DOXAZOSIN 4 MG TABLET PO SCH (08:07)
[2018-06-30] MEDS: POLYETHYLENE GLYCOL 3350 17 GM PACKET PO SCH (08:12)
[2018-06-30] MEDS: DOCUSATE SODIUM 250 MG CAPSULE PO SCH (08:12)
[2018-06-30] MEDS: SENNA 8.6 MG TABLET PO SCH (08:12)
[2018-06-30 09:36] VITALS: BP 112/54
--- NOTE | 2018-06-30 11:44 | Discharge Plan ---
Discharge Plan Disposition: 01 Home, Self Care Condition: Good Diet: Low Sodium (2L fluid restriction) Activity Restrictions: Activity as Tolerated Shower Restrictions: No Driving Restrictions: No Assistance Devices: Cane Weight Bearing: Full Weight Additional Instructions or Follow Up instructions: You presented to the emergency department due to abdominal pain. While you are in the emergency department your her oxygen saturation dropped and you were found to be hypoxic. We did some further workup and found that you were in congestive heart failure exacerbation as he had fluid in your lungs. We gave you IV water pills which seem to get rid of the fluid. It also improved your breathing however you remained hypoxic requiring oxygen. The respiratory therapist did a test to see if you require oxygen at home and it appears that you do. We are sending you home with 2 L of oxygen that you should wear at all times. We stopped the water pill as it was causing you to dry out and affecting your kidney function. Your kidney function is now better after stopping the water pill. We will not continue you on a water pill as you go home. But I do encourage that you restrict her salt and water intake. You should take no more than 2 g of salt and no more than 2 L of water a day. You should follow-up with your primary care physician for further evaluation. I believe your abdominal pain was due to congestion of your liver from your congestive heart failure but it appears that that has resolved with treatment of the CHF. [facility]-Up Care: [facility], [facility] No Smoking: If you smoke, Please STOP! Call for help. Follow-up with: Cassia Marcus MD [Provider Admit Priv/Credential] -
--- NOTE | 2018-06-30 11:52 | DISCHARGE SUMMARY ---
Discharge Summary Admit Date: 06/27/18 Discharge Date: 06/30/18 Discharging Provider: Abundio De Santiago MD Primary Care Provider: Cassia Marcus Condition at Discharge: Good Discharge Disposition: 01 Home, Self Care - DIAGNOSES Admission Diagnoses: 1. Acute exacerbation of CHF 2. Abdominal pain 3. Hypertension 4. COPD 5. Diabetes mellitus type 2 Discharge Diagnoses with Status of Each Condition: 1. Acute respiratory failure with hypoxia: Resolved 2. Acute exacerbation of CHF: Stable 3. Acute kidney injury: Improving 4. Abdominal pain: Stable 5. Hypertension: Stable 6. COPD: Stable 7. Diabetes mellitus type 2: Stable - HPI History of Present Illness: Patient is a 77-year-old gentle with a past medical history significant for recurrent bowel obstructions, extensive surgical history status post colostomy, diabetes, hypertension, hyperlipidemia, COPD and an abdominal aortic aneurysm who presented to the emergency department with a chief complaint of abdominal pain. Patient states that he has been dealing with abdominal pain for the last few days. He was seen in the emergency department for the same complaint just 2 days earlier. During that time the patient underwent a complete workup with a CT of the abdomen and pelvis which revealed increasing aortic and right iliac aneurysms and prominent stool. It was thought that the patient was constipated and he was discharged home. The aneurysms were not large enough to require any kind of intervention nor were they leaking. The patient states that he has been having these issues with abdominal pain on and off since the last 2 days and began to feel symptoms again last night and felt he should come into the hospital. The patient states that the pain was located in the right lower quadrant and went into his right flank. He states it felt like stretching rubber band. He states he was nauseated but did not have any vomiting. The patient denies any chest pain, diarrhea. He does admit to some constipation. On further review of systems the patient also states he has been having increasing shortness of breath for the last few days. He denies any chest pain or increased lower extremity edema associated with the shortness of breath. He does admit to orthopnea and states that he has been feeling tired and sleepy. The patient otherwise denies any weight gain or weight loss. He denies any urinary urgency, frequency, dysuria or any hematuria. Patient denies any headaches, blurred vision, runny nose, sore throat, nasal co ngestion, difficulty swallowing, palpitations, PND, joint swelling, joint aches, back pain, neck stiffness, polyuria, polydipsia, dizziness, lightheadedness, changes in his appetite or any focal neurologic deficits. On presentation to the emergency department the patient was afebrile and tachycardic with a heart rate of 101 hypertensive with a blood pressure of 187/102 and slightly tachypneic. While he was in the emergency department the patient became hypoxic with an O2 saturation down to 85% on room air. Patient had to be placed on 2 L oxygen at home the patient is not on any oxygen. The patient underwent an acute abdominal series for his abdominal pain which showed that the patient had a nonobstructive bowel gas pattern and minimal CHF. The patient's EKG did not show any ST elevations or acute ischemic changes. The patient's troponin was 0.04. On lab work the patient was found to have an elevated BNP of 1604 which was elevated from previous baseline of around 300. The patient's lab work also revealed a slightly elevated bilirubin of 2.0 and an elevated creatinine of 1.9 up from a baseline of about 1.2. The patient was slightly anemic but had no other abnormalities. Given the patient's shortness of breath, hypoxia, elevated BNP and congestion on chest x-ray the patient was placed in observation for CHF exacerbation after being given IV Lasix and an albuterol treatment in the emergency department. - HOSPITAL COURSE Hospital Course: Patient was initially placed in observation and treated with IV Lasix. The patient had good urine output and was -1900 mL's over the first day. Patient had significant improvement in his symptoms including his abdominal pain. The patient has also had improvement in his BNP which went from 1604 down to 277. The patient however continued to be hypoxic and was kept for an additional day of diuresis. With the additional day of diuresis the patient developed worsening renal failure with a creatinine that was up to 2.3. The patient's Lasix was held and he was encouraged to drink fluid. The patient had improvement in his creatinine by the time of discharge and appeared to be in stable condition. The patient's breathing was much improved. Patient underwent an O2 walk test. At rest the patient's oxygen saturation fell to 87% therefore he needed oxygen at rest. The patient's O2 saturation with 2 L of oxygen was maintained at above 92%. With ambulation the patient had an oxyg en saturation of 91% on 1 L and it went up above 92% with 2 L. The patient was discharged home with 2 L of oxygen 24 hours a day. Patient was continued on his home medications for his CHF and COPD. He will follow-up with his primary for care physician as needed. - ALLERGIES Allergies/Adverse Reactions: Allergies Allergy/AdvReac Type Severity Reaction Status Date / Time Calcium Channel Blocking Allergy Unknown UNKOWN Verified 05/29/18 16:59 Agent Dilt [Calcium Channel Blocking Agents-Curly] codeine [Codeine] Allergy vomiting Verified 05/29/18 16:59 Penicillins Allergy unknown Verified 05/29/18 16:59 venom-honey bee Allergy anaphylaxis Verified 05/29/18 16:59 [bee venom (honey bee)] - MEDICATIONS Home Medications: Ambulatory Orders Medication Instructions Recorded Confirmed Atorvastatin Calcium [Lipitor] 20 mg PO QPM 11/11/12 06/04/18 Doxazosin [Cardura] 8 mg PO BID 08/04/13 06/04/18 Losartan [Cozaar] 50 mg PO BID 08/04/13 06/04/18 Aspirin [Adult Low Dose Aspirin EC] 81 mg PO DAILY 08/09/15 01/03/18 traZODone [Desyrel] 50 mg PO QPM 08/09/15 06/04/18 Acetaminophen 325 - 650 mg PO Q6HR PRN 08/18/15 01/03/18 Albuterol Sulfate [Proventil Hfa 1 - 2 puffs IH Q4H PRN #1 06/03/17 01/03/18 Inhaler] [email or web address] Potassium Chloride [K-Dur] 20 meq PO DAILY #30 tablet 01/22/18 Isosorbide Mononitrate ER [Imdur] 60 mg PO DAILY #30 tablet 05/29/18 06/04/18 Metoprolol Tartrate [Lopressor] 50 mg PO BID 06/04/18 06/04/18 Azithromycin 250 mg PO DAILY #7 tablet 06/05/18 Isosorbide Mononitrate ER [Imdur] 30 mg PO DAILY tablet 06/05/18 - PHYSICAL EXAM AT DISCHARGE General Appearance: positive: No acute distress, Alert Eyes Bilateral: positive: Normal inspection, PERRL, EOMI, No lid inflammation, Conjunctivae nml, No scleral icterus ENT: positive: ENT inspection nml, Pharynx nml, No signs of dehydration. negative: Purulent nasal drainage, Pharyngeal erythema, Oral lesions Neck: positive: Nml inspection, Thyroid nml, No JVD, Trachea midline. negative: Thyromegaly, Lymphadenopathy (R), Lymphadenopathy (L), Carotid bruit, Tracheal deviation Respiratory: positive: Chest non-tender, No respiratory distress, Rales (Improving) Cardiovascular: positive: Regular rate & rhythm, No murmur, No gallop Peripheral Pulses: positive: 2+ Abdomen: positive: Non-tender, No organomegaly, Nml bowel sounds, No distention. negative: Guarding, Rebound, Hepatomegaly Back: positive: Nml inspection. negative: CVA tenderness (R), CVA tenderness (L) Skin: positive: Color nml, No rash, Warm. negative: Dry, Cyanosis, Diaphoresis, Pallor Extremities: positive: Non-tender, Full ROM, Nml appearance, Pedal edema (Improved) Neurologic/Psychiatric: positive: Oriented x3, CN's nml (2-12), Motor nml, Sensation nml, Mood/affect nml - LABS Result Diagrams: 06/30/18 05:59 06/30/18 05:59 Other Lab Results: Laboratory Results WBC 2.4 x10^3/uL (4.8-10.8) L 06/30/18 05:59 RBC 3.21 10^6/uL (4.70-6.10) L 06/30/18 05:59 Hgb 9.6 g/dL (14.0-18.0) L 06/30/18 05:59 Hct 29.6 % (42.0-52.0) L 06/30/18 05:59 MCV 92.0 fL (80.0-94.0) 06/30/18 05:59 MCH 30.0 pg (27.0-31.0) 06/30/18 05:59 MCHC 32.6 g/dL (32.0-36.0) 06/30/18 05:59 RDW 14.6 % (12.0-15.0) 06/30/18 05:59 Plt Count 119 10^3/uL (130-450) L 06/30/18 05:59 MPV 7.4 fL (7.4-11.4) 06/30/18 05:59 Neut # (Auto) 1.5 10^3/uL (1.5-6.6) 06/30/18 05:59 Lymph # (Auto) 0.4 10^3/uL (1.5-3.5) L 06/30/18 05:59 Christian # (Auto) 0.3 10^3/uL (0.0-1.0) 06/30/18 05:59 Eos # (Auto) 0.2 10^3/uL (0.0-0.7) 06/30/18 05:59 Baso # (Auto) 0.0 10^3/uL (0.0-0.1) 06/30/18 05:59 Absolute Nucleated RBC 0.00 x10^3/uL 06/30/18 05:59 Nucleated RBC % 0.0 /100WBC 06/30/18 05:59 APTT 33.1 secs (24.9-33.3) 06/28/18 06:15 Sodium 138 mmol/L (135-145) 06/30/18 05:59 Potassium 3.7 mmol/L (3.5-5.0) 06/30/18 05:59 Chloride 97 mmol/L (101-111) L 06/30/18 05:59 Carbon Dioxide 35 mmol/L (21-32) H 06/30/18 05:59 Anion Gap 6.0 (6-13) 06/30/18 05:59 BUN 37 mg/dL (6-20) H 06/30/18 05:59 Creatinine 2.0 mg/dL (0.6-1.2) H 06/30/18 05:59 Estimated GFR (MDRD) 32 (>89) L 06/30/18 05:59 Glucose 104 mg/dL (70-100) H 06/30/18 05:59 Calcium 8.1 mg/dL (8.5-10.3) L 06/30/18 05:59 Magnesium 1.8 mg/dL (1.7-2.8) 06/30/18 05:59 Total Bilirubin 0.8 mg/dL (0.2-1.0) 06/30/18 05:59 AST 13 IU/L (10-42) 06/30/18 05:59 ALT < 10 IU/L (10-60) L 06/30/18 05:59 Alkaline Phosphatase 57 IU/L (42-121) 06/30/18 05:59 Troponin I 0.04 ng/mL (<0.49) 06/27/18 17:50 B-Natriuretic Peptide 354 pg/mL (5-100) H 06/30/18 05:59 Total Protein 5.6 g/dL (6.7-8.2) L 06/30/18 05:59 Albumin 2.8 g/dL (3.2-5.5) L 06/30/18 05:59 Globulin 2.8 g/dL (2.1-4.2) 06/30/18 05:59 Albumin/Globulin Ratio 1.0 (1.0-2.2) 06/30/18 05:59 Lipase 17 U/L (22-51) L 06/27/18 06:00 Urine Color YELLOW 06/27/18 04:20 Urine Clarity CLEAR (CLEAR) 06/27/18 04:20 Urine pH 5.5 PH (5.0-7.5) 06/27/18 04:20 Ur Specific [place] >=1.030 (1.002-1.030) H 06/27/18 04:20 Urine Protein TRACE mg/dL (NEGATIVE) 06/27/18 04:20 Urine Glucose (UA) NEGATIVE mg/dL (NEGATIVE) 06/27/18 04:20 Urine Ketones NEGATIVE mg/dL (NEGATIVE) 06/27/18 04:20 Urine Occult Blood NEGATIVE (NEGATIVE) 06/27/18 04:20 Urine Nitrite NEGATIVE (NEGATIVE) 06/27/18 04:20 Urine Bilirubin NEGATIVE (NEGATIVE) 06/27/18 04:20 Urine Urobilinogen 0.2 (NORMAL) E.U./dL (NORMAL) 06/27/18 04:20 Ur Leukocyte Esterase NEGATIVE (NEGATIVE) 06/27/18 04:20 Ur Microscopic Review NOT INDICATED 06/27/18 04:20 Urine Culture Comments NOT INDICATED 06/27/18 04:20 - DIAGNOSTIC IMAGING Diagnostic Imaging Results: Final report reviewed Diagnostic Imaging Results Comments: Acute abdominal series Impression: 1. Nonobstructive bowel gas pattern. 2. Possible minimal CHF. - FOLLOW UP Follow Up: Patient was admitted for congestive heart failure exacerbation and was found to be hypoxemic. The patient was treated with IV Lasix and had significant improvement but remained hypoxic. Patient was discharged home with 2 L of oxygen. The patient will follow up with his primary care physician as needed. The patient will be continued on his chronic medical management of his COPD and CHF. - TIME SPENT Time Spent in Discharge (Minutes): 45
== END 2018-06-30 13:29 | disposition home or self-care (01) | DRG 291 ==
LOC: ED 03:45 → OBS 07:51 → OBSVTOIN 06-29 13:05 → MS2 06-29 14:22
PROVIDERS: ADMIT Internal Medicine; ATTEND Internal Medicine
DX: I11.0 Hypertensive heart disease with heart failure (principal); J96.01 Acute respiratory failure with hypoxia; N17.9 Acute kidney failure, unspecified; I50.23 Acute on chronic systolic (congestive) heart failure; E78.00 Pure hypercholesterolemia, unspecified; G40.909 Epilepsy, unspecified, not intractable, without status epilepticus; E11.9 Type 2 diabetes mellitus without complications; Z87.442 Personal history of urinary calculi; J44.9 Chronic obstructive pulmonary disease, unspecified; I71.4 Abdominal aortic aneurysm, without rupture; I72.3 Aneurysm of iliac artery; D64.9 Anemia, unspecified; H54.7 Unspecified visual loss; F41.9 Anxiety disorder, unspecified; Z85.46 Personal history of malignant neoplasm of prostate; Z87.891 Personal history of nicotine dependence; Z79.82 Long term (current) use of aspirin; R10.31 Right lower quadrant pain; Z93.3 Colostomy status; T50.2X5A Adverse effect of carbonic-anhydrase inhibitors, benzothiadiazides and other diuretics, initial encounter
CPT/HCPCS: 36415; 74022; 80048; 80053; 81001; 81003; 83690; 83735; 83880; 84484; 85025; 85730; 87086; 93005; 94640; 94761; 96372; 96374; 96375; 96376; 99285

== ENCOUNTER 2018-07-12 14:38 | Emergency (ER) | payer MEDICARE ==
[2018-07-12] MEDS ORDERED: ACETAMINOPHEN 325 MG TABLET PO STA (14:50)
--- NOTE | 2018-07-12 14:52 | ED Physician Documentation ---
PD HPI ABD PAIN - Stated complaint Stated Complaint: ABD PX - History obtained from History obtained from: Patient - History of Present Illness Timing - onset: Other (77-year-old gentleman with complicated abdominal history including multiple abdominal surgeries and ostomy on the left presents with recurrent right-sided abdominal pain. He was seen for it mid last month and had a CT showing increased size of aortic and right iliac aneurysms and prominent stool on the right. He felt better after the administration of a laxative. He continued to have on and off problems. He states that the pain continues and is in the right lower quadrant. He states that his ostomy output is normal. He complains of nausea but no vomiting. No fevers.) Review of Systems Constitutional: denies: Fever, Chills Cardiac: denies: Chest pain / pressure, Palpitations Respiratory: reports: Dyspnea. denies: Cough GI: reports: Abdominal Pain, Nausea. denies: Vomiting, Constipation, Diarrhea, Hematemesis, Bloody / black stool PD PAST MEDICAL HISTORY - Past Medical History Cardiovascular: Congestive heart failure (Echocardiogram December 2017 overall left ventricular systolic function moderately impaired with an ejection fraction of 35-40%. Mild global hypokinesis of the left ventricular contractility.), Hypertension, High cholesterol, Other (Syncope. 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 Status post sigmoid colectomy and low anterior resection and colostomy November 2012. Developed incisional hernia at the site with perforating diverticulitis at ostomy site. Underwent exploratory laparotomy and extensive lysis of adhesions, removal of ostomy and incisional hernia repair July 2013.), Other (Bowel obstruction November 2013, March 2014, April 2014. CT shows beaklike narrowing of the distal left colon.) : Nocturia, Kidney stones, Other (History of prostate cancer. Prostatectomy with lymph node resection in 1995) HEENT: Chronic vision loss Psych: Anxiety Musculoskeletal: None Derm: None, Other - Past Surgical History Past Surgical History: Yes General: Cholecystectomy, Appendectomy, Bowel surgery, Hiatal hernia repair, Colonoscopy /[employer]: Other (pubourethral sling 2008) Cardiovascular: AAA HEENT: Cataracts - Present Medications Home Medications: Ambulatory Orders Medication Instructions Recorded Confirmed RX: Atorvastatin Calcium [Lipitor] 20 mg PO QPM 11/11/12 06/04/18 RX: Doxazosin [Cardura] 8 mg PO BID 08/04/13 06/04/18 RX: Losartan [Cozaar] 50 mg PO BID 08/04/13 06/04/18 RX: Aspirin [Adult Low Dose 81 mg PO DAILY 08/09/15 01/03/18 Aspirin EC] RX: traZODone [Desyrel] 50 mg PO QPM 08/09/15 06/04/18 RX: Acetaminophen 325 - 650 mg PO Q6HR PRN 08/18/15 01/03/18 RX: Albuterol Sulfate [Proventil 1 - 2 puffs IH Q4H PRN #1 06/03/17 01/03/18 Hfa Inhaler] [email or web address] RX: Potassium Chloride [K-Dur] 20 meq PO DAILY #30 tablet 01/22/18 RX: Isosorbide Mononitrate ER 60 mg PO DAILY #30 tablet 05/29/18 06/04/18 [Imdur] RX: Metoprolol Tartrate [Lopressor] 50 mg PO BID 06/04/18 06/04/18 RX: Isosorbide Mononitrate ER 30 mg PO DAILY tablet 06/05/18 [Imdur] Hydrocodone/Acetaminophen 1 - 2 each PO Q6H PRN #10 tablet 07/12/18 [Hydrocodon-Acetaminophen 5-325] Ondansetron Odt [Zofran] 4 mg TL Q6H PRN #10 tablet 07/12/18 - Allergies Allergies/Adverse Reactions: Allergies Allergy/AdvReac Type Severity Reaction Status Date / Time Calcium Channel Blocking Allergy Unknown UNKOWN Verified 07/12/18 14:52 Agent Dilt [Calcium Channel Blocking Agents-Curly] codeine [Codeine] Allergy vomiting Verified 07/12/18 14:52 Penicillins Allergy unknown Verified 07/12/18 14:52 venom-honey bee Allergy anaphylaxis Verified 07/12/18 14:52 [bee venom (honey bee)] - Social History Does the pt smoke?: No Smoking Status: Former smoker Does the pt drink ETOH?: No Does the pt have substance abuse?: No - Immunizations Immunizations are current?: Yes - POLST Patient has POLST: Yes POLST Status: Full Code (5 wishes document noted in chart state that he wants to have life support treatment if he is close to , has permanent and severe brain damage, in a coma but only if it would help his symptoms and his health condition. If it is not helping his condition or symptoms he does not want resuscitation. His power of primary school teacher is Naveed Morgan, ) PD ED PE NORMAL - Vitals Vital signs reviewed: Yes - General General: Alert and oriented X 3, No acute distress - Cardiac Cardiac: RRR, No murmur - Respiratory Respiratory: Other (Rhonchorous and wheezy throughout, nonlabored) - Abdomen Abdomen: Other (Normal bowel tones, mild right lower quadrant tenderness without surgical signs. Multiple well-healed surgical scars and hernias with a left- sided ostomy with stool in the bag.) - Neuro Neuro: Alert and oriented X 3, Normal speech Results - Vitals Vitals: Vital Signs - 24 hr 07/12/18 07/12/18 14:45 15:41 Temperature 36.7 C Heart Rate 69 97 Respiratory 28 H 17 Rate Blood Pressure 161/117 H 210/100 H O2 Saturation 98 93 Oxygen O2 Source [With Activity] Nasal cannula O2 Source [Without Activity] Nasal cannula O2 Source Room air - Labs Labs: Laboratory Tests 07/12/18 07/12/18 07/12/18 15:10 15:10 15:19 WBC 6.3 RBC 3.62 L Hgb 10.9 L Hct 31.9 L MCV 88.3 MCH 30.3 MCHC 34.3 RDW 14.9 Plt Count 106 L MPV 8.1 Neut # (Auto) 4.6 Lymph # (Auto) 0.7 L [place] # (Auto) 0.3 Eos # (Auto) 0.5 Baso # (Auto) 0.1 Absolute Nucleated RBC 0.00 Nucleated RBC % 0.0 Sodium 138 Potassium 3.7 Chloride 99 L Carbon Dioxide 32 Anion Gap 7.0 BUN 22 H Creatinine 1.8 H Estimated GFR (MDRD) 37 L Glucose 108 H Calcium 10.3 Total Bilirubin 1.5 H AST 16 ALT 13 Alkaline Phosphatase 67 Total Protein 6.0 L Albumin 3.2 Globulin 2.8 Albumin/Globulin Ratio 1.1 Lipase 30 Urine Color YELLOW Urine Clarity CLEAR Urine pH 7.0 Ur Specific [place] 1.020 Urine Protein NEGATIVE Urine Glucose (UA) NEGATIVE Urine Ketones NEGATIVE Urine Occult Blood TRACE-INTA Urine Nitrite NEGATIVE Urine Bilirubin NEGATIVE Urine Urobilinogen 0.2 (NORMAL) Ur Leukocyte Esterase NEGATIVE Ur Microscopic Review NOT INDICATED Urine Culture Comments NOT INDICATED PD MEDICAL DECISION MAKING - ED course ED course: 77-year-old gentleman with chronic recurrent abdominal pain, there is no evidence of bowel obstruction. His labs are benign and he had a recent CT for same issue without serious/surgical findings. Close watchful waiting was advised. Departure - Departure Disposition: Home, Self Care Clinical Impression: Right sided abdominal pain Condition: Good Record reviewed to determine appropriate education?: Yes Instructions: Abdominal Pain Prescriptions: Hydrocodone/Acetaminophen [Hydrocodon-Acetaminophen 5-325] 1 - 2 each PO Q6H PRN #10 tablet PRN Reason: pain Ondansetron Odt [Zofran] 4 mg TL Q6H PRN #10 tablet PRN Reason: Nausea / Vomiting Comments: Call your doctor to arrange a follow-up appointment, make the next available appointment. In the interim, return anytime if worse or if new symptoms develop. Your blood pressure was elevated today on check into the emergency department. This does not mean that you have hypertension, it is a common phenomenon to come to the emergency department and have elevated blood pressure. I recommend that you see your primary care physician within the week to have it rechecked when you are feeling better. Discharge Date/Time: 07/12/18 15:56
[2018-07-12] MEDS ORDERED: ONDANSETRON ODT 4 MG TABLET TL STA (14:55)
[2018-07-12 15:22] LABS: BASOPHILS # (AUTO) 0.1 10^3/uL (0.0-0.1); BASOPHILS % (AUTO) 2.1 %; EOSINOPHILS # (AUTO) 0.5 10^3/uL (0.0-0.7); EOSINOPHILS % (AUTO) 8.1 %; HGB - HEMOGLOBIN 10.9 g/dL (14.0-18.0); LYMPHOCYTES # (AUTO) 0.7 10^3/uL (1.5-3.5); LYMPHOCYTES % (AUTO) 11.9 %; MEAN CORPUSCULAR HEMOGLOBIN 30.3 pg (27.0-31.0); MEAN CORPUSCULAR HGB CONC 34.3 g/dL (32.0-36.0); MEAN CORPUSCULAR VOLUME 88.3 fL (80.0-94.0); MEAN PLATELET VOLUME 8.1 fL (7.4-11.4); MONOCYTES # (AUTO) 0.3 10^3/uL (0.0-1.0); MONOCYTES % (AUTO) 5.4 %; NEUTROPHILS # (AUTO) 4.6 10^3/uL (1.5-6.6); NEUTROPHILS % (AUTO) 72.5 %; PLT - PLATELET COUNT 106 10^3/uL (130-450); RED BLOOD COUNT 3.62 10^6/uL (4.70-6.10); RED CELL DISTRIBUTION WIDTH 14.9 % (12.0-15.0); WHITE BLOOD COUNT 6.3 x10^3/uL (4.8-10.8)
[2018-07-12 15:32] LABS: ALBUMIN 3.2 g/dL (3.2-5.5); ALBUMIN/GLOBULIN RATIO 1.1 (1.0-2.2); BILIRUBIN,TOTAL 1.5 mg/dL (0.2-1.0); CALCIUM 10.3 mg/dL (8.5-10.3); CREATININE 1.8 mg/dL (0.6-1.2)
[2018-07-12 15:36] LABS: BILIRUBIN,URINE NEGATIVE (NEGATIVE); GLUCOSE, URINE (UA) NEGATIVE (NEGATIVE); KETONES,URINE (UA) NEGATIVE (NEGATIVE); LEUKOCYTE ESTERASE, URINE NEGATIVE (NEGATIVE); NITRITE,URINE NEGATIVE (NEGATIVE); OCCULT BLOOD,URINE TRACE-INTA (NEGATIVE); PROTEIN,URINE NEGATIVE (NEGATIVE); UROBILINOGEN,URINE 0.2 (NORMAL) E.U./dL (NORMAL)
[2018-07-12 15:38] LABS: CLARITY,URINE CLEAR (CLEAR)
[2018-07-12 15:44] VITALS: BP 210/100
== END 2018-07-12 15:56 | disposition home or self-care (01) ==
LOC: ED 14:38
DX: R10.9 Unspecified abdominal pain (principal); G89.29 Other chronic pain; I11.0 Hypertensive heart disease with heart failure; I50.9 Heart failure, unspecified; E78.00 Pure hypercholesterolemia, unspecified; E11.9 Type 2 diabetes mellitus without complications; Z87.891 Personal history of nicotine dependence; Z85.46 Personal history of malignant neoplasm of prostate; Z90.79 Acquired absence of other genital organ(s)
CPT/HCPCS: 36415; 80053; 81003; 83690; 85025; 99283; A9270; Q0162; 81001; 87086

== ENCOUNTER 2018-07-14 06:22 | Outpatient (CLI) | payer MEDICARE | END 2018-07-14 06:23 | disposition critical access hospital (66) | LOC: EMS 06:22 | PROVIDERS: ATTEND Surgery | DX: R06.00 Dyspnea, unspecified (principal) | CPT/HCPCS: A0425; A0429 ==

== ENCOUNTER 2018-07-14 06:43 | Emergency (ER) | payer MEDICARE ==
--- NOTE | 2018-07-14 07:34 | ED Physician Documentation ---
History of Present Illness - Stated complaint Stated Complaint: SOA - Chief complaint Chief Complaint: Resp - Additonal information Additional information: hx from pt 77 male hx HTN HLD CHF COPD among others recently dced from on home O2 last night about 430 AM while not wearing his home o2 "due to my own stubborness" he felt SOA, tight in the chest and faint he called 911 and was brought to the ER no fever chills + wet cough int sharp left sided abd pain associated with passing hard stools into his colostomy which he attributes to medication he has been on no NV + lalit mild leg edema Review of Systems Constitutional: denies: Fever, Chills Cardiac: reports: Chest pain / pressure Respiratory: reports: Dyspnea, Cough GI: reports: Abdominal Pain (L of colostomy site associated with hard stools). denies: Nausea, Vomiting Musculoskeletal: reports: Extremity swelling. denies: Extremity pain Endocrine: denies: Easy bruising / bleeding Immunocompromised: denies: Immunocompromised PD PAST MEDICAL HISTORY - Past Medical History Cardiovascular: Congestive heart failure, Hypertension, High cholesterol, Other Respiratory: Emphysema Neuro: Seizure disorder Endocrine/Autoimmune: Type 2 diabetes GI: Hiatal hernia, Diverticulitis, Other : Nocturia, Kidney stones, Other HEENT: Chronic vision loss Psych: Anxiety Musculoskeletal: None Derm: None, Other - Past Surgical History Past Surgical History: Yes General: Cholecystectomy, Appendectomy, Bowel surgery, Hiatal hernia repair, 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 Potassium Chloride [K-Dur] 20 meq PO DAILY #30 tablet 01/22/18 Isosorbide Mononitrate ER [Imdur] 60 mg PO DAILY #30 tablet 05/29/18 06/04/18 Metoprolol Tartrate [Lopressor] 50 mg PO BID 06/04/18 06/04/18 Isosorbide Mononitrate ER [Imdur] 30 mg PO DAILY tablet 06/05/18 Hydrocodone/Acetaminophen 1 - 2 each PO Q6H PRN #10 tablet 07/12/18 [Hydrocodon-Acetaminophen 5-325] Ondansetron Odt [Zofran] 4 mg TL Q6H PRN #10 tablet 07/12/18 Polyethylene Glycol 3350 [Miralax] 17 gm PO DAILY PRN #14 packet 07/14/18 - Allergies Allergies/Adverse Reactions: Allergies Allergy/AdvReac Type Severity Reaction Status Date / Time Calcium Channel Blocking Allergy Unknown UNKOWN Verified 07/14/18 06:54 Agent Dilt [Calcium Channel Blocking Agents-Curly] codeine [Codeine] Allergy vomiting Verified 07/14/18 06:54 Penicillins Allergy unknown Verified 07/14/18 06:54 venom-honey bee Allergy anaphylaxis Verified 07/14/18 06:54 [bee venom (honey bee)] - Social History Does the pt smoke?: No Smoking Status: Never smoker Does the pt drink ETOH?: No Does the pt have substance abuse?: No - Immunizations Immunizations are current?: Yes - POLST Patient has POLST: Yes POLST Status: Full Code (5 wishes document noted in chart state that he wants to have life support treatment if he is close to , has permanent and severe brain damage, in a coma but only if it would help his symptoms and his health condition. If it is not helping his condition or symptoms he does not want resuscitation. His power of workers compensation attorney is Naveed Morgan, ) PD ED PE NORMAL - Vitals Vital signs reviewed: Yes - General General: Alert and oriented X 3 - HEENT HEENT: PERRL - Neck Neck: Supple, no meningeal sign - Cardiac Cardiac: RRR - Respiratory Respiratory: Other (crackles lalit bases no wheezes or ronchi) - Abdomen Abdomen: Soft, Other. No: Non tender (mild TTP left of stoma, stoma hernia is easily reducible and tissue is oink and healthy) - Derm Derm: Normal color - Extremities Extremities: No deformity, No calf tenderness / cord. No: No edema (+ mild lalit edema) - Neuro Neuro: Alert and oriented X 3 Results - Vitals Vitals: Vital Signs - 24 hr 07/14/18 07/14/18 07/14/18 06:51 08:30 10:35 Temperature 37.3 C Heart Rate 92 93 90 Respiratory 20 18 20 Rate Blood Pressure 191/117 H 171/100 H 165/98 H O2 Saturation 96 99 97 Oxygen O2 Source [] Nasal cannula O2 Source [] Nasal cannula O2 Source Nasal cannula Oxygen Flow Rate 2 - EKG (time done) 0652 Rate: Rate (enter#) (97) Rhythm: NSR (computer read a fib but P waves visible in II) Intervals: Prolonged AR, Prolonged QT (borderline < 1/2 R->R). No: Normal AR Ischemia: ST depression (laterally similar to 06/27 EKG) - Labs Labs: Laboratory Tests 07/14/18 07/14/18 07/14/18 06:55 06:55 06:55 WBC 7.0 RBC 3.75 L Hgb 11.2 L Hct 33.6 L MCV 89.5 MCH 30.0 MCHC 33.5 RDW 15.0 Plt Count 90 L MPV 7.9 Neut # (Auto) 5.9 Lymph # (Auto) 0.5 L [place] # (Auto) 0.3 Eos # (Auto) 0.3 Baso # (Auto) 0.0 Absolute Nucleated RBC 0.00 Nucleated RBC % 0.0 Sodium 137 Potassium 3.5 Chloride 100 L Carbon Dioxide 30 Anion Gap 7.0 BUN 26 H Creatinine 2.1 H Estimated GFR (MDRD) 31 L Glucose 132 H Calcium 10.6 H Troponin I < 0.04 B-Natriuretic Peptide 07/14/18 06:55 WBC RBC Hgb Hct MCV MCH MCHC RDW Plt Count MPV Neut # (Auto) Lymph # (Auto) [place] # (Auto) Eos # (Auto) Baso # (Auto) Absolute Nucleated RBC Nucleated RBC % Sodium Potassium Chloride Carbon Dioxide Anion Gap BUN Creatinine Estimated GFR (MDRD) Glucose Calcium Troponin I B-Natriuretic Peptide 1041 H - Rads (name of study) AAS Radiology: See rad report (moderate stool no obstruction) CXR Radiology: See rad report (no infiltrate, stable cardiomegaly and tortuos aorta) PD MEDICAL DECISION MAKING - ED course ED course: chart review indicates pt has been worked up recently for abd pain - had a CT scan etc - has known AAA and iliac aneurysms which, as of 2 weeks ago, are not large enough for intervention - and a large stool burden he was also admitted to the last week of June for CHF exacerbation - treated with lasix which led to TIAGO so lasix was stopped and he was dced on home O2 his last echo was December 2017 and showed EF 35-40% and golobal hypokinesis he is back today with SOA and feeling weak and faint appears partly due to not wearing his O2 but doesn't feel much better not that he is back on oxygen (keeps taking it back off in the ER) he is again in CHF with BP back up over 1000 - was 354 at dc 06/30/18 - but CXR not too bad considered but doubt PE - not tachycardic or tachypneic, legs are symmetrically swollen not typcial of a DVT - his GFR is too low for a CTPA - given that he has a hx of CHF has crackles and edema and newly elevated BNP feel that CHF explains his sx EKG abn but similar to prior no acute changes pt not much better with O2 but pt much better after his usual med imdur also gave a single dose of lasix for acute inc CHF exac his abd price has been extensive worked up recently with CT etc todays xray shows no SBO just retained stool and the stoma hernia is not new and is easily reducible he was walking around the ER (without O2 again) and sat 97% HR 96 he req to go home will dc close fup PMD Departure - Departure Disposition: Home, Self Care Clinical Impression: CHF exacerbation Qualifiers: Heart failure type: unspecified Qualified Code(s): I50.9 - Heart failure, unspecified Condition: Good Instructions: ED CHF General Follow-Up: Cassia Marcus MD [Primary Care Provider] - (tomorrow ) Prescriptions: Polyethylene Glycol 3350 [Miralax] 17 gm PO DAILY PRN #14 packet PRN Reason: hard BMs and abdominal pain Comments: Initially I planned on admitting you but you are doing much better after being given medication in the ER and are able to walk around the ER without shortness of breath - so you can go home after all For your heart Continue your medications as before Monitor your weight to see if you are retaining water. Use your oxygen as directed Follow up yesi Marcus tomorrow for a recheck For your belly pain recommend a stool softener such as miralax since you report hard BMs and the xray shows retained stool. Discharge Date/Time: 07/14/18 10:40
[2018-07-14 07:41] LABS: BASOPHILS % (AUTO) 0.5 %; EOSINOPHILS # (AUTO) 0.3 10^3/uL (0.0-0.7); EOSINOPHILS % (AUTO) 3.7 %; HGB - HEMOGLOBIN 11.2 g/dL (14.0-18.0); LYMPHOCYTES # (AUTO) 0.5 10^3/uL (1.5-3.5); MEAN CORPUSCULAR HGB CONC 33.5 g/dL (32.0-36.0); MEAN CORPUSCULAR VOLUME 89.5 fL (80.0-94.0); MEAN PLATELET VOLUME 7.9 fL (7.4-11.4); MONOCYTES # (AUTO) 0.3 10^3/uL (0.0-1.0); MONOCYTES % (AUTO) 4.5 %; NEUTROPHILS # (AUTO) 5.9 10^3/uL (1.5-6.6); NEUTROPHILS % (AUTO) 84.3 %; PLT - PLATELET COUNT 90 10^3/uL (130-450); RED BLOOD COUNT 3.75 10^6/uL (4.70-6.10)
[2018-07-14 07:44] LABS: CALCIUM 10.6 mg/dL (8.5-10.3); CREATININE 2.1 mg/dL (0.6-1.2)
[2018-07-14] MEDS ORDERED: ACETAMINOPHEN 325 MG TABLET PO STA (08:20)
[2018-07-14] MEDS ORDERED: ASPIRIN CHEW 81 MG TABLET PO STA (08:23)
--- NOTE | 2018-07-14 08:38 | XRAY Report ---
Reason: left sided abd pain Procedure Date: 07/14/2018 Accession Number: [id number] / [id number] Procedure: XR - Abdomen 2 View X-Ray CPT Code: 87972 FULL RESULT: EXAM: ABDOMEN RADIOGRAPHY EXAM DATE: 07/14/2018 08:02 AM. CLINICAL HISTORY: Left-sided abdominal pain and left flank pain. COMPARISON: ABDOMEN ACUTE 06/27/2018 4:49 AM, CT ABDOMEN/PELVIS W/O 06/25/2018 8:27 PM. TECHNIQUE: 2 views. FINDINGS: Lung Bases: Stable chronic left basilar pleural reaction. No focal opacities are evident. Stable tortuous thoracic aorta and mild cardiomegaly. Bowel Gas Pattern: Moderate stool in the ascending and transverse colon. No bowel obstruction. Free Air: None. Other: Stable extensive postsurgical changes in the abdomen and pelvis. Left lower quadrant colostomy. No suspicious pathologic abdominal calcifications. Stable degenerative changes in the spine, sacroiliac joints and hips. IMPRESSION: 1. Moderate stool in the ascending and transverse colon. 2. Left lower quadrant colostomy. 3. No bowel obstruction. 4. Other stable chronic degenerative and postsurgical changes. RADIA
--- NOTE | 2018-07-14 08:40 | XRAY Report ---
Reason: soa Procedure Date: 07/14/2018 Accession Number: [id number] / [id number] Procedure: XR - Chest 2 View X-Ray CPT Code: 45064 FULL RESULT: EXAM: CHEST RADIOGRAPHY EXAM DATE: 07/14/2018 07:35 AM. CLINICAL HISTORY: Acute left flank pain. COMPARISON: ABDOMEN ACUTE 06/27/2018 4:49 AM. TECHNIQUE: 2 views. FINDINGS: Lungs/Pleura: Stable chronic lateral left basilar pleural reaction. No focal opacities are evident. The right costophrenic recess is sharp. No pneumothorax. Mediastinum: Stable mild cardiomegaly. Stable tortuous thoracic aorta with arteriosclerosis. Other: Moderate stool in the transverse colon. Stable postsurgical changes in the upper abdomen. Stable rotatory dextroscoliosis in the thoracolumbar spine. IMPRESSION: 1. No acute findings. 2. Other stable chronic degenerative and postsurgical changes. RADIA
[2018-07-14] MEDS ORDERED: ISOSORBIDE MONONITRATE ER 30 MG TABLET PO SCH (09:00)
[2018-07-14] MEDS ORDERED: FUROSEMIDE 20 MG TABLET PO STA ×2 (10:02)
[2018-07-14 12:52] VITALS: BP 165/98
== END 2018-07-14 10:40 | disposition home or self-care (01) ==
LOC: EDUNIT# → ED 06:43
DX: I50.9 Heart failure, unspecified (principal); J43.9 Emphysema, unspecified; I10 Essential (primary) hypertension; Z99.81 Dependence on supplemental oxygen; E11.9 Type 2 diabetes mellitus without complications
CPT/HCPCS: 36415; 71046; 74019; 80048; 83880; 84484; 85025; 93005; 99284; A9270

== ENCOUNTER 2018-07-15 11:36 | Emergency (ER) | payer MEDICARE ==
[2018-07-15] MEDS ORDERED: LORazepam 0.5 MG TABLET PO STA ×2 (12:56→13:39)
[2018-07-15 13:54] VITALS: BP 156/92
--- NOTE | 2018-07-15 13:57 | ED Physician Documentation ---
History of Present Illness - Stated complaint Stated Complaint: SOA - Chief complaint Chief Complaint: Resp - History obtained from History obtained from: Patient - History of Present Illness Timing: Chronic Pain level max: 6 Pain level now: 0 Improved by: nothing Worsened by: nothing - Additonal information Additional information: Patient is a 77-year-old male who states he is feeling increasingly anxious over the past several days. Used to be on Ativan, but is not been on this for the past year. States that he feels like he is having trouble calming himself down. Occasionally has difficulty breathing, but not currently. Review of Systems Constitutional: denies: Fever, Chills Nose: denies: Rhinorrhea / runny nose Throat: denies: Sore throat Cardiac: denies: Chest pain / pressure Respiratory: denies: Cough GI: denies: Vomiting : denies: Dysuria Skin: denies: Rash PD PAST MEDICAL HISTORY - Past Medical History Past Medical History: Yes Cardiovascular: Congestive heart failure, Hypertension, High cholesterol, Other Respiratory: Emphysema Neuro: Seizure disorder Endocrine/Autoimmune: Type 2 diabetes GI: Hiatal hernia, Diverticulitis, Other : Nocturia, Kidney stones, Other HEENT: Chronic vision loss Psych: Anxiety Musculoskeletal: None Derm: Other - Past Surgical History Past Surgical History: Yes General: Cholecystectomy, Appendectomy, Bowel surgery, Hiatal hernia repair, 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aer.ad Potassium Chloride [K-Dur] 20 meq PO DAILY #30 tablet 01/22/18 Isosorbide Mononitrate ER [Imdur] 60 mg PO DAILY #30 tablet 05/29/18 06/04/18 Metoprolol Tartrate [Lopressor] 50 mg PO BID 06/04/18 06/04/18 Isosorbide Mononitrate ER [Imdur] 30 mg PO DAILY tablet 06/05/18 Hydrocodone/Acetaminophen 1 - 2 each PO Q6H PRN #10 tablet 07/12/18 [Hydrocodon-Acetaminophen 5-325] Ondansetron Odt [Zofran] 4 mg TL Q6H PRN #10 tablet 07/12/18 Polyethylene Glycol 3350 [Miralax] 17 gm PO DAILY PRN #14 packet 07/14/18 LORazepam [Ativan] 0.5 mg PO Q6H PRN #14 tablet 07/15/18 - Allergies Allergies/Adverse Reactions: Allergies Allergy/AdvReac Type Severity Reaction Status Date / Time Calcium Channel Blocking Allergy Unknown UNKOWN Verified 07/14/18 06:54 Agent Dilt [Calcium Channel Blocking Agents-Curly] codeine [Codeine] Allergy vomiting Verified 07/14/18 06:54 Penicillins Allergy unknown Verified 07/14/18 06:54 venom-honey bee Allergy anaphylaxis Verified 07/14/18 06:54 [bee venom (honey bee)] - Social History Does the pt smoke?: No Smoking Status: Never smoker Does the pt drink ETOH?: No Does the pt have substance abuse?: No - Immunizations Immunizations are current?: Yes - POLST Patient has POLST: Yes POLST Status: Full Code (5 wishes document noted in chart state that he wants to have life support treatment if he is close to , has permanent and severe brain damage, in a coma but only if it would help his symptoms and his health condition. If it is not helping his condition or symptoms he does not want resuscitation. His power of deputy county attorney is Naveed Morgan, ) PD ED PE NORMAL - Vitals Vital signs reviewed: Yes - General General: Alert and oriented X 3, No acute distress, Well developed/nourished - HEENT HEENT: PERRL, Moist mucous membranes - Neck Neck: Supple, no meningeal sign - Cardiac Cardiac: RRR, Strong equal pulses - Respiratory Respiratory: No respiratory distress, Clear bilaterally - Abdomen Abdomen: Soft, Non tender, Non distended, Other (colostomy is clean and intact) - Derm Derm: Warm and dry - Extremities Extremities: No calf tenderness / cord - Neuro Neuro: Alert and oriented X 3 - Psych Psych: Normal mood, Normal affect Results - Vitals Vitals: Oxygen O2 Source [With Activity] Nasal cannula O2 Source [Without Activity] Nasal cannula O2 Source Room air - EKG (time done) 1148 Rate: Rate (enter#) (85) Rhythm: NSR [place]: LAD Intervals: 1st degree AVB, Wide QRS QRS: LVH Ischemia: Normal ST segments Compare to prior EKG: Unchanged from prior EKG PD MEDICAL DECISION MAKING - ED course Complexity details: reviewed old records, reviewed results, re-evaluated patient, considered differential, d/w patient ED course: 77 year old male with anxiety this am. Feel better after ativan. Will rx small amount and follow up with PCP for further care of his anxiety. Patient counseled regarding signs and symptoms for which I believe and urgent re- evaluation would be necessary. Patient with good understanding of and agreement to plan and is comfortable going home at this time This document was made in part using voice recognition software. While efforts are made to proofread this document, sound alike and grammatical errors may occur. Departure - Departure Disposition: 01 Home, Self Care Clinical Impression: Anxiety Condition: Good Instructions: ED Panic Attack Follow-Up: Cassia Marcus MD [Primary Care Provider] - Within 1 week Prescriptions: LORazepam [Ativan] 0.5 mg PO Q6H PRN #14 tablet PRN Reason: Anxiety Comments: Return if you worsen. Use the ativan as needed for your anxiety. Discharge Date/Time: 07/15/18 14:03
== END 2018-07-15 14:03 | disposition home or self-care (01) ==
LOC: ED 11:36
DX: F41.9 Anxiety disorder, unspecified (principal); I44.0 Atrioventricular block, first degree; E11.9 Type 2 diabetes mellitus without complications; I11.0 Hypertensive heart disease with heart failure; I50.9 Heart failure, unspecified; Z79.82 Long term (current) use of aspirin; E78.00 Pure hypercholesterolemia, unspecified
CPT/HCPCS: 93005; 99283; A9270; 80053; 83690; 84484; 85025

== ENCOUNTER 2018-08-01 15:58 | Outpatient (CLI) | payer MEDICARE | END 2018-08-01 15:59 | disposition home or self-care (01) | LOC: EMS 15:58 | PROVIDERS: ATTEND Surgery | DX: I46.9 Cardiac arrest, cause unspecified (principal); J44.9 Chronic obstructive pulmonary disease, unspecified ==